=== PATIENT | male | born 1945 | race Caucasian/White ===

== ENCOUNTER 2017-01-18 22:14 | Emergency (ER) | payer MEDICARE, BC ==
[2017-01-18 22:20] VITALS: RESP 18
[2017-01-18 22:47] LABS: Basophils # (A) 0.1 k/uL (0-0.2); Basophils % (A) 1 %; CH 29.3; CHCM 33.9; Eosinophils # (A) 0.2 k/uL (0-0.7); Eosinophils % (A) 2 %; HCT 46.4 % (39.0-53.0); HDW 2.79; HGB 15.4 gm/dL (13.0-17.5); Luc # (Auto) 0.33; Luc % (Auto) 4; Lymphocytes # (A) 2.9 k/uL (1.0-4.8); Lymphocytes % (A) 33 %; MCH 28.8 pg (25.0-35.0); MCHC 33.2 g/dL (31.0-37.0); MCV 86.6 fL (80.0-100.0); Mean Platelet Volume 7.1; Monocytes # (A) 0.7 k/uL (0-1.0); Monocytes % (A) 7 %; Neutrophils # (A) 4.7 k/uL (1.3-7.7); Neutrophils % (A) 53 %; RBC 5.36 m/uL (4.30-5.90); RDW 15.3 % (11.5-15.5); WBC 8.9 k/uL (3.8-10.6); WBC (Perox) 9.35
--- NOTE | 2017-01-18 22:48 | ED ---
Chest Pain HPI - General Chief Complaint: Chest Pain Stated Complaint: Chest Pain Time Seen by Provider: 01/18/17 22:14 Source: patient, EMS, RN notes reviewed Mode of arrival: EMS Limitations: no limitations - History of Present Illness Initial Comments: This is a 71-year-old male was brought in by EMS with complaints of chest pain started 20 minutes ago he also was found have a blood pressure about 90/50. He was seen at [facility] recently diagnosed with pleurisy he does complain some 4/10 chest pain he complains of weakness chills and sweats. Slight cough. He is a prior history of heart disease with bypass surgery his other complaints at this time MD Complaint: chest pain, other - Related Data Home Medications Medication Instructions Recorded Confirmed Aspirin 81 mg PO DAILY 07/25/15 09/21/16 Cholecalciferol [Vitamin D3] 2,000 unit PO DAILY 09/24/15 09/21/16 Pravastatin Sodium [Pravachol] 40 mg PO HS 09/24/15 09/21/16 Albuterol Nebulized [Ventolin 2.5 mg INHALATION RT-TID PRN 02/26/16 09/21/16 Nebulized] HYDROcodone/APAP 10-325MG [[place] 1 tab PO TID PRN 08/06/16 09/21/16 10-325] Metoprolol Succinate (ER) [Toprol 25 mg PO DAILY 08/06/16 09/21/16 XL] Albuterol Inhaler [Ventolin Hfa 2 puff INHALATION RT-QID PRN 09/21/16 09/21/16 Inhaler] Losartan [Cozaar] 25 mg PO DAILY 09/21/16 09/21/16 Previous Rx's Medication Instructions Recorded ARIPiprazole [Abilify] 10 mg PO DAILY #30 tab 08/25/16 Donepezil [Aricept] 10 mg PO HS #30 tab 08/25/16 Isosorbide Mononitrate ER [Imdur] 30 mg PO DAILY tab.er.24h 08/25/16 Memantine [Namenda] 5 mg PO BID #60 tab 08/25/16 Sertraline [Zoloft] 100 mg PO DAILY #30 tab 08/25/16 traMADol HCl [Ultram] 50 mg PO Q6H PRN #20 tab 09/21/16 Allergies Allergy/AdvReac Type Severity Reaction Status Date / Time adhesive Allergy Rash/Hives Verified 09/21/16 16:57 Review of Systems ROS Statement: Those systems with pertinent positive or pertinent negative responses have been documented in the HPI. ROS Other: All systems not noted in ROS Statement are negative. EKG Findings - EKG Results: EKG: interpreted by RUPERT, sinus rhythm (Sinus rhythm rate of 53 appear of 01 66 QRS duration 92 QT/QTC of 446/418 nonspecific T-wave configuration) Past Medical History Past Medical History: Atrial Fibrillation, Coronary Artery Disease (CAD), Chest Pain / Angina, Heart Failure, CVA/TIA, Dementia, GERD/Reflux, GI Bleed, Hyperlipidemia, Hypertension, Memory Impairment, Myocardial Infarction (SD), Sleep Apnea/CPAP/BIPAP, Syncope Additional Past Medical History / Comment(s): coronary artery disease with multivessel involvement status post three-vessel bypass surgery, previous myocardial infarctions, previous paroxysmal atrial fibrillation, CVA in 2012 along with previous TIAs, nephrolithiasis, chronic back pain, hemorrhoids, 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 Chronic back pain, gastroparesis, degenerative arthritis , impaired hearing, chronic diastolic heart failure, vascular dementia, esophageal stricture with previous history of esophageal dilatation, history of C. diff colitis occurred postoperatively forced the patient was hospitalized in June 2015. Last Myocardial Infarction Date:: 2014 History of Any Multi-Drug Resistant Organisms: MRSA Date of last positivie culture/infection: 02-02-12 MDRO Source:: UNK SITE OR SOURCE Past Surgical History: Back Surgery, Coronary Bypass/CABG, Heart Catheterization , Heart Catheterization With Stent, Orthopedic Surgery Additional Past Surgical History / Comment(s): BILATERAL CAROTID ENDARTERECTOMIES, HX OF PREVIOUS HEART CATHS WITH STENTS AND LAST STENT 03/2015 , EGD X3, ESOPHAGEAL DILATION X5, PLASTIC CAP LEFT ELBOW, URETHRAL STRICTURE DILATION., CABG (3 V) Past Anesthesia/Blood Transfusion Reactions: No Reported Reaction Additional Past Anesthesia/Blood Transfusion Reaction / Comment(s): Pt states he has no problem with anesthesia, old medical records indicate post op muscle weakness and slow to wake up. Pt has never recieved blood to his knowledge. Date of Last Stent Placement:: 03/22/2015 Past Psychological History: Anxiety, Depression Additional Psychological History / Comment(s): Pt resides with his of 24 yrs. He ambulates with a cane. He has sleep apnea and does not tolerate CPAP so on occasion he uses his 's home O2. He is independent with his ADLs. He has a back brace he wears on occasion. HAS HEARING AIDS AND DENTURES BUT WON' T WEAR. Smoking Status: Never smoker Past Alcohol Use History: None Reported Additional Past Alcohol Use History / Comment(s): HX OF HEAVY ALCOHOL USE. Patient states he is a nonsmoker. He denies any street drug use. He no longer drinks any alcohol. He is retired from [employer] He lives at home with his . He denies any recent travel. No pets in the home. Past Drug Use History: None Reported - Past Family History Father Family Medical History: Deep Vein Thrombosis (DVT) Additional Family Medical History / Comment(s): Father of DVT Mother Family Medical History: Cancer Additional Family Medical History / Comment(s): Mother of jaw bone cancer. General Exam - General Exam Comments Initial Comments: This is a well-developed well-nourished awake alert oriented 3 male Limitations: no limitations General appearance: alert, in no apparent distress Head exam: Present: atraumatic, normocephalic, normal inspection Eye exam: Present: normal appearance, PERRL, EOMI. Absent: scleral icterus, conjunctival injection, periorbital swelling ENT exam: Present: normal exam, mucous membranes moist Neck exam: Present: normal inspection. Absent: tenderness, meningismus, lymphadenopathy Respiratory exam: Present: decreased breath sounds. Absent: respiratory distress, wheezes, rales, rhonchi, stridor Cardiovascular Exam: Present: normal rhythm, bradycardia, normal heart sounds. Absent: systolic murmur, diastolic murmur, rubs, gallop, clicks GI/Abdominal exam: Present: soft, normal bowel sounds. Absent: distended, tenderness, guarding, rebound, rigid Extremities exam: Present: normal inspection, full ROM, normal capillary refill. Absent: tenderness, pedal edema, joint swelling, calf tenderness Back exam: Present: normal inspection Neurological exam: Present: alert, oriented X3, CN II-XII intact Psychiatric exam: Present: normal affect, normal mood Skin exam: Present: warm, dry, intact, normal color. Absent: rash Course Vital Signs 01/18/17 01/18/17 01/18/17 22:16 22:35 23:19 Temperature 97.4 F L Pulse Rate 55 L 54 L Pulse Rate [ 58 L Right Radial] Respiratory 18 18 Rate Blood Pressure 103/59 108/68 O2 Sat by Pulse 95 95 Oximetry Chest Pain MDM - MDM Patient is feeling much improved I did discuss findings with him and his family he'll be discharged she was encouraged to increase oral fluids Disposition Clinical Impression: Atypical chest pain, Dehydration, Hypotensive episode Disposition: HOME SELF-CARE Condition: Good Instructions: Costochondritis (ED), Dehydration (ED)
[2017-01-18 22:58] LABS: ALT 40 U/L (21-72); AST 24 U/L (17-59); Alkaline Phosphatase 68 U/L (38-126); Anion Gap 9 mmol/L; Blood Urea Nitrogen 27 mg/dL (9-20); Calcium 9.1 mg/dL (8.4-10.2); Carbon Dioxide 22 mmol/L (22-30); Chloride 108 mmol/L (98-107); Glucose 81 mg/dL (74-99); Magnesium 1.9 mg/dL (1.6-2.3); Non-African American GFR(MDRD) >60 (>60 ml/min/1.73 sqM); Potassium 4.1 mmol/L (3.5-5.1); Sodium 139 mmol/L (137-145); Total Bilirubin 0.4 mg/dL (0.2-1.3); Total Protein 6.6 g/dL (6.3-8.2)
[2017-01-18 22:59] LABS: INR 2.3 (<1.1); Partial Thromboplastin Time 28.1 sec (22.0-30.0); Prothrombin Time 22.5 sec (9.0-12.0)
[2017-01-18 23:12] LABS: Creatine Kinase 63 U/L (55-170)
--- NOTE | 2017-01-18 23:12 | XR ---
EXAM: XR Chest, 2 Views. CLINICAL HISTORY: Reason: Chest Pain TECHNIQUE: Frontal and lateral views of the chest. COMPARISON: Chest x-ray dated 09/21/2016 FINDINGS: Lungs: Bibasilar atelectasis. No focal consolidation to suggest pneumonia. Prominent pulmonary vasculature. Pleural space: Probable trace bilateral pleural effusion. No pneumothorax. Heart: Unremarkable. No cardiomegaly. Mediastinum: Unremarkable. Bones/joints: Evidence of prior median sternotomy. Unchanged cardiomediastinal silhouette. IMPRESSION: Bibasilar atelectasis. No focal consolidation to suggest pneumonia.
[2017-01-18 23:25] VITALS: TEMP 97.4
[2017-01-18 23:25] LABS: Creatine Kinase MB 1.3 ng/mL (0.0-2.4); Troponin I <0.012 ng/mL (0.000-0.034)
[2017-01-18] MEDS ORDERED: SODIUM CHLORIDE 0.9% 1,000 ML IV STA (23:52)
[2017-01-19 01:03] VITALS: BP 127/72; PULSE 58
== END 2017-01-19 01:17 | disposition home or self-care (01) ==
LOC: EC 22:14
DX: R07.89 Other chest pain (principal); I95.9 Hypotension, unspecified; E86.0 Dehydration; I25.10 Atherosclerotic heart disease of native coronary artery without angina pectoris; E78.5 Hyperlipidemia, unspecified; I10 Essential (primary) hypertension; I25.2 Old myocardial infarction; I50.32 Chronic diastolic (congestive) heart failure; I48.0 Paroxysmal atrial fibrillation; F03.90 Unspecified dementia, unspecified severity, without behavioral disturbance, psychotic disturbance, mood disturbance, and anxiety; Z79.82 Long term (current) use of aspirin; Z79.899 Other long term (current) drug therapy; Z91.048 Other nonmedicinal substance allergy status; Z95.5 Presence of coronary angioplasty implant and graft
CPT/HCPCS: 36415; 71020; 80053; 82550; 82553; 83735; 83880; 84484; 85025; 85610; 85730; 87502; 93005; 96360; 99285

== ENCOUNTER 2017-01-20 15:25 | Inpatient (IN) | payer BC, MEDICARE ==
[2017-01-20 16:27] LABS: Appearance,Urine Clear (Clear); Bilirubin,Urine Negative (Negative); Glucose,Urine (UA) Negative (Negative); Ketones,Urine Negative (Negative); Leukocyte Esterase,Urine Negative (Negative); Nitrite,Urine Negative (Negative); PH, Urine 5.5 (5.0-8.0); Protein,Urine Negative (Negative); Specific Gravity,Urine 1.016 (1.001-1.035); UA Billing (MACRO vs. MICRO) CHEM; Urobilinogen,Urine <2.0 mg/dL (<2.0)
--- NOTE | 2017-01-20 16:42 | ED ---
Psych HPI - General Chief Complaint: Psychiatric Symptoms Stated Complaint: suicidal Time Seen by Provider: 01/20/17 15:59 Source: patient, EMS, RN notes reviewed Mode of arrival: EMS Limitations: no limitations - History of Present Illness Initial Comments: 71-year-old male presents emergency Department chief complaint of depression. Patient states that he is severely depressed in which it only started today. Patient states he has a plan to shoot himself with a gun though he does not own a gun. Patient states he does have a history of depression. Patient denies any anxiety. Patient denies any illicit drug use or any alcohol use. She has no physical complaints. - Related Data Home Medications Medication Instructions Recorded Confirmed Losartan [Cozaar] 25 mg PO DAILY 09/21/16 01/20/17 Aspirin EC [Ecotrin Low Dose] 81 mg PO DAILY 01/20/17 01/20/17 Metoprolol Tartrate [Lopressor] 25 mg PO BID 01/20/17 01/20/17 Polymyxin B-Trimethoprim Ophth 1 drop BOTH EYES TID 01/20/17 01/20/17 [Polytrim Opthalmic] Warfarin [Coumadin] 2.5 mg PO DAILY 01/20/17 01/20/17 Warfarin [Coumadin] 5 mg PO DAILY 01/20/17 01/20/17 Previous Rx's Medication Instructions Recorded Isosorbide Mononitrate ER [Imdur] 30 mg PO DAILY tab.er.24h 08/25/16 Memantine [Namenda] 5 mg PO BID #60 tab 08/25/16 Sertraline [Zoloft] 100 mg PO DAILY #30 tab 08/25/16 Allergies Allergy/AdvReac Type Severity Reaction Status Date / Time adhesive Allergy Rash/Hives Verified 01/20/17 16:36 Review of Systems ROS Statement: Those systems with pertinent positive or pertinent negative responses have been documented in the HPI. ROS Other: All systems not noted in ROS Statement are negative. Past Medical History Past Medical History: Atrial Fibrillation, Coronary Artery Disease (CAD), Chest Pain / Angina, Heart Failure, CVA/TIA, Dementia, GERD/Reflux, GI Bleed, Hyperlipidemia, Hypertension, Memory Impairment, Myocardial Infarction (OR), Sleep Apnea/CPAP/BIPAP, Syncope Additional Past Medical History / Comment(s): coronary artery disease with multivessel involvement status post three-vessel bypass surgery, previous myocardial infarctions, previous paroxysmal atrial fibrillation, CVA in 2012 along with previous TIAs, nephrolithiasis, chronic back pain, hemorrhoids, 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 Chronic back pain, gastroparesis, degenerative arthritis , impaired hearing, chronic diastolic heart failure, vascular dementia, esophageal stricture with previous history of esophageal dilatation, history of C. diff colitis occurred postoperatively forced the patient was hospitalized in June 2015. Last Myocardial Infarction Date:: 2014 History of Any Multi-Drug Resistant Organisms: MRSA Date of last positivie culture/infection: 02-02-12 MDRO Source:: UNK SITE OR SOURCE Past Surgical History: Back Surgery, Coronary Bypass/CABG, Heart Catheterization , Heart Catheterization With Stent, Orthopedic Surgery Additional Past Surgical History / Comment(s): BILATERAL CAROTID ENDARTERECTOMIES, HX OF PREVIOUS HEART CATHS WITH STENTS AND LAST STENT 03/2015 , EGD X3, ESOPHAGEAL DILATION X5, PLASTIC CAP LEFT ELBOW, URETHRAL STRICTURE DILATION., CABG (3 V) Past Anesthesia/Blood Transfusion Reactions: No Reported Reaction Additional Past Anesthesia/Blood Transfusion Reaction / Comment(s): Pt states he has no problem with anesthesia, old medical records indicate post op muscle weakness and slow to wake up. Pt has never recieved blood to his knowledge. Date of Last Stent Placement:: 03/22/2015 Past Psychological History: Anxiety, Depression Additional Psychological History / Comment(s): Pt resides with his of 24 yrs. He ambulates with a cane. He has sleep apnea and does not tolerate CPAP so on occasion he uses his 's home O2. He is independent with his ADLs. He has a back brace he wears on occasion. HAS HEARING AIDS AND DENTURES BUT WON' T WEAR. Smoking Status: Never smoker Past Alcohol Use History: None Reported Additional Past Alcohol Use History / Comment(s): HX OF HEAVY ALCOHOL USE. Patient states he is a nonsmoker. He denies any street drug use. He no longer drinks any alcohol. He is retired from [employer]. He lives at home with his . He denies any recent travel. No pets in the home. Past Drug Use History: None Reported - Past Family History Father Family Medical History: Deep Vein Thrombosis (DVT) Additional Family Medical History / Comment(s): Father of DVT Mother Family Medical History: Cancer Additional Family Medical History / Comment(s): Mother of jaw bone cancer. General Exam Limitations: no limitations General appearance: alert, in no apparent distress Head exam: Present: atraumatic, normocephalic, normal inspection Eye exam: Present: normal appearance, PERRL, EOMI. Absent: scleral icterus, conjunctival injection, periorbital swelling ENT exam: Present: normal oropharynx, mucous membranes moist Neck exam: Present: normal inspection, full ROM. Absent: tenderness, meningismus, lymphadenopathy Respiratory exam: Present: normal lung sounds bilaterally. Absent: respiratory distress, wheezes, rales, rhonchi, stridor Cardiovascular Exam: Present: regular rate, normal rhythm, normal heart sounds. Absent: systolic murmur, diastolic murmur, rubs, gallop, clicks Neurological exam: Present: alert, oriented X3, CN II-XII intact Psychiatric exam: Present: depressed Course Vital Signs 01/20/17 01/20/17 15:30 15:53 Temperature 98.4 F Pulse Rate 60 Respiratory 18 Rate Blood Pressure 112/66 O2 Sat by Pulse 98 Oximetry Medical Decision Making - Lab Data Result diagrams: 01/20/17 16:36 01/20/17 16:36 Lab Results 01/20/17 01/20/17 01/20/17 Range/Units 15:44 15:44 16:36 WBC 8.4 (3.8-10.6) k/uL RBC 5.55 (4.30-5.90) m/uL Hgb 16.0 (13.0-17.5) gm/dL Hct 46.2 (39.0-53.0) % MCV 83.1 (80.0-100.0) fL MCH 28.9 (25.0-35.0) pg MCHC 34.7 (31.0-37.0) g/dL RDW 15.3 (11.5-15.5) % Plt Count 251 (150-450) k/uL Neutrophils % 66 % Lymphocytes % 23 % Monocytes % 7 % Eosinophils % 2 % Basophils % 1 % Neutrophils # 5.5 (1.3-7.7) k/uL Lymphocytes # 1.9 (1.0-4.8) k/uL Monocytes # 0.6 (0-1.0) k/uL Eosinophils # 0.1 (0-0.7) k/uL Basophils # 0.1 (0-0.2) k/uL Sodium (137-145) mmol/L Potassium (3.5-5.1) mmol/L Chloride (98-107) mmol/L Carbon Dioxide (22-30) mmol/L Anion Gap mmol/L BUN (9-20) mg/dL Creatinine (0.66-1.25) mg/dL Est GFR (MDRD) Af Amer (>60 ml/min/1.73 sqM) Est GFR (MDRD) Non-Af (>60 ml/min/1.73 sqM) Glucose (74-99) mg/dL Calcium (8.4-10.2) mg/dL Total Bilirubin (0.2-1.3) mg/dL AST (17-59) U/L ALT (21-72) U/L Alkaline Phosphatase (38-126) U/L Total Protein (6.3-8.2) g/dL Albumin (3.5-5.0) g/dL Urine Color Yellow Urine Appearance Clear (Clear) Urine pH 5.5 (5.0-8.0) Ur Specific [place] 1.016 (1.001-1.035) Urine Protein Negative (Negative) Urine Glucose (UA) Negative (Negative) Urine Ketones Negative (Negative) Urine Blood Negative (Negative) Urine Nitrite Negative (Negative) Urine Bilirubin Negative (Negative) Urine Urobilinogen <2.0 (<2.0) mg/dL Ur Leukocyte Esterase Negative (Negative) Urine Opiates Screen Not Detected (NotDetected) Ur Oxycodone Screen Not Detected (NotDetected) Urine Methadone Screen Not Detected (NotDetected) Ur Propoxyphene Screen Not Detected (NotDetected) Ur Barbiturates Screen Not Detected (NotDetected) U Tricyclic Antidepress Not Detected (NotDetected) Ur Phencyclidine Scrn Not Detected (NotDetected) Ur Amphetamines Screen Not Detected (NotDetected) U Methamphetamines Scrn Not Detected (NotDetected) U Benzodiazepines Scrn Not Detected (NotDetected) Urine Cocaine Screen Not Detected (NotDetected) U Marijuana (THC) Screen Not Detected (NotDetected) 04/04/17 Range/Units 16:36 WBC (3.8-10.6) k/uL RBC (4.30-5.90) m/uL Hgb (13.0-17.5) gm/dL Hct (39.0-53.0) % MCV (80.0-100.0) fL MCH (25.0-35.0) pg MCHC (31.0-37.0) g/dL RDW (11.5-15.5) % Plt Count (150-450) k/uL Neutrophils % % Lymphocytes % % Monocytes % % Eosinophils % % Basophils % % Neutrophils # (1.3-7.7) k/uL Lymphocytes # (1.0-4.8) k/uL Monocytes # (0-1.0) k/uL Eosinophils # (0-0.7) k/uL Basophils # (0-0.2) k/uL Sodium 138 (137-145) mmol/L Potassium 4.6 (3.5-5.1) mmol/L Chloride 105 (98-107) mmol/L Carbon Dioxide 22 (22-30) mmol/L Anion Gap 11 mmol/L BUN 16 (9-20) mg/dL Creatinine 1.00 (0.66-1.25) mg/dL Est GFR (MDRD) Af Amer >60 (>60 ml/min/1.73 sqM) Est GFR (MDRD) Non-Af >60 (>60 ml/min/1.73 sqM) Glucose 87 (74-99) mg/dL Calcium 9.6 (8.4-10.2) mg/dL Total Bilirubin 0.6 (0.2-1.3) mg/dL AST 23 (17-59) U/L ALT 35 (21-72) U/L Alkaline Phosphatase 75 (38-126) U/L Total Protein 7.4 (6.3-8.2) g/dL Albumin 4.0 (3.5-5.0) g/dL Urine Color Urine Appearance (Clear) Urine pH (5.0-8.0) Ur Specific [place] (1.001-1.035) Urine Protein (Negative) Urine Glucose (UA) (Negative) Urine Ketones (Negative) Urine Blood (Negative) Urine Nitrite (Negative) Urine Bilirubin (Negative) Urine Urobilinogen (<2.0) mg/dL Ur Leukocyte Esterase (Negative) Urine Opiates Screen (NotDetected) Ur Oxycodone Screen (NotDetected) Urine Methadone Screen (NotDetected) Ur Propoxyphene Screen (NotDetected) Ur Barbiturates Screen (NotDetected) U Tricyclic Antidepress (NotDetected) Ur Phencyclidine Scrn (NotDetected) Ur Amphetamines Screen (NotDetected) U Methamphetamines Scrn (NotDetected) U Benzodiazepines Scrn (NotDetected) Urine Cocaine Screen (NotDetected) U Marijuana (THC) Screen (NotDetected) Disposition Clinical Impression: Depression, Suicidal ideation Disposition: ADMITTED IP TO THIS HOSP
[2017-01-20 16:44] LABS: Basophils # (A) 0.1 k/uL (0-0.2); Basophils % (A) 1 %; CH 29.3; CHCM 35.3; Eosinophils # (A) 0.1 k/uL (0-0.7); Eosinophils % (A) 2 %; HCT 46.2 % (39.0-53.0); HDW 2.85; Luc # (Auto) 0.21; Luc % (Auto) 3; Lymphocytes # (A) 1.9 k/uL (1.0-4.8); Lymphocytes % (A) 23 %; MCH 28.9 pg (25.0-35.0); MCHC 34.7 g/dL (31.0-37.0); MCV 83.1 fL (80.0-100.0); Mean Platelet Volume 6.7; Monocytes # (A) 0.6 k/uL (0-1.0); Monocytes % (A) 7 %; Neutrophils # (A) 5.5 k/uL (1.3-7.7); Neutrophils % (A) 66 %; RBC 5.55 m/uL (4.30-5.90); RDW 15.3 % (11.5-15.5); WBC 8.4 k/uL (3.8-10.6)
[2017-01-20 17:00] LABS: ALT 35 U/L (21-72); AST 23 U/L (17-59); Alkaline Phosphatase 75 U/L (38-126); Anion Gap 11 mmol/L; Blood Urea Nitrogen 16 mg/dL (9-20); Calcium 9.6 mg/dL (8.4-10.2); Carbon Dioxide 22 mmol/L (22-30); Chloride 105 mmol/L (98-107); Glucose 87 mg/dL (74-99); Non-African American GFR(MDRD) >60 (>60 ml/min/1.73 sqM); Potassium 4.6 mmol/L (3.5-5.1); Sodium 138 mmol/L (137-145); Total Bilirubin 0.6 mg/dL (0.2-1.3); Total Protein 7.4 g/dL (6.3-8.2)
[2017-01-20] MEDS ORDERED: MAG HYDROX/AL HYDROX/SIMETH 30 ML CUP PO PRN (20:22)
[2017-01-20] MEDS ORDERED: ACETAMINOPHEN TAB 325 MG TAB PO PRN (20:22)
[2017-01-20] MEDS ORDERED: MAGNESIUM HYDROXIDE 2,400 MG/10 ML CUP PO PRN (20:22)
[2017-01-20 20:48] LABS: INR 2.4 (<1.1); Prothrombin Time 22.9 sec (9.0-12.0)
[2017-01-20 21:00] VITALS: BMI 32.9
[2017-01-20] MEDS: METOPROLOL TARTRATE 25 MG TAB PO SCH (22:24)
[2017-01-20] MEDS: POLYMYXIN B-TRIMETHOPRIM (10,000-1) OPHTH DROPS 10 ML BTL BOTH EYES SCH (22:26)
[2017-01-21] MEDS ORDERED: WARFARIN 5 MG TAB PO SCH (09:00)
[2017-01-21] MEDS: METOPROLOL TARTRATE 25 MG TAB PO SCH ×3 (10:42→20:12)
[2017-01-21] MEDS: ISOSORBIDE MONONITRATE ER 30 MG TAB.ER.24H PO SCH (10:42)
[2017-01-21] MEDS: SERTRALINE 100 MG TAB PO SCH (10:42)
[2017-01-21] MEDS: LOSARTAN 25 MG TAB PO SCH (10:42)
[2017-01-21] MEDS: ASPIRIN 81 MG CHEW PO SCH (10:43)
[2017-01-21] MEDS: POLYMYXIN B-TRIMETHOPRIM (10,000-1) OPHTH DROPS 10 ML BTL BOTH EYES SCH ×3 (10:43→20:12)
--- NOTE | 2017-01-21 15:31 | P.HP ---
Psychiatric H&P - . H&P Date: 01/21/17 History & Physical: IDENTIFYING DATA: Mr. Ball is a 72-year-old male who has history of a major neurocognitive disorder HISTORY OF PRESENT ILLNESS: He presented to the ER voluntarily with the complaint of suicidal ideation. He told the EPS nurse "I started going haywire. " In response to questions about what he meant he replied "I just want to . " He told the triage nurse in the ER that he wants to shoot himself. He is living in a custodial home and does not have access to a gun. He was unable to explain the reason for his presentation or the hospitalization. In response to questions about the reason he came to the hospital he replied "they brought me here." When asked him who they were he replied "the people at the house." When asked about feelings of depression he replied "yes" and would or could not elaborate. When I asked about how long he had been feeling depressed, he replied "for a while." He responded "yes" to questions about thoughts of suicide and again, when I asked him about duration replied "for a while". Similarly, he replied yes to questions about auditory hallucinations, "voices". Again, when I asked about duration he replied "for a while". When I ask questions about the nature of the "voices" he replied "I don 't know" PAST PSYCHIATRIC HISTORY: This is his third admission to the psychiatric unit: The last was in August 2016. His discharge diagnoses included major depressive disorder recurrent, unspecified anxiety disorder and neurocognitive disorder. His discharge medications were: Abilify 10 mg daily, Aricept 10 mg at bedtime, Namenda 5 mg twice a day, Zoloft 100 mg per day, aspirin 1881 mg daily, vitamin D3 2000 units daily, Pravachol 40 mg at bedtime, albuterol nebulizer 2.5 inhalation 3 times a day, Cozaar 50 mg in the morning, [place] 10- 325 3 times a day as needed an Toprol-XL 25 mg daily. We referred him to professional counseling Center for continued mental health treatment. PAST MEDICAL HISTORY: He was unable to provide a medical history. According to the record, he has history of coronary artery disease with multivessel involvement, status post 3 vessel bypass surgery, history of myocardial infarctions. He has a history of paroxysmal atrial fibrillation, CVA in 2013, history of TIAs, nephrolithiasis, chronic back pain, psoriasis, esophageal stricture with dilation, shoulder pain secondary to motor cuff syndrome, obstructive sleep apnea, impaired hearing, chronic diastolic heart failure, dementia, and hypertension. ALLERGIES: NO KNOWN DRUG ALLERGIES. SUBSTANCE USE HISTORY: He denied recent alcohol or drug use. According to record he has a history of alcohol use problems. FAMILY PSYCHIATRIC/SUBSTANCE USE HISTORY: He is unaware of a family history of mental illness or substance use problems. LEGAL HISTORY: He was charged with kidnapping and secondary criminal sexual conduct on 08/06/2016. According to the [facility] court security officer, he had a C evaluation of the forensic center [facility] on 01/06/2017. Evaluation is not available for review. His 12/12/2016 jury trial was postponed to 2016. SOCIAL HISTORY: His born and raised in [place]. He believes he left school in the sixth or seventh grade. 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 He denied history of physical, sexual or emotional abuse. He is currently living in the [facility]; a custodial house for individuals with legal issues. He has been twice. He his current in 1985. He has a 15-year-old daughter who lives with his . He was unable to provide additional information about his past history. MENTAL STATUS EXAM: He presented as a disheveled and malodorous elderly male with unkept hair and romano. He made intermittent eye contact. He appeared to attend to interview. He wore a tether on his right ankle. He appeared unable to name the tether and could not explain the reason he had the tether. He had no prominent physical abnormalities. He had a distressed facial expression. He was alert and oriented to person and place. He showed slight psychomotor retardation. His gait was slow and unsteady. His speech was not spontaneous. He admitted to suicidal ideation or wishes. He denied homicidal ideation. He feels hopeless and helpless. He ruminated about feeling unwell. His thinking was concrete and associations were not fully coherent and logical. He alleged he was experiencing auditory hallucinations but did not appear to be responding to insert internal stimuli. Global impression of intellect is below average. He is not aware of his illness or has no understanding of need for mental health treatment. His total score on the Montral Cognitive Assessment was 8/27. We gave one point because he has less than a 12 year education and eliminated serial sevens because he could not perform mental arithmetic . He was unable to complete alternating [place] or copy the cube diagram. He accurately reproduce a clock but did not correctly place the hands to indicate 11:10. He had difficulty with naming, registration of the memory words, attention, language, abstraction , delayed recall and orientation. He could not remember the memory words. He was oriented only to place and city. He did not know the date, the month or year. STRENGTHS: Stable housing, supportive family WEAKNESSES: Legal problems, major neurocognitive disorder, multiple medical problems. IMPRESSION: Is a 72-year-old male who presented to unit with complaints of suicidal ideation. He is confused and disoriented. He is unable to provide a coherent history of present illness or past history. His Performance on the Montral Cognitive Assessment Is Consistent with Severe Cognitive Impairment. PRINCIPLE DIAGNOSIS: Unspecified major neurocognitive disorder, unspecified depressive disorder, legal problems, multiple medical problems RECOMMENDATION: Continue inpatient hospitalization due to level of confusion. Obtain collateral information about his level of functioning prior to admission , increase Namenda to 15 mg a day in divided doses. Obtain information from his outpatient provider as to why Aricept had been discontinued. Continue sertraline 100 mg daily; consider a trial of an alternate antidepressant and/or augmentation with a second generation antipsychotic. Continue aspirin 81 mg daily, Imdur 30 mg daily, Cozaar 25 mg daily, Lopressor 25 mg twice a day and warfarin 7.5 mg daily. pest control worker to coordinate discharge and aftercare. Encourage participation in therapeutic groups and activities as tolerated. Evaluate clinical status response to treatment on a daily basis. Allergies Allergy/AdvReac Type Severity Reaction Status Date / Time adhesive Allergy Rash/Hives Verified 01/20/17 21:02 Vital Signs Temp 98.1 F 01/21/17 06:41 Pulse 49 L 01/21/17 06:41 Resp 12 01/21/17 06:41 BP 116/56 01/21/17 06:41 Pulse Ox 95 01/20/17 20:25 Intake & Output 01/20/17 01/21/17 01/21/17 18:59 06:59 18:59 Weight 92.547 kg Laboratory Last Values WBC 8.4 k/uL (3.8-10.6) 01/20/17 16:36 RBC 5.55 m/uL (4.30-5.90) 01/20/17 16:36 Hgb 16.0 gm/dL (13.0-17.5) 01/20/17 16:36 Hct 46.2 % (39.0-53.0) 01/20/17 16:36 MCV 83.1 fL (80.0-100.0) 01/20/17 16:36 MCH 28.9 pg (25.0-35.0) 01/20/17 16:36 MCHC 34.7 g/dL (31.0-37.0) 01/20/17 16:36 RDW 15.3 % (11.5-15.5) 01/20/17 16:36 Plt Count 251 k/uL (150-450) 01/20/17 16:36 Neutrophils % 66 % 01/20/17 16:36 Lymphocytes % 23 % 01/20/17 16:36 Monocytes % 7 % 01/20/17 16:36 Eosinophils % 2 % 01/20/17 16:36 Basophils % 1 % 01/20/17 16:36 Neutrophils # 5.5 k/uL (1.3-7.7) 01/20/17 16:36 Lymphocytes # 1.9 k/uL (1.0-4.8) 01/20/17 16:36 Monocytes # 0.6 k/uL (0-1.0) 01/20/17 16:36 Eosinophils # 0.1 k/uL (0-0.7) 01/20/17 16:36 Basophils # 0.1 k/uL (0-0.2) 01/20/17 16:36 PT 22.9 sec (9.0-12.0) H 01/20/17 16:36 INR 2.4 (<1.1) 01/20/17 16:36 Sodium 138 mmol/L (137-145) 01/20/17 16:36 Potassium 4.6 mmol/L (3.5-5.1) 01/20/17 16:36 Chloride 105 mmol/L (98-107) 01/20/17 16:36 Carbon Dioxide 22 mmol/L (22-30) 01/20/17 16:36 Anion Gap 11 mmol/L 01/20/17 16:36 BUN 16 mg/dL (9-20) 01/20/17 16:36 Creatinine 1.00 mg/dL (0.66-1.25) 01/20/17 16:36 Est GFR (MDRD) Af Amer >60 (>60 ml/min/1.73 sqM) 01/20/17 16:36 Est GFR (MDRD) Non-Af >60 (>60 ml/min/1.73 sqM) 01/20/17 16:36 Glucose 87 mg/dL (74-99) 01/20/17 16:36 Calcium 9.6 mg/dL (8.4-10.2) 01/20/17 16:36 Total Bilirubin 0.6 mg/dL (0.2-1.3) 01/20/17 16:36 AST 23 U/L (17-59) 01/20/17 16:36 ALT 35 U/L (21-72) 01/20/17 16:36 Alkaline Phosphatase 75 U/L (38-126) 01/20/17 16:36 Total Protein 7.4 g/dL (6.3-8.2) 01/20/17 16:36 Albumin 4.0 g/dL (3.5-5.0) 01/20/17 16:36 TSH 0.625 mIU/L (0.465-4.680) 01/20/17 16:36 Urine Color Yellow 01/20/17 15:44 Urine Appearance Clear (Clear) 01/20/17 15:44 Urine pH 5.5 (5.0-8.0) 01/20/17 15:44 Ur Specific [place] 1.016 (1.001-1.035) 01/20/17 15:44 Urine Protein Negative (Negative) 01/20/17 15:44 Urine Glucose (UA) Negative (Negative) 01/20/17 15:44 Urine Ketones Negative (Negative) 01/20/17 15:44 Urine Blood Negative (Negative) 01/20/17 15:44 Urine Nitrite Negative (Negative) 01/20/17 15:44 Urine Bilirubin Negative (Negative) 01/20/17 15:44 Urine Urobilinogen <2.0 mg/dL (<2.0) 01/20/17 15:44 Ur Leukocyte Esterase Negative (Negative) 01/20/17 15:44 Urine Opiates Screen Not Detected (NotDetected) 01/20/17 15:44 Ur Oxycodone Screen Not Detected (NotDetected) 01/20/17 15:44 Urine Methadone Screen Not Detected (NotDetected) 01/20/17 15:44 Ur Propoxyphene Screen Not Detected (NotDetected) 01/20/17 15:44 Ur Barbiturates Screen Not Detected (NotDetected) 01/20/17 15:44 U Tricyclic Antidepress Not Detected (NotDetected) 01/20/17 15:44 Ur Phencyclidine Scrn Not Detected (NotDetected) 01/20/17 15:44 Ur Amphetamines Screen Not Detected (NotDetected) 01/20/17 15:44 U Methamphetamines Scrn Not Detected (NotDetected) 01/20/17 15:44 U Benzodiazepines Scrn Not Detected (NotDetected) 01/20/17 15:44 Urine Cocaine Screen Not Detected (NotDetected) 01/20/17 15:44 U Marijuana (THC) Screen Not Detected (NotDetected) 01/20/17 15:44 01/21/17 07:56 01/21/17 08:36 01/21/17 10:12 01/21/17 15:22
[2017-01-21] MEDS: WARFARIN 7.5 MG TAB PO SCH (17:25)
[2017-01-21] MEDS: MEMANTINE 10 MG TAB PO SCH (20:12)
--- NOTE | 2017-01-21 20:41 | CONS ---
DATE OF CONSULTATION: REASON FOR CONSULTATION: Evaluation medical evaluation in a patient admitted to the psych unit. HISTORY OF PRESENT ILLNESS: This is Mr. Ball who is actually well known to our service, was seen on multiple episodes one for chest pain; rule out acute coronary syndrome episode and the next one for exacerbation of reactive airway disease. Patient was admitted to the hospital due to suicidal ideation. The patient lives [facility] house. Apparently reported feelings of depression and thereafter trying to hurt himself. However, on admission to the hospital, patient currently denies it and states that he does not recall why he came into the hospital. Patient apparently also replied to having auditory and visual hallucinations during the evaluation by the psychiatric physician. Patient is not having any headaches, change in vision, nausea, vomiting, chest pain, difficulty in breathing. No abdominal pain or urinary urgency or frequency or diarrhea or constipation. Patient states that he has fallen; however, apparently the patient was choking, earlier in the day and just fell to the side of the chair. Past medical history includes: 1. History of hypertension. 2. Transient ischemic attack. 3. Coronary artery disease. 4. Esophageal stricture. 5. Nephrolithiasis. 6. Chronic low back pain. 7. Dementia. 8. Chronic diastolic heart failure. 9. History of depression. 10. Paroxysmal atrial fibrillation. PAST SURGICAL HISTORY: Includes coronary artery bypass graft. Esophageal stricture dilatation. ALLERGIES: No known drug allergies. SOCIAL HISTORY: Currently lives in a [facility] house. Denies any illicit drug use. Patient apparently was charged with kidnapping of a minor and has some sexual conduct and hence was incarcerated for a long period of time. FAMILY HISTORY: Not pertinent to the current admission. PHYSICAL EXAM: VITALS: Temperature 97.1, heart rate is 70, respiratory rate 20, blood pressure 125/66, saturating greater than 90% on room air. GENERALLY: Patient appears to be alert, oriented x3. HEENT: The pupils are equal and reactive to light and accommodation. HEART: S1, S2 present. No murmur appreciated. LUNGS: Good air entry. No wheezing or rhonchi noted. ABDOMINAL EXAM: Soft, nontender, no organomegaly appreciated. GENITOURINARY: No Rojas in place. EXTREMITIES: Pulses can be palpated distally. Denies any tenderness on gross palpation. SKIN: On a gross skin exam does not appear to have any purpura or any skin rashes that were noted. NEUROLOGICALLY: Grossly cranial nerves 2-12 intact. Extraocular movements intact. No focal motor or sensory deficit noted. He is able to recall 2 objects after 10 minutes. No ( ) appreciated. The patient was made to ambulate. Gait was appreciated and was within normal limits. LABORATORY DATA: Sodium 138, potassium 4.6, chloride 105, bicarb 22, BUN 16, creatinine of 1, TSH 0.625, hemoglobin is stable at 16. Patient's medications were reviewed and reconciliation was guided. ASSESSMENT: 1. Major depression with suicidal ideation. 2. History of coronary artery disease. 3. Major depression. 4. Paroxysmal atrial fibrillation. 5. Dementia. 6. Remote history of tobacco use. PLAN: Patient is medically stable. Does not require any further investigations. Treatment plan per you. Thank you for the consultation. Continue medications were reviewed. Continue all current medications. Please call with any questions or concerns.
[2017-01-22] MEDS: POLYMYXIN B-TRIMETHOPRIM (10,000-1) OPHTH DROPS 10 ML BTL BOTH EYES SCH ×3 (09:32→21:40)
[2017-01-22] MEDS: LOSARTAN 25 MG TAB PO SCH (09:33)
[2017-01-22] MEDS: ISOSORBIDE MONONITRATE ER 30 MG TAB.ER.24H PO SCH (09:33)
[2017-01-22] MEDS: MEMANTINE 5 MG TAB PO SCH (09:33)
[2017-01-22] MEDS: METOPROLOL TARTRATE 25 MG TAB PO SCH ×2 (09:33→21:40)
[2017-01-22] MEDS: ASPIRIN 81 MG CHEW PO SCH (09:33)
[2017-01-22] MEDS: SERTRALINE 100 MG TAB PO SCH (09:33)
--- NOTE | 2017-01-22 14:10 | P.PN ---
Progress Note - Text SUBJECTIVE: I reviewed the medical record, interviewed interviewed Mr. Ball and discuss his treatment and treatment plan during team meeting. He only comes out of his room for meals. He has not participated in therapeutic groups and activities. He continues allegethat he has no understanding of the reason for this hospitalization. He stated that "they brought me here." He refers to his residence ([facility]) as "the place on ." In response to questions about legal problems he replied "I don't know." He slept 5 hours last night. He has posed no management problem and displayed no episodes of behavioral dyscontrol. His been compliant with prescribed medications. OBJECTIVE: He presented as a disheveled appearing elderly male with a white hair and romano. He was laying in bed when I approached him. He voluntarily came to my office for his interview. He made limited eye contact. He appeared to have difficulty attending and concentrating on the interview. He had no prominent physical abnormalities. He had a flat facial expression. She showed psychomotor retardation. His gait was slow and unsteady. His speech was spontaneous. He had poverty of content of speech. His affect was flat. In response to questions about suicidality and homicidality he replied " I don't know." He did not appear suspicious or guarded. His thinking was concrete and associations appear to recognize. He did not appear to be responding to internal stimuli. We completed the Mini-Mental State Exam. His total score is 15 consistent with severe cognitive impairment. He was oriented to season, state, country, tone and the hospital. He thought the month was December and the year was "". He was able to register the memory words "apple, orange, umbrella". He could not perform serial sevens and could not spell the word "world" backwards. He did not remember the memory words after the distraction exercise. He was able to name a pen and a carson. He was able to repeat the phrase "no if's, ands, or but' s." He was able to follow a 3 stage command. He read the sentence "close your eyes" but could or would not obey the sentence. He was unable to write a sentence but copied the intersecting pentagrams. Medical consultation appreciated. ASSESSMENT: He is elderly man with dementia who is currently living in a house for offenders due to the nature of his felonies (kidnapping and second degree sexual misconduct). He alleges he has no understanding of his legal charges or of the reason for his presentation the hospital. He shows marked impairment in cognitive functioning PLAN: Continue inpatient hospitalization until we can clarify the reason for referral by the [facility]. Continue Namenda 5 mg a.m. and 10 mg at bedtime and sertraline 100 mg daily. Encourage participation in therapeutic groups and activities as tolerated. Evaluate clinical status and response to treatment on a daily basis.
[2017-01-22] MEDS: WARFARIN 7.5 MG TAB PO SCH (17:52)
[2017-01-22] MEDS: MEMANTINE 10 MG TAB PO SCH (21:40)
[2017-01-23 06:50] VITALS: RESP 16; TEMP 99.5
[2017-01-23] MEDS: MEMANTINE 5 MG TAB PO SCH (09:21)
[2017-01-23] MEDS: METOPROLOL TARTRATE 25 MG TAB PO SCH (09:21)
[2017-01-23] MEDS: ASPIRIN 81 MG CHEW PO SCH (09:21)
[2017-01-23] MEDS: ISOSORBIDE MONONITRATE ER 30 MG TAB.ER.24H PO SCH (09:21)
[2017-01-23] MEDS: LOSARTAN 25 MG TAB PO SCH (09:21)
[2017-01-23] MEDS: SERTRALINE 100 MG TAB PO SCH (09:21)
[2017-01-23] MEDS: POLYMYXIN B-TRIMETHOPRIM (10,000-1) OPHTH DROPS 10 ML BTL BOTH EYES SCH (09:22)
[2017-01-23 09:23] VITALS: BP 121/61; PULSE 68
--- NOTE | 2017-01-23 16:29 | P.DS ---
Providers Date of admission: 01/20/17 20:15 Attending physician: Black Encarnacion MD Consults: 01/20/17 20:22 Consult Physician Routine Consulting Provider: Bryant Elmore Consult Reason/Comments: h and p, eval and tx, pt is on coumadin. r/o metabolic disorder Do you want consulting provider notified?: Yes Primary care physician: Reed Bull - Discharge Diagnosis(es) (1) Major neurocognitive disorder Status: Chronic Priority: High (2) Suicidal ideation Status: Acute Priority: Low Hospital Course: Mr. Ball is a 72-year-old male who has history of a major neurocognitive disorder He presented to the ER voluntarily with the complaint of suicidal ideation. He told the EPS nurse "I started going haywire." In response to questions about what he meant he replied "I just want to ." He told the triage nurse in the ER that he wants to shoot himself. He is living in a shelter home and does not have access to a gun. He was unable to explain the reason for his presentation or the hospitalization. In response to questions about the reason he came to the hospital he replied "they brought me here." When asked him who they were he replied "the people at the house." When asked about feelings of depression he replied "yes" and would or could not elaborate. When I asked about how long he had been feeling depressed, he replied "for a while." He responded "yes" to questions about thoughts of suicide and again, when I asked him about duration replied "for a while". Similarly, he replied yes to questions about auditory hallucinations, "voices". Again, when I asked about duration he replied "for a while". When I ask questions about the nature of the "voices" he replied "I don 't know" This is his third admission to the psychiatric unit: The last was in August 2016. His discharge diagnoses included major depressive disorder recurrent, unspecified anxiety disorder and neurocognitive disorder. His discharge medications were: Abilify 10 mg daily, Aricept 10 mg at bedtime, Namenda 5 mg twice a day, Zoloft 100 mg per day, aspirin 1881 mg daily, vitamin D3 2000 units daily, Pravachol 40 mg at bedtime, albuterol nebulizer 2.5 inhalation 3 times a day, Cozaar 50 mg in the morning, [place] 10-325 3 times a day as needed an Toprol-XL 25 mg daily. We referred him to professional counseling Center for continued mental health treatment. He was unable to provide a medical history. According to the record, he has history of coronary artery disease with multivessel involvement, status post 3 vessel bypass surgery, history of myocardial infarctions. He has a history of paroxysmal atrial fibrillation, CVA in 2012, history of TIAs, nephrolithiasis, chronic back pain, psoriasis, esophageal stricture with dilation, shoulder pain secondary to motor cuff syndrome, obstructive sleep apnea, impaired hearing, chronic diastolic heart failure, dementia, and hypertension. He was charged with kidnapping and secondary criminal sexual conduct on 2015. According to the [facility] appellate court judge, he had a C evaluation of the [facility] on 01/06/2017. Evaluation is not available for review. His 12/12/2016 jury trial was postponed to 02/24/2017. We admitted him to the psychiatric unit under the care of this job specification writer. We provided a biopsychosocial assessment. The distributor sales consultant completed initial physical exam and medical history and diagnosed a history of coronary artery disease, paroxysmal atrial fibrillation, tobacco use disorder and dementia. We continued his outpatient medications including aspirin 80 mg daily, Imdur 30 mg daily, Cozaar 25 mg daily, Lopressor 25 mg twice a day, sertraline 100 mg daily and Coumadin 7.5 mg daily. We increased the Namenda from 5 mg twice a day to 5 mg daily and 10 mg at bedtime. He provided little information about his history. He acted as though he has no recollection as to the reason for this hospitalization, placement in a shelter house or his legal problems. He spent most of the hospitalization in his bed. He refused to participate in therapeutic groups and activities. On the day of discharge he admitted that he has legal problems but described it as "playing with a girl." In response to questions about suicidal thoughts or wishes he replied "yes" but was either unwilling or unable to described his thoughts or feelings. He demonstrated no periods of agitation, behavioral dyscontrol or self-harm during this hospitalization. We discharge him back to to the [facility]. Patient Condition at Discharge: Stable Plan - Discharge Summary New Discharge Prescriptions: Memantine [Namenda] 10 mg PO HS 30 Days Memantine [Namenda] 5 mg PO DAILY 30 Days Discharge Medication List Isosorbide Mononitrate ER [Imdur] 30 mg PO DAILY tab.er.24h 08/25/16 [Rx] Sertraline [Zoloft] 100 mg PO DAILY #30 tab 08/25/16 [Rx] Losartan [Cozaar] 25 mg PO DAILY 09/21/16 [History] Aspirin EC [Ecotrin Low Dose] 81 mg PO DAILY 01/20/17 [History] Metoprolol Tartrate [Lopressor] 25 mg PO BID 01/20/17 [History] Polymyxin B-Trimethoprim Ophth [Polytrim Opthalmic] 1 drop BOTH EYES TID [History] Warfarin [Coumadin] 2.5 mg PO DAILY 01/20/17 [History] Warfarin [Coumadin] 5 mg PO DAILY 01/20/17 [History] Memantine [Namenda] 5 mg PO DAILY 30 Days 01/23/17 [Rx] Memantine [Namenda] 10 mg PO HS 30 Days 01/23/17 [Rx] Follow up Appointment(s)/Referral(s): Intake, Intake [Other] - 01/27/17 1:30 pm Reed Bull MD [Primary Care Provider] - 1-2 days Patient Instructions/Handouts: Depression (DC), Suicide Prevention for Adults ( DC) Activity/Diet/Wound Care/Special Instructions: No alcohol or street drugs, activity as tolerated, diet as tolerated, remove firearms from home. Follow up with outpatient provider as set up at time of discharge, follow up with PCP in one to two days. Call 911 or crisis line if having thoughts of hurting himself or anyone else. Discharge Disposition: HOME SELF-CARE
== END 2017-01-23 13:50 | disposition home or self-care (01) | DRG 885 ==
LOC: EC 15:25 → 3MHU 20:15
PROVIDERS: ADMIT Psychiatry & Neurology Psychiatry; ATTEND Psychiatry & Neurology Psychiatry
DX: F33.9 Major depressive disorder, recurrent, unspecified (principal); F03.90 Unspecified dementia, unspecified severity, without behavioral disturbance, psychotic disturbance, mood disturbance, and anxiety; I50.32 Chronic diastolic (congestive) heart failure; I48.0 Paroxysmal atrial fibrillation; K31.84 Gastroparesis; I11.0 Hypertensive heart disease with heart failure; R45.851 Suicidal ideations; R44.0 Auditory hallucinations; G47.33 Obstructive sleep apnea (adult) (pediatric); I25.2 Old myocardial infarction; I25.10 Atherosclerotic heart disease of native coronary artery without angina pectoris; F41.9 Anxiety disorder, unspecified; K21.9 Gastro-esophageal reflux disease without esophagitis; E78.5 Hyperlipidemia, unspecified; H91.90 Unspecified hearing loss, unspecified ear; G89.29 Other chronic pain; M19.90 Unspecified osteoarthritis, unspecified site; L40.9 Psoriasis, unspecified; M75.100 Unspecified rotator cuff tear or rupture of unspecified shoulder, not specified as traumatic; R29.90 Unspecified symptoms and signs involving the nervous system; K64.9 Unspecified hemorrhoids; M54.5 Low back pain; Z79.82 Long term (current) use of aspirin; Z65.3 Problems related to other legal circumstances; Z79.899 Other long term (current) drug therapy; Z79.01 Long term (current) use of anticoagulants; Z80.8 Family history of malignant neoplasm of other organs or systems; Z95.1 Presence of aortocoronary bypass graft; Z86.73 Personal history of transient ischemic attack (TIA), and cerebral infarction without residual deficits; Z87.442 Personal history of urinary calculi; Z86.19 Personal history of other infectious and parasitic diseases; Z87.891 Personal history of nicotine dependence; Z86.79 Personal history of other diseases of the circulatory system; Z87.19 Personal history of other diseases of the digestive system; Z86.14 Personal history of Methicillin resistant Staphylococcus aureus infection; Z87.448 Personal history of other diseases of urinary system; Z91.81 History of falling; Z87.09 Personal history of other diseases of the respiratory system; Z95.5 Presence of coronary angioplasty implant and graft; Z97.4 Presence of external hearing-aid; Z82.49 Family history of ischemic heart disease and other diseases of the circulatory system
CPT/HCPCS: 36415; 80053; 80306; 81003; 82075; 84443; 85025; 85610; 99285

== ENCOUNTER 2017-02-03 14:01 | Inpatient (IN) | payer MEDICARE ==
--- NOTE | 2017-02-03 14:13 | ED ---
General Adult HPI - General Chief complaint: Dizziness Stated complaint: dizziness, chest pain Time Seen by Provider: 02/03/17 14:06 Source: patient, EMS, RN notes reviewed, old records reviewed Mode of arrival: EMS Limitations: no limitations - History of Present Illness Initial comments: This is a 9-year-old male here for evaluation. Patient's significant history of heart disease or CAD and stents, patient is on Coumadin. Patient coming in status post cardiac event, patient had chest pain with syncopal event. Shortness of breath and still complaining of chest pain at this time. Chest pain as heaviness and left side no radiation. No fevers cough or congestion. - Related Data Home Medications Medication Instructions Recorded Confirmed Losartan [Cozaar] 25 mg PO DAILY 09/21/16 02/03/17 Aspirin EC [Ecotrin Low Dose] 81 mg PO DAILY 01/20/17 02/03/17 Metoprolol Tartrate [Lopressor] 25 mg PO BID 01/20/17 02/03/17 Warfarin [Coumadin] 2.5 mg PO DAILY 01/20/17 02/03/17 Warfarin [Coumadin] 5 mg PO DAILY 01/20/17 02/03/17 Previous Rx's Medication Instructions Recorded Isosorbide Mononitrate ER [Imdur] 30 mg PO DAILY tab.er.24h 08/25/16 Sertraline [Zoloft] 100 mg PO DAILY #30 tab 08/25/16 Memantine [Namenda] 5 mg PO DAILY 30 Days 01/23/17 Memantine [Namenda] 10 mg PO HS 30 Days 01/23/17 Allergies Allergy/AdvReac Type Severity Reaction Status Date / Time adhesive Allergy Rash/Hives Verified 01/20/17 21:02 Review of Systems ROS Statement: Those systems with pertinent positive or pertinent negative responses have been documented in the HPI. ROS Other: All systems not noted in ROS Statement are negative. Past Medical History Past Medical History: Atrial Fibrillation, Coronary Artery Disease (CAD), Chest Pain / Angina, Heart Failure, CVA/TIA, Dementia, GERD/Reflux, GI Bleed, Hyperlipidemia, Hypertension, Memory Impairment, Myocardial Infarction ([place]), Sleep Apnea/CPAP/BIPAP, Syncope Additional Past Medical History / Comment(s): coronary artery disease with multivessel involvement status post three-vessel bypass surgery, previous myocardial infarctions, previous paroxysmal atrial fibrillation, CVA in 2012 along with previous TIAs, nephrolithiasis, chronic back pain, hemorrhoids, 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 Chronic back pain, gastroparesis, degenerative arthritis , impaired hearing, chronic diastolic heart failure, vascular dementia, esophageal stricture with previous history of esophageal dilatation, history of C. diff colitis occurred postoperatively forced the patient was hospitalized in June 2015. Last Myocardial Infarction Date:: 2014 History of Any Multi-Drug Resistant Organisms: MRSA Date of last positivie culture/infection: 02-02-12 MDRO Source:: UNK SITE OR SOURCE Past Surgical History: Back Surgery, Coronary Bypass/CABG, Heart Catheterization , Heart Catheterization With Stent, Orthopedic Surgery Additional Past Surgical History / Comment(s): BILATERAL CAROTID ENDARTERECTOMIES, HX OF PREVIOUS HEART CATHS WITH STENTS AND LAST STENT 03/2015 , EGD X3, ESOPHAGEAL DILATION X5, PLASTIC CAP LEFT ELBOW, URETHRAL STRICTURE DILATION., CABG (3 V) Past Anesthesia/Blood Transfusion Reactions: No Reported Reaction Additional Past Anesthesia/Blood Transfusion Reaction / Comment(s): Pt states he has no problem with anesthesia, old medical records indicate post op muscle weakness and slow to wake up. Pt has never recieved blood to his knowledge. Date of Last Stent Placement:: 03/22/2015 Past Psychological History: Anxiety, Depression Additional Psychological History / Comment(s): Pt resides with his of 24 yrs. He ambulates with a cane. He has sleep apnea and does not tolerate CPAP so on occasion he uses his 's home O2. He is independent with his ADLs. He has a back brace he wears on occasion. HAS HEARING AIDS AND DENTURES BUT WON' T WEAR. Smoking Status: Never smoker Past Alcohol Use History: None Reported Additional Past Alcohol Use History / Comment(s): HX OF HEAVY ALCOHOL USE. Patient states he is a nonsmoker. He denies any street drug use. He no longer drinks any alcohol. He is retired from [employer]. He lives at home with his . He denies any recent travel. No pets in the home. Past Drug Use History: None Reported - Past Family History Father Family Medical History: Deep Vein Thrombosis (DVT) Additional Family Medical History / Comment(s): Father of DVT Mother Family Medical History: Cancer Additional Family Medical History / Comment(s): Mother of jaw bone cancer. General Exam Limitations: no limitations General appearance: alert, in no apparent distress Head exam: Present: atraumatic, normocephalic, normal inspection Eye exam: Present: normal appearance, PERRL, EOMI. Absent: scleral icterus, conjunctival injection, periorbital swelling ENT exam: Present: normal exam, mucous membranes moist Neck exam: Present: normal inspection. Absent: tenderness, meningismus, lymphadenopathy Respiratory exam: Present: normal lung sounds bilaterally. Absent: respiratory distress, wheezes, rales, rhonchi, stridor Cardiovascular Exam: Present: regular rate, normal rhythm, normal heart sounds. Absent: systolic murmur, diastolic murmur, rubs, gallop, clicks GI/Abdominal exam: Present: soft, normal bowel sounds. Absent: distended, tenderness, guarding, rebound, rigid Extremities exam: Present: normal inspection, full ROM, normal capillary refill. Absent: tenderness, pedal edema, joint swelling, calf tenderness Back exam: Present: normal inspection Neurological exam: Present: alert, oriented X3, CN II-XII intact Psychiatric exam: Present: normal affect, normal mood Skin exam: Present: warm, dry, intact, normal color. 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 Chest pain there is also syncopal event. Patient continued with chest pain at this time. Patient is supratherapeutic INR, so risk factors of DVT or lobe PE are low. Patient will be admitted for cardiac observation, monitoring of syncopal. Cardiology evaluation, telemetry and serial troponins - Lab Data Result diagrams: 02/03/17 14:20 02/03/17 14:20 Lab Results 02/03/17 02/03/17 02/03/17 Range/Units 14:15 14:20 14:20 WBC 7.5 (3.8-10.6) k/uL RBC 5.73 (4.30-5.90) m/uL Hgb 16.6 (13.0-17.5) gm/dL Hct 49.3 (39.0-53.0) % MCV 86.1 (80.0-100.0) fL MCH 28.9 (25.0-35.0) pg MCHC 33.6 (31.0-37.0) g/dL RDW 15.5 (11.5-15.5) % Plt Count 260 (150-450) k/uL Neutrophils % 71 % Lymphocytes % 19 % Monocytes % 6 % Eosinophils % 2 % Basophils % 1 % Neutrophils # 5.4 (1.3-7.7) k/uL Lymphocytes # 1.4 (1.0-4.8) k/uL Monocytes # 0.4 (0-1.0) k/uL Eosinophils # 0.1 (0-0.7) k/uL Basophils # 0.1 (0-0.2) k/uL PT (9.0-12.0) sec INR (<1.1) APTT (22.0-30.0) sec Sodium (137-145) mmol/L Potassium (3.5-5.1) mmol/L Chloride (98-107) mmol/L Carbon Dioxide (22-30) mmol/L Anion Gap mmol/L BUN (9-20) mg/dL Creatinine (0.66-1.25) mg/dL Est GFR (MDRD) Af Amer (>60 ml/min/1.73 sqM) Est GFR (MDRD) Non-Af (>60 ml/min/1.73 sqM) Glucose (74-99) mg/dL POC Glucose (mg/dL) 107 H (75-99) mg/dL POC Glu Insulation Engineman ID Marcelle Avila Calcium (8.4-10.2) mg/dL Total Bilirubin (0.2-1.3) mg/dL AST (17-59) U/L ALT (21-72) U/L Alkaline Phosphatase (38-126) U/L Total Creatine Kinase 91 (55-170) U/L CK-MB (CK-2) 1.9 (0.0-2.4) ng/mL CK-MB (CK-2) Rel Index 2.1 Troponin I <0.012 (0.000-0.034) ng/mL Total Protein (6.3-8.2) g/dL Albumin (3.5-5.0) g/dL Urine Color Urine Appearance (Clear) Urine pH (5.0-8.0) Ur Specific Scheller (1.001-1.035) Urine Protein (Negative) Urine Glucose (UA) (Negative) Urine Ketones (Negative) Urine Blood (Negative) Urine Nitrite (Negative) Urine Bilirubin (Negative) Urine Urobilinogen (<2.0) mg/dL Ur Leukocyte Esterase (Negative) Urine RBC (0-5) /hpf Urine Bacteria (None) /hpf Hyaline Casts (0-2) /lpf Urine Mucus (None) /hpf 02/03/17 02/03/17 02/03/17 Range/Units 14:20 14:20 14:35 WBC (3.8-10.6) k/uL RBC (4.30-5.90) m/uL Hgb (13.0-17.5) gm/dL Hct (39.0-53.0) % MCV (80.0-100.0) fL MCH (25.0-35.0) pg MCHC (31.0-37.0) g/dL RDW (11.5-15.5) % Plt Count (150-450) k/uL Neutrophils % % Lymphocytes % % Monocytes % % Eosinophils % % Basophils % % Neutrophils # (1.3-7.7) k/uL Lymphocytes # (1.0-4.8) k/uL Monocytes # (0-1.0) k/uL Eosinophils # (0-0.7) k/uL Basophils # (0-0.2) k/uL PT 75.9 H (9.0-12.0) sec INR 7.4 H* (<1.1) APTT 46.3 H (22.0-30.0) sec Sodium 141 (137-145) mmol/L Potassium 4.7 (3.5-5.1) mmol/L Chloride 107 (98-107) mmol/L Carbon Dioxide 23 (22-30) mmol/L Anion Gap 11 mmol/L BUN 18 (9-20) mg/dL Creatinine 1.06 (0.66-1.25) mg/dL Est GFR (MDRD) Af Amer >60 (>60 ml/min/1.73 sqM) Est GFR (MDRD) Non-Af >60 (>60 ml/min/1.73 sqM) Glucose 95 (74-99) mg/dL POC Glucose (mg/dL) (75-99) mg/dL POC Glu Insulation Engineman ID Calcium 9.6 (8.4-10.2) mg/dL Total Bilirubin 0.6 (0.2-1.3) mg/dL AST 22 (17-59) U/L ALT 34 (21-72) U/L Alkaline Phosphatase 62 (38-126) U/L Total Creatine Kinase (55-170) U/L CK-MB (CK-2) (0.0-2.4) ng/mL CK-MB (CK-2) Rel Index Troponin I (0.000-0.034) ng/mL Total Protein 7.2 (6.3-8.2) g/dL Albumin 3.9 (3.5-5.0) g/dL Urine Color Yellow Urine Appearance Clear (Clear) Urine pH 5.5 (5.0-8.0) Ur Specific Scheller 1.021 (1.001-1.035) Urine Protein 1+ H (Negative) Urine Glucose (UA) Negative (Negative) Urine Ketones Negative (Negative) Urine Blood Negative (Negative) Urine Nitrite Negative (Negative) Urine Bilirubin Negative (Negative) Urine Urobilinogen 2.0 (<2.0) mg/dL Ur Leukocyte Esterase Negative (Negative) Urine RBC 1 (0-5) /hpf Urine Bacteria Rare H (None) /hpf Hyaline Casts 3 H (0-2) /lpf Urine Mucus Few H (None) /hpf - Radiology Data Radiology results: report reviewed (Chest x-ray is negative for acute disease), image reviewed Critical Care Time Critical Care Time: Yes Total Critical Care Time: 32 Disposition Clinical Impression: Chest pain Disposition: ADMITTED IP TO THIS [facility] Condition: Fair Referrals: Reed Bull MD [Primary Care Provider] - 1-2 days
[2017-02-03 14:17] LABS: Glucose,Whole Blood 107 mg/dL (75-99)
[2017-02-03 14:42] LABS: Basophils # (A) 0.1 k/uL (0-0.2); Basophils % (A) 1 %; CH 29.3; CHCM 34.1; Eosinophils # (A) 0.1 k/uL (0-0.7); Eosinophils % (A) 2 %; HCT 49.3 % (39.0-53.0); HDW 2.78; HGB 16.6 gm/dL (13.0-17.5); Luc # (Auto) 0.16; Luc % (Auto) 2; Lymphocytes # (A) 1.4 k/uL (1.0-4.8); Lymphocytes % (A) 19 %; MCH 28.9 pg (25.0-35.0); MCHC 33.6 g/dL (31.0-37.0); MCV 86.1 fL (80.0-100.0); Mean Platelet Volume 7.1; Monocytes # (A) 0.4 k/uL (0-1.0); Monocytes % (A) 6 %; Neutrophils # (A) 5.4 k/uL (1.3-7.7); Neutrophils % (A) 71 %; RBC 5.73 m/uL (4.30-5.90); RDW 15.5 % (11.5-15.5); WBC 7.5 k/uL (3.8-10.6); WBC (Perox) 7.48
[2017-02-03 14:46] LABS: Appearance,Urine Clear (Clear); Bacteria,Urine Rare /hpf; Bilirubin,Urine Negative (Negative); Glucose,Urine (UA) Negative (Negative); Ketones,Urine Negative (Negative); Leukocyte Esterase,Urine Negative (Negative); Mucus,Urine Few /hpf; Nitrite,Urine Negative (Negative); PH, Urine 5.5 (5.0-8.0); Particle Count 4830; Protein,Urine 1+ (Negative); RBC,Urine 1 /hpf (0-5); Specific Gravity,Urine 1.021 (1.001-1.035); UA Billing (MACRO vs. MICRO) MICRO
[2017-02-03 14:48] LABS: Partial Thromboplastin Time 46.3 sec (22.0-30.0); Prothrombin Time 75.9 sec (9.0-12.0)
[2017-02-03 14:53] LABS: ALT 34 U/L (21-72); AST 22 U/L (17-59); Alkaline Phosphatase 62 U/L (38-126); Anion Gap 11 mmol/L; Blood Urea Nitrogen 18 mg/dL (9-20); Calcium 9.6 mg/dL (8.4-10.2); Carbon Dioxide 23 mmol/L (22-30); Chloride 107 mmol/L (98-107); Glucose 95 mg/dL (74-99); INR 7.4 (<1.1); Non-African American GFR(MDRD) >60 (>60 ml/min/1.73 sqM); Potassium 4.7 mmol/L (3.5-5.1); Sodium 141 mmol/L (137-145); Total Bilirubin 0.6 mg/dL (0.2-1.3); Total Protein 7.2 g/dL (6.3-8.2)
[2017-02-03 15:00] LABS: Creatine Kinase 91 U/L (55-170)
[2017-02-03 15:13] LABS: Creatine Kinase MB 1.9 ng/mL (0.0-2.4); Troponin I <0.012 ng/mL (0.000-0.034)
[2017-02-03] MEDS ORDERED: MORPHINE SULFATE 2 MG/ML SYRINGE IVP STA (15:32)
[2017-02-03] MEDS ORDERED: MORPHINE SULFATE 4 MG/ML SYRINGE IV PRN (15:32)
[2017-02-03] MEDS ORDERED: ASPIRIN 81 MG CHEW PO STA (15:32)
[2017-02-03] MEDS ORDERED: NITROGLYCERIN SL TABS 0.4 MG TAB SUBLINGUAL PRN (15:32)
--- NOTE | 2017-02-03 15:55 | XR ---
EXAMINATION TYPE: XR chest 2V DATE OF EXAM: 02/03/2017 3:51 PM HISTORY: Shortness of breath. COMPARISON: January 18, 2017 TECHNIQUE: 2 view of the chest is submitted. FINDINGS: Demonstrated are scattered senescent parenchymal change. There is no evidence for focal infiltrate. The heart is stable. Hilar and mediastinal structures are within normal limits. Degenerative changes are seen of the dorsal spine. IMPRESSION: 1. Chronic changes without evidence for acute pulmonary disease.
[2017-02-03] MEDS ORDERED: IBUPROFEN 600 MG TAB PO STA (18:42)
[2017-02-03 20:00] VITALS: BMI 35.2
[2017-02-03 20:54] LABS: Creatine Kinase 80 U/L (55-170)
[2017-02-03 21:08] LABS: Creatine Kinase MB 1.3 ng/mL (0.0-2.4); Troponin I <0.012 ng/mL (0.000-0.034)
[2017-02-03] MEDS: MEMANTINE 10 MG TAB PO SCH (21:17)
[2017-02-03] MEDS: METOPROLOL TARTRATE 25 MG TAB PO SCH (21:17)
[2017-02-04 02:34] LABS: Creatine Kinase 59 U/L (55-170)
[2017-02-04 02:47] LABS: Creatine Kinase MB 1.1 ng/mL (0.0-2.4); Troponin I <0.012 ng/mL (0.000-0.034)
[2017-02-04 07:18] LABS: Cholesterol 263 mg/dL (<200); HDL Cholesterol 39 mg/dL (40-60); Triglycerides 309 mg/dL (<150)
[2017-02-04 07:23] LABS: INR 3.2 (<1.1); Prothrombin Time 31.3 sec (9.0-12.0)
[2017-02-04] MEDS: LOSARTAN 25 MG TAB PO SCH (08:17)
[2017-02-04] MEDS: SERTRALINE 100 MG TAB PO SCH (08:17)
[2017-02-04] MEDS: ASPIRIN 81 MG CHEW PO SCH (08:17)
[2017-02-04] MEDS: MEMANTINE 5 MG TAB PO SCH (08:17)
[2017-02-04] MEDS: METOPROLOL TARTRATE 25 MG TAB PO SCH ×2 (08:17→20:21)
[2017-02-04] MEDS: ISOSORBIDE MONONITRATE ER 30 MG TAB.ER.24H PO SCH (08:18)
[2017-02-04 08:50] LABS: ALT 37 U/L (21-72); AST 28 U/L (17-59); Alkaline Phosphatase 55 U/L (38-126); Anion Gap 12 mmol/L; Blood Urea Nitrogen 27 mg/dL (9-20); Calcium 9.6 mg/dL (8.4-10.2); Carbon Dioxide 19 mmol/L (22-30); Chloride 110 mmol/L (98-107); Glucose 84 mg/dL (74-99); Magnesium 1.8 mg/dL (1.6-2.3); Non-African American GFR(MDRD) >60 (>60 ml/min/1.73 sqM); Potassium 4.7 mmol/L (3.5-5.1); Sodium 141 mmol/L (137-145); Total Bilirubin 0.7 mg/dL (0.2-1.3)
[2017-02-04] MEDS ORDERED: ASPIRIN 325 MG TAB PO SCH (09:00)
--- NOTE | 2017-02-04 09:43 | P.CRDCN ---
History of Present Illness Consult date: 02/04/17 Requesting physician: Bryant Elmore Consult reason: sycope Chief complaint: Chest pain and syncope History of present illness: This is a 72-year-old gentleman with known history of coronary artery disease and prior bypass surgery as well as PCI's. He follows with Dr. Roth in the office. He has not seen him for quite some time according to the patient. Patient also has history of hypertension, hyperlipidemia, prior CVA, paroxysmal atrial fibrillation, sleep apnea, Alzheimer's disease. 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 EMS was called and the patient was brought to the emergency room for further evaluation. Blood pressure on arrival by EMS was 100/80 with a heart rate of 6098% on room air. According to the EMS note patient was complaining of vertigo no mention of syncope. EKG on arrival here showed a sinus bradycardia with lateral T-wave inversion. Chest x-ray reveals chronic changes without evidence for acute pulmonary disease. The pressure on arrival here 104/55, heart rate 54, 98% on 2 L of oxygen. CBC normal. INR on admission 7.4, 3.2 this morning. Potassium 4.7, BUN 27, creatinine 1.2. Troponins are negative 3. ABC level I.8, cholesterol 263, triglycerides 309, LDL 162 and HDL 39. According to the patient, he is currently chest pain-free, denies dizziness. Past Medical History Past Medical History: Atrial Fibrillation, Coronary Artery Disease (CAD), Chest Pain / Angina, Heart Failure, CVA/TIA, Dementia, GERD/Reflux, GI Bleed, Hyperlipidemia, Hypertension, Memory Impairment, Myocardial Infarction ([place]), Sleep Apnea/CPAP/BIPAP, Syncope Additional Past Medical History / Comment(s): coronary artery disease with multivessel involvement status post three-vessel bypass surgery, previous myocardial infarctions, previous paroxysmal atrial fibrillation, CVA in 2012 along with previous TIAs, nephrolithiasis, chronic back pain, hemorrhoids, 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 Chronic back pain, gastroparesis, degenerative arthritis , impaired hearing, chronic diastolic heart failure, vascular dementia, esophageal stricture with previous history of esophageal dilatation, history of C. diff colitis occurred postoperatively forced the patient was hospitalized in June 2015. Last Myocardial Infarction Date:: 2014 History of Any Multi-Drug Resistant Organisms: MRSA Date of last positivie culture/infection: 02-02-12 MDRO Source:: UNK SITE OR SOURCE Past Surgical History: Back Surgery, Coronary Bypass/CABG, Heart Catheterization , Heart Catheterization With Stent, Orthopedic Surgery Additional Past Surgical History / Comment(s): BILATERAL CAROTID ENDARTERECTOMIES, HX OF PREVIOUS HEART CATHS WITH STENTS AND LAST STENT 03/2015 , EGD X3, ESOPHAGEAL DILATION X5, PLASTIC CAP LEFT ELBOW, URETHRAL STRICTURE DILATION., CABG (3 V) Past Anesthesia/Blood Transfusion Reactions: No Reported Reaction Additional Past Anesthesia/Blood Transfusion Reaction / Comment(s): Pt states he has no problem with anesthesia, old medical records indicate post op muscle weakness and slow to wake up. Pt has never recieved blood to his knowledge. Date of Last Stent Placement:: 03/22/2015 Past Psychological History: Anxiety, Depression Additional Psychological History / Comment(s): Lives @ [facility] He ambulates with walker. He has sleep apnea and does not tolerate CPAP so on occasion he uses his 's home O2. He is independent with his ADLs. He has a back brace he wears on occasion. HAS HEARING AIDS AND DENTURES BUT WON'T WEAR. Smoking Status: Never smoker Past Alcohol Use History: None Reported Additional Past Alcohol Use History / Comment(s): HX OF HEAVY ALCOHOL USE. Patient states he is a nonsmoker. He denies any street drug use. He no longer drinks any alcohol. He is retired from [employer]. Lives at [facility] Past Drug Use History: None Reported - Past Family History Father Family Medical History: Deep Vein Thrombosis (DVT) Additional Family Medical History / Comment(s): Father of DVT Mother Family Medical History: Cancer Additional Family Medical History / Comment(s): Mother of jaw bone cancer. Medications and Allergies Home Medications Medication Instructions Recorded Confirmed Type Losartan [Cozaar] 25 mg PO DAILY 09/21/16 02/03/17 History Aspirin EC [Ecotrin Low Dose] 81 mg PO DAILY 01/20/17 02/03/17 History Metoprolol Tartrate [Lopressor] 25 mg PO BID 01/20/17 02/03/17 History Warfarin [Coumadin] 2.5 mg PO DAILY 01/20/17 02/03/17 History Warfarin [Coumadin] 5 mg PO DAILY 01/20/17 02/03/17 History Allergies Allergy/AdvReac Type Severity Reaction Status Date / Time adhesive Allergy Rash/Hives Verified 01/20/17 21:02 Physical Exam Vitals: Vital Signs Temp Pulse Pulse Resp BP BP Pulse Ox 02/04/17 08:00 97 F L 55 L 18 129/74 96 02/04/17 04:00 97.2 F L 61 18 134/72 96 02/04/17 00:00 74 18 115/59 96 02/03/17 20:00 97.0 F L 65 18 108/58 95 02/03/17 18:34 78 14 136/74 96 02/03/17 18:25 97.4 F L 55 L 14 123/73 96 02/03/17 15:46 97.4 F L 55 L 18 123/73 96 Intake and Output 02/03/17 02/04/17 02/04/17 22:59 06:59 14:59 Intake Total 237 Balance 237 Intake: Oral 237 Other: # Voids 1 1 Weight 105.233 kg 92.9 kg PHYSICAL EXAMINATION: HEENT: Head is atraumatic, normocephalic. Pupils equal, round. Neck is supple. There is no elevated jugular venous pressure. HEART EXAMINATION: Heart S1, S2 normal. No murmur or gallop heard. CHEST EXAMINATION: Lungs are clear to auscultation and precussion. No chest wall tenderness is noted on palpation or with deep breathing. ABDOMEN: Soft, nontender. Bowel sounds are heard. No organomegaly noted. EXTREMITIES: 2+ peripheral pulses with no evidence of peripheral edema and no calf tenderness noted. Tether in place to right lower leg NEUROLOGIC patient is awake, alert and oriented -3. . Results 02/03/17 14:20 02/04/17 06:14 Cardiac Enzymes 02/03/17 02/04/17 02/04/17 Range/Units 20:14 01:57 06:14 AST 28 (17-59) U/L CK-MB (CK-2) 1.3 1.1 (0.0-2.4) ng/mL Troponin I <0.012 <0.012 (0.000-0.034) ng/mL Coagulation 02/04/17 Range/Units 06:56 PT 31.3 H (9.0-12.0) sec Lipids 02/04/17 Range/Units 06:14 Triglycerides 309 H (<150) mg/dL Cholesterol 263 H (<200) mg/dL HDL Cholesterol 39 L (40-60) mg/dL Comprehensive Metabolic Panel 02/04/17 Range/Units 06:14 Sodium 141 (137-145) mmol/L Potassium 4.7 (3.5-5.1) mmol/L Chloride 110 H (98-107) mmol/L Carbon Dioxide 19 L (22-30) mmol/L BUN 27 H (9-20) mg/dL Creatinine 1.12 (0.66-1.25) mg/dL Glucose 84 (74-99) mg/dL Calcium 9.6 (8.4-10.2) mg/dL AST 28 (17-59) U/L ALT 37 (21-72) U/L Alkaline Phosphatase 55 (38-126) U/L Total Protein 7.0 (6.3-8.2) g/dL Albumin 3.7 (3.5-5.0) g/dL Current Medications Generic Name Dose Route Start Last Admin Trade Name Luann PRN Reason Stop Dose Admin Aspirin 81 mg 02/04/17 09:00 02/04/17 08:17 Aspirin PO 81 mg DAILY RAHEL Administration Isosorbide Mononitrate 30 mg 02/04/17 09:00 02/04/17 08:18 Imdur PO 30 mg DAILY RAHEL Administration Losartan Potassium 25 mg 02/04/17 09:00 02/04/17 08:17 Cozaar PO 25 mg DAILY RAHEL Administration Memantine 5 mg 02/04/17 09:00 02/04/17 08:17 Namenda PO 5 mg DAILY RAHEL Administration Memantine 10 mg 02/03/17 21:00 02/03/17 21:17 Namenda PO 10 mg HS RAHEL Administration Metoprolol Tartrate 25 mg 02/03/17 21:00 02/04/17 08:17 Lopressor PO 25 mg BID RAHEL Administration Morphine Sulfate 4 mg 02/03/17 15:32 Morphine Sulfate (Inj) IV Q4HR PRN Chest Pain Nitroglycerin 0.4 mg 02/03/17 15:32 Nitrostat SUBLINGUAL Q5M PRN Chest Pain Sertraline HCl 100 mg 02/04/17 09:00 02/04/17 08:17 Zoloft PO 100 mg DAILY RAHEL Administration Intake and Output 02/03/17 02/04/17 02/04/17 22:59 06:59 14:59 Intake Total 237 Balance 237 Intake: Oral 237 Other: # Voids 1 1 Weight 105.233 kg 92.9 kg 02/04/17 06:14 EKG Interpretations (text) EKG shows sinus bradycardia with lateral T-wave inversion Assessment and Plan Plan: Assessment and plan #1 chest pain, atypical for acute coronary syndrome. Troponins negative 3. EKG shows sinus bradycardia with lateral T-wave inversion. #2 dizziness with near syncopal spell. Blood pressure 100/60 on EMS arrival, heart rate in the 50s. #3 known history of coronary artery disease with prior bypass surgery in 2014 with a CASTRO to the LAD, saphenous vein graft to the obtuse marginal and saphenous vein graft to the RCA. Prior PCI. #4 hypertension #5 COPD #6 history of smoking #7 hyperlipidemia #8 dementia #9 paroxysmal atrial fibrillation on Coumadin #10 elevated INR, 7.4 on admission, 3.2 this morning. #11 history of CVA Plan We will obtain an echocardiogram with Doppler study. Check orthostatic heart rate and blood pressure every shift. Monitor for any tachycardia or bradycardia arrhythmias. We will also get Dr. Roth's last note from the office to see when the patient last had a stress test performed. Blood pressure and heart rate stable, heart rate in the 60s this morning blood pressure 128/70. Continue current medications. Further recommendations to follow. DNP note has been reviewed, I agree with a documented findings and plan of care. Patient was seen and examined.
[2017-02-04] MEDS ORDERED: DOBUTamine DRIP for NUC MED 500 MG in DEXTROSE/WATER 1 250ML.BAG IV ONE (10:53)
[2017-02-04] MEDS ORDERED: REGADENOSON 0.4 MG/5 ML SYRINGE IV ONE (11:52)
[2017-02-04] MEDS ORDERED: AMINOPHYLLINE 500 MG/20 ML VIAL IV PRN (11:52)
--- NOTE | 2017-02-04 11:56 | ECHOF ---
Referral Reason:chest pain MEASUREMENTS -------- HEIGHT: 172.7 cm WEIGHT: 92.5 kg BP: 129/74 RVIDd: 3.5 cm (< 3.3) IVSd: 1.4 cm (0.6 - 1.1) LVIDd: 4.7 cm (3.9 - 5.3) LVPWd: 1.4 cm (0.6 - 1.1) IVSs: 1.7 cm LVIDs: 3.5 cm LVPWs: 1.5 cm LA Diam: 3.9 cm (2.7 - 3.8) LAESV Index (A-L): 18.86 ml/m Ao Diam: 3.4 cm (2.0 - 3.7) AV Cusp: 2.1 cm (1.5 - 2.6) LA Diam: 3.5 cm (2.7 - 3.8) MV EXCURSION: 17.701 mm (> 18.000) MV EF SLOPE: 64 mm/s (70 - 150) EPSS: 0.9 cm MV E Desmond: 0.70 m/s MV DecT: 410 ms MV A Desmond: 0.41 m/s MV E/A Ratio: 1.71 RAP: 5.00 mmHg RVSP: 41.40 mmHg FINDINGS -------- Resting bradycardia (HR<60bpm). This was a technically good study. There is moderate concentric left ventricular hypertrophy. Overall left ventricular systolic function is low-normal with, an EF between 50 - 55 %. 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 Normal LA size by volume 22+/-6 ml/m2. The right atrium is normal in size. Aortic valve is trileaflet and is mildly thickened. Mild mitral annular calcification present. Mild mitral regurgitation is present. Mild tricuspid regurgitation present. There is mild pulmonary hypertension. The right ventricular systolic pressure, as measured by Doppler, is 41.40mmHg. Trace/mild (physiologic) pulmonic regurgitation. The aortic root size is normal. Normal inferior vena cava with normal inspiratory collapse consistent with estimated right atrial pressure of 5 mmHg. There is no pericardial effusion. CONCLUSIONS -------- 1. Resting bradycardia (HR<60bpm). 2. Mild mitral annular calcification present. 3. Mild mitral regurgitation is present. 4. Mild tricuspid regurgitation present. 5. There is mild pulmonary hypertension. 6. The right ventricular systolic pressure, as measured by Doppler, is 41.40mmHg. 7. Trace/mild (physiologic) pulmonic regurgitation. 8. The aortic root size is normal. 9. Normal inferior vena cava with normal inspiratory collapse consistent with estimated right atrial pressure of 5 mmHg. 10. There is no pericardial effusion. 11. This was a technically good study. 12. There is moderate concentric left ventricular hypertrophy. 13. Overall left ventricular systolic function is low-normal with, an EF between 50 - 55 %. 14. 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 The right ventricle is mildly enlarged. 16. Normal LA size by volume 22+/-6 ml/m2. 17. The right atrium is normal in size. 18. Aortic valve is trileaflet and is mildly thickened. SPREADER: Jayy Gabriel RDCS
[2017-02-04] MEDS ORDERED: PHYTONADIONE 5 MG in SODIUM CHLORIDE 0.9% 50 ML IVPB STA (13:42)
--- NOTE | 2017-02-04 13:59 | ECHOS ---
DATE OF SERVICE: 02/04/2017 AGE: 72Y SEX: M HT: 68" WT: 204 lbs. Protocol Felix: Others: Dobutamine Stress Echo Stage: 3 Dur. of Exercise: 11:00 *Heart Rate Blood Pressure *Rest: 54 Rest: 119/66 * *Max. Achieved: 81 Maximum BP: 119/66 85% PMHR: 128 100% PMHR: 150 *METS: - INDICATIONS: Chest pain. MEDICATIONS: - CLINICAL INFORMATION: Chest pain, shortness of breath, palpitations, previous bypass surgery, hypertension, CVA, CABG. Resting ECG shows sinus bradycardia, rate of 54 beats per minute, IN interval is 0.16, QRS is 0.08, normal ST-T waves. Utilizing a standard dobutamine protocol giving 24 mg without increasing the heart rate to no more than 81 beats per minute which is less than 62% predicted maximum heart rate. Because of his glaucoma we could not use atropine. At that point dobutamine stress echo was discontinued and even though pictures were taken before and after, because of that, this is an incomplete study. Convert him to Lexiscan. ASSESSMENT: Incomplete dobutamine stress echo because of inability for the heart rate to go up, not reaching more than 81 beats per minute which is less than 63% of predicted maximum heart rate, but no wall motion abnormalities are detected at this low heart rate incomplete study.
--- NOTE | 2017-02-04 14:30 | NM ---
EXAMINATION TYPE: NM stress lexiscan cardiolite DATE OF EXAM: 02/04/2017 2:08 PM COMPARISON: Prior nuclear medicine Lexiscan stress test November 18, 2011 and July 18, 2013 HISTORY: Syncope per order. History of hypertension, prior stroke, hypercholesteremia, and prior cath eterization with angioplasty presents with chest pain and shortness of breath per patient. TECHNIQUE: After the intravenous administration of 11.0 mCi Tc 99m Sestamibi - Cardiolite resting SP ECT images acquired 45 minutes post injection. The patient received 0.4mg Lexiscan, 25.0 mCi Tc 99m Sestamibi - Stress images obtained [address] injection FINDINGS: Review of stress and rest SPECT images demonstrates diminished uptake on stress and rest SPECT images involving the left lateral ventricular wall consistent with interval infarction. Seen best on polar maps involving the posterior portion of the left lateral ventricular wall there is some diminished up take at stress images versus rest images most prominent near the base and mid segment in which areas of acute ischemia cannot be excluded. Gated analysis shows hypokinesis to akinesis of this area with overall ejection fraction of 48%. IMPRESSION: Interval large infarct involving left lateral ventricular wall since 2012 with ned-infarct ischemia involving posterior portion of lateral ventricular wall extending to inferior portion not excluded. N eed to further investigate by direct catheter angiogram should be based on EKG and clinical correlati on
--- NOTE | 2017-02-04 15:23 | EST ---
DATE OF SERVICE: 02/04/2017 AGE: 72Y SEX: M HT: 68" WT: 204 lbs. Lexiscan Cardiolite Stress Test *Heart Rate Blood Pressure *Rest: 57 Rest: 80/54 * *Max. Achieved: 79 Maximum BP: 80/54 85% PMHR: 128 100% PMHR: 150 *METS: - INDICATIONS: Chest pain. MEDICATIONS: - Because of the incomplete dobutamine echo, Lexiscan was ordered to assess for any ischemia. CLINICAL INFORMATION: Chest pain, shortness of breath, previous bypass surgery, CVA, hypertension. Resting ECG shows sinus rhythm, rate of 57 beats per minute, FL interval of 0.16, QRS 0.08, normal ST--T waves with frequent PVCs. Utilizing a standard Felix protocol, Lexiscan was given IV push followed by serial EKGs without any chest pain or pressure or ST segment deviations indicative of ischemia. Patient tolerated the procedures very well. IMPRESSION: 1. Baseline rhythm is sinus with normal FL interval, normal QRS, frequent premature ventricular contractions. 2. Negative Lexiscan Cardiolite study. 3. Nuclear scintigrams to follow from Radiology Department.
--- NOTE | 2017-02-04 18:09 | HP ---
DATE OF ADMISSION: 02/03/2017 PRESENTING COMPLAINT: Chest pain. HISTORY OF PRESENTING COMPLAINT: This is a 72-year-old patient of Dr. Reed Bull with a rather extensive medical history. Patient's chronic stable medical conditions include congestive heart failure, GERD, hyperlipidemia, Alzheimer's dementia. Patient has known coronary artery disease. Patient presented with 10 minutes of left-sided chest pressure, some shortness of breath, some dizziness. Some perspiration. Patient not the most detailed historian and decided to come in for the same. REVIEW OF SYSTEMS: CONSTITUTIONAL: None. HEENT: Decreased hearing. RESPIRATORY: As above. CARDIOVASCULAR: As above. GASTROINTESTINAL: None. GENITOURINARY: None. MUSCULOSKELETAL: Pain in the joints. Dermatological: None. HEMATOLOGICAL: None. LYMPHATICS: None. PSYCHIATRY: Forgetful. NEUROLOGICAL: None. PAST MEDICAL HISTORY: CHF, stroke in the left frontal lobe, coronary artery disease, GERD, hard of hearing, hyperlipidemia, hypertension, DJD, Alzheimer's dementia, esophageal obstructions and dilatation, left rotator cuff injury, obstructive sleep apnea, does not use CPAP, kidney stones, hemorrhoids. PAST SURGICAL HISTORY: Coronary artery bypass, cardiac cath with stent, bilateral carotid endarterectomy, esophageal dilatation, ureteral stricture dilatation. SOCIAL HISTORY: Patient is . Does not use CPAP. Did drink heavy alcohol in the past. Currently in a supervised setting. Has a tether on. FAMILY HISTORY: DVT. ALLERGIES: Adhesive. HOME MEDICATIONS: 1. Coumadin alternating 5 and 2.5. 2. Zoloft 100 mg p.o. daily. 3. Lopressor 25 p.o. b.i.d. 4. Namenda 10 mg q.h.s. 5 mg in the morning. 5. Cozaar 25 mg p.o. daily. 6. Imdur ER 30 mg p.o. daily. 7. Aspirin 81 mg p.o. daily. ALLERGIES: ADHESIVES. On examination vital signs on the ER, temperature 97, pulse 84, respirate 18, blood pressure 104/55, pulse ox 98% on 2 liters. GENERAL APPEARANCE: Well built, somewhat disheveled, lying in bed, tired appearing. EYES: Pupils equal. Conjunctivae normal. HEENT: Oral cavity normal. NECK: JVD not raised. Mass not palpable. RESPIRATORY: Effort normal. LUNGS: Decreased breath sounds. CARDIOVASCULAR: First and second sounds normal. No edema. ABDOMEN: Soft, nontender. Liver and spleen not palpable. LYMPHATIC: No lymph nodes palpable in the neck and axilla. PSYCHIATRY: Patient able to carry out simple conversation, slow. MUSCULOSKELETAL: Evidence of osteoarthritis in multiple joints. Extremities: The patient has a tether on the left ankle. INVESTIGATIONS: White count 7.5, hemoglobin 16.6, INR 7.4. Potassium 4.7. BUN 18, creatinine 1.06. LDL 162, UA negative. EKG: Nonspecific changes. INR is 7.4. ASSESSMENT: 1. Coumadin toxicity, no evidence of bleeding. 2. Possible angina in a patient with known coronary artery disease. 3. Chronic obstructive pulmonary disease. 4. Alzheimer's dementia late onset, no behavioral disturbance. 5. Chronic congestive heart failure from diastolic dysfunction, ejection fraction 55% to 60%, underlying coronary artery disease. 6. Coronary artery disease with prior history of coronary artery bypass and stent. 7. Gastroesophageal reflux disease. 8. Hyperlipidemia. 9. Degenerative joint disease. 10. Sleep apnea. 11. Lumbar degenerative joint disease. 12. History of esophageal stricture with dilatation. 13. Also patient has a diagnosis of major neuro cognitive disorder. PLAN: Cardiology will be consulted, serial cardiac enzymes are in place. Home medications resumed. Patient's Coumadin will be held. We will give a very small dose of vitamin K as there is no evidence of bleeding. Care was discussed with the patient. Copy to Dr. Bull.
[2017-02-04] MEDS: MEMANTINE 10 MG TAB PO SCH (20:21)
[2017-02-05 06:24] LABS: INR 2.4 (<1.1); Prothrombin Time 22.8 sec (9.0-12.0)
[2017-02-05] MEDS: ISOSORBIDE MONONITRATE ER 30 MG TAB.ER.24H PO SCH (11:09)
[2017-02-05] MEDS: ASPIRIN 81 MG CHEW PO SCH (11:09)
[2017-02-05] MEDS: LOSARTAN 25 MG TAB PO SCH (11:09)
[2017-02-05] MEDS ORDERED: PHYTONADIONE ORAL 5 MG/5 ML ORAL.SYRG PO STA (11:09)
[2017-02-05] MEDS ORDERED: SODIUM CHLORIDE 0.9% 1,000 ML in EMPTY BAG 1 BAG IV ONE (11:10)
[2017-02-05] MEDS: MEMANTINE 5 MG TAB PO SCH (11:10)
[2017-02-05] MEDS ORDERED: ALPRAZolam 0.5 MG TAB PO PRN (11:10)
[2017-02-05] MEDS: METOPROLOL TARTRATE 25 MG TAB PO SCH ×2 (11:10→21:07)
[2017-02-05] MEDS ORDERED: NITROGLYCERIN SL TABS 0.4 MG TAB SUBLINGUAL PRN (11:10)
[2017-02-05] MEDS ORDERED: ASPIRIN 325 MG TAB PO STA (11:10)
[2017-02-05] MEDS: SERTRALINE 100 MG TAB PO SCH (11:10)
[2017-02-05] MEDS ORDERED: ALPRAZolam 0.25 MG TAB PO PRN (11:10)
[2017-02-05] MEDS ORDERED: ATORVASTATIN 80 MG TAB PO STA (11:10)
--- NOTE | 2017-02-05 16:17 | P.PN ---
Subjective Principal diagnosis: Chest pain This is a 72-year-old gentleman with known history of coronary artery disease and prior bypass surgery as well as PCI's. He follows with Dr. Roth in the office. He has not seen him for quite some time according to the patient. Patient also has history of hypertension, hyperlipidemia, prior CVA, paroxysmal atrial fibrillation, sleep apnea, Alzheimer's disease. 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 EMS was called and the patient was brought to the emergency room for further evaluation. Blood pressure on arrival by EMS was 100/80 with a heart rate of 6098% on room air. According to the EMS note patient was complaining of vertigo no mention of syncope. EKG on arrival here showed a sinus bradycardia with lateral T-wave inversion. underwent a Lexiscan stress test which suggested the possibility of reversible ischemia. For this reason he is scheduled tomorrow to undergo cardiac catheterization by Dr. Roth. The risks and benefits were explained to the patient in detail. Objective - Vital Signs Vital signs: Vital Signs Temp 97 F L 02/05/17 12:00 Pulse 70 02/05/17 12:00 Resp 16 02/05/17 12:00 BP 127/73 02/05/17 12:00 Pulse Ox 96 02/05/17 12:00 Intake & Output 02/04/17 02/05/17 02/05/17 18:59 06:59 18:59 Intake Total 1010 200 Balance 1010 200 Weight 91.6 kg Intake: Oral 1010 200 Other: Voiding Method Toilet # Voids 1 2 - Exam PHYSICAL EXAMINATION: HEENT: Head is atraumatic, normocephalic. Pupils equal, round. Neck is supple. There is no elevated jugular venous pressure. HEART EXAMINATION: Heart S1, S2 normal. No murmur or gallop heard. CHEST EXAMINATION: Lungs are clear to auscultation and precussion. No chest wall tenderness is noted on palpation or with deep breathing. ABDOMEN: Soft, nontender. Bowel sounds are heard. No organomegaly noted. EXTREMITIES: 2+ peripheral pulses with no evidence of peripheral edema and no calf tenderness noted. NEUROLOGIC patient is awake, alert and oriented -3. . - Labs CBC & Chem 7: 02/03/17 14:20 02/04/17 06:14 Labs: Abnormal Lab Results - Last 24 Hours (Table) 02/05/17 Range/Units 05:53 PT 22.8 H (9.0-12.0) sec Assessment and Plan Plan: Assessment and plan #1 chest pain, atypical for acute coronary syndrome. Troponins negative 3. EKG shows sinus bradycardia with lateral T-wave inversion. Adore scan shows evidence of ned Infarct ischemia. #2 dizziness with near syncopal spell. Blood pressure 100/60 on EMS arrival, heart rate in the 50s. #3 known history of coronary artery disease with prior bypass surgery in 2014 with a CASTRO to the LAD, saphenous vein graft to the obtuse marginal and saphenous vein graft to the RCA. Prior PCI. #4 hypertension #5 COPD #6 history of smoking #7 hyperlipidemia #8 dementia #9 paroxysmal atrial fibrillation on Coumadin #10 elevated INR, 7.4 on admission, 3.2 this morning. #11 history of CVA Plan From cardiology's perspective, patient will be scheduled to undergo cardiac catheterization tomorrow by Dr. Roth. The risks and the benefits were explained to the patient in detail. DNP note has been reviewed, I agree with a documented findings and plan of care. Patient was seen and examined.
[2017-02-05] MEDS: MEMANTINE 10 MG TAB PO SCH (21:07)
[2017-02-06 06:08] LABS: Glucose,Whole Blood 86 mg/dL (75-99)
[2017-02-06 06:32] LABS: INR 1.3 (<1.1); Prothrombin Time 13.1 sec (9.0-12.0)
[2017-02-06] MEDS: METOPROLOL TARTRATE 25 MG TAB PO SCH ×2 (06:42→21:44)
[2017-02-06] MEDS: SERTRALINE 100 MG TAB PO SCH (06:42)
[2017-02-06] MEDS: ISOSORBIDE MONONITRATE ER 30 MG TAB.ER.24H PO SCH (06:43)
[2017-02-06] MEDS: LOSARTAN 25 MG TAB PO SCH (06:43)
[2017-02-06] MEDS: ASPIRIN 81 MG CHEW PO SCH (06:43)
[2017-02-06] MEDS: ATORVASTATIN 40 MG TAB PO SCH (06:43)
[2017-02-06] MEDS: MEMANTINE 5 MG TAB PO SCH (06:43)
--- NOTE | 2017-02-06 08:38 | PN ---
DATE OF SERVICE: 02/05/2017 PRESENTING COMPLAINT: Chest history. INTERVAL HISTORY: This patient has rather extensive medical history with known coronary artery disease, presented with chest pain. Patient had a nuclear stress test that showed reversible ischemia. The patient is now being scheduled for cardiac catheterization tomorrow. Patient is currently chest pain free, lying in bed, has been up to the bathroom. Review of systems done for constitutional, cardiovascular, GI, pulmonary; relevant findings as above. Current medications are reviewed that include aspirin, Lopressor. On examination, temperature 96.9, pulse 84, respirations 16, blood pressure 104/57, pulse ox 95% on room air. GENERAL APPEARANCE: Lying in bed, comfortable. EYES: Pupils equal. Conjunctivae normal. NECK: JVD not raised. Mass not palpable. RESPIRATORY: Effort normal. LUNGS: Decreased breath sounds. CARDIOVASCULAR: First and second sounds normal. No edema. LOWER EXTREMITY: Tenderness present. PSYCHIATRY: Currently awake. Answering simple questions. INVESTIGATIONS: Nuclear stress test is positive. INR 2.4. LDL 162. ASSESSMENT: 1. Unstable angina with known coronary artery disease, now with positive stress test. Patient to undergo cardiac catheterization tomorrow. 2. Coumadin toxicity on presentation. INR is coming down. 3. Chronic obstructive pulmonary disease. 4. Alzheimer's dementia, late onset, no behavioral disturbance. 5. Chronic congestive heart failure from diastolic dysfunction. Ejection fraction 55 to 60%, with underlying coronary artery disease. 6. Coronary artery disease with prior history of coronary artery bypass and stent. 7. Gastroesophageal reflux disease. 8. Hyperlipidemia. 9. Degenerative joint disease. 10. Sleep apnea. 11. Lumbar degenerative joint disease. 12. History of esophageal stricture with dilatation. 13. Major neurocognitive disorder. PLAN: Continue current medication and treatment plan. Await cardiac catheterization tomorrow. Will add Lipitor.
[2017-02-06] MEDS ORDERED: IV FLUID CONTINUATION 1,000 ML IV ONE (12:12)
--- NOTE | 2017-02-06 16:08 | P.PN ---
Subjective Principal diagnosis: Chest pains and positive stress test This patient was admitted with some chest pain. He had a nuclear stress test that was positive for ischemia in the lateral wall. Patient was initially scheduled to have Cardec catheterization. Patient was evaluated by Dr. TIFFANIE Moreno who reviewed the nuclear stress test. He also discussed the findings with the patient. This ischemia in the lateral wall is felt to be secondary to total occluded OM branch. He didn't feel patient needed a cardiac catheterization. This was canceled and patient was sent upstairs. The plan is to send him sylvie if Patient remained stable within next 24 hours Objective - Vital Signs Vital signs: Vital Signs Temp 97.3 F L 02/06/17 14:51 Pulse 62 02/06/17 14:53 Resp 18 02/06/17 14:53 BP 119/62 02/06/17 14:51 Pulse Ox 95 02/06/17 14:51 Intake & Output 02/05/17 02/06/17 02/06/17 18:59 06:59 18:59 Intake Total 222 368 958 Output Total 200 Balance 222 368 758 Weight 92.4 kg Intake: Intake, IV Titration 368 736 Amount Sodium Chloride 0.9% 1, 368 736 000 ml In Empty Bag 1 bag @ 1 ML/KG/HR 91.6 mls/hr IV .[id number] ONE Rx#: [id number] Oral 222 222 Output: Urine 200 Other: Voiding Method Toilet # Voids 1 # Bowel Movements 1 - Labs CBC & Chem 7: 02/03/17 14:20 02/04/17 06:14 Labs: Abnormal Lab Results - Last 24 Hours (Table) 02/06/17 Range/Units 05:34 PT 13.1 H (9.0-12.0) sec Assessment and Plan (1) Chest pain Status: Acute (2) CAD (coronary artery disease) Status: Acute (3) CVA (cerebral infarction) Status: Acute (4) Hyperlipemia Status: Acute Plan: This patient is clinically stable. Cardiac cath was canceled by Dr. TIFFANIE Moreno. If stable will be discharged within next 24 hours. Follow with JUSTINA Moreno
[2017-02-06] MEDS ORDERED: WARFARIN 2.5 MG TAB PO SCH (18:00)
[2017-02-06] MEDS: MEMANTINE 10 MG TAB PO SCH (21:44)
--- NOTE | 2017-02-06 22:49 | PN ---
DATE OF SERVICE: 02/06/2017 PRESENTING COMPLAINT: Chest pain. INTERVAL HISTORY: This patient presented with chest pain and had a positive nuclear stress test. Cardiology at this point decided to postpone cardiac cath, the patient has no chest pain, up and about. Review of systems done for constitutional, cardiovascular, GI, pulmonary; for his above. Current medications reviewed. On examination, temperature 97.3, pulse 62, respirations 18, blood pressure 109/62, pulse ox 95% on room air. GENERAL APPEARANCE: Sitting up, comfortable. EYES: Pupils equal. Conjunctivae normal. NECK: JVD not raised. Mass not palpable. RESPIRATORY: Effort normal. LUNGS: Decreased breath sounds. CARDIOVASCULAR: First and second sounds normal. No edema. ABDOMEN: Soft, nontender. Liver and spleen not palpable. PSYCHIATRIC: Alert and oriented x3. Mood and affect, answering simple questions. INVESTIGATIONS: INR 1.3. ASSESSMENT: 1. Unstable angina with known coronary ( ) now with a positive stress test per cardiology. Cardiac catheterization done as an outpatient. 2. Coumadin toxicity hon presentation. INR is coming down. 3. Chronic obstructive pulmonary disease. 4. Alzheimer's dementia, late-onset no behavioral disturbance. 5. Chronic congestive heart failure from diastolic dysfunction; ejection fraction failure 55 to 60%, underlying coronary artery disease. 6. Coronary artery disease with prior history of coronary artery bypass and stent. 7. Gastroesophageal reflux disease. 8. Hyperlipidemia. 9. Degenerative joint disease . 10. Sleep apnea. 11. Lumbar degenerative joint disease. 12. History of esophageal stricture with dilatation. 13. Major neuro cognitive disorder. PLAN: Discussed with Dr. Mccord. Patient will have cardiac cath as an outpatient. Coumadin will be reinitiated at the lower dose of 2.5. The patient ambulated.
[2017-02-07] MEDS: MEMANTINE 5 MG TAB PO SCH (08:47)
[2017-02-07] MEDS: ASPIRIN 81 MG CHEW PO SCH (08:47)
[2017-02-07] MEDS: LOSARTAN 25 MG TAB PO SCH (08:47)
[2017-02-07] MEDS: METOPROLOL TARTRATE 25 MG TAB PO SCH (08:47)
[2017-02-07] MEDS: ISOSORBIDE MONONITRATE ER 30 MG TAB.ER.24H PO SCH (08:47)
[2017-02-07] MEDS: SERTRALINE 100 MG TAB PO SCH (08:47)
[2017-02-07] MEDS: ATORVASTATIN 40 MG TAB PO SCH (08:47)
[2017-02-07 11:35] VITALS: BP 133/75; PULSE 64; RESP 20; TEMP 97.8
--- NOTE | 2017-02-07 15:35 | P.PN ---
Subjective A 72-year-old gentleman who was admitted with chest pain. He underwent a nuclear stress test that was positive for ischemia in the lateral wall. Patient was initially scheduled to have a cardiac catheterization however this was canceled. The patient was evaluated by Dr. TIFFANIE Moreno prior to the procedure who reviewed the nuclear stress test. He also discussed the findings with the patient and his family. This ischemia in the lateral wall was felt to be secondary to total occluded OM branch. It was not felt that the patient needed a cardiac catheterization. Patient has been up ambulating and has had no complaints of chest discomfort. Anticipating going home today. Objective - Vital Signs Vital signs: Vital Signs Temp 97.8 F 02/07/17 11:34 Pulse 64 02/07/17 11:34 Resp 20 02/07/17 11:34 BP 133/75 02/07/17 11:34 Pulse Ox 99 02/07/17 11:34 Intake & Output 02/06/17 02/07/17 02/07/17 18:59 06:59 18:59 Intake Total 1300 300 680 Output Total 200 1200 Balance 1100 300 -520 Weight 91.7 kg 91.7 kg Intake: IV 120 IV Fluid Continuation 1, 120 000 ml As IV .STK-MED ONE Rx#:[id number] Intake, IV Titration 736 Amount Sodium Chloride 0.9% 1, 736 000 ml In Empty Bag 1 bag @ 1 ML/KG/HR 91.6 mls/hr IV .[id number] ONE Rx#: [id number] Oral 444 300 680 Output: Urine 200 1200 Other: Voiding Method Toilet Toilet Toilet # Voids 1 2 1 # Bowel Movements 1 1 - Exam PHYSICAL EXAMINATION: HEENT: Head is atraumatic, normocephalic. Pupils equal, round. Neck is supple. There is no elevated jugular venous pressure. HEART EXAMINATION: Heart sounds regular, S1 and S2 normal. No murmur or gallop heard. CHEST EXAMINATION: Lungs are clear to auscultation and precussion. No chest wall tenderness is noted on palpation or with deep breathing. ABDOMEN: Soft, nontender. Bowel sounds are heard. No organomegaly noted. EXTREMITIES: 2+ peripheral pulses with no evidence of peripheral edema and no calf tenderness noted. NEUROLOGIC patient is awake, alert and oriented x3. . - Labs CBC & Chem 7: 02/03/17 14:20 02/04/17 06:14 Assessment and Plan Plan: Assessment and plan #1 chest pain #2 CAD #3 CVA #4 hyperlipidemia From cardiology standpoint, patient is clinically stable for discharge. Patient will follow-up with Dr. Roth as an outpatient. VESSEL ENGINEER note has been reviewed, I agree with a documented findings and plan of care. Patient was seen and examined.
--- NOTE | 2017-02-08 13:54 | DS ---
DATE OF ADMISSION: 02/03/2017 DATE OF DISCHARGE: 02/07/2017 FINAL DIAGNOSES: 1. Unstable angina in a patient with known coronary artery disease and a positive stress test. 2. Coumadin toxicity on presentation. 3. Chronic obstructive pulmonary disease. 4. Alzheimer dementia, late onset type. 5. Chronic congestive heart failure from diastolic dysfunction, ejection fraction 55% to 60%. Underlying coronary artery disease. 6. Coronary artery disease with prior history of coronary artery bypass and stent. 7. Gastroesophageal reflux disease. 8. Hyperlipidemia. 9. Degenerative joint disease. 10. Sleep apnea. 11. Lumbar degenerative joint disease. 12. History of esophageal stricture with dilatation. 13. Major cognitive disorder. 14. Tether in the lower extremity. HOSPITAL COURSE: This patient presents with chest pain. Troponins were negative. The patient underwent nuclear stress that showed some reversibility. Cardiology at this point decided to manage patient medically and follow the patient as an outpatient. On the day of discharge, the patient is up and about in the hallway. No chest pain. Patient's INR was 7.4 on admission, did come down. Coumadin has been resumed. Patient's LDL is 162. On examination, LUNGS: Slightly decreased breath sounds. CARDIOVASCULAR: First and second sounds normal. A 2-D echo shows preserved LV function. MEDICATIONS: 1. Zoloft 100 mg p.o. daily. 2. Cozaar 25 mg p.o. daily. 3. Aspirin 81 mg p.o. daily. 4. Lopressor 25 mg p.o. b.i.d. 5. Coumadin 2.5 mg daily. 6. Namenda 5 mg p.o. daily, 10 mg q.h.s. 7. Lipitor 40 mg p.o. daily. 8. Imdur 60 mg daily, new dose. 9. Nitrostat 0.5 q.5 p.r.n. Follow up with Dr. Catarina Moreno in 1 week. Follow up with Dr. Reed Bull in 3 days. Discharge planning more than 35 minutes. ADDENDUM: I did discuss with Jocelyn from cardiology today. Patient okay to be discharged.
== END 2017-02-07 15:29 | disposition home or self-care (01) | DRG 303 ==
LOC: EC 14:01 → 3OBS 15:34 → OBSVTOIN 16:22 → 6SEL 16:28
PROVIDERS: ADMIT Hospitalist; ATTEND Hospitalist
DX: I25.110 Atherosclerotic heart disease of native coronary artery with unstable angina pectoris (principal); I11.0 Hypertensive heart disease with heart failure; G30.1 Alzheimer's disease with late onset; I50.32 Chronic diastolic (congestive) heart failure; F01.50 Vascular dementia, unspecified severity, without behavioral disturbance, psychotic disturbance, mood disturbance, and anxiety; E78.5 Hyperlipidemia, unspecified; F02.80 Dementia in other diseases classified elsewhere, unspecified severity, without behavioral disturbance, psychotic disturbance, mood disturbance, and anxiety; F09 Unspecified mental disorder due to known physiological condition; G47.33 Obstructive sleep apnea (adult) (pediatric); H91.90 Unspecified hearing loss, unspecified ear; I25.2 Old myocardial infarction; I48.0 Paroxysmal atrial fibrillation; J44.9 Chronic obstructive pulmonary disease, unspecified; K21.9 Gastro-esophageal reflux disease without esophagitis; K31.84 Gastroparesis; M19.90 Unspecified osteoarthritis, unspecified site; M47.816 Spondylosis without myelopathy or radiculopathy, lumbar region; R79.1 Abnormal coagulation profile; T45.511A Poisoning by anticoagulants, accidental (unintentional), initial encounter; Z79.01 Long term (current) use of anticoagulants; Z79.82 Long term (current) use of aspirin; Z79.899 Other long term (current) drug therapy; Z80.8 Family history of malignant neoplasm of other organs or systems; Z86.19 Personal history of other infectious and parasitic diseases; Z86.73 Personal history of transient ischemic attack (TIA), and cerebral infarction without residual deficits; Z87.442 Personal history of urinary calculi; Z87.891 Personal history of nicotine dependence; Z95.1 Presence of aortocoronary bypass graft; Z95.5 Presence of coronary angioplasty implant and graft
CPT/HCPCS: 36415; 71020; 78452; 80053; 80061; 81001; 82550; 82553; 83735; 84484; 85025; 85610; 85730; 93005; 93017; 93306; 93350; 96374; 99291

== ENCOUNTER 2017-03-12 08:35 | Observation (INO) | payer MEDICARE ==
[2017-03-12] MEDS ORDERED: ASPIRIN 81 MG CHEW PO STA (08:47)
[2017-03-12] MEDS ORDERED: NITROGLYCERIN SL TABS 0.4 MG TAB SUBLINGUAL STA (08:47)
--- NOTE | 2017-03-12 09:10 | ED ---
Chest Pain HPI - General Chief Complaint: Chest Pain Stated Complaint: chest pain Time Seen by Provider: 03/12/17 08:44 Source: patient, RN notes reviewed Mode of arrival: wheelchair Limitations: no limitations - History of Present Illness Initial Comments: This is a 72-year-old male with a history of heart disease and bypass surgery states he had the onset yesterday of intermittent episodes of retrosternal chest pain. He states it's moderate in severity when it does come on achy in nature no associated nausea vomiting he does have shortness of breath at times associated with it. He denies any other complaints at this time however. MD Complaint: chest pain - Related Data Home Medications Medication Instructions Recorded Confirmed Aspirin EC [Ecotrin Low Dose] 81 mg PO DAILY 01/20/17 03/12/17 Metoprolol Tartrate [Lopressor] 25 mg PO BID 01/20/17 03/12/17 Warfarin [Coumadin] 7.5 mg PO MOWEFR 01/20/17 03/12/17 Nepafenac [Ilevro] 1 drop LEFT EYE Q48H 03/12/17 03/12/17 Nepafenac [Ilevro] 1 drop RIGHT EYE Q48H 03/12/17 03/12/17 Ofloxacin 0.3% Ophth Soln [Ocuflox 1 drops BOTH EYES TID 03/12/17 03/12/17 Ophth Soln] Warfarin [Coumadin] 5 mg PO SUTUTHSA 03/12/17 03/12/17 Previous Rx's Medication Instructions Recorded Memantine [Namenda] 5 mg PO DAILY 30 Days 01/23/17 Allergies Allergy/AdvReac Type Severity Reaction Status Date / Time adhesive Allergy Rash/Hives Verified 03/12/17 09:17 Review of Systems ROS Statement: Those systems with pertinent positive or pertinent negative responses have been documented in the HPI. ROS Other: All systems not noted in ROS Statement are negative. EKG Findings - EKG Results: EKG: interpreted by RUPERT, sinus rhythm (Sinus rhythm with a rate of 68. Interval 160 QRS duration 90 QT/QTC of 400/425 nonspecific T-wave configuration occasional unifocal PVCs.) Past Medical History Past Medical History: Atrial Fibrillation, Coronary Artery Disease (CAD), Chest Pain / Angina, Heart Failure, CVA/TIA, Dementia, GERD/Reflux, GI Bleed, Hyperlipidemia, Hypertension, Memory Impairment, Myocardial Infarction (MO), Sleep Apnea/CPAP/BIPAP, Syncope Additional Past Medical History / Comment(s): coronary artery disease with multivessel involvement status post three-vessel bypass surgery, previous myocardial infarctions, previous paroxysmal atrial fibrillation, CVA in 2012 along with previous TIAs, nephrolithiasis, chronic back pain, hemorrhoids, 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 Chronic back pain, gastroparesis, degenerative arthritis , impaired hearing, chronic diastolic heart failure, vascular dementia, esophageal stricture with previous history of esophageal dilatation, history of C. diff colitis occurred postoperatively forced the patient was hospitalized in June 2015. Last Myocardial Infarction Date:: 2014 History of Any Multi-Drug Resistant Organisms: MRSA Date of last positivie culture/infection: 02-02-12 MDRO Source:: UNK SITE OR SOURCE Past Surgical History: Back Surgery, Coronary Bypass/CABG, Heart Catheterization , Heart Catheterization With Stent, Orthopedic Surgery Additional Past Surgical History / Comment(s): BILATERAL CAROTID ENDARTERECTOMIES, HX OF PREVIOUS HEART CATHS WITH STENTS AND LAST STENT 03/2015 , EGD X3, ESOPHAGEAL DILATION X5, PLASTIC CAP LEFT ELBOW, URETHRAL STRICTURE DILATION., CABG (3 V) Past Anesthesia/Blood Transfusion Reactions: No Reported Reaction Additional Past Anesthesia/Blood Transfusion Reaction / Comment(s): Pt states he has no problem with anesthesia, old medical records indicate post op muscle weakness and slow to wake up. Pt has never recieved blood to his knowledge. Date of Last Stent Placement:: 03/22/2015 Past Psychological History: Anxiety, Depression Additional Psychological History / Comment(s): Lives @ [facility] He ambulates with walker. He has sleep apnea and does not tolerate CPAP so on occasion he uses his 's home O2. He is independent with his ADLs. He has a back brace he wears on occasion. HAS HEARING AIDS AND DENTURES BUT WON'T WEAR. Smoking Status: Never smoker Past Alcohol Use History: None Reported Additional Past Alcohol Use History / Comment(s): HX OF HEAVY ALCOHOL USE. Patient states he is a nonsmoker. He denies any street drug use. He no longer drinks any alcohol. He is retired from [employer]. Lives at [facility] Past Drug Use History: None Reported - Past Family History Father Family Medical History: Deep Vein Thrombosis (DVT) Additional Family Medical History / Comment(s): Father of DVT Mother Family Medical History: Cancer Additional Family Medical History / Comment(s): Mother of jaw bone cancer. General Exam - General Exam Comments Initial Comments: This is a well-developed well-nourished awake alert oriented 3 male Limitations: no limitations General appearance: alert, anxious Head exam: Present: atraumatic, normocephalic, normal inspection Eye exam: Present: normal appearance, PERRL, EOMI. Absent: scleral icterus, conjunctival injection, periorbital swelling ENT exam: Present: normal exam, mucous membranes moist Neck exam: Present: normal inspection. Absent: tenderness, meningismus, lymphadenopathy Respiratory exam: Present: normal lung sounds bilaterally. Absent: respiratory distress, wheezes, rales, rhonchi, stridor Cardiovascular Exam: Present: regular rate, normal rhythm, normal heart sounds. Absent: systolic murmur, diastolic murmur, rubs, gallop, clicks GI/Abdominal exam: Present: soft, normal bowel sounds. Absent: distended, tenderness, guarding, rebound, rigid Extremities exam: Present: normal inspection, full ROM, normal capillary refill. Absent: tenderness, pedal edema, joint swelling, calf tenderness Back exam: Present: normal inspection Neurological exam: Present: alert, oriented X3, CN II-XII intact Psychiatric exam: Present: normal affect, normal mood Skin exam: Present: warm, dry, intact, normal color. Absent: rash Course Vital Signs 03/12/17 03/12/17 03/12/17 08:38 08:44 09:14 Temperature 98.1 F Pulse Rate 61 68 67 Respiratory 20 16 17 Rate Blood Pressure 184/79 157/74 123/60 O2 Sat by Pulse 98 100 98 Oximetry 03/12/17 03/12/17 03/12/17 09:23 10:08 11:01 Temperature Pulse Rate 71 70 61 Respiratory 16 15 17 Rate Blood Pressure 94/50 125/71 120/64 O2 Sat by Pulse 96 96 97 Oximetry 03/12/17 11:59 Temperature 97.0 F L Pulse Rate 60 Respiratory 18 Rate Blood Pressure 133/67 O2 Sat by Pulse 98 Oximetry Chest Pain MDM - MDM The patient is feeling improved this time the initial workup appears be negative though the symptoms are suspicious for angina patient be admitted for evaluation Critical Care Time Critical Care Time: Yes Critical Care Time: 31 minutes of critical care time which includes monitoring the EMS run and discussed with paramedics history physical lab and x-rays and the patient reevaluation patient response to therapy. Evaluation old charting discussion with the admitting physician and admission orders and documentation of the above Disposition Clinical Impression: Unstable angina, Chest pain Disposition: ADMITTED IP TO THIS HOSP Condition: Stable Referrals: Reed Bull MD [Primary Care Provider] - 1-2 days
[2017-03-12 09:26] LABS: Basophils % (A) 1 %; CH 29.5; CHCM 34.1; Eosinophils # (A) 0.2 k/uL (0-0.7); Eosinophils % (A) 2 %; HDW 2.89; HGB 16.5 gm/dL (13.0-17.5); Luc # (Auto) 0.13; Luc % (Auto) 2; Lymphocytes # (A) 1.7 k/uL (1.0-4.8); Lymphocytes % (A) 23 %; MCH 29.3 pg (25.0-35.0); MCHC 33.7 g/dL (31.0-37.0); MCV 86.9 fL (80.0-100.0); Mean Platelet Volume 7.3; Monocytes # (A) 0.4 k/uL (0-1.0); Monocytes % (A) 5 %; Neutrophils # (A) 5.1 k/uL (1.3-7.7); Neutrophils % (A) 68 %; RBC 5.64 m/uL (4.30-5.90); RDW 15.4 % (11.5-15.5); WBC 7.6 k/uL (3.8-10.6); WBC (Perox) 7.56
[2017-03-12 09:36] LABS: INR 1.6 (<1.1); Partial Thromboplastin Time 27.2 sec (22.0-30.0); Prothrombin Time 15.4 sec (9.0-12.0)
[2017-03-12 09:39] LABS: ALT 31 U/L (21-72); AST 23 U/L (17-59); Alkaline Phosphatase 70 U/L (38-126); Anion Gap 11 mmol/L; Blood Urea Nitrogen 24 mg/dL (9-20); Calcium 9.3 mg/dL (8.4-10.2); Carbon Dioxide 22 mmol/L (22-30); Chloride 109 mmol/L (98-107); Glucose 113 mg/dL (74-99); Magnesium 1.6 mg/dL (1.6-2.3); Non-African American GFR(MDRD) 57 (>60 ml/min/1.73 sqM); Potassium 4.2 mmol/L (3.5-5.1); Sodium 142 mmol/L (137-145); Total Bilirubin 0.7 mg/dL (0.2-1.3); Total Protein 7.6 g/dL (6.3-8.2)
--- NOTE | 2017-03-12 09:42 | XR ---
EXAMINATION TYPE: XR chest 2V DATE OF EXAM: 03/12/2017 9:34 AM COMPARISON: 02/03/2017 HISTORY: Shortness of breath TECHNIQUE: Frontal and lateral views of the chest are obtained. FINDINGS: Scattered senescent parenchymal changes noted. Hyperinflation compatible with COPD. No evidence for infiltrate. No evidence for atelectasis. Heart size is stable. Mediastinal structures are stable and grossly unremarkable. No evidence for hilar prominence. Degenerative changes dorsal spine. IMPRESSION: 1. No evidence for acute pulmonary disease.
[2017-03-12 09:53] LABS: Creatine Kinase 117 U/L (55-170)
[2017-03-12 10:06] LABS: Creatine Kinase MB 1.6 ng/mL (0.0-2.4); Troponin I <0.012 ng/mL (0.000-0.034)
[2017-03-12] MEDS ORDERED: HEPARIN SODIUM,PORCINE 5,000 UNIT/ML 1 ML VIAL IV ONE (12:32)
[2017-03-12] MEDS ORDERED: NITROGLYCERIN SL TABS 0.4 MG TAB SUBLINGUAL PRN (12:32)
[2017-03-12] MEDS ORDERED: NEPAFENAC RIGHT EYE SCH (12:45)
[2017-03-12] MEDS ORDERED: NEPAFENAC LEFT EYE SCH (12:45)
[2017-03-12] MEDS: HEPARIN SODIUM,PORCINE/D5W PMX 25,000 UNIT in DEXTROSE/WATER 1 500ML.BAG IV SCH (13:11)
[2017-03-12] MEDS: SODIUM CHLORIDE 0.9% 1,000 ML IV SCH (13:13)
[2017-03-12 14:34] VITALS: BMI 32.9
[2017-03-12 16:18] LABS: Creatine Kinase 94 U/L (55-170)
[2017-03-12 16:32] LABS: Creatine Kinase MB 1.5 ng/mL (0.0-2.4); Troponin I <0.012 ng/mL (0.000-0.034)
[2017-03-12] MEDS: NITROGLYCERIN OINT 1 INCH/GM PACKET TOPICAL SCH (17:37)
[2017-03-12] MEDS ORDERED: WARFARIN 5 MG TAB PO SCH (18:00)
[2017-03-12] MEDS: OFLOXACIN 0.3% OPHTH DROPS 5 ML BOTTLE BOTH EYES SCH ×2 (19:12→20:20)
[2017-03-12] MEDS: METOPROLOL TARTRATE 25 MG TAB PO SCH (20:19)
[2017-03-12 20:38] LABS: Creatine Kinase 100 U/L (55-170)
[2017-03-12 20:52] LABS: Creatine Kinase MB 1.5 ng/mL (0.0-2.4); Troponin I <0.012 ng/mL (0.000-0.034)
[2017-03-12] MEDS ORDERED: ACETAMINOPHEN TAB 325 MG TAB PO PRN (23:33)
[2017-03-13 03:25] LABS: Cholesterol 237 mg/dL (<200); HDL Cholesterol 43 mg/dL (40-60); Triglycerides 335 mg/dL (<150)
[2017-03-13] MEDS: NITROGLYCERIN OINT 1 INCH/GM PACKET TOPICAL SCH ×2 (03:48→05:23)
--- NOTE | 2017-03-13 08:15 | HP ---
DATE OF ADMISSION: 03/12/2017 PRESENTING COMPLAINT: Chest pain. HISTORY OF PRESENTING COMPLAINT: This is a 72-year-old patient of Dr. Reed Bull, well known to me from multiple admissions. Patient's chronic stable medical conditions include congestive heart failure, GERD, hyperlipidemia, Alzheimer's dementia, coronary artery disease. Patient lives in a supervised setting. Has got tethers on his lower extremity. The patient tells me he was just picking up something and then patient passed out for a short time. The ER notes say the patient had some chest pain. The patient does not remember that exactly, but the patient is not the best of historians. Currently denies any shortness of breath. No cough. Patient does get some dizziness he says. REVIEW OF SYSTEMS: CONSTITUTIONAL: Tired. HEENT: Decreased hearing. RESPIRATORY: None. CARDIOVASCULAR: As above. GASTROINTESTINAL: None. GENITOURINARY: None. MUSCULOSKELETAL: Some pain in the joints. DERMATOLOGICAL: None. HEMATOLOGIC: None. LYMPHATICS: None. PSYCHIATRY: Forgetful. NEUROLOGICAL: None. Past medical history of congestive heart failure, stroke in the frontal lobe, coronary artery disease, GERD, hard of hearing, hyperlipidemia, hypertension, DJD, Alzheimer's dementia, esophageal obstruction with dilatation, left rotator cuff injury, obstructive sleep apnea, does not use CPAP, kidney stones, hemorrhoids. PAST SURGICAL HISTORY: Coronary artery bypass, cardiac cath with stent, bilateral carotid endarterectomy, esophageal dilatation, ureteral stricture dilatation. SOCIAL HISTORY: , does not use CPAP. Did drink heavy alcohol in the past. Currently in a supervised setting. Has a tether on. FAMILY HISTORY: Deep venous thrombosis. ALLERGIES: ADHESIVE. HOME MEDICATIONS: 1. Coumadin 5 mg on Thursday, Thursday, , Thursday and 7.5 Thursday, Thursday and Thursday. 2. Ilevro one drop to right eye q.48 hours. 3. Ocuflox one drop to both eyes t.i.d. 4. Nepafenac one drop to left eye q.48 hours. 5. Lopressor 25 mg p.o. b.i.d. 6. Namenda 5 mg p.o. daily. 7. Aspirin 81 mg p.o. daily. On examination, temperature 97.9, pulse 72, respirations 18, blood pressure 139/83, pulse ox 96% on room air. GENERAL APPEARANCE: Tired appearing, lying in bed, awake. EYES: Pupils equal. Conjunctivae normal. HEENT: Oral cavity normal. NECK: JVD not raised. Mass not palpable. RESPIRATORY: Effort normal. Lungs are clear. CARDIOVASCULAR: First and second sounds normal. No edema. ABDOMEN: Soft, nontender. Liver and spleen not palpable. LYMPHATIC: No lymph node palpable in neck or axillae. PSYCHIATRY: Patient is able to answer simple questions. Mood and affect normal. NEUROLOGICAL: Pupils equal. Cranial nerves grossly intact. Power and sensation grossly intact. EXTREMITIES: The patient has a tether on the right ankle. INVESTIGATIONS: White count 7.6, hemoglobin 16.5, INR 1.6. BUN 24, creatinine 1.26. Troponin x3 negative. ASSESSMENT: 1. Possible angina in a patient with known coronary artery disease. Patient not a very reliable historian. 2. Chronic obstructive pulmonary disease. 3. Alzheimer's dementia, late onset type, no behavioral disturbance. 4. Chronic congestive heart failure from diastolic dysfunction; ejection fraction 55 to 60%, underlying coronary artery disease. 5. Coronary artery disease with prior history of coronary stent. 6. Gastroesophageal reflux disease. 7. Hyperlipidemia. 8. Degenerative joint disease. 9. Sleep apnea. 10. Lumbar degenerative joint disease. 11. History of esophageal stricture with dilatation. 12. Neurocognitive disorder. PLAN: Cardiology is consulted. Will check patient's orthostatics. Coumadin will be continued. Patient did have nuclear stress test last month. That was reviewed by Cardiology on the last admission and they decided to manage the patient medically.
[2017-03-13] MEDS: METOPROLOL TARTRATE 25 MG TAB PO SCH (08:21)
[2017-03-13] MEDS: SODIUM CHLORIDE 0.9% 1,000 ML IV SCH (08:59)
[2017-03-13] MEDS: OFLOXACIN 0.3% OPHTH DROPS 5 ML BOTTLE BOTH EYES SCH (08:59)
[2017-03-13] MEDS ORDERED: ASPIRIN 81 MG CHEW PO SCH (09:00)
[2017-03-13] MEDS ORDERED: ASPIRIN 325 MG TAB PO SCH (09:00)
[2017-03-13] MEDS ORDERED: MEMANTINE 5 MG TAB PO SCH (09:00)
[2017-03-13] MEDS: HEPARIN SODIUM,PORCINE/D5W PMX 25,000 UNIT in DEXTROSE/WATER 1 500ML.BAG IV SCH (09:43)
--- NOTE | 2017-03-13 11:13 | CONS ---
DATE OF CONSULTATION: Mr. Ball is a 72-year-old male patient who was recently discharged from the hospital. He was here in the month of January. He was seen by Dr. Mccord. At that time he was experiencing chest discomfort (February 04, 2017). He underwent a stress test, which revealed a large infarct involving the left ventricular lateral wall with ned-infarct ischemia on the posterior portion and possibly even the inferior wall. He was discharged home subsequently. He comes back again with the chest discomfort. He was standing when he started experiencing midsternal chest and left-sided chest discomfort that lasted for a few minutes. No other associated symptoms. REVIEW OF SYSTEMS: No fever, chills, rigors. No cough or expectoration. No nausea, vomiting or diarrhea. No hematuria or dysuria. No strokes or seizure. No skin lesions or musculoskeletal complaints. Past medical history of coronary artery disease, old HI, inferoposterolateral, congestive heart failure, history of CVA, GERD, hypertension, sleep apnea. PAST SURGICAL HISTORY: Coronary artery disease, coronary artery bypass grafting, carotid stenting, bilateral carotid endarterectomies, ureteral stricture. SOCIAL HISTORY: He used to drink heavily in the past and now does not, he lives in a supervised setting. He does not use his CPAP mask. Family history of DVT. Allergies to ADHESIVE. Medications include Coumadin for stroke prevention. For his atrial fibrillation, Lopressor 25 mg twice daily, Namenda and aspirin. On examination, his blood pressure 139/83 mmHg. He was afebrile, 97.8 degrees Fahrenheit, pulse rate in the 70s. HEAD AND NECK examination normal. Heart sounds are normal. Lungs are clear to auscultation. Extremities are warm. No edema. IMPRESSION: Elderly gentleman, who was just here in the hospital and seen by Dr. Mccord. A stress test was performed. This stress test showed an inferior wall scar with ned-infarct ischemia. He was sent home. He came back again with chest discomfort. Cardiac enzymes are normal and EKG does not show any ST segment abnormalities. SUGGEST: Follow up in the office again either with ( ) or Dr. Mccord. Today, I am adding Lipitor 20 mg p.o. daily and also add Imdur 30 mg p.o. daily to be taken at noontime. He is already on beta blockers 25 mg twice daily and this can be increased later as an outpatient. He has not had any evidence for acute myocardial infarction. I will send him home and hopefully and then get him an appointment next week in followup. He should be on statins lifelong.
[2017-03-13 11:33] VITALS: BP 119/68; PULSE 64; RESP 18; TEMP 98.7
[2017-03-13] MEDS ORDERED: ISOSORBIDE MONONITRATE ER 30 MG TAB.ER.24H PO SCH (12:00)
[2017-03-13] MEDS ORDERED: WARFARIN 7.5 MG TAB PO SCH (18:00)
[2017-03-13] MEDS ORDERED: ATORVASTATIN 20 MG TAB PO SCH (21:00)
--- NOTE | 2017-03-14 06:56 | DS ---
DATE OF ADMISSION: 03/12/2017 DATE OF DISCHARGE: 03/13/2017 FINAL DIAGNOSIS(ES): 1. Possible angina in a patient with known coronary artery disease with recent suggestive stress test. 2. Chronic obstructive pulmonary disease. 3. Alzheimer's dementia, late onset type, no behavioral disturbance. 4. Chronic congestive heart failure from diastolic dysfunction, ejection fraction 55-60%, underlying coronary artery disease. 5. Coronary artery disease with prior history of stent. 6. Gastroesophageal reflux disease. 7. Hyperlipidemia. 8. Degenerative joint disease. 9. Sleep apnea. 10. Lumbar degenerative joint disease. 11. Major neurocognitive disorder with some suicidal ideation, possible depression. 12. History of esophageal stricture with dilatation. CONSULTATION: Dr. Jeffrey Nino from cardiology. ( ) nurse from psychiatry from [facility]. HOSPITAL COURSE: This patient presented with some chest pain. Some medications adjusted by Dr. Nino. Patient also verbalized that he wanted to kill himself. Seen by the ( ) nurse and will be transferred to psychiatry Unit. On exam, lungs slight decreased breath sounds. CARDIOVASCULAR: First and second sounds normal. Patient verbalizes to the nursing staff. DISCHARGE MEDICATIONS: 1. Aspirin 81 mg a day. 2. Lopressor 25 mg b.i.d. 3. Coumadin 7.5 mg Thursday, Thursday and Thursday. 4. Namenda 5 mg a day. 5. Nepafenac one drop in left eye q.48 hours and one drop in the right q.48 hours. 6. Oral Floxin 0.3% one drop to both eyes t.i.d. 7. Coumadin 5 mg on Thursday, Thursday, , Thursday. 8. Lipitor 20 mg q.h.s. 9. Imdur ER 30 mg p.o. daily. The patient to follow up with Dr. Bull after discharge from here. Dr. Mccord on 03/19/2017. The patient transferred to the psych unit.
== END 2017-03-13 15:17 ==
LOC: EC 08:35 → 3OBS 12:35
PROVIDERS: ADMIT Hospitalist; ATTEND Hospitalist
DX: R07.2 Precordial pain (principal); R06.02 Shortness of breath; E78.5 Hyperlipidemia, unspecified; I25.2 Old myocardial infarction; I25.10 Atherosclerotic heart disease of native coronary artery without angina pectoris; K21.9 Gastro-esophageal reflux disease without esophagitis; G89.29 Other chronic pain; M54.9 Dorsalgia, unspecified; I11.0 Hypertensive heart disease with heart failure; I50.32 Chronic diastolic (congestive) heart failure; I48.0 Paroxysmal atrial fibrillation; L40.9 Psoriasis, unspecified; M19.90 Unspecified osteoarthritis, unspecified site; H91.90 Unspecified hearing loss, unspecified ear; Z86.14 Personal history of Methicillin resistant Staphylococcus aureus infection; G47.33 Obstructive sleep apnea (adult) (pediatric); F41.9 Anxiety disorder, unspecified; F32.9 Major depressive disorder, single episode, unspecified; F02.80 Dementia in other diseases classified elsewhere, unspecified severity, without behavioral disturbance, psychotic disturbance, mood disturbance, and anxiety; G30.9 Alzheimer's disease, unspecified; Z91.048 Other nonmedicinal substance allergy status; Z95.1 Presence of aortocoronary bypass graft; Z79.82 Long term (current) use of aspirin; Z79.899 Other long term (current) drug therapy; Z79.01 Long term (current) use of anticoagulants; Z86.73 Personal history of transient ischemic attack (TIA), and cerebral infarction without residual deficits; J44.9 Chronic obstructive pulmonary disease, unspecified; Z82.49 Family history of ischemic heart disease and other diseases of the circulatory system; M47.816 Spondylosis without myelopathy or radiculopathy, lumbar region; R45.851 Suicidal ideations; F01.50 Vascular dementia, unspecified severity, without behavioral disturbance, psychotic disturbance, mood disturbance, and anxiety
CPT/HCPCS: 96365; 96376; 99291; 36415; 93005; 80061; 80053; 82550; 82553; 83735; 84484; 85025; 85610; 85730 ×2; 71020; G0378 ×2; J1644 ×3

== ENCOUNTER 2017-03-13 13:02 | Inpatient (IN) | payer MEDICARE ==
[2017-03-13] MEDS ORDERED: MAGNESIUM HYDROXIDE 2,400 MG/10 ML CUP PO PRN (18:56)
[2017-03-13] MEDS ORDERED: MAG HYDROX/AL HYDROX/SIMETH 30 ML CUP PO PRN (18:56)
[2017-03-13] MEDS: WARFARIN 7.5 MG TAB PO SCH (19:18)
[2017-03-13] MEDS: METOPROLOL TARTRATE 25 MG TAB PO SCH (20:41)
[2017-03-13] MEDS: ATORVASTATIN 20 MG TAB PO SCH (20:41)
[2017-03-13] MEDS: OFLOXACIN 0.3% OPHTH DROPS 5 ML BOTTLE BOTH EYES SCH (21:44)
[2017-03-14] MEDS: ACETAMINOPHEN TAB 325 MG TAB PO PRN ×3 (01:42→23:14)
[2017-03-14] MEDS ORDERED: MEMANTINE 5 MG TAB PO SCH (09:00)
[2017-03-14 09:03] LABS: INR 2.2 (<1.1); Prothrombin Time 21.4 sec (9.0-12.0)
[2017-03-14] MEDS: ASPIRIN 81 MG CHEW PO SCH (09:25)
[2017-03-14] MEDS: METOPROLOL TARTRATE 25 MG TAB PO SCH ×2 (09:25→20:41)
[2017-03-14] MEDS: ILEVRO 0.3% LEFT EYE SCH (09:26)
[2017-03-14] MEDS: OFLOXACIN 0.3% OPHTH DROPS 5 ML BOTTLE BOTH EYES SCH ×3 (09:27→20:41)
[2017-03-14] MEDS: ISOSORBIDE MONONITRATE ER 30 MG TAB.ER.24H PO SCH (11:57)
[2017-03-14] MEDS: SERTRALINE 50 MG TAB PO SCH (15:53)
[2017-03-14] MEDS: WARFARIN 5 MG TAB PO SCH (17:57)
--- NOTE | 2017-03-14 18:28 | CONS ---
DATE OF CONSULTATION: REASON FOR CONSULTATION: Advice regarding CAD and other multiple medical issues requested by Psychiatry. HISTORY OF PRESENT ILLNESS: This 72-year-old gentleman with a past medical history of multiple medical problems including atrial fibrillation, CAD, CHF, CVA, TIA, dementia, GERD, GI bleed, hypertension, hyperlipidemia, history of myocardial infarction , sleep apnea, syncope, history of CABG, being followed by Dr. Bull in the outpatient setting was recently admitted to medical floor with possible angina. The patient was treated medically and improved significantly. The patient was transferred to inpatient psych at this time. There is no history of fevers, rigors. No history of headache, loss of consciousness or seizures at this time. PAST MEDICAL HISTORY: History of CAD, CABG, history of atrial fibrillation, history of chest pain, history of CVA, TIA, dementia, GERD, GI bleed, hypertension, hyperlipidemia, history of myocardial infarction . Medications prior to admission include home medications: 1. Coumadin 5 mg p.o. Thursday, Thursday, , Thursday and 7.5, Thursday, Thursday, Thursday. 2. Ocuflox 1 drop both eyes t.i.d. 3. Nepafenac 1 drop right eye and left eye. 4. Lopressor 25 mg p.o. b.i.d. 5. Namenda 5 mg p.o. daily. 6. Imdur 30 mg p.o. daily. 7. Lipitor 20 mg q.h.s. 8. Ecotrin 81 mg p.o. daily. ALLERGIES: ADHESIVES. FAMILY HISTORY: History of DVT in the family. SOCIAL HISTORY: History of EtOH abuse previously. No history of current smoking or alcohol intake. REVIEW OF SYSTEMS: ENT: Diminishing hearing and diminished vision. CARDIOVASCULAR: As mentioned earlier. RESPIRATORY: As mentioned earlier. GI: No nausea, vomiting, diarrhea. : No dysuria. NERVOUS SYSTEM: No numbness or weakness. ALLERGY/IMMUNOLOGY: No asthma or hayfever. MUSCULOSKELETAL: As mentioned earlier. HEMATOLOGY/ONCOLOGY: No history of anemia. ENDOCRINE: No history of diabetes mellitus or hypothyroidism. CONSTITUTIONAL: As mentioned earlier. DERMATOLOGY: Negative. RHEUMATOLOGY: Negative. PSYCHIATRY: As mentioned earlier. PHYSICAL EXAMINATION: The patient is alert and oriented x3. Pulse is 65, blood pressure 156/77, respirations 18, temperature 97.7, pulse ox 92% on room air. HEENT: Conjunctivae normal. Oral mucosa moist. NECK: No jugular venous distention. CARDIOVASCULAR: S1 and S2, muffled. No S3, no S4. RESPIRATORY: Breath sounds diminished at the bases. No rhonchi, no crackles. ABDOMEN: Soft, obese, nontender. No mass palpable. LEGS: No edema, no swelling. NERVOUS SYSTEM: Higher function as mentioned. Moves all 4 limbs. No focal deficits. LYMPHATICS: No lymphadenopathy of neck, axillae or groin. SKIN: No ulcers, rashes or bleeding. LABS: INR 2.2. TSH 1.22. ASSESSMENT: 1. Chest pain with possible angina. 2. History of coronary artery disease, coronary artery bypass grafting. 3. History of chronic obstructive pulmonary disease. 4. History of dementia, late-onset with no behavioral disturbances. 5. Congestive heart failure with chronic diastolic dysfunction, ejection fraction 55% to 60% secondary to underlying coronary artery disease. 6. History of coronary artery disease and stent. 7. History of gastroesophageal reflux disease. 8. Hyperlipidemia. 9. History of degenerative joint disease. 10. Sleep apnea. 11. History of lumbar degenerative joint disease. 12. Suicidal ideation and depression. 13. Esophageal stricture with dilatation. 14. Coumadin monitoring. RECOMMENDATIONS AND DISCUSSION: Recommend to continue current medications. Continue symptomatic treatment. Otherwise, at this time I recommend resuming the home medications, monitor PT, INR closely preferably on a daily basis. Resume the rest of the medications. Continue the current medications including, aspirin and beta blockers. Symptomatic treatment also may be provided for the pain and we will follow the patient closely with you. Further recommendations to follow. See orders for details.
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
[2017-03-14] MEDS: ATORVASTATIN 20 MG TAB PO SCH (20:40)
[2017-03-14] MEDS: MEMANTINE 5 MG TAB PO SCH (20:41)
[2017-03-15] MEDS: OFLOXACIN 0.3% OPHTH DROPS 5 ML BOTTLE BOTH EYES SCH ×3 (09:21→20:30)
[2017-03-15] MEDS: METOPROLOL TARTRATE 25 MG TAB PO SCH ×2 (09:21→20:30)
[2017-03-15] MEDS: MEMANTINE 5 MG TAB PO SCH ×2 (09:21→20:30)
[2017-03-15] MEDS: SERTRALINE 50 MG TAB PO SCH (09:21)
[2017-03-15] MEDS: ASPIRIN 81 MG CHEW PO SCH (09:21)
[2017-03-15] MEDS: ILEVRO 0.3% RIGHT EYE SCH (09:22)
[2017-03-15 09:29] LABS: INR 2.5 (<1.1); Prothrombin Time 24.2 sec (9.0-12.0)
[2017-03-15] MEDS: ISOSORBIDE MONONITRATE ER 30 MG TAB.ER.24H PO SCH (11:39)
--- NOTE | 2017-03-15 15:17 | P.PN ---
Progress Note - Text Date of service: 03/15/2017 Chief complaint: "I have headache today " Subjective: The patient has been seen today as follow-up, chart reviewed, case discussed with the treatment team. The patient presented today with the main complaint is throbbing headache at frontal area. He stated the pain just started today, and he stated he is it's about 5 out of 10 with 10 the worst. The patient reports his mood is better today and he minimized depression, and he denies severe anxiety, manic, or psychotic symptoms. Patient reported had fair sleep last night and he denies any appetite problems. Patient is alert but still not fully oriented. Vitals reviewed and blood pressure was in normal level Review of other systems: Patient denies any physical symptoms besides what has been mentioned above. No breathing problems, no chest pain reported today. Objective: Vitals has been reviewed. Mental status examination; appearance: The patient appears stated age, poorly groomed, disheveled Gait: Steady gait was no abnormal movement Attitude and behavior: Over engaged, intermittent eye contact Motor activity: Increased psychomotor activity Speech: Spontaneous, loud, disorganized mood:"headache" Affect: Constricted Thought form: Tangential, more organized today Social content: Denies suicidal or homicidal thoughts Perception denies auditory or visual hallucinations Orientation: Patient is not oriented to time person or time Alertness: Patient is alert but is not able to perform any serial 7 or 3 Judgment: Patient has poor judgment about his psychiatric treatment. The patient has no insight about his psychiatric condition Assessment: major neurocognitive disorder Unspecified depressive disorder Rule out major depressive disorder Plan: Continue inpatient level of care PSYCHIATRIC MEDICATIONS continue Zoloft at does 50 mg by mouth daily for depression symptoms, with the plan to increase the dose as related and as needed for depression symptoms Continue Namenda 5 mg by mouth twice daily for neurocognitive impairment Non-psychiatric medications: aspirin 81 mg by mouth daily Atorvastatin 20 mg by mouth at bedtime Isosorbide mononitrate 30 mg by mouth daily metoprolol 25 mg by mouth twice a day Ilevro opth solution Warfarin
[2017-03-15] MEDS: WARFARIN 5 MG TAB PO SCH (17:06)
[2017-03-15] MEDS: ATORVASTATIN 20 MG TAB PO SCH (20:30)
[2017-03-15] MEDS: ACETAMINOPHEN TAB 325 MG TAB PO PRN (22:31)
[2017-03-16 08:10] LABS: INR 2.4 (<1.1); Prothrombin Time 22.7 sec (9.0-12.0)
[2017-03-16] MEDS: ASPIRIN 81 MG CHEW PO SCH (10:40)
[2017-03-16] MEDS: MEMANTINE 5 MG TAB PO SCH (10:40)
[2017-03-16] MEDS: METOPROLOL TARTRATE 25 MG TAB PO SCH ×2 (10:40→22:07)
[2017-03-16] MEDS: SERTRALINE 50 MG TAB PO SCH (10:42)
[2017-03-16] MEDS: OFLOXACIN 0.3% OPHTH DROPS 5 ML BOTTLE BOTH EYES SCH ×3 (10:42→22:39)
[2017-03-16] MEDS: ILEVRO 0.3% LEFT EYE SCH (10:43)
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
[2017-03-16] MEDS: ISOSORBIDE MONONITRATE ER 30 MG TAB.ER.24H PO SCH (12:17)
[2017-03-16] MEDS: MEMANTINE 10 MG TAB PO SCH (17:52)
[2017-03-16] MEDS: WARFARIN 7.5 MG TAB PO SCH (17:52)
[2017-03-16] MEDS: ATORVASTATIN 20 MG TAB PO SCH (22:07)
[2017-03-17 09:27] LABS: INR 2.3 (<1.1); Prothrombin Time 22.2 sec (9.0-12.0)
[2017-03-17] MEDS: ASPIRIN 81 MG CHEW PO SCH (11:07)
[2017-03-17] MEDS: MEMANTINE 5 MG TAB PO SCH (11:07)
[2017-03-17] MEDS: ISOSORBIDE MONONITRATE ER 30 MG TAB.ER.24H PO SCH (11:07)
[2017-03-17] MEDS: METOPROLOL TARTRATE 25 MG TAB PO SCH ×2 (11:07→21:53)
[2017-03-17] MEDS: SERTRALINE 100 MG TAB PO SCH (11:07)
[2017-03-17] MEDS: OFLOXACIN 0.3% OPHTH DROPS 5 ML BOTTLE BOTH EYES SCH ×3 (11:08→22:21)
[2017-03-17] MEDS: ILEVRO 0.3% RIGHT EYE SCH (11:09)
--- NOTE | 2017-03-17 12:49 | P.PN ---
Progress Note - Text SUBJECTIVE: I reviewed the medical record, interviewed Mr. Ball and discuss his treatment and treatment plan during team meeting. He denied feeling depressed or having thoughts of or suicide. When I asked him about future plans he replied that will return to live with his . He appeared surprised when I reviewed reminded him that he has been court ordered to the [facility]. He admitted that he has legal problems but was unable to explain the nature of the problems. OBJECTIVE: He presented as a neatly groomed 72-year-old male who was pleasant on approach. He made eye contact and appeared to attend to the interview. He had a blunted facial expression. He is alert and oriented to person, month and year. He showed slight psychomotor retardation but no abnormal involuntary movements. Her speech was not spontaneous. He had no articulation difficulties. His affect was blunted but stable and appropriate. He denied suicidal ideation or wishes. He denied feeling hopeless, helpless or worthless. He did not express ideas of reference, paranoid ideation or delusional thinking. His thinking was concrete and associations did not appear fully logical. He denied hallucinations and did not appear to be responding to internal stimuli. He wsa admitted involuntarily and were awaiting his deferment hearing. He has not participated in therapeutic groups and activities. He posed no management problem and is planning to episodes of behavioral dyscontrol or self-harm. ASSESSMENT: He has a major neurocognitive disorder most likely of the Alzheimer 's type. He is currently denying suicidal ideation, intent or plan. PLAN: Continue inpatient psychiatric hospitalization. Plan for discharge after he defers the probate hearing. Continue Zoloft 100 mg daily and Namenda to 15 mg daily in divided dose and continue to titrate dose to 20 mg per day. Continue other outpatient medications including aspirin 81 mg daily, Lipitor 20 mg at bedtime, isosorbide mononitrate 30 mg daily, Lopressor 25 mg twice a day, ofloxacin 0.3% ophthalmic solution 1 drop both eyes 3 times a day, Ilevro 0.3% ophthalmic suspension in the left and right eye every 48 hours, warfarin 5 mg by mouth Thursday, Thursday, and Thursday and 7.5 mg on Thursday, Thursday and Thursday. Encourage participation in therapeutic groups and activities as tolerated. Evaluate clinical status response to treatment on a daily basis.
[2017-03-17] MEDS: MEMANTINE 10 MG TAB PO SCH (18:00)
[2017-03-17] MEDS: WARFARIN 5 MG TAB PO SCH (18:00)
[2017-03-17] MEDS: ATORVASTATIN 20 MG TAB PO SCH (21:53)
[2017-03-18 06:32] VITALS: RESP 16; TEMP 97.5
[2017-03-18] MEDS: ASPIRIN 81 MG CHEW PO SCH (09:54)
[2017-03-18] MEDS: MEMANTINE 5 MG TAB PO SCH (09:54)
[2017-03-18] MEDS: METOPROLOL TARTRATE 25 MG TAB PO SCH (09:54)
[2017-03-18] MEDS: SERTRALINE 100 MG TAB PO SCH (09:55)
[2017-03-18] MEDS: ILEVRO 0.3% LEFT EYE SCH (09:56)
[2017-03-18] MEDS: OFLOXACIN 0.3% OPHTH DROPS 5 ML BOTTLE BOTH EYES SCH ×2 (09:56→16:27)
[2017-03-18 10:11] LABS: INR 2.8 (<1.1); Prothrombin Time 27.1 sec (9.0-12.0)
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
[2017-03-18] MEDS: ISOSORBIDE MONONITRATE ER 30 MG TAB.ER.24H PO SCH (12:11)
[2017-03-18 12:12] VITALS: BP 119/73; PULSE 70
[2017-03-18] MEDS: WARFARIN 7.5 MG TAB PO SCH (17:52)
[2017-03-18] MEDS: MEMANTINE 10 MG TAB PO SCH (17:52)
== END 2017-03-18 18:17 | disposition home or self-care (01) | DRG 57 ==
LOC: 3MHU 15:20
PROVIDERS: ADMIT Psychiatry & Neurology Psychiatry; ATTEND Psychiatry & Neurology Psychiatry
DX: G30.9 Alzheimer's disease, unspecified (principal); R45.851 Suicidal ideations; I11.0 Hypertensive heart disease with heart failure; I50.32 Chronic diastolic (congestive) heart failure; I48.91 Unspecified atrial fibrillation; K22.2 Esophageal obstruction; F01.50 Vascular dementia, unspecified severity, without behavioral disturbance, psychotic disturbance, mood disturbance, and anxiety; J44.9 Chronic obstructive pulmonary disease, unspecified; E78.5 Hyperlipidemia, unspecified; F02.80 Dementia in other diseases classified elsewhere, unspecified severity, without behavioral disturbance, psychotic disturbance, mood disturbance, and anxiety; F32.9 Major depressive disorder, single episode, unspecified; G47.30 Sleep apnea, unspecified; H91.90 Unspecified hearing loss, unspecified ear; I25.10 Atherosclerotic heart disease of native coronary artery without angina pectoris; I25.2 Old myocardial infarction; K21.9 Gastro-esophageal reflux disease without esophagitis; Z65.3 Problems related to other legal circumstances; Z79.01 Long term (current) use of anticoagulants; Z79.82 Long term (current) use of aspirin; Z79.899 Other long term (current) drug therapy; Z86.73 Personal history of transient ischemic attack (TIA), and cerebral infarction without residual deficits; Z87.442 Personal history of urinary calculi; Z95.1 Presence of aortocoronary bypass graft; Z95.5 Presence of coronary angioplasty implant and graft
CPT/HCPCS: 84443; 85610

== ENCOUNTER 2017-04-05 13:32 | Observation (INO) | payer MEDICARE ==
[2017-04-05] MEDS ORDERED: NITROGLYCERIN SL TABS 0.4 MG TAB SUBLINGUAL STA ×3 (13:49)
[2017-04-05] MEDS ORDERED: ASPIRIN 81 MG CHEW PO STA (13:49)
--- NOTE | 2017-04-05 13:53 | ED ---
General Adult HPI - General Stated complaint: chest pain Time Seen by Provider: 04/05/17 13:45 Source: patient, RN notes reviewed Mode of arrival: EMS Limitations: no limitations - History of Present Illness Initial comments: Patient is a pleasant 72-year-old male presenting to the emergency department for chest discomfort. Onset was around 45 minutes ago. Patient was walking upstairs and became short of breath express chest discomfort. Discomfort remains however is improved. Discomfort is only moderate at this time. No leg pain or swelling. No cough or fever. No nausea. Patient does feel sweaty. - Related Data Home Medications Medication Instructions Recorded Confirmed Aspirin EC [Ecotrin Low Dose] 81 mg PO DAILY 01/20/17 03/13/17 Metoprolol Tartrate [Lopressor] 25 mg PO BID 01/20/17 03/13/17 Warfarin [Coumadin] 7.5 mg PO MOWEFR 01/20/17 03/13/17 Nepafenac [Ilevro] 1 drop LEFT EYE Q48H 03/12/17 03/13/17 Nepafenac [Ilevro] 1 drop RIGHT EYE Q48H 03/12/17 03/13/17 Ofloxacin 0.3% Ophth Soln [Ocuflox 1 drops BOTH EYES TID 03/12/17 03/13/17 Ophth Soln] Warfarin [Coumadin] 5 mg PO SUTUTHSA 03/12/17 03/13/17 Brimonidine Tartrate [Alphagan P 1 drops BOTH EYES BID 04/05/17 04/05/17 0.15% Ophth Soln] acetaZOLAMIDE [Diamox Sequels] 500 mg PO BID 04/05/17 04/05/17 Previous Rx's Medication Instructions Recorded Atorvastatin [Lipitor] 20 mg PO HS #30 tablet 03/13/17 Isosorbide Mononitrate ER [Imdur] 30 mg PO DAILY #30 tab 03/13/17 Memantine [Namenda] 10 mg PO PC-SUPPER #30 tab 03/18/17 Sertraline [Zoloft] 100 mg PO DAILY #30 tab 03/18/17 Allergies Allergy/AdvReac Type Severity Reaction Status Date / Time adhesive Allergy Rash/Hives Verified 04/05/17 13:56 Review of Systems ROS Statement: Those systems with pertinent positive or pertinent negative responses have been documented in the HPI. ROS Other: All systems not noted in ROS Statement are negative. Constitutional: Denies: fever Eyes: Denies: eye pain ENT: Denies: ear pain Respiratory: Reports: dyspnea. Denies: cough Cardiovascular: Reports: chest pain Endocrine: Denies: fatigue Gastrointestinal: Denies: abdominal pain, nausea Genitourinary: Denies: dysuria Musculoskeletal: Denies: back pain Skin: Denies: rash Neurological: Reports: headache (Feel similar to his regular headaches) Past Medical History Past Medical History: Atrial Fibrillation, Coronary Artery Disease (CAD), Chest Pain / Angina, Heart Failure, CVA/TIA, Dementia, GERD/Reflux, GI Bleed, Hyperlipidemia, Hypertension, Memory Impairment, Myocardial Infarction ([place]), Sleep Apnea/CPAP/BIPAP, Syncope Additional Past Medical History / Comment(s): coronary artery disease with multivessel involvement status post three-vessel bypass surgery, previous myocardial infarctions, previous paroxysmal atrial fibrillation, CVA in 2012 along with previous TIAs, nephrolithiasis, chronic back pain, hemorrhoids, 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 Chronic back pain, gastroparesis, degenerative arthritis , impaired hearing, chronic diastolic heart failure, vascular dementia, esophageal stricture with previous history of esophageal dilatation, history of C. diff colitis occurred postoperatively forced the patient was hospitalized in June 2015. Last Myocardial Infarction Date:: 2014 History of Any Multi-Drug Resistant Organisms: MRSA Date of last positivie culture/infection: 02-02-12 MDRO Source:: UNK SITE OR SOURCE Past Surgical History: Back Surgery, Coronary Bypass/CABG, Heart Catheterization , Heart Catheterization With Stent, Orthopedic Surgery Additional Past Surgical History / Comment(s): BILATERAL CAROTID ENDARTERECTOMIES, HX OF PREVIOUS HEART CATHS WITH STENTS AND LAST STENT 03/2015 , EGD X3, ESOPHAGEAL DILATION X5, PLASTIC CAP LEFT ELBOW, URETHRAL STRICTURE DILATION., CABG (3 V) Past Anesthesia/Blood Transfusion Reactions: No Reported Reaction Additional Past Anesthesia/Blood Transfusion Reaction / Comment(s): Pt states he has no problem with anesthesia, old medical records indicate post op muscle weakness and slow to wake up. Pt has never recieved blood to his knowledge. Date of Last Stent Placement:: 03/22/2015 Past Psychological History: Anxiety, Depression Additional Psychological History / Comment(s): Lives @ [facility] He ambulates with straight cane (ER has walker listed). He has sleep apnea and does not tolerate CPAP so on occasion he uses his 's home O2. He is independent with his ADLs. He has a back brace he wears on occasion. HAS HEARING AIDS AND DENTURES BUT WON'T WEAR. Smoking Status: Never smoker Past Alcohol Use History: None Reported Additional Past Alcohol Use History / Comment(s): HX OF HEAVY ALCOHOL USE. Patient states he is a nonsmoker. He denies any street drug use. He no longer drinks any alcohol. He is retired from [employer]. Lives at [facility] Past Drug Use History: None Reported - Past Family History Father Family Medical History: Deep Vein Thrombosis (DVT) Additional Family Medical History / Comment(s): Father of DVT Mother Family Medical History: Cancer Additional Family Medical History / Comment(s): Mother of jaw bone cancer. General Exam Limitations: no limitations General appearance: alert Head exam: Present: atraumatic Eye exam: Present: normal appearance, PERRL ENT exam: Present: normal oropharynx Neck exam: Present: normal inspection Respiratory exam: Present: normal lung sounds bilaterally. Absent: chest wall tenderness Cardiovascular Exam: Present: regular rate, normal rhythm Expanded Peripheral pulses: 2+: Radial (R), Radial (L), Dorsalis Pedis (R), Dorsalis Pedis (L) GI/Abdominal exam: Present: soft, hernia (Easily reducible umbilical hernia). Absent: tenderness Extremities exam: Present: normal inspection, other (Right leg with tether). Absent: pedal edema, calf tenderness Neurological exam: Present: alert Psychiatric exam: Present: normal affect, normal mood Skin exam: Present: normal color Course Vital Signs 04/05/17 04/05/17 04/05/17 13:56 14:00 14:04 Temperature 97.6 F Pulse Rate 92 88 Respiratory 28 H 28 H 26 H Rate Blood Pressure 140/77 126/77 O2 Sat by Pulse 96 Oximetry 04/05/17 04/05/17 04/05/17 14:08 14:10 14:21 Temperature Pulse Rate 97 105 H Respiratory 24 26 H Rate Blood Pressure 107/67 98/55 105/77 O2 Sat by Pulse 96 96 Oximetry 04/05/17 15:30 Temperature Pulse Rate 73 Respiratory 24 Rate Blood Pressure 156/68 O2 Sat by Pulse 96 Oximetry EKG Findings - EKG Comments: EKG Findings:: Sinus rhythm and 92. PVC is present. AR 140. QRS 92. QT 360. QTC 445. Normal axis. Normal QRS. No acute ST change. Medical Decision Making - Medical Decision Making Patient reevaluated and resting comfortably in bed. Patient chest pain-free following nitroglycerin. Headache is also improved. Patient updated on results and plan. Case discussed with Dr. ordonez, who will admit for observation. - Lab Data Result diagrams: 04/05/17 13:55 04/05/17 13:55 Lab Results 04/05/17 04/05/17 04/05/17 Range/Units 13:55 13:55 13:55 WBC 6.5 (3.8-10.6) k/uL RBC 5.43 (4.30-5.90) m/uL Hgb 16.7 (13.0-17.5) gm/dL Hct 47.5 (39.0-53.0) % MCV 87.4 (80.0-100.0) fL MCH 30.8 (25.0-35.0) pg MCHC 35.2 (31.0-37.0) g/dL RDW 15.3 (11.5-15.5) % Plt Count 226 (150-450) k/uL Neutrophils % 60 % Lymphocytes % 29 % Monocytes % 6 % Eosinophils % 1 % Basophils % 0 % Neutrophils # 3.9 (1.3-7.7) k/uL Lymphocytes # 1.9 (1.0-4.8) k/uL Monocytes # 0.4 (0-1.0) k/uL Eosinophils # 0.1 (0-0.7) k/uL Basophils # 0.0 (0-0.2) k/uL PT (9.0-12.0) sec INR (<1.1) APTT (22.0-30.0) sec D-Dimer (<0.60) mg/L FEU Sodium 140 (137-145) mmol/L Potassium 4.1 (3.5-5.1) mmol/L Chloride 109 H (98-107) mmol/L Carbon Dioxide 17 L (22-30) mmol/L Anion Gap 14 mmol/L BUN 19 (9-20) mg/dL Creatinine 1.11 (0.66-1.25) mg/dL Est GFR (MDRD) Af Amer >60 (>60 ml/min/1.73 sqM) Est GFR (MDRD) Non-Af >60 (>60 ml/min/1.73 sqM) Glucose 123 H (74-99) mg/dL Calcium 9.1 (8.4-10.2) mg/dL Magnesium 1.6 (1.6-2.3) mg/dL Total Bilirubin 0.7 (0.2-1.3) mg/dL AST 26 (17-59) U/L ALT 41 (21-72) U/L Alkaline Phosphatase 74 (38-126) U/L Total Creatine Kinase 116 (55-170) U/L CK-MB (CK-2) 2.3 (0.0-2.4) ng/mL CK-MB (CK-2) Rel Index 2.0 Troponin I <0.012 (0.000-0.034) ng/mL NT-Pro-B Natriuret Pep pg/mL Total Protein 7.0 (6.3-8.2) g/dL Albumin 3.8 (3.5-5.0) g/dL 04/05/17 04/05/17 Range/Units 13:55 13:55 WBC (3.8-10.6) k/uL RBC (4.30-5.90) m/uL Hgb (13.0-17.5) gm/dL Hct (39.0-53.0) % MCV (80.0-100.0) fL MCH (25.0-35.0) pg MCHC (31.0-37.0) g/dL RDW (11.5-15.5) % Plt Count (150-450) k/uL Neutrophils % % Lymphocytes % % Monocytes % % Eosinophils % % Basophils % % Neutrophils # (1.3-7.7) k/uL Lymphocytes # (1.0-4.8) k/uL Monocytes # (0-1.0) k/uL Eosinophils # (0-0.7) k/uL Basophils # (0-0.2) k/uL PT 30.4 H (9.0-12.0) sec INR 3.1 (<1.1) APTT 32.7 H (22.0-30.0) sec D-Dimer 0.46 (<0.60) mg/L FEU Sodium (137-145) mmol/L Potassium (3.5-5.1) mmol/L Chloride (98-107) mmol/L Carbon Dioxide (22-30) mmol/L Anion Gap mmol/L BUN (9-20) mg/dL Creatinine (0.66-1.25) mg/dL Est GFR (MDRD) Af Amer (>60 ml/min/1.73 sqM) Est GFR (MDRD) Non-Af (>60 ml/min/1.73 sqM) Glucose (74-99) mg/dL Calcium (8.4-10.2) mg/dL Magnesium (1.6-2.3) mg/dL Total Bilirubin (0.2-1.3) mg/dL AST (17-59) U/L ALT (21-72) U/L Alkaline Phosphatase (38-126) U/L Total Creatine Kinase (55-170) U/L CK-MB (CK-2) (0.0-2.4) ng/mL CK-MB (CK-2) Rel Index Troponin I (0.000-0.034) ng/mL NT-Pro-B Natriuret Pep 302 pg/mL Total Protein (6.3-8.2) g/dL Albumin (3.5-5.0) g/dL - Radiology Data Radiology results: report reviewed (Computed tomography scan of the brain shows old infarct. Chronic changes. No acute process.), image reviewed (Chest x-ray shows no acute process.) Disposition Clinical Impression: Chest pain Disposition: ADMITTED IP TO THIS [facility] Referrals: Reed Bull MD [Primary Care Provider] - 1-2 days Decision Time: 16:26
[2017-04-05] MEDS ORDERED: MORPHINE SULFATE 4 MG/ML SYRINGE IV STA (14:17)
[2017-04-05 14:31] LABS: INR 3.1 (<1.1); Partial Thromboplastin Time 32.7 sec (22.0-30.0); Prothrombin Time 30.4 sec (9.0-12.0)
[2017-04-05 14:33] LABS: ALT 41 U/L (21-72); AST 26 U/L (17-59); Alkaline Phosphatase 74 U/L (38-126); Anion Gap 14 mmol/L; Basophils % (A) 0 %; Blood Urea Nitrogen 19 mg/dL (9-20); CH 30.7; CHCM 35.3; Calcium 9.1 mg/dL (8.4-10.2); Carbon Dioxide 17 mmol/L (22-30); Chloride 109 mmol/L (98-107); Eosinophils # (A) 0.1 k/uL (0-0.7); Eosinophils % (A) 1 %; Glucose 123 mg/dL (74-99); HCT 47.5 % (39.0-53.0); HDW 2.86; HGB 16.7 gm/dL (13.0-17.5); Luc % (Auto) 3; Lymphocytes # (A) 1.9 k/uL (1.0-4.8); Lymphocytes % (A) 29 %; MCH 30.8 pg (25.0-35.0); MCHC 35.2 g/dL (31.0-37.0); MCV 87.4 fL (80.0-100.0); Magnesium 1.6 mg/dL (1.6-2.3); Mean Platelet Volume 7.3; Monocytes # (A) 0.4 k/uL (0-1.0); Monocytes % (A) 6 %; Neutrophils # (A) 3.9 k/uL (1.3-7.7); Neutrophils % (A) 60 %; Non-African American GFR(MDRD) >60 (>60 ml/min/1.73 sqM); Potassium 4.1 mmol/L (3.5-5.1); RBC 5.43 m/uL (4.30-5.90); RDW 15.3 % (11.5-15.5); Sodium 140 mmol/L (137-145); Total Bilirubin 0.7 mg/dL (0.2-1.3); WBC 6.5 k/uL (3.8-10.6); WBC (Perox) 6.13
[2017-04-05 14:38] LABS: Creatine Kinase 116 U/L (55-170)
--- NOTE | 2017-04-05 14:43 | CT ---
EXAMINATION TYPE: CT brain wo con DATE OF EXAM: 04/05/2017 COMPARISON: NONE INDICATION: Patient complains of headache and shortness of breath. DLP: 738.2 mGycm, Automated exposure control for dose reduction was used. CONTRAST: None CT of the brain is performed utilizing 3 mm thick sections through the posterior fossa and 3 mm thick sections through the remaining calvarium. Study is performed within 24 hours of arrival to the hosp ital. No abnormal hyperdensity is present to suggest an acute intracranial hemorrhage. No mass lesion is evident. No acute infarcts are evident. There is an old left frontal parietal infarct with ex vacuo effect and encephalomalacia. Periventricular white matter hypodensity is present, likely on the basis of chroni c white matter ischemic changes. These findings are stable from 2014. Ventricles and sulci are mildly prominent for the patient age. Paranasal sinuses and mastoid air cells within the [id number] are clear. IMPRESSIONS: 1. Old left frontal parietal infarct. 2. Chronic white matter ischemic changes with mild age-related atrophy. 3. No acute intracranial process.
--- NOTE | 2017-04-05 14:46 | XR ---
EXAMINATION TYPE: XR chest 2V DATE OF EXAM: 04/05/2017 COMPARISON: NONE INDICATION: Chest pain TECHNIQUE: Frontal and lateral views of the chest are obtained. FINDINGS: The heart size is normal. The pulmonary vasculature is normal. The lungs are clear. Sternotomy wires are present from previous CABG. IMPRESSION: 1. No acute pulmonary process.
[2017-04-05 14:51] LABS: Creatine Kinase MB 2.3 ng/mL (0.0-2.4); Troponin I <0.012 ng/mL (0.000-0.034)
[2017-04-05] MEDS ORDERED: NITROGLYCERIN SL TABS 0.4 MG TAB SUBLINGUAL PRN (16:26)
[2017-04-05 17:25] VITALS: BMI 33.4
[2017-04-05] MEDS: NITROGLYCERIN OINT 1 INCH/GM PACKET TOPICAL SCH (18:24)
[2017-04-05] MEDS ORDERED: NEPAFENAC RIGHT EYE SCH (20:30)
[2017-04-05 20:55] LABS: Creatine Kinase 97 U/L (55-170)
[2017-04-05] MEDS ORDERED: ATORVASTATIN 20 MG TAB PO SCH (21:00)
[2017-04-05 21:07] LABS: Troponin I <0.012 ng/mL (0.000-0.034)
[2017-04-05] MEDS: acetaZOLAMIDE 250 MG TAB PO SCH (21:52)
[2017-04-05] MEDS: METOPROLOL TARTRATE 25 MG TAB PO SCH (21:53)
[2017-04-05] MEDS: BRIMONIDINE TARTRATE 0.2% DROPS 5 ML BTL BOTH EYES SCH (21:53)
[2017-04-05] MEDS: OFLOXACIN 0.3% OPHTH DROPS 5 ML BOTTLE BOTH EYES SCH (22:07)
[2017-04-06] MEDS: NITROGLYCERIN OINT 1 INCH/GM PACKET TOPICAL SCH ×2 (00:41→06:18)
[2017-04-06 02:54] LABS: Creatine Kinase 88 U/L (55-170)
[2017-04-06 03:07] LABS: Creatine Kinase MB 1.8 ng/mL (0.0-2.4); Troponin I <0.012 ng/mL (0.000-0.034)
[2017-04-06 06:47] LABS: Basophils % (A) 1 %; CH 30.1; CHCM 34.8; Eosinophils # (A) 0.2 k/uL (0-0.7); Eosinophils % (A) 2 %; HCT 45.2 % (39.0-53.0); HDW 3.07; HGB 15.4 gm/dL (13.0-17.5); Luc # (Auto) 0.26; Luc % (Auto) 3; Lymphocytes # (A) 1.8 k/uL (1.0-4.8); Lymphocytes % (A) 23 %; MCH 29.7 pg (25.0-35.0); MCHC 34.1 g/dL (31.0-37.0); Mean Platelet Volume 6.9; Monocytes # (A) 0.5 k/uL (0-1.0); Monocytes % (A) 7 %; Neutrophils # (A) 4.9 k/uL (1.3-7.7); Neutrophils % (A) 64 %; RDW 15.2 % (11.5-15.5); WBC 7.7 k/uL (3.8-10.6); WBC (Perox) 7.75
[2017-04-06 06:55] LABS: INR 2.7 (<1.1); Prothrombin Time 25.6 sec (9.0-12.0)
[2017-04-06 06:58] LABS: Anion Gap 12 mmol/L; Blood Urea Nitrogen 19 mg/dL (9-20); Calcium 9.2 mg/dL (8.4-10.2); Carbon Dioxide 20 mmol/L (22-30); Chloride 109 mmol/L (98-107); Cholesterol 235 mg/dL (<200); Glucose 85 mg/dL (74-99); HDL Cholesterol 36 mg/dL (40-60); Non-African American GFR(MDRD) 51 (>60 ml/min/1.73 sqM); Sodium 141 mmol/L (137-145); Triglycerides 375 mg/dL (<150)
[2017-04-06] MEDS: BRIMONIDINE TARTRATE 0.2% DROPS 5 ML BTL BOTH EYES SCH (08:06)
[2017-04-06] MEDS: OFLOXACIN 0.3% OPHTH DROPS 5 ML BOTTLE BOTH EYES SCH (08:06)
[2017-04-06] MEDS ORDERED: ISOSORBIDE MONONITRATE ER 30 MG TAB.ER.24H PO SCH (09:00)
[2017-04-06] MEDS ORDERED: ASPIRIN 81 MG CHEW PO SCH (09:00)
[2017-04-06] MEDS ORDERED: MEMANTINE 5 MG TAB PO SCH (09:00)
[2017-04-06] MEDS ORDERED: ASPIRIN 325 MG TAB PO SCH (09:00)
--- NOTE | 2017-04-06 09:56 | P.CRDCN ---
History of Present Illness Consult date: 04/06/17 Requesting physician: Bryant Elmore Consult reason: chest pain Chief complaint: Chest pain History of present illness: This is a 72-year-old gentleman with known history of coronary artery disease and prior bypass surgery as well as PCI's, he follows with Dr. Roth in the office. Patient also has history of hypertension, hyperlipidemia, prior CVA, paroxysmal atrial fibrillation, sleep apnea, Alzheimer's disease. Patient is coming to the hospital with symptoms of left-sided chest discomfort with radiation into the left arm. Patient also states he had associated shortness of breath and diaphoresis. This lasted 10-15 minutes in duration. At the time of my examination this morning he is currently chest pain-free. Patient underwent a Lexiscan stress test in January of this year which revealed an interval large infarct involving the left lateral wall with. Infarct ischemia involving the posterior portion of the lateral wall extending to the inferior portion. He was initially recommended on that admission to undergo cardiac catheterization. Stress test films were then reviewed by Dr. Ariana Moreno who felt that the changes were secondary to a totally occluded vessel and the cath was canceled. He did have one subsequent admission to the hospital with chest pain after that. Blood pressure on arrival here 140/70 heart rate in the 90s respirations 28, 96% on 3 L. WBC 7.7, hemoglobin 15.4, platelet count 204. INR 2.7. D-dimer 0.46. Potassium 4.0, BUN 19, creatinine 1.3. Troponins negative 3. BNP level 302. Cholesterol 235, triglycerides 375, LDL 124, HDL 36. EKG on admission showed a normal sinus rhythm with nonspecific ST-T wave changes and occasional PVC. Chest x-ray did not reveal any acute pulmonary process. CAT scan of the brain was performed which revealed an old left frontoparietal infarct with chronic white matter ischemic change. No Acute change noted. At the time of my examination this morning, patient is currently chest pain-free. Past Medical History Past Medical History: Atrial Fibrillation, Coronary Artery Disease (CAD), Chest Pain / Angina, Heart Failure, CVA/TIA, Dementia, GERD/Reflux, GI Bleed, Hyperlipidemia, Hypertension, Memory Impairment, Myocardial Infarction ([place]), Sleep Apnea/CPAP/BIPAP, Syncope Additional Past Medical History / Comment(s): coronary artery disease with multivessel involvement status post three-vessel bypass surgery, previous myocardial infarctions, previous paroxysmal atrial fibrillation, CVA in 2012 along with previous TIAs, nephrolithiasis, chronic back pain, hemorrhoids, 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 Chronic back pain, gastroparesis, degenerative arthritis , impaired hearing, chronic diastolic heart failure, vascular dementia, esophageal stricture with previous history of esophageal dilatation, history of C. diff colitis occurred postoperatively forced the patient was hospitalized in June 2015. Last Myocardial Infarction Date:: 2014 History of Any Multi-Drug Resistant Organisms: MRSA Date of last positivie culture/infection: 02-02-12 MDRO Source:: UNK SITE OR SOURCE Past Surgical History: Back Surgery, Coronary Bypass/CABG, Heart Catheterization , Heart Catheterization With Stent, Orthopedic Surgery Additional Past Surgical History / Comment(s): BILATERAL CAROTID ENDARTERECTOMIES, HX OF PREVIOUS HEART CATHS WITH STENTS AND LAST STENT 03/2015 , EGD X3, ESOPHAGEAL DILATION X5, PLASTIC CAP LEFT ELBOW, URETHRAL STRICTURE DILATION., CABG (3 V) Past Anesthesia/Blood Transfusion Reactions: No Reported Reaction Additional Past Anesthesia/Blood Transfusion Reaction / Comment(s): Pt states he has no problem with anesthesia, old medical records indicate post op muscle weakness and slow to wake up. Pt has never recieved blood to his knowledge. Date of Last Stent Placement:: 03/22/2015 Past Psychological History: Anxiety, Depression Additional Psychological History / Comment(s): Lives @ [facility] He ambulates with straight cane. He has sleep apnea and does not tolerate CPAP so on occasion he uses his 's home O2. He is independent with his ADLs. He has a back brace he wears on occasion. HAS HEARING AIDS AND DENTURES BUT WON'T WEAR. Smoking Status: Never smoker - Past Family History Father Family Medical History: Deep Vein Thrombosis (DVT) Additional Family Medical History / Comment(s): Father of DVT Mother Family Medical History: Cancer Additional Family Medical History / Comment(s): Mother of jaw bone cancer. Medications and Allergies Home Medications Medication Instructions Recorded Confirmed Type Aspirin EC [Ecotrin Low Dose] 81 mg PO DAILY 01/20/17 04/05/17 History Metoprolol Tartrate [Lopressor] 25 mg PO BID 01/20/17 04/05/17 History Warfarin [Coumadin] 7.5 mg PO MOWEFR 01/20/17 04/05/17 History Nepafenac [Ilevro] 1 drop LEFT EYE Q48H 03/12/17 04/05/17 History Nepafenac [Ilevro] 1 drop RIGHT EYE Q48H 03/12/17 04/05/17 History Ofloxacin 0.3% Ophth Soln [Ocuflox 1 drops BOTH EYES TID 03/12/17 04/05/17 History Ophth Soln] Brimonidine Tartrate [Alphagan P 1 drops BOTH EYES BID 04/05/17 04/05/17 History 0.15% Ophth Soln] Memantine [Namenda] 5 mg PO DAILY 04/05/17 04/05/17 History Warfarin [Coumadin] 5 mg PO SUTUTHSA 04/05/17 04/05/17 History acetaZOLAMIDE [Diamox Sequels] 500 mg PO BID 04/05/17 04/05/17 History Allergies Allergy/AdvReac Type Severity Reaction Status Date / Time adhesive Allergy Rash/Hives Verified 04/05/17 13:56 Physical Exam Vitals: Vital Signs Temp Pulse Pulse Resp BP BP Pulse Ox 04/06/17 08:00 98.9 F 67 17 118/66 95 04/06/17 04:00 97.1 F L 68 18 110/65 94 L 04/06/17 00:00 99.0 F 81 18 104/76 95 04/05/17 19:48 96.5 F L 92 18 122/68 94 L 04/05/17 17:22 98.1 F 88 18 144/89 95 04/05/17 17:09 97.6 F 87 18 147/91 96 04/05/17 15:30 73 24 156/68 96 04/05/17 14:21 105/77 04/05/17 14:10 105 H 26 H 98/55 96 04/05/17 14:08 97 24 107/67 96 04/05/17 14:04 88 26 H 126/77 96 04/05/17 14:00 28 H 04/05/17 13:56 97.6 F 92 28 H 140/77 Intake and Output 04/05/17 04/06/17 04/06/17 22:59 06:59 14:59 Intake Total 298 0 Balance 298 0 Intake: Oral 298 0 Other: Voiding Method Toilet Toilet Toilet # Voids 1 Weight 99.79 kg 98.7 kg PHYSICAL EXAMINATION: HEENT: Head is atraumatic, normocephalic. Pupils equal, round. Neck is supple. There is no elevated jugular venous pressure. HEART EXAMINATION: Heart S1, S2 normal. No murmur or gallop heard. CHEST EXAMINATION: Lungs are clear to auscultation and precussion. No chest wall tenderness is noted on palpation or with deep breathing. ABDOMEN: Soft, nontender. Bowel sounds are heard. No organomegaly noted. EXTREMITIES: 2+ peripheral pulses with no evidence of peripheral edema and no calf tenderness noted. NEUROLOGIC patient is awake, alert and oriented -3. . Results 04/06/17 06:10 04/06/17 06:10 Cardiac Enzymes 04/05/17 04/05/17 04/05/17 Range/Units 13:55 13:55 20:08 AST 26 (17-59) U/L CK-MB (CK-2) 2.3 2.0 (0.0-2.4) ng/mL Troponin I <0.012 <0.012 (0.000-0.034) ng/mL 04/06/17 Range/Units 02:12 AST (17-59) U/L CK-MB (CK-2) 1.8 (0.0-2.4) ng/mL Troponin I <0.012 (0.000-0.034) ng/mL Coagulation 04/05/17 04/06/17 Range/Units 13:55 06:10 PT 30.4 H 25.6 H (9.0-12.0) sec APTT 32.7 H (22.0-30.0) sec Lipids 04/06/17 Range/Units 06:10 Triglycerides 375 H (<150) mg/dL Cholesterol 235 H (<200) mg/dL HDL Cholesterol 36 L (40-60) mg/dL CBC 04/05/17 04/06/17 Range/Units 13:55 06:10 WBC 6.5 7.7 (3.8-10.6) k/uL RBC 5.43 5.20 (4.30-5.90) m/uL Hgb 16.7 15.4 (13.0-17.5) gm/dL Hct 47.5 45.2 (39.0-53.0) % Plt Count 226 204 (150-450) k/uL Comprehensive Metabolic Panel 04/05/17 04/06/17 Range/Units 13:55 06:10 Sodium 140 141 (137-145) mmol/L Potassium 4.1 4.0 (3.5-5.1) mmol/L Chloride 109 H 109 H (98-107) mmol/L Carbon Dioxide 17 L 20 L (22-30) mmol/L BUN 19 19 (9-20) mg/dL Creatinine 1.11 1.37 H (0.66-1.25) mg/dL Glucose 123 H 85 (74-99) mg/dL Calcium 9.1 9.2 (8.4-10.2) mg/dL AST 26 (17-59) U/L ALT 41 (21-72) U/L Alkaline Phosphatase 74 (38-126) U/L Total Protein 7.0 (6.3-8.2) g/dL Albumin 3.8 (3.5-5.0) g/dL Current Medications Generic Name Dose Route Start Last Admin Trade Name Freq PRN Reason Stop Dose Admin Acetazolamide 500 mg 04/05/17 21:00 04/05/17 21:52 Diamox PO 500 mg BID [facility] Administration Aspirin 81 mg 04/06/17 09:00 Aspirin PO DAILY [facility] Atorvastatin Calcium 20 mg 04/05/17 21:00 04/05/17 21:53 Lipitor PO 20 mg HS [facility] Administration Brimonidine Tartrate 1 drops 04/05/17 21:00 04/06/17 08:06 Alphagan P 0.2% Ophth Soln BOTH EYES 1 drops BID [facility] Administration Isosorbide Mononitrate 30 mg 04/06/17 09:00 Imdur PO DAILY [facility] Memantine 5 mg 04/06/17 09:00 Namenda PO DAILY [facility] Metoprolol Tartrate 25 mg 04/05/17 21:00 04/05/17 21:53 Lopressor PO 25 mg BID [facility] Administration Nitroglycerin 1 inch 04/05/17 18:00 04/06/17 06:18 Nitro-Bid Oint TOPICAL Not Given Q6HR [facility] Nitroglycerin 0.4 mg 04/05/17 16:26 Nitrostat SUBLINGUAL Q5M PRN Chest Pain Non-Formulary Medication 1 drop 04/07/17 09:00 Nepafenac [Ilevro] BOTH EYES Q48H [facility] Ofloxacin 1 drops 04/05/17 22:00 04/06/17 08:06 Ocuflox Ophth BOTH EYES 1 drops TID [facility] Administration Warfarin Sodium 7.5 mg 04/06/17 18:00 Coumadin PO [email or web address] [email or web address] Warfarin Sodium 5 mg 04/07/17 18:00 Coumadin PO [email or web address] RAHEL Intake and Output 04/05/17 04/06/17 04/06/17 22:59 06:59 14:59 Intake Total 298 0 Balance 298 0 Intake: Oral 298 0 Other: Voiding Method Toilet Toilet Toilet # Voids 1 Weight 99.79 kg 98.7 kg 04/06/17 06:10 04/06/17 06:10 EKG Interpretations (text) EKG shows normal sinus rhythm with nonspecific ST-T wave changes and occasional PVC Assessment and Plan Plan: Assessment and plan #1 chest discomfort with associated shortness of breath and diaphoresis, radiation down the left arm. Troponins negative 3. EKG shows normal sinus rhythm with nonspecific ST-T wave changes and occasional PVC. Recent Adore scan performed in January of this year positive for reversible ischemia in the lateral wall region. #2 known history of coronary artery disease with prior coronary artery bypass grafting surgery and stent placements #3 hypertension #4 hyperlipidemia #5 COPD #6 prior history of smoking #7 prior CVA #8 paroxysmal atrial fibrillation, on Coumadin, INR 2.7 #9 Alzheimer's Plan Recent echocardiogram with Doppler study was performed in January of this year which revealed an ejection fraction of 50-55%. We will not repeat an echo on this admission. Continue aspirin 81 mg daily, Lipitor, Imdur, metoprolol tartrate, discontinue Nitropaste increase Imdur. Consider the addition of Ranexa. Further recommendations to follow. DNP note has been reviewed, I agree with a documented findings and plan of care. Patient was seen and examined.
[2017-04-06] MEDS ORDERED: ATORVASTATIN 40 MG TAB PO SCH (10:12)
[2017-04-06] MEDS ORDERED: RANOLAZINE 500 MG TAB.ER.12H PO SCH (10:15)
--- NOTE | 2017-04-06 10:48 | P.PN ---
Progress Note - Text This is an addendum to the dictated cardiology consultation. The patient has a known history of CAD, post CABG and PCI prior to that who presents with headache , chest discomfort and dyspnea. He has prior similar admissions. He had a stress test done in January of this year that showed predominantly fixed lateral wall defect with ned-infarct ischemia. According to him his active physically has no exertional chest discomfort but complains of mild dyspnea on exertion. He denies any PND, orthopnea or peripheral edema. Since admission his cardiac enzymes are unremarkable and he has no acute EKG changes. His symptoms of chest discomfort of unclear etiology but there is no evidence to suggest acute coronary syndrome. I would maximize his medical therapy and if he continues to be stable I would expect he should be able to be discharged home and followed as an outpatient. Thank you for this consult we will follow with you.
[2017-04-06] MEDS: METOPROLOL TARTRATE 25 MG TAB PO SCH (11:00)
[2017-04-06] MEDS: acetaZOLAMIDE 250 MG TAB PO SCH (11:01)
[2017-04-06 11:53] VITALS: BP 134/80; PULSE 71; RESP 16; TEMP 98.2
[2017-04-06] MEDS ORDERED: WARFARIN 7.5 MG TAB PO SCH (18:00)
--- NOTE | 2017-04-06 18:28 | HP ---
DATE OF ADMISSION: 04/05/2017 PRESENTING COMPLAINT: Chest pain. HISTORY OF PRESENTING COMPLAINT: This is a 72-year-old patient, well known to me from multiple prior admissions. He follows with Dr. Reed Bull. Patient's chronic stable medical conditions include congestive heart failure, GERD, hyperlipidemia, Alzheimer's dementia, coronary artery disease. Patient is in a supervised setting; has got tethers. Patient presented with some burning sensation in the left upper chest wall; felt he was shaking a bit; slightly sweating; no dizziness. This lasted for a short while, he states. Hence patient was admitted with unstable angina. Patient is not sure if he took any nitroglycerin. There is no cough present; no fever. REVIEW OF SYSTEMS: CONSTITUTIONAL: Tired. HEENT: Decreased hearing. RESPIRATORY: As above. CARDIOVASCULAR: As above. GASTROINTESTINAL: None. GENITOURINARY: None. MUSCULOSKELETAL: Pain in the joints. DERMATOLOGICAL: None. HEMATOLOGIC: None. LYMPHATICS: None. PSYCHIATRY: Forgetful. NEUROLOGICAL: None. PAST MEDICAL HISTORY: 1. Congestive heart failure. 2. 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 3. Coronary artery disease. 4. GERD. 5. ( ) 6. Hyperlipidemia. 7. Hypertension. 8. DJD. 9. Alzheimer's dementia. 10. Esophageal obstruction with dilatation. 11. Left rotator cuff injury. 12. Obstructive sleep apnea; does not use CPAP. 13. Kidney stones. 14. Hemorrhoids. PAST SURGICAL HISTORY: 1. Coronary artery bypass. 2. Cardiac cath with stent. 3. Bilateral carotid endarterectomies. 4. Esophageal dilatation. 5. Ureteral stricture dilatation. SOCIAL HISTORY: . Does not use CPAP. Did drink heavy alcohol in the past. Currently in a supervised setting. Has got ( ). FAMILY HISTORY: DVT. ALLERGIES: ADHESIVE. HOME MEDICATIONS: 1. Diamox 100 mg b.i.d. 2. Coumadin 5 mg Thursday, Thursday, , Thursday. 3. Coumadin 7.5 mg Thursday, Thursday, Thursday. 4. Ofloxacin 0.3% one drop to both eyes t.i.d. 5. Ilevro 1 drop to right eye q.48 hours; 1 drop to left eye q.48 hours. 6. Lopressor 25 p.o. b.i.d. 7. Namenda 5 mg p.o. daily. 8. Imdur ER 30 mg a day. 9. Alphagan 0.15% one drop to both eyes b.i.d. 10. Lipitor 20 mg at bedtime. 11. Aspirin 81 mg p.o. daily. On examination, temperature 97.6, pulse 92, respiration 28, blood pressure 140/77, pulse ox 96% on 3 L. GENERAL APPEARANCE: Lying in bed, comfortable. EYES: Pupils equal. Conjunctivae normal. HEENT: Oral cavity normal. NECK: JVD not raised. Mass not palpable. RESPIRATORY: Effort normal. LUNGS: Slightly decreased breath sounds. CARDIOVASCULAR: First and second sounds normal. No edema. ABDOMEN: Soft, nontender. Liver and spleen not palpable. LYMPHATIC: No lymph node palpable in neck or axillae. PSYCHIATRY: Awake. Answering simple questions. NEUROLOGICAL: Pupils equal. Cranial nerves grossly intact. Power and sensation grossly intact. EXTREMITIES: Patient has a tether on the ankle. INVESTIGATIONS: White count 6.5, hemoglobin 16.7. INR 3.1. Potassium 4.1. BUN and creatinine are normal. Troponin x3 negative. LDL is 124. EKG shows PVCs and nonspecific T-wave changes. ASSESSMENT: 1. Possible unstable angina in a patient with known coronary artery disease with a somewhat atypical presentation. 2. Chronic obstructive pulmonary disease. 3. Alzheimer's dementia, late-onset type. 4. Chronic congestive heart failure from diastolic dysfunction; ejection fraction 55% to 60%, with underlying coronary artery disease. 5. Coronary artery disease with prior history of stent. 6. Gastroesophageal reflux disease. 7. Hyperlipidemia. 8. Osteoarthritis in multiple joints, primary. 9. Sleep apnea. 10. Lumbar degenerative joint disease. 11. History of esophageal stricture with dilatation. 12. Neurocognitive disorder. PLAN: Home medications are resumed. Cardiology was consulted. Will await their input. Currently patient is free of chest pain. Will follow.
[2017-04-07] MEDS ORDERED: ISOSORBIDE MONONITRATE ER 60 MG TAB.ER.24H PO SCH (09:00)
[2017-04-07] MEDS ORDERED: NEPAFENAC BOTH EYES SCH (09:00)
[2017-04-07] MEDS ORDERED: WARFARIN 5 MG TAB PO SCH (18:00)
--- NOTE | 2017-04-10 13:29 | DS ---
DATE OF ADMISSION: 04/05/2017 DATE OF DISCHARGE: 04/06/2017 FINAL DIAGNOSES: 1. Possible unstable angina in a patient with known coronary artery disease with somewhat atypical presentation. 2. Chronic obstructive pulmonary disease. 3. Alzheimer dementia, late onset type. 4. Chronic congestive heart failure from diastolic dysfunction; ejection fraction 55% to 60% from underlying coronary artery disease. 5. Coronary artery disease with prior history of stent. 6. Gastroesophageal reflux disease. 7. Hyperlipidemia. 8. Osteoarthritis of multiple joints, primary. 9. Sleep apnea. 10. Lumbar degenerative joint disease. 11. History of esophageal stricture with dilatation. 12. Neurocognitive disorder. HOSPITAL COURSE: This patient presented with chest pain with some atypical features seen by Cardiology. No further symptoms by the time of discharge were noted. Troponins were negative. LDL was 24. Seen by Dr. Varela from cardiology, [facility] for discharge. On exam, LUNGS: Decreased breath sounds. CARDIOVASCULAR: First and second sounds normal. CONSULTATION: Dr. Varela from cardiology. DISCHARGE MEDICATIONS: 1. Aspirin 81 mg a day. 2. Lopressor 25 mg b.i.d. 3. Coumadin 7.5 mg p.o. Thursday, Thursday and Thursday. 4. Ilevro 1 drop to the left eye q.48 hours, Ilevro 1 drop to right eye q.48 hours. 5. Ocuflox 1 drop to both eyes t.i.d. 6. Alphagan-P 0.15% ophthalmic solution 1 drop to both eyes daily. 7. Namenda 5 mg p.o. daily. 8. Coumadin 5 mg p.o. on Thursday, Thursday, , Thursday. 9. Diamox 500 mg p.o. b.i.d. 10. Lipitor 40 mg q.h.s. 11. Imdur ER 60 mg p.o. daily. 12. Ranexa 500 mg p.o. q.12. Patient will follow up with his community health education coordinator in 1 week, Dr. Bull in 2 days.
== END 2017-04-06 17:36 | disposition other institution (70) ==
LOC: EC 13:32 → 6SEL 16:26 → 3OBS 04-06 11:13
PROVIDERS: ADMIT Hospitalist; ATTEND Hospitalist
DX: R07.89 Other chest pain (principal); R51 Headache; K21.9 Gastro-esophageal reflux disease without esophagitis; I25.2 Old myocardial infarction; I25.10 Atherosclerotic heart disease of native coronary artery without angina pectoris; G30.9 Alzheimer's disease, unspecified; F02.80 Dementia in other diseases classified elsewhere, unspecified severity, without behavioral disturbance, psychotic disturbance, mood disturbance, and anxiety; I11.0 Hypertensive heart disease with heart failure; E78.5 Hyperlipidemia, unspecified; I50.32 Chronic diastolic (congestive) heart failure; G47.33 Obstructive sleep apnea (adult) (pediatric); M54.9 Dorsalgia, unspecified; F41.9 Anxiety disorder, unspecified; G89.29 Other chronic pain; F32.9 Major depressive disorder, single episode, unspecified; I48.0 Paroxysmal atrial fibrillation; J44.9 Chronic obstructive pulmonary disease, unspecified; F01.50 Vascular dementia, unspecified severity, without behavioral disturbance, psychotic disturbance, mood disturbance, and anxiety; M19.90 Unspecified osteoarthritis, unspecified site; Z95.1 Presence of aortocoronary bypass graft; Z86.73 Personal history of transient ischemic attack (TIA), and cerebral infarction without residual deficits; Z91.048 Other nonmedicinal substance allergy status; Z79.82 Long term (current) use of aspirin; Z79.899 Other long term (current) drug therapy; Z79.01 Long term (current) use of anticoagulants; Z87.442 Personal history of urinary calculi; Z86.14 Personal history of Methicillin resistant Staphylococcus aureus infection; Z86.711 Personal history of pulmonary embolism; Z87.891 Personal history of nicotine dependence; M47.816 Spondylosis without myelopathy or radiculopathy, lumbar region
CPT/HCPCS: 99285; 36415; 93005; 85379; 83880; 80061; 80053; 80048; 82550 ×2; 82553 ×2; 83735; 84484 ×2; 85025 ×2; 85610 ×2; 85730; 71020; 70450; G0378 ×3; J2270

== ENCOUNTER 2017-04-12 12:59 | Emergency (ER) | payer MEDICARE ==
--- NOTE | 2017-04-12 13:25 | ED ---
General Adult HPI - General Chief complaint: Nausea/Vomiting/Diarrhea Stated complaint: NEAR SYNCOPAL EPISODE, VOMITING, CARDIAC Hx Time Seen by Provider: 04/12/17 13:04 Source: patient, EMS, RN notes reviewed, old records reviewed Mode of arrival: ambulatory Limitations: no limitations - History of Present Illness Initial comments: Chief complaint and history of present illness 72-year-old male who was brought emergency room by EMS from a nursing facility. He reports an EMS confirms that after having had some goulash felt nauseated and vomited. Patient reports he felt dizzy afterwards. Denies any chest pain. - Related Data Home Medications Medication Instructions Recorded Confirmed Aspirin EC [Ecotrin Low Dose] 81 mg PO DAILY 01/20/17 04/12/17 Metoprolol Tartrate [Lopressor] 25 mg PO BID 01/20/17 04/12/17 Warfarin [Coumadin] 7.5 mg PO MOWEFR 01/20/17 04/12/17 Nepafenac [Ilevro] 1 drop BOTH EYES Q48H 03/12/17 04/12/17 Ofloxacin 0.3% Ophth Soln [Ocuflox 1 drops BOTH EYES TID 03/12/17 04/12/17 Ophth Soln] Brimonidine Tartrate [Alphagan P 1 drops BOTH EYES BID 04/05/17 04/12/17 0.15% Ophth Soln] Memantine [Namenda] 5 mg PO DAILY 04/05/17 04/12/17 Warfarin [Coumadin] 5 mg PO SUTUTHSA 04/05/17 04/12/17 acetaZOLAMIDE [Diamox Sequels] 500 mg PO BID 04/05/17 04/12/17 Previous Rx's Medication Instructions Recorded Atorvastatin [Lipitor] 40 mg PO HS #30 tab 04/06/17 Isosorbide Mononitrate ER [Imdur] 60 mg PO DAILY #30 tab 04/06/17 Ranolazine [Ranexa] 500 mg PO Q12HR #60 tab 04/06/17 Allergies Allergy/AdvReac Type Severity Reaction Status Date / Time adhesive Allergy Rash/Hives Verified 04/12/17 13:13 Review of Systems ROS Statement: Those systems with pertinent positive or pertinent negative responses have been documented in the HPI. Review of systems mild headache but no visual acuity changes. Chronically short of breath because of COPD. Currently no nausea or upset stomach. No evidence of a neuro deficits. Patient does have Alzheimer's. Answering questions appropriately. All systems are reviewed. Past medical problems significant for COPD, A. fib on Coumadin, TIA, angina, Alzheimer's, CHF with ejection fraction of approximately 60%. GERD, hyperlipidemia, osteoarthritis, sleep apnea, DJD lumbar spine. Previous esophageal stricture with dilatation. And neurocognitive disorder. Patient was recently hospital evaluated by cardiology etc. include CABG, bilateral carotid no direct injuries, heart stents, left elbow surgery, urethral stricture dilatation. ALLERGIES adhesive tape. Past history of anxiety depression. Past history of heavy alcohol use. Currently nonsmoker family history mother of jaw bone cancer. Discharged from the hospital just 6 days ago. ROS Other: All systems not noted in ROS Statement are negative. 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 Chronic back pain, gastroparesis, degenerative arthritis , impaired hearing, chronic diastolic heart failure, vascular dementia, esophageal stricture with previous history of esophageal dilatation, history of C. diff colitis occurred postoperatively forced the patient was hospitalized in June 2015. Last Myocardial Infarction Date:: 2014 History of Any Multi-Drug Resistant Organisms: MRSA Date of last positivie culture/infection: 02-02-12 MDRO Source:: UNK SITE OR SOURCE Past Surgical History: Back Surgery, Coronary Bypass/CABG, Heart Catheterization , Heart Catheterization With Stent, Orthopedic Surgery Additional Past Surgical History / Comment(s): BILATERAL CAROTID ENDARTERECTOMIES, HX OF PREVIOUS HEART CATHS WITH STENTS AND LAST STENT 03/2015 , EGD X3, ESOPHAGEAL DILATION X5, PLASTIC CAP LEFT ELBOW, URETHRAL STRICTURE DILATION., CABG (3 V) Past Anesthesia/Blood Transfusion Reactions: No Reported Reaction Additional Past Anesthesia/Blood Transfusion Reaction / Comment(s): Pt states he has no problem with anesthesia, old medical records indicate post op muscle weakness and slow to wake up. Pt has never recieved blood to his knowledge. Date of Last Stent Placement:: 03/22/2015 Past Psychological History: Anxiety, Depression Smoking Status: Never smoker - Past Family History Father Family Medical History: Deep Vein Thrombosis (DVT) Additional Family Medical History / Comment(s): Father of DVT Mother Family Medical History: Cancer Additional Family Medical History / Comment(s): Mother of jaw bone cancer. General Exam - General Exam Comments Initial Comments: General: The patient is awake and alert, mildly short of breath, history of COPD. 2 L nasal O2 started. Eye: Pupils are equal, round and reactive to light, extra-ocular movements are intact ; there is normal conjunctiva bilaterally. No signs of icterus. Ears, nose, mouth and throat: There are moist mucous membranes and no oral lesions. Patient is edentulous Neck: The neck is supple, there is no tenderness, past surgeries include bilateral endarterectomies. Cardiovascular: A regular rate and rhythm. Respiratory: Lungs are clear to auscultation, respirations are non-labored, breath sounds are equal. No wheezes, stridor, rales, or rhonchi. Gastrointestinal: Soft, non-distended, non-tender abdomen without masses or organomegaly noted. There is no rebound or guarding present. No CVA tenderness. Bowel sounds are unremarkable. Vomited once but does not complaining being nauseated now no abdominal pain Back: There is no tenderness to palpation in the midline. There is no obvious deformity. No rashes noted. Musculoskeletal: Normal ROM, no tenderness, There is no pedal edema. There is no calf tenderness or swelling. Sensation intact. Pulses equal bilaterally 2+. Neurological: Gross examination in bed no focal or lateralizing findings. Skin: Skin is warm and dry and no rashes or lesions are noted. Psychiatric: Denies depression but does have a past history of anxiety and depression. Limitations: no limitations Course Vital Signs 04/12/17 04/12/17 04/12/17 13:07 13:40 14:08 Temperature 97.0 F L Pulse Rate 85 77 82 Pulse Rate [ Right Sitting] Pulse Rate [ Right Standing] Pulse Rate [ Right Supine] Respiratory 16 18 18 Rate Blood Pressure 186/90 158/100 173/97 Blood Pressure [Right Arm Sitting] Blood Pressure [Right Arm Standing] Blood Pressure [Right Arm Supine] O2 Sat by Pulse 96 95 98 Oximetry 04/12/17 04/12/17 04/12/17 14:58 15:00 15:46 Temperature Pulse Rate 92 82 Pulse Rate [ 80 Right Sitting] Pulse Rate [ 92 Right Standing] Pulse Rate [ 72 Right Supine] Respiratory 18 18 18 Rate Blood Pressure 186/84 176/97 Blood Pressure 176/82 [Right Arm Sitting] Blood Pressure 186/84 [Right Arm Standing] Blood Pressure 163/98 [Right Arm Supine] O2 Sat by Pulse 98 98 98 Oximetry EKG Findings - EKG Comments: EKG Findings:: EKG was done and reviewed at 1317 showing sinus rhythm with occasional PVCs. Age undetermined inferior infarct. Rate 85 NM was 144 QRS [address] QT [address] Fierro. This EKG was compared to one done just 6 days ago on there are very similar. Dr. Fierro Medical Decision Making - Medical Decision Making Medical decision making the patient's white count 6 hemoglobin 16.9 hematocrit of 48. INR 3.1. Potassium 4.1 BUN 12 creatinine 1.0 and GFR greater than 60. Glucose 93. Troponin less than 0.012. Chest x-ray is done AP and lateral view and reviewed by radiologist his impression is no acute cardiopulmonary process as read by Dr. Alejandro was rehydrated. Orthostatics were recorded and see nurse's notes. No syncope. Patient rested states he feels good now wants to go back to his facility. Vital signs remained stable. - Lab Data Result diagrams: 04/12/17 13:24 04/12/17 13:24 Lab Results 04/12/17 04/12/17 04/12/17 Range/Units 13:24 13:24 13:24 WBC 6.2 (3.8-10.6) k/uL RBC 5.54 (4.30-5.90) m/uL Hgb 16.9 (13.0-17.5) gm/dL Hct 48.5 (39.0-53.0) % MCV 87.7 (80.0-100.0) fL MCH 30.6 (25.0-35.0) pg MCHC 34.9 (31.0-37.0) g/dL RDW 15.4 (11.5-15.5) % Plt Count 223 (150-450) k/uL Neutrophils % 56 % Lymphocytes % 30 % Monocytes % 7 % Eosinophils % 2 % Basophils % 1 % Neutrophils # 3.5 (1.3-7.7) k/uL Lymphocytes # 1.9 (1.0-4.8) k/uL Monocytes # 0.4 (0-1.0) k/uL Eosinophils # 0.1 (0-0.7) k/uL Basophils # 0.1 (0-0.2) k/uL PT (9.0-12.0) sec INR (<1.1) D-Dimer (<0.60) mg/L FEU Sodium 144 (137-145) mmol/L Potassium 4.1 (3.5-5.1) mmol/L Chloride 116 H (98-107) mmol/L Carbon Dioxide 19 L (22-30) mmol/L Anion Gap 9 mmol/L BUN 12 (9-20) mg/dL Creatinine 1.00 (0.66-1.25) mg/dL Est GFR (MDRD) Af Amer >60 (>60 ml/min/1.73 sqM) Est GFR (MDRD) Non-Af >60 (>60 ml/min/1.73 sqM) Glucose 93 (74-99) mg/dL Calcium 8.9 (8.4-10.2) mg/dL Total Bilirubin 0.5 (0.2-1.3) mg/dL AST 21 (17-59) U/L ALT 38 (21-72) U/L Alkaline Phosphatase 75 (38-126) U/L Total Creatine Kinase 109 (55-170) U/L CK-MB (CK-2) 2.0 (0.0-2.4) ng/mL CK-MB (CK-2) Rel Index 1.8 Troponin I <0.012 (0.000-0.034) ng/mL Total Protein 6.7 (6.3-8.2) g/dL Albumin 3.8 (3.5-5.0) g/dL 04/12/17 Range/Units 13:24 WBC (3.8-10.6) k/uL RBC (4.30-5.90) m/uL Hgb (13.0-17.5) gm/dL Hct (39.0-53.0) % MCV (80.0-100.0) fL MCH (25.0-35.0) pg MCHC (31.0-37.0) g/dL RDW (11.5-15.5) % Plt Count (150-450) k/uL Neutrophils % % Lymphocytes % % Monocytes % % Eosinophils % % Basophils % % Neutrophils # (1.3-7.7) k/uL Lymphocytes # (1.0-4.8) k/uL Monocytes # (0-1.0) k/uL Eosinophils # (0-0.7) k/uL Basophils # (0-0.2) k/uL PT 29.9 H (9.0-12.0) sec INR 3.1 (<1.1) D-Dimer 0.35 (<0.60) mg/L FEU Sodium (137-145) mmol/L Potassium (3.5-5.1) mmol/L Chloride (98-107) mmol/L Carbon Dioxide (22-30) mmol/L Anion Gap mmol/L BUN (9-20) mg/dL Creatinine (0.66-1.25) mg/dL Est GFR (MDRD) Af Amer (>60 ml/min/1.73 sqM) Est GFR (MDRD) Non-Af (>60 ml/min/1.73 sqM) Glucose (74-99) mg/dL Calcium (8.4-10.2) mg/dL Total Bilirubin (0.2-1.3) mg/dL AST (17-59) U/L ALT (21-72) U/L Alkaline Phosphatase (38-126) U/L Total Creatine Kinase (55-170) U/L CK-MB (CK-2) (0.0-2.4) ng/mL CK-MB (CK-2) Rel Index Troponin I (0.000-0.034) ng/mL Total Protein (6.3-8.2) g/dL Albumin (3.5-5.0) g/dL Disposition Clinical Impression: Nausea & vomiting Disposition: HOME SELF-CARE Condition: Fair Instructions: Acute Nausea and Vomiting (ED) Additional Instructions: Advance diet, liquids. Frequent small meals. Follow-up family physician. Referrals: Reed Bull MD [Primary Care Provider] - 1-2 days Time of Disposition: 15:59
--- NOTE | 2017-04-12 13:39 | XR ---
EXAMINATION TYPE: XR chest 2V DATE OF EXAM: 04/12/2017 COMPARISON: Prior chest x-ray 04/05/2017 HISTORY: 62 TECHNIQUE: Frontal and lateral views of the chest are obtained. FINDINGS: There is no focal air space opacity, pleural effusion, or pneumothorax seen. The cardiac silhouette size is within normal limits. There are prominent lung volumes congestive of COPD. Patient is post median sternotomy. There are overlying cardiac leads. The osseous structures are intact. IMPRESSION: No acute cardiopulmonary process.
[2017-04-12 13:44] LABS: Basophils # (A) 0.1 k/uL (0-0.2); Basophils % (A) 1 %; CH 30.5; Eosinophils # (A) 0.1 k/uL (0-0.7); Eosinophils % (A) 2 %; HCT 48.5 % (39.0-53.0); HGB 16.9 gm/dL (13.0-17.5); Luc # (Auto) 0.28; Luc % (Auto) 5; Lymphocytes # (A) 1.9 k/uL (1.0-4.8); Lymphocytes % (A) 30 %; MCH 30.6 pg (25.0-35.0); MCHC 34.9 g/dL (31.0-37.0); MCV 87.7 fL (80.0-100.0); Monocytes # (A) 0.4 k/uL (0-1.0); Monocytes % (A) 7 %; Neutrophils # (A) 3.5 k/uL (1.3-7.7); Neutrophils % (A) 56 %; RBC 5.54 m/uL (4.30-5.90); RDW 15.4 % (11.5-15.5); WBC 6.2 k/uL (3.8-10.6); WBC (Perox) 6.01
[2017-04-12 13:47] VITALS: RESP 18
[2017-04-12 13:55] LABS: ALT 38 U/L (21-72); AST 21 U/L (17-59); Alkaline Phosphatase 75 U/L (38-126); Anion Gap 9 mmol/L; Blood Urea Nitrogen 12 mg/dL (9-20); Calcium 8.9 mg/dL (8.4-10.2); Carbon Dioxide 19 mmol/L (22-30); Chloride 116 mmol/L (98-107); Glucose 93 mg/dL (74-99); Non-African American GFR(MDRD) >60 (>60 ml/min/1.73 sqM); Potassium 4.1 mmol/L (3.5-5.1); Sodium 144 mmol/L (137-145); Total Bilirubin 0.5 mg/dL (0.2-1.3); Total Protein 6.7 g/dL (6.3-8.2)
[2017-04-12 14:08] LABS: INR 3.1 (<1.1); Prothrombin Time 29.9 sec (9.0-12.0)
[2017-04-12] MEDS ORDERED: METOCLOPRAMIDE 5 MG/ML 2 ML VIAL IVP STA (14:12)
[2017-04-12 14:14] LABS: Creatine Kinase 109 U/L (55-170)
[2017-04-12 14:27] LABS: Troponin I <0.012 ng/mL (0.000-0.034)
[2017-04-12 16:38] VITALS: BP 168/83; PULSE 68; TEMP 98.4
== END 2017-04-12 16:17 | disposition home or self-care (01) ==
LOC: EC 12:59
DX: R11.2 Nausea with vomiting, unspecified (principal); R19.7 Diarrhea, unspecified; R55 Syncope and collapse; F03.90 Unspecified dementia, unspecified severity, without behavioral disturbance, psychotic disturbance, mood disturbance, and anxiety; F32.9 Major depressive disorder, single episode, unspecified; I48.91 Unspecified atrial fibrillation; I10 Essential (primary) hypertension; Z79.82 Long term (current) use of aspirin; Z79.01 Long term (current) use of anticoagulants; Z91.048 Other nonmedicinal substance allergy status; Z79.899 Other long term (current) drug therapy
CPT/HCPCS: 99285 ×2; 96374 ×2; 36415; 93005; 85379; 80053; 82550; 82553; 84484; 85025; 85610; 71020; J2765

== ENCOUNTER 2017-04-18 17:51 | Observation (INO) | payer MEDICARE ==
[2017-04-18] MEDS ORDERED: ASPIRIN 81 MG CHEW PO STA (18:11)
[2017-04-18] MEDS ORDERED: NITROGLYCERIN OINT 1 INCH/GM PACKET TOPICAL STA (18:11)
--- NOTE | 2017-04-18 18:14 | ED ---
General Adult HPI - General Chief complaint: Chest Pain Stated complaint: Chest pain Time Seen by Provider: 04/18/17 17:59 Source: patient, RN notes reviewed Mode of arrival: wheelchair Limitations: no limitations - History of Present Illness Initial comments: Patient is a poor historian. Patient is a pleasant 72-year-old male presenting to the emergency department with chest discomfort. Onset was a few hours ago. Patient states discomfort is somewhat mild at this time. No radiation of pain. Patient states symptoms are somewhat similar to previous heart problems. Patient did have CABG done a couple of years ago. Patient does have worsening of symptoms with exertion. Patient also has dyspnea with associated symptoms. No nausea or diaphoresis. Patient does feel lightheaded. - Related Data Home Medications Medication Instructions Recorded Confirmed Aspirin EC [Ecotrin Low Dose] 81 mg PO DAILY 01/20/17 04/12/17 Metoprolol Tartrate [Lopressor] 25 mg PO BID 01/20/17 04/12/17 Warfarin [Coumadin] 7.5 mg PO MOWEFR 01/20/17 04/12/17 Nepafenac [Ilevro] 1 drop BOTH EYES Q48H 03/12/17 04/12/17 Ofloxacin 0.3% Ophth Soln [Ocuflox 1 drops BOTH EYES TID 03/12/17 04/12/17 Ophth Soln] Brimonidine Tartrate [Alphagan P 1 drops BOTH EYES BID 04/05/17 04/12/17 0.15% Ophth Soln] Memantine [Namenda] 5 mg PO DAILY 04/05/17 04/12/17 Warfarin [Coumadin] 5 mg PO SUTUTHSA 04/05/17 04/12/17 acetaZOLAMIDE [Diamox Sequels] 500 mg PO BID 04/05/17 04/12/17 Previous Rx's Medication Instructions Recorded Atorvastatin [Lipitor] 40 mg PO HS #30 tab 04/06/17 Isosorbide Mononitrate ER [Imdur] 60 mg PO DAILY #30 tab 04/06/17 Ranolazine [Ranexa] 500 mg PO Q12HR #60 tab 04/06/17 Allergies Allergy/AdvReac Type Severity Reaction Status Date / Time adhesive Allergy Rash/Hives Verified 04/12/17 13:13 Review of Systems ROS Statement: Those systems with pertinent positive or pertinent negative responses have been documented in the HPI. ROS Other: All systems not noted in ROS Statement are negative. Constitutional: Denies: fever Eyes: Denies: eye pain ENT: Denies: ear pain Respiratory: Reports: dyspnea. Denies: cough Cardiovascular: Reports: chest pain Endocrine: Denies: fatigue Gastrointestinal: Denies: abdominal pain Genitourinary: Denies: urgency Musculoskeletal: Denies: back pain Skin: Denies: rash Neurological: Denies: weakness Past Medical History Past Medical History: Atrial Fibrillation, Coronary Artery Disease (CAD), Chest Pain / Angina, Heart Failure, CVA/TIA, Dementia, GERD/Reflux, GI Bleed, Hyperlipidemia, Hypertension, Memory Impairment, Myocardial Infarction ([place]), Sleep Apnea/CPAP/BIPAP, Syncope Additional Past Medical History / Comment(s): coronary artery disease with multivessel involvement status post three-vessel bypass surgery, previous myocardial infarctions, previous paroxysmal atrial fibrillation, CVA in 2012 along with previous TIAs, nephrolithiasis, chronic back pain, hemorrhoids, 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 Chronic back pain, gastroparesis, degenerative arthritis , impaired hearing, chronic diastolic heart failure, vascular dementia, esophageal stricture with previous history of esophageal dilatation, history of C. diff colitis occurred postoperatively forced the patient was hospitalized in June 2015. Last Myocardial Infarction Date:: 2014 History of Any Multi-Drug Resistant Organisms: MRSA Date of last positivie culture/infection: 02-02-12 MDRO Source:: UNK SITE OR SOURCE Past Surgical History: Back Surgery, Coronary Bypass/CABG, Heart Catheterization , Heart Catheterization With Stent, Orthopedic Surgery Additional Past Surgical History / Comment(s): BILATERAL CAROTID ENDARTERECTOMIES, HX OF PREVIOUS HEART CATHS WITH STENTS AND LAST STENT 03/2015 , EGD X3, ESOPHAGEAL DILATION X5, PLASTIC CAP LEFT ELBOW, URETHRAL STRICTURE DILATION., CABG (3 V) Past Anesthesia/Blood Transfusion Reactions: No Reported Reaction Additional Past Anesthesia/Blood Transfusion Reaction / Comment(s): Pt states he has no problem with anesthesia, old medical records indicate post op muscle weakness and slow to wake up. Pt has never recieved blood to his knowledge. Date of Last Stent Placement:: 03/22/2015 Past Psychological History: Anxiety, Depression Smoking Status: Never smoker Past Alcohol Use History: None Reported Past Drug Use History: None Reported - Past Family History Father Family Medical History: Deep Vein Thrombosis (DVT) Additional Family Medical History / Comment(s): Father of DVT Mother Family Medical History: Cancer Additional Family Medical History / Comment(s): Mother of jaw bone cancer. General Exam Limitations: no limitations General appearance: alert, in no apparent distress Head exam: Present: atraumatic Eye exam: Present: normal appearance, PERRL ENT exam: Present: normal oropharynx Neck exam: Present: normal inspection Respiratory exam: Present: normal lung sounds bilaterally. Absent: chest wall tenderness Cardiovascular Exam: Present: regular rate, normal rhythm Expanded Peripheral pulses: 2+: Radial (R), Radial (L), Dorsalis Pedis (R), Dorsalis Pedis (L) GI/Abdominal exam: Present: soft, hernia (Easily reducible umbilical hernia). Absent: distended, tenderness, guarding, rebound, rigid Extremities exam: Present: normal inspection, full ROM. Absent: pedal edema, calf tenderness Neurological exam: Present: alert, CN II-XII intact. Absent: motor sensory deficit Expanded Motor strength exam: RUE: 5, LUE: 5, RLE: 5, LLE: 5 Psychiatric exam: Present: normal affect, normal mood Skin exam: Present: normal color Course Vital Signs 04/18/17 04/18/17 04/18/17 17:55 18:37 19:10 Temperature 98.3 F 99.3 F Pulse Rate 80 72 83 Respiratory 18 18 16 Rate Blood Pressure 143/92 164/78 150/85 O2 Sat by Pulse 98 95 97 Oximetry 04/18/17 19:56 Temperature Pulse Rate 92 Respiratory 16 Rate Blood Pressure 119/81 O2 Sat by Pulse 95 Oximetry EKG Findings - EKG Comments: EKG Findings:: Sinus rhythm at 89. PVC is present. MD 146. QRS 88. QT 360. QTC 438. Normal axis. Normal QRS. No acute ST change. Medical Decision Making - Medical Decision Making Patient reevaluated and resting comfortably in bed. Patient updated on results and plan. Case discussed in detail with Dr. Hodge, who will admit for Dr. ordonez, covering for Dr. Willis. - Lab Data Result diagrams: 04/18/17 18:17 04/18/17 18:17 Lab Results 04/18/17 04/18/17 04/18/17 Range/Units 18:17 18:17 18:17 WBC 5.4 (3.8-10.6) k/uL RBC 5.12 (4.30-5.90) m/uL Hgb 16.3 (13.0-17.5) gm/dL Hct 43.9 (39.0-53.0) % MCV 85.9 (80.0-100.0) fL MCH 31.8 (25.0-35.0) pg MCHC 37.0 (31.0-37.0) g/dL RDW 15.2 (11.5-15.5) % Plt Count 210 (150-450) k/uL Neutrophils % 60 % Lymphocytes % 26 % Monocytes % 7 % Eosinophils % 2 % Basophils % 1 % Neutrophils # 3.2 (1.3-7.7) k/uL Lymphocytes # 1.4 (1.0-4.8) k/uL Monocytes # 0.4 (0-1.0) k/uL Eosinophils # 0.1 (0-0.7) k/uL Basophils # 0.0 (0-0.2) k/uL PT (9.0-12.0) sec INR (<1.1) APTT (22.0-30.0) sec Sodium 142 (137-145) mmol/L Potassium 4.0 (3.5-5.1) mmol/L Chloride 109 H (98-107) mmol/L Carbon Dioxide 22 (22-30) mmol/L Anion Gap 11 mmol/L BUN 20 (9-20) mg/dL Creatinine 0.89 (0.66-1.25) mg/dL Est GFR (MDRD) Af Amer >60 (>60 ml/min/1.73 sqM) Est GFR (MDRD) Non-Af >60 (>60 ml/min/1.73 sqM) Glucose 135 H (74-99) mg/dL Calcium 9.2 (8.4-10.2) mg/dL Magnesium 1.7 (1.6-2.3) mg/dL Total Bilirubin 0.6 (0.2-1.3) mg/dL AST 35 (17-59) U/L ALT 54 (21-72) U/L Alkaline Phosphatase 67 (38-126) U/L Total Creatine Kinase 96 (55-170) U/L CK-MB (CK-2) 1.6 (0.0-2.4) ng/mL CK-MB (CK-2) Rel Index 1.7 Troponin I <0.012 (0.000-0.034) ng/mL Total Protein 7.0 (6.3-8.2) g/dL Albumin 3.8 (3.5-5.0) g/dL 04/18/17 Range/Units 18:17 WBC (3.8-10.6) k/uL RBC (4.30-5.90) m/uL Hgb (13.0-17.5) gm/dL Hct (39.0-53.0) % MCV (80.0-100.0) fL MCH (25.0-35.0) pg MCHC (31.0-37.0) g/dL RDW (11.5-15.5) % Plt Count (150-450) k/uL Neutrophils % % Lymphocytes % % Monocytes % % Eosinophils % % Basophils % % Neutrophils # (1.3-7.7) k/uL Lymphocytes # (1.0-4.8) k/uL Monocytes # (0-1.0) k/uL Eosinophils # (0-0.7) k/uL Basophils # (0-0.2) k/uL PT 27.3 H (9.0-12.0) sec INR 2.8 (<1.1) APTT 31.7 H (22.0-30.0) sec Sodium (137-145) mmol/L Potassium (3.5-5.1) mmol/L Chloride (98-107) mmol/L Carbon Dioxide (22-30) mmol/L Anion Gap mmol/L BUN (9-20) mg/dL Creatinine (0.66-1.25) mg/dL Est GFR (MDRD) Af Amer (>60 ml/min/1.73 sqM) Est GFR (MDRD) Non-Af (>60 ml/min/1.73 sqM) Glucose (74-99) mg/dL Calcium (8.4-10.2) mg/dL Magnesium (1.6-2.3) mg/dL Total Bilirubin (0.2-1.3) mg/dL AST (17-59) U/L ALT (21-72) U/L Alkaline Phosphatase (38-126) U/L Total Creatine Kinase (55-170) U/L CK-MB (CK-2) (0.0-2.4) ng/mL CK-MB (CK-2) Rel Index Troponin I (0.000-0.034) ng/mL Total Protein (6.3-8.2) g/dL Albumin (3.5-5.0) g/dL - Radiology Data Radiology results: image reviewed (Chest x-ray shows no acute process) Disposition Clinical Impression: Chest pain Disposition: ADMITTED IP TO THIS HOSP Referrals: Reed Bull MD [Primary Care Provider] - 1-2 days Decision Time: 20:05
[2017-04-18 18:40] LABS: ALT 54 U/L (21-72); AST 35 U/L (17-59); Alkaline Phosphatase 67 U/L (38-126); Anion Gap 11 mmol/L; Basophils % (A) 1 %; Blood Urea Nitrogen 20 mg/dL (9-20); CH 30.2; CHCM 35.4; Calcium 9.2 mg/dL (8.4-10.2); Carbon Dioxide 22 mmol/L (22-30); Chloride 109 mmol/L (98-107); Eosinophils # (A) 0.1 k/uL (0-0.7); Eosinophils % (A) 2 %; Glucose 135 mg/dL (74-99); HCT 43.9 % (39.0-53.0); HDW 2.98; HGB 16.3 gm/dL (13.0-17.5); Luc # (Auto) 0.23; Luc % (Auto) 4; Lymphocytes # (A) 1.4 k/uL (1.0-4.8); Lymphocytes % (A) 26 %; MCH 31.8 pg (25.0-35.0); MCV 85.9 fL (80.0-100.0); Magnesium 1.7 mg/dL (1.6-2.3); Mean Platelet Volume 7.1; Monocytes # (A) 0.4 k/uL (0-1.0); Monocytes % (A) 7 %; Neutrophils # (A) 3.2 k/uL (1.3-7.7); Neutrophils % (A) 60 %; Non-African American GFR(MDRD) >60 (>60 ml/min/1.73 sqM); RBC 5.12 m/uL (4.30-5.90); RDW 15.2 % (11.5-15.5); Sodium 142 mmol/L (137-145); Total Bilirubin 0.6 mg/dL (0.2-1.3); WBC 5.4 k/uL (3.8-10.6)
--- NOTE | 2017-04-18 18:42 | XR ---
EXAMINATION TYPE: XR chest 2V DATE OF EXAM: 04/18/2017 COMPARISON: 04/12/2017 INDICATION: Triple bypass CVA pain TECHNIQUE: Frontal and lateral views of the chest are obtained. FINDINGS: The heart size is normal. The pulmonary vasculature is normal. The lungs are clear. Sternotomy wires are present from the patient's prior CABG. IMPRESSION: 1. No acute pulmonary process.
[2017-04-18 18:46] LABS: INR 2.8 (<1.1); Partial Thromboplastin Time 31.7 sec (22.0-30.0); Prothrombin Time 27.3 sec (9.0-12.0)
[2017-04-18 18:50] LABS: Creatine Kinase 96 U/L (55-170)
[2017-04-18 19:03] LABS: Creatine Kinase MB 1.6 ng/mL (0.0-2.4); Troponin I <0.012 ng/mL (0.000-0.034)
[2017-04-18] MEDS ORDERED: NITROGLYCERIN SL TABS 0.4 MG TAB SUBLINGUAL PRN (20:06)
[2017-04-18 20:56] VITALS: BMI 33.9
[2017-04-18] MEDS ORDERED: WARFARIN 5 MG TAB PO SCH (21:00)
[2017-04-18] MEDS ORDERED: ATORVASTATIN 40 MG TAB PO SCH (21:00)
[2017-04-18] MEDS ORDERED: ACETAMINOPHEN TAB 325 MG TAB PO PRN (21:10)
[2017-04-18] MEDS: METOPROLOL TARTRATE 25 MG TAB PO SCH (21:10)
[2017-04-19] MEDS: NITROGLYCERIN OINT 1 INCH/GM PACKET TOPICAL SCH ×3 (00:28→13:04)
[2017-04-19 01:11] LABS: Creatine Kinase 81 U/L (55-170); Creatine Kinase MB 1.4 ng/mL (0.0-2.4); Troponin I <0.012 ng/mL (0.000-0.034)
[2017-04-19] MEDS ORDERED: HYDROcodone/APAP 5-325MG 1 EACH TAB PO PRN (06:31)
[2017-04-19 07:46] VITALS: TEMP 98.2
[2017-04-19 07:47] LABS: Cholesterol 230 mg/dL (<200); HDL Cholesterol 39 mg/dL (40-60); Triglycerides 307 mg/dL (<150)
[2017-04-19 08:19] LABS: Creatine Kinase MB 1.4 ng/mL (0.0-2.4); Troponin I 0.012 ng/mL (0.000-0.034)
[2017-04-19] MEDS ORDERED: ISOSORBIDE MONONITRATE ER 60 MG TAB.ER.24H PO SCH (09:00)
[2017-04-19] MEDS ORDERED: ASPIRIN 325 MG TAB PO SCH (09:00)
[2017-04-19] MEDS: METOPROLOL TARTRATE 25 MG TAB PO SCH (09:29)
--- NOTE | 2017-04-19 09:53 | P.CRDCN ---
History of Present Illness Consult date: 04/19/17 History of present illness: This is a 74-year-old gentleman with history of ischemic heart disease with previous bypass surgery and several PCI's and also with history of a previous CVA, paroxysmal atrial fibrillation and also mid disease who was admitted to the hospital with complaints of chest pain. The history from the emergency room claims that he was having chest pain. However, patient claims that he was in a restaurant and when he woke up he felt dizzy and passed out. He was also having some chest pain. Since he came here. His cardiac enzymes have been negative. Recent is feeling better. Patient had Nitropaste on developed some headache and nausea. Overall his clinical picture appears to be atypical. We' ll continue to monitor for any cardiac arrhythmias. He had a stress test in January showed predominantly fixed defects in the inferolateral segments. He patient remains stable, within next 24 hours patient could be discharged home to have follow-up with Dr. Roth/TIFFANIE Moreno. Review of Systems REVIEW OF SYSTEMS: CONSTITUTIONAL:. Patient is doing well. No complaints of fever or chills EYES: Denies diplopia, blurring of vision EARS, NOSE, MOUTH, THROAT: Denies headaches, denies sore throat. CARDIOVASCULAR: Per HPI RESPIRATORY: Denies shortness of breath, denies cough. GASTROINTESTINAL: Denies change in appetite, denies abdominal pain, denies diarrhea GENITOURINARY: Denies hematuria, denies infections. MUSKULOSKELETAL: Denies pain, denies swelling. Denies any cramps or claudication INTEGUMENTARY: Denies rash, denies eczema. NEUROLOGICAL: As per HPI PSYCHIATRIC: Denies anxiety, denies depression. HEMATOLOGIC/LYMPHATIC: Denies any bleeding, denies enlarged lymph nodes. 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 Chronic back pain, gastroparesis, degenerative arthritis , impaired hearing, chronic diastolic heart failure, vascular dementia, esophageal stricture with previous history of esophageal dilatation, history of C. diff colitis occurred postoperatively forced the patient was hospitalized in June 2015. Last Myocardial Infarction Date:: 2014 History of Any Multi-Drug Resistant Organisms: MRSA Date of last positivie culture/infection: 02-02-12 MDRO Source:: UNK SITE OR SOURCE Past Surgical History: Back Surgery, Coronary Bypass/CABG, Heart Catheterization , Heart Catheterization With Stent, Orthopedic Surgery Additional Past Surgical History / Comment(s): BILATERAL CAROTID ENDARTERECTOMIES, HX OF PREVIOUS HEART CATHS WITH STENTS AND LAST STENT 03/2015 , EGD X3, ESOPHAGEAL DILATION X5, PLASTIC CAP LEFT ELBOW, URETHRAL STRICTURE DILATION., CABG (3 V) Past Anesthesia/Blood Transfusion Reactions: No Reported Reaction Additional Past Anesthesia/Blood Transfusion Reaction / Comment(s): Pt states he has no problem with anesthesia, old medical records indicate post op muscle weakness and slow to wake up. Pt has never recieved blood to his knowledge. Date of Last Stent Placement:: 03/22/2015 Past Psychological History: Anxiety, Depression Additional Psychological History / Comment(s): Lives @ [facility] He ambulates with straight cane. He has sleep apnea and does not tolerate CPAP so on occasion he uses his 's home O2. He is independent with his ADLs. He has a back brace he wears on occasion. HAS HEARING AIDS AND DENTURES BUT WON'T WEAR. Smoking Status: Never smoker - Past Family History Father Family Medical History: Deep Vein Thrombosis (DVT) Additional Family Medical History / Comment(s): Father of DVT Mother Family Medical History: Cancer Additional Family Medical History / Comment(s): Mother of jaw bone cancer. Medications and Allergies Home Medications Medication Instructions Recorded Confirmed Type Aspirin EC [Ecotrin Low Dose] 81 mg PO DAILY 01/20/17 04/18/17 History Metoprolol Tartrate [Lopressor] 25 mg PO BID 01/20/17 04/18/17 History Warfarin [Coumadin] 7.5 mg PO MOWEFR 01/20/17 04/18/17 History Nepafenac [Ilevro] 1 drop BOTH EYES Q48H 03/12/17 04/18/17 History Ofloxacin 0.3% Ophth Soln [Ocuflox 1 drops BOTH EYES TID 03/12/17 04/18/17 History Ophth Soln] Brimonidine Tartrate [Alphagan P 1 drops BOTH EYES BID 04/05/17 04/18/17 History 0.15% Ophth Soln] Memantine [Namenda] 5 mg PO DAILY 04/05/17 04/18/17 History Warfarin [Coumadin] 5 mg PO SUTUTHSA 04/05/17 04/18/17 History acetaZOLAMIDE [Diamox Sequels] 500 mg PO BID 04/05/17 04/18/17 History Allergies Allergy/AdvReac Type Severity Reaction Status Date / Time adhesive Allergy Rash/Hives Verified 04/18/17 20:47 Physical Exam Vitals: Vital Signs Temp Pulse Pulse Resp BP BP Pulse Ox 04/19/17 08:00 16 04/19/17 07:44 98.2 F 71 16 135/80 97 04/19/17 04:00 18 04/19/17 03:56 98.4 F 82 18 115/74 97 04/19/17 00:00 18 04/18/17 23:07 97.8 F 59 L 18 108/79 95 04/18/17 21:15 18 04/18/17 20:48 97.9 F 69 18 143/77 96 04/18/17 19:56 92 16 119/81 95 04/18/17 19:10 99.3 F 83 16 150/85 97 04/18/17 18:37 72 18 164/78 95 04/18/17 17:55 98.3 F 80 18 143/92 98 Intake and Output 04/18/17 04/19/17 04/19/17 22:59 06:59 14:59 Other: # Voids 1 Weight 101.15 kg GENERAL EXAM: Patient is alert and oriented and doesn't appear to be in any acute distress HEENT: Normocephalic. Normal reaction of pupils, equal size, normal range of extraocular motion. No erythema or exudates in the throat. NECK: No masses, no nuchal rigidity. CHEST: No chest wall deformity. LUNGS: Equal air entry with no crackles or wheeze. HEART: S1 and S2 normal with no audible mumurs or gallops. Regular rhythm, femorals equal on both sides.. ABDOMEN: No hepatosplenomegaly, normal bowel sounds, no guarding or rigidity. SKIN: No rashes CENTRAL NERVOUS SYSTEM: No focal deficits. EXTREMITIES: No cyanosis, clubbing or edema. Results 04/18/17 18:17 04/18/17 18:17 Cardiac Enzymes 04/18/17 04/18/17 04/19/17 Range/Units 18:17 18: 00:05 AST 35 (17-59) U/L CK-MB (CK-2) 1.6 1.4 (0.0-2.4) ng/mL Troponin I <0.012 <0.012 (0.000-0.034) ng/mL 04/19/17 Range/Units 06:10 AST (17-59) U/L CK-MB (CK-2) 1.4 (0.0-2.4) ng/mL Troponin I 0.012 (0.000-0.034) ng/mL Coagulation 04/18/17 Range/Units 18:17 PT 27.3 H (9.0-12.0) sec APTT 31.7 H (22.0-30.0) sec Lipids 04/19/17 Range/Units 06:10 Triglycerides 307 H (<150) mg/dL Cholesterol 230 H (<200) mg/dL HDL Cholesterol 39 L (40-60) mg/dL CBC 04/18/17 Range/Units 18:17 WBC 5.4 (3.8-10.6) k/uL RBC 5.12 (4.30-5.90) m/uL Hgb 16.3 (13.0-17.5) gm/dL Hct 43.9 (39.0-53.0) % Plt Count 210 (150-450) k/uL Comprehensive Metabolic Panel 04/18/17 Range/Units 18:17 Sodium 142 (137-145) mmol/L Potassium 4.0 (3.5-5.1) mmol/L Chloride 109 H (98-107) mmol/L Carbon Dioxide 22 (22-30) mmol/L BUN 20 (9-20) mg/dL Creatinine 0.89 (0.66-1.25) mg/dL Glucose 135 H (74-99) mg/dL Calcium 9.2 (8.4-10.2) mg/dL AST 35 (17-59) U/L ALT 54 (21-72) U/L Alkaline Phosphatase 67 (38-126) U/L Total Protein 7.0 (6.3-8.2) g/dL Albumin 3.8 (3.5-5.0) g/dL Current Medications Generic Name Dose Route Start Last Admin Trade Name Freq PRN Reason Stop Dose Admin Acetaminophen 650 mg 04/18/17 21:10 Tylenol Tab PO Q4HR PRN Fever and/ or MILD Pain Hydrocodone Bitart/Acetaminophen 1 each 04/19/17 06:31 04/19/17 06:34 [place] 5-325 PO 1 each Q4HR PRN Administration Pain Aspirin 325 mg 04/19/17 09:00 04/19/17 09:29 Aspirin PO 325 mg DAILY RAHEL Administration Atorvastatin Calcium 40 mg 04/18/17 21:00 04/18/17 21:11 Lipitor PO 40 mg HS RAHEL Administration Isosorbide Mononitrate 60 mg 04/19/17 09:00 04/19/17 09:29 Imdur PO 60 mg DAILY RAHEL Administration Metoprolol Tartrate 25 mg 04/18/17 21:00 04/19/17 09:29 Lopressor PO 25 mg BID RAHEL Administration Nitroglycerin 1 inch 04/19/17 00:00 04/19/17 06:26 Nitro-Bid Oint TOPICAL 1 inch Q6HR RAHEL Administration Nitroglycerin 0.4 mg 04/18/17 20:06 Nitrostat SUBLINGUAL Q5M PRN Chest Pain Sodium Chloride 10 ml 04/18/17 21:00 04/19/17 09:29 Saline Flush IV 10 ml BID RAHEL Administration Warfarin Sodium 5 mg 04/18/17 21:00 04/18/17 21:10 Coumadin PO 5 mg [id number] RAHEL Administration Warfarin Sodium 7.5 mg 04/20/17 18:00 Coumadin PO [email or web address] RAHEL Intake and Output 04/18/17 04/19/17 04/19/17 22:59 06:59 14:59 Other: # Voids 1 Weight 101.15 kg 04/18/17 18:17 04/18/17 18:17 EKG Interpretations (text) Sinus rhythm, PVCs and nonspecific ST-T changes Assessment and Plan (1) Chest pain Status: Acute (2) CAD (coronary artery disease) Status: Acute (3) CVA (cerebral infarction) Status: Acute (4) HTN (hypertension) Status: Acute (5) Hyperlipemia Status: Acute Plan: His chest pains appear to be atypical. He claims that he has passed out which could be related to postural hypotension. We'll check his blood pressure for any postural changes. Continue monitoring for any cardiac arrhythmias. If he remains stable, within next 24 hours, patient could be discharged home to have follow-up with Dr. TIFFANIE Moreno.
[2017-04-19 10:29] VITALS: BP 124/76; PULSE 60; RESP 18
--- NOTE | 2017-04-19 15:11 | P.HPIM ---
History of Present Illness Patient is 74-year-old gentleman with history of previous bypass surgery and recent stress test in January which was negative came with symptoms of epigastric abdominal burning sensation along with nausea which started after eating. After eating lasted for few hours, nonradiating, no associated shortness of breath, chest pain, lightheadedness, diaphoresis. Patient evidently had a syncopal episode without any seizure-like activity. Patient has mild sinus bradycardia patient was ordered by cardiology name decreasing the dose of metoprolol and patient was discharged with Prilosec. Review of Systems REVIEW OF SYSTEMS: CONSTITUTIONAL: No fever, no malaise, no fatigue. HEENT: No recent visual problems or hearing problems. Denied any sore throat. CARDIOVASCULAR: No chest pain, orthopnea, PND, no palpitations, no syncope. PULMONARY: No shortness of breath, no cough, no hemoptysis. GASTROINTESTINAL: No diarrhea, no nausea, no vomiting, no abdominal pain. Normoactive bowel sounds. NEUROLOGICAL: No headaches, no weakness, no numbness. HEMATOLOGICAL: Denies any bleeding or petechiae. GENITOURINARY: Denies any burning micturition, frequency, or urgency. MUSCULOSKELETAL/RHEUMATOLOGICAL: Denies any joint pain, swelling, or any muscle pain. ENDOCRINE: Denies any polyuria or polydipsia. The rest of the 14-point review of systems is negative. . 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 Chronic back pain, gastroparesis, degenerative arthritis , impaired hearing, chronic diastolic heart failure, vascular dementia, esophageal stricture with previous history of esophageal dilatation, history of C. diff colitis occurred postoperatively forced the patient was hospitalized in June 2015. Last Myocardial Infarction Date:: 2014 History of Any Multi-Drug Resistant Organisms: MRSA Date of last positivie culture/infection: 02-02-12 MDRO Source:: UNK SITE OR SOURCE Past Surgical History: Back Surgery, Coronary Bypass/CABG, Heart Catheterization , Heart Catheterization With Stent, Orthopedic Surgery Additional Past Surgical History / Comment(s): BILATERAL CAROTID ENDARTERECTOMIES, HX OF PREVIOUS HEART CATHS WITH STENTS AND LAST STENT 03/2015 , EGD X3, ESOPHAGEAL DILATION X5, PLASTIC CAP LEFT ELBOW, URETHRAL STRICTURE DILATION., CABG (3 V) Past Anesthesia/Blood Transfusion Reactions: No Reported Reaction Additional Past Anesthesia/Blood Transfusion Reaction / Comment(s): Pt states he has no problem with anesthesia, old medical records indicate post op muscle weakness and slow to wake up. Pt has never recieved blood to his knowledge. Date of Last Stent Placement:: 03/22/2015 Past Psychological History: Anxiety, Depression Additional Psychological History / Comment(s): Lives @ [employer] [place] He ambulates with straight cane. He has sleep apnea and does not tolerate CPAP so on occasion he uses his 's home O2. He is independent with his ADLs. He has a back brace he wears on occasion. HAS HEARING AIDS AND DENTURES BUT WON'T WEAR. Smoking Status: Never smoker - Past Family History Father Family Medical History: Deep Vein Thrombosis (DVT) Additional Family Medical History / Comment(s): Father of DVT Mother Family Medical History: Cancer Additional Family Medical History / Comment(s): Mother of jaw bone cancer. Medications and Allergies Home Medications Medication Instructions Recorded Confirmed Type Aspirin EC [Ecotrin Low Dose] 81 mg PO DAILY 01/20/17 04/19/17 History Warfarin [Coumadin] 7.5 mg PO MOWEFR 01/20/17 04/19/17 History Ofloxacin 0.3% Ophth Soln [Ocuflox 1 drops BOTH EYES TID 03/12/17 04/19/17 History Ophth Soln] Brimonidine Tartrate [Alphagan P 1 drops BOTH EYES BID 04/05/17 04/19/17 History 0.15% Ophth Soln] Memantine [Namenda] 5 mg PO DAILY 04/05/17 04/19/17 History Warfarin [Coumadin] 5 mg PO SUTUTHSA 04/05/17 04/19/17 History acetaZOLAMIDE [Diamox Sequels] 500 mg PO BID 04/05/17 04/19/17 History Omeprazole [PriLOSEC] 40 mg PO DAILY 04/19/17 04/19/17 History Allergies Allergy/AdvReac Type Severity Reaction Status Date / Time adhesive Allergy Rash/Hives Verified 04/19/17 10:44 Physical Exam Vitals: Vital Signs Temp Pulse Pulse Pulse Pulse Pulse Resp 04/19/17 10:27 54 L 65 60 18 04/19/17 08:00 16 04/19/17 07:44 98.2 F 71 16 04/19/17 04:00 18 04/19/17 03:56 98.4 F 82 18 04/19/17 00:00 18 04/18/17 23:07 97.8 F 59 L 18 04/18/17 21:15 18 04/18/17 20:48 97.9 F 69 18 04/18/17 19:56 92 16 04/18/17 19:10 99.3 F 83 16 04/18/17 18:37 72 18 04/18/17 17:55 98.3 F 80 18 BP BP BP BP BP Pulse Ox 04/19/17 10:27 137/79 132/79 124/76 96 04/19/17 08:00 04/19/17 07:44 135/80 97 04/19/17 04:00 04/19/17 03:56 115/74 97 04/19/17 00:00 04/18/17 23:07 108/79 95 04/18/17 21:15 04/18/17 20:48 143/77 96 04/18/17 19:56 119/81 95 04/18/17 19:10 150/85 97 04/18/17 18:37 164/78 95 04/18/17 17:55 143/92 98 Intake and Output 04/19/17 04/19/17 04/19/17 06:59 14:59 22:59 Intake Total 236 Balance 236 Intake: Oral 236 Other: # Voids 1 PHYSICAL EXAMINATION: GENERAL: The patient is alert and oriented x3, not in any acute distress. Well developed, well nourished. HEENT: Pupils are round and equally reacting to light. EOMI. No scleral icterus. No conjunctival pallor. Normocephalic, atraumatic. No pharyngeal erythema. No thyromegaly. CARDIOVASCULAR: S1 and S2 present. No murmurs, rubs, or gallops. PULMONARY: Chest is clear to auscultation, no wheezing or crackles. ABDOMEN: Soft, nontender, nondistended, normoactive bowel sounds. No palpable organomegaly. MUSCULOSKELETAL: No joint swelling or deformity. EXTREMITIES: No cyanosis, clubbing, or pedal edema. NEUROLOGICAL: Gross neurological examination did not reveal any focal deficits. SKIN: No rashes. Results CBC & Chem 7: 04/18/17 18:04/18/17 18: Labs: Abnormal Lab Results - Last 24 Hours (Table) 04/18/17 04/18/17 04/19/17 Range/Units 18: 18: 06:10 PT 27.3 H (9.0-12.0) sec APTT 31.7 H (22.0-30.0) sec Chloride 109 H (98-107) mmol/L Glucose 135 H (74-99) mg/dL Triglycerides 307 H (<150) mg/dL Cholesterol 230 H (<200) mg/dL LDL Cholesterol, Calc 130 H (0-99) mg/dL HDL Cholesterol 39 L (40-60) mg/dL Thrombosis Risk Factor Assmnt - Choose All That Apply Each Risk Factor Represents 2 Points: Age 61-74 years Thrombosis Risk Factor Assessment Total Risk Factor Score: 2 Thrombosis Risk Factor Assessment Level: Low Risk Assessment and Plan Plan: #1 chest pain/epigastric pain: Secondary to gastroesophageal reflux disease patient was discharged on Prilosec #2 syncope: Either vasovagal or May be related to atrial fibrillation . Presently rate controlled in sinus rhythm #3 Coronary artery disease #4 atrial fibrillation, on Coumadin and therapeutic on Coumadin #5 cigarettes per accident in the past #6 hyperlipidemia #7 hypertension #8 sleep apnea
--- NOTE | 2017-04-19 15:12 | P.DS ---
Providers Date of admission: 04/18/17 20:06 Attending physician: Yaniv Hodge Consults: 04/18/17 20:06 Consult Physician Urgent Consulting Provider: Alcides Mccord Consult Reason/Comments: cp Do you want consulting provider notified?: Yes Primary care physician: [facility] Hospital Course: Please refer to HPI Plan - Discharge Summary New Discharge Prescriptions: Continue Aspirin EC [Ecotrin Low Dose] 81 mg PO DAILY Warfarin [Coumadin] 7.5 mg PO MOWEFR Ofloxacin 0.3% Ophth Soln [Ocuflox Ophth Soln] 1 drops BOTH EYES TID acetaZOLAMIDE [Diamox Sequels] 500 mg PO BID Brimonidine Tartrate [Alphagan P 0.15% Ophth Soln] 1 drops BOTH EYES BID Warfarin [Coumadin] 5 mg PO SUTUTHSA Memantine [Namenda] 5 mg PO DAILY Atorvastatin [Lipitor] 40 mg PO HS #30 tab Isosorbide Mononitrate ER [Imdur] 60 mg PO DAILY #30 tab Ranolazine [Ranexa] 500 mg PO Q12HR #60 tab Changed Metoprolol Tartrate [Lopressor] 12.5 mg PO BID #0 No Action Omeprazole [PriLOSEC] 40 mg PO DAILY Discharge Medication List Aspirin EC [Ecotrin Low Dose] 81 mg PO DAILY 01/20/17 [History] Warfarin [Coumadin] 7.5 mg PO MOWEFR 01/20/17 [History] Ofloxacin 0.3% Ophth Soln [Ocuflox Ophth Soln] 1 drops BOTH EYES TID 03/12/17 [ History] Brimonidine Tartrate [Alphagan P 0.15% Ophth Soln] 1 drops BOTH EYES BID [History] Memantine [Namenda] 5 mg PO DAILY 04/05/17 [History] Warfarin [Coumadin] 5 mg PO SUTUTHSA 04/05/17 [History] acetaZOLAMIDE [Diamox Sequels] 500 mg PO BID 04/05/17 [History] Atorvastatin [Lipitor] 40 mg PO HS #30 tab 04/06/17 [Rx] Isosorbide Mononitrate ER [Imdur] 60 mg PO DAILY #30 tab 04/06/17 [Rx] Ranolazine [Ranexa] 500 mg PO Q12HR #60 tab 04/06/17 [Rx] Metoprolol Tartrate [Lopressor] 12.5 mg PO BID #0 04/19/17 [Rx] Omeprazole [PriLOSEC] 40 mg PO DAILY 04/19/17 [History] Follow up Appointment(s)/Referral(s): Eric Moreno MD [STAFF PHYSICIAN] - 1 Week Reed Bull MD [Primary Care Provider] - 1-2 days Patient Instructions/Handouts: Chest Pain (DC) Discharge Disposition: HOME SELF-CARE
[2017-04-20] MEDS ORDERED: WARFARIN 2.5 MG TAB PO SCH (18:00)
== END 2017-04-19 13:00 | disposition home or self-care (01) ==
LOC: EC 17:51 → 3OBS 20:06
PROVIDERS: ADMIT Hospitalist; ATTEND Hospitalist
DX: I25.10 Atherosclerotic heart disease of native coronary artery without angina pectoris (principal); I48.0 Paroxysmal atrial fibrillation; K21.9 Gastro-esophageal reflux disease without esophagitis; E78.5 Hyperlipidemia, unspecified; I25.2 Old myocardial infarction; I11.0 Hypertensive heart disease with heart failure; I50.32 Chronic diastolic (congestive) heart failure; G47.33 Obstructive sleep apnea (adult) (pediatric); H91.90 Unspecified hearing loss, unspecified ear; F01.50 Vascular dementia, unspecified severity, without behavioral disturbance, psychotic disturbance, mood disturbance, and anxiety; M54.9 Dorsalgia, unspecified; G89.29 Other chronic pain; F32.9 Major depressive disorder, single episode, unspecified; F41.9 Anxiety disorder, unspecified; R42 Dizziness and giddiness; L40.9 Psoriasis, unspecified; R00.1 Bradycardia, unspecified; Z86.73 Personal history of transient ischemic attack (TIA), and cerebral infarction without residual deficits; Z86.14 Personal history of Methicillin resistant Staphylococcus aureus infection; Z87.442 Personal history of urinary calculi; Z95.1 Presence of aortocoronary bypass graft; Z79.899 Other long term (current) drug therapy; Z79.82 Long term (current) use of aspirin; Z91.048 Other nonmedicinal substance allergy status; Z79.01 Long term (current) use of anticoagulants
CPT/HCPCS: 99285 ×2; 93005 ×2; 36415; 80061; 80053; 82550 ×2; 82553 ×2; 83735; 84484 ×2; 85025; 85610; 85730; 71020; G0378 ×2

== ENCOUNTER 2017-04-28 20:35 | Observation (INO) | payer MEDICARE ==
[2017-04-28 20:48] VITALS: RESP 18
[2017-04-28 21:15] LABS: Basophils % (A) 1 %; CH 30.2; CHCM 35.9; Eosinophils # (A) 0.1 k/uL (0-0.7); Eosinophils % (A) 1 %; HCT 43.6 % (39.0-53.0); HDW 2.96; HGB 15.7 gm/dL (13.0-17.5); Luc # (Auto) 0.27; Luc % (Auto) 4; Lymphocytes # (A) 2.1 k/uL (1.0-4.8); Lymphocytes % (A) 34 %; MCH 30.4 pg (25.0-35.0); MCV 84.5 fL (80.0-100.0); Mean Platelet Volume 7.4; Monocytes # (A) 0.6 k/uL (0-1.0); Monocytes % (A) 9 %; Neutrophils # (A) 3.1 k/uL (1.3-7.7); Neutrophils % (A) 51 %; RBC 5.16 m/uL (4.30-5.90); RDW 15.2 % (11.5-15.5); WBC 6.2 k/uL (3.8-10.6); WBC (Perox) 5.75
--- NOTE | 2017-04-28 21:24 | XR ---
EXAMINATION TYPE: XR chest 2V DATE OF EXAM: 04/28/2017 COMPARISON: Prior chest x-ray 04/18/2017 HISTORY: Chest pain, nausea TECHNIQUE: Frontal and lateral views of the chest are obtained. FINDINGS: There is no focal air space opacity, pleural effusion, or pneumothorax seen. The cardiac silhouette size is stable. Patient is post median sternotomy. Prominent lung volumes suggest COPD. There are overlying cardiac leads. The osseous structures are intact. IMPRESSION: No acute cardiopulmonary process.
[2017-04-28 21:25] LABS: INR 1.7 (<1.1); Partial Thromboplastin Time 26.4 sec (22.0-30.0); Prothrombin Time 16.4 sec (9.0-12.0)
[2017-04-28 21:31] LABS: ALT 44 U/L (21-72); AST 32 U/L (17-59); Alkaline Phosphatase 56 U/L (38-126); Anion Gap 9 mmol/L; Blood Urea Nitrogen 15 mg/dL (9-20); Calcium 9.1 mg/dL (8.4-10.2); Carbon Dioxide 22 mmol/L (22-30); Chloride 109 mmol/L (98-107); Glucose 84 mg/dL (74-99); Magnesium 1.6 mg/dL (1.6-2.3); Non-African American GFR(MDRD) >60 (>60 ml/min/1.73 sqM); Potassium 4.1 mmol/L (3.5-5.1); Sodium 140 mmol/L (137-145); Total Protein 6.9 g/dL (6.3-8.2)
[2017-04-28 21:43] LABS: Creatine Kinase MB 1.8 ng/mL (0.0-2.4); Troponin I 0.015 ng/mL (0.000-0.034)
[2017-04-28] MEDS ORDERED: RANOLAZINE 500 MG TAB.ER.12H PO ONE (23:20)
[2017-04-28] MEDS ORDERED: METOPROLOL TARTRATE 12.5 MG TAB PO STA (23:27)
[2017-04-28] MEDS ORDERED: NALOXONE 0.4 MG/ML 1 ML VIAL IV PRN (23:37)
[2017-04-28] MEDS ORDERED: MORPHINE SULFATE 4 MG/ML SYRINGE IV PRN (23:37)
--- NOTE | 2017-04-28 23:56 | ED ---
General Adult HPI - General Chief complaint: Chest Pain Stated complaint: CHEST PAIN Time Seen by Provider: 04/28/17 21:04 Source: patient, RN notes reviewed, old records reviewed Mode of arrival: EMS Limitations: no limitations - History of Present Illness Initial comments: 72-year-old male with history of CAD status post CABG in April 2015 presenting with chest pain. Patient states the pain is sharp in nature began today. Was associated with some nausea and one episode of vomiting. Patient denies any radiating symptoms. Patient denies cough, denies fever or chills. Patient denies history of tobacco use. - Related Data Home Medications Medication Instructions Recorded Confirmed Aspirin EC [Ecotrin Low Dose] 81 mg PO DAILY 01/20/17 04/28/17 Warfarin [Coumadin] 7.5 mg PO MOWEFR 01/20/17 04/28/17 Ofloxacin 0.3% Ophth Soln [Ocuflox 1 drops BOTH EYES TID 03/12/17 04/28/17 Ophth Soln] Brimonidine Tartrate [Alphagan P 1 drops BOTH EYES BID 04/05/17 04/28/17 0.15% Ophth Soln] Memantine [Namenda] 5 mg PO DAILY 04/05/17 04/28/17 Warfarin [Coumadin] 5 mg PO SUTUTHSA 04/05/17 04/28/17 acetaZOLAMIDE [Diamox Sequels] 500 mg PO BID 04/05/17 04/28/17 Omeprazole [PriLOSEC] 40 mg PO DAILY 04/19/17 04/28/17 Previous Rx's Medication Instructions Recorded Atorvastatin [Lipitor] 40 mg PO HS #30 tab 04/06/17 Isosorbide Mononitrate ER [Imdur] 60 mg PO DAILY #30 tab 04/06/17 Ranolazine [Ranexa] 500 mg PO Q12HR #60 tab 04/06/17 Metoprolol Tartrate [Lopressor] 12.5 mg PO BID #0 04/19/17 Allergies Allergy/AdvReac Type Severity Reaction Status Date / Time adhesive Allergy Rash/Hives Verified 04/28/17 20:48 Review of Systems ROS Statement: Those systems with pertinent positive or pertinent negative responses have been documented in the HPI. ROS Other: All systems not noted in ROS Statement are negative. Respiratory: Denies: cough Cardiovascular: Reports: chest pain Gastrointestinal: Reports: nausea, vomiting Past Medical History Past Medical History: Atrial Fibrillation, Coronary Artery Disease (CAD), Chest Pain / Angina, Heart Failure, CVA/TIA, Dementia, GERD/Reflux, GI Bleed, Hyperlipidemia, Hypertension, Memory Impairment, Myocardial Infarction ([place]), Sleep Apnea/CPAP/BIPAP, Syncope Additional Past Medical History / Comment(s): coronary artery disease with multivessel involvement status post three-vessel bypass surgery, previous myocardial infarctions, previous paroxysmal atrial fibrillation, CVA in 2012 along with previous TIAs, nephrolithiasis, chronic back pain, hemorrhoids, 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 Chronic back pain, gastroparesis, degenerative arthritis , impaired hearing, chronic diastolic heart failure, vascular dementia, esophageal stricture with previous history of esophageal dilatation, history of C. diff colitis occurred postoperatively forced the patient was hospitalized in June 2015. Last Myocardial Infarction Date:: 2014 History of Any Multi-Drug Resistant Organisms: MRSA Date of last positivie culture/infection: 02-02-12 MDRO Source:: UNK SITE OR SOURCE Past Surgical History: Back Surgery, Coronary Bypass/CABG, Heart Catheterization , Heart Catheterization With Stent, Orthopedic Surgery Additional Past Surgical History / Comment(s): BILATERAL CAROTID ENDARTERECTOMIES, HX OF PREVIOUS HEART CATHS WITH STENTS AND LAST STENT 03/2015 , EGD X3, ESOPHAGEAL DILATION X5, PLASTIC CAP LEFT ELBOW, URETHRAL STRICTURE DILATION., CABG (3 V) Past Anesthesia/Blood Transfusion Reactions: No Reported Reaction Additional Past Anesthesia/Blood Transfusion Reaction / Comment(s): Pt states he has no problem with anesthesia, old medical records indicate post op muscle weakness and slow to wake up. Pt has never recieved blood to his knowledge. Date of Last Stent Placement:: 03/22/2015 Past Psychological History: Anxiety, Depression Smoking Status: Never smoker Past Alcohol Use History: None Reported Past Drug Use History: None Reported - Past Family History Father Family Medical History: Deep Vein Thrombosis (DVT) Additional Family Medical History / Comment(s): Father of DVT Mother Family Medical History: Cancer Additional Family Medical History / Comment(s): Mother of jaw bone cancer. General Exam Limitations: no limitations General appearance: alert, in no apparent distress Head exam: Present: atraumatic, normocephalic Eye exam: Present: EOMI, conjunctival injection. Absent: periorbital swelling ENT exam: Present: normal exam Neck exam: Present: full ROM. Absent: tenderness Respiratory exam: Present: normal lung sounds bilaterally. Absent: respiratory distress, wheezes Cardiovascular Exam: Present: regular rate, normal rhythm GI/Abdominal exam: Present: soft. Absent: distended, tenderness, guarding Extremities exam: Present: normal inspection. Absent: pedal edema Neurological exam: Present: alert. Absent: motor sensory deficit Psychiatric exam: Present: normal affect, depressed Skin exam: Present: warm, dry. Absent: diaphoretic Course Vital Signs 04/28/17 04/28/17 04/28/17 20:35 21:51 22:46 Temperature 97.7 F 98.0 F Pulse Rate 88 83 78 Respiratory 18 18 18 Rate Blood Pressure 158/99 161/87 160/84 O2 Sat by Pulse 96 97 97 Oximetry 04/28/17 04/28/17 23:16 23:44 Temperature Pulse Rate 82 84 Respiratory 18 18 Rate Blood Pressure 196/103 149/94 O2 Sat by Pulse 97 96 Oximetry EKG Findings - EKG Comments: EKG Findings:: EKG shows normal sinus rhythm with a ventricular rate 86, VT interval 150, QRS duration 90, QTC is 433. There is no ST segment elevation, no T-wave abnormality Medical Decision Making - Medical Decision Making 72-year-old male presenting with sharp anterior chest pain. Patient's pain was associated with nausea and vomiting. Patient denies missing any doses of his medication. He is on Coumadin for A. fib. Echo record was reviewed and patient did have a stress test in January of this year. He has been seen both in the emergency department and on an inpatient basis for chest pain several times. Patient is somewhat of a poor historian. Initial set of cardiac enzymes is unremarkable. Laboratory studies are reviewed and are unremarkable. Chest x-ray shows no acute process. Patient will be placed in observation for serial cardiac enzymes and cardiology evaluation. - Lab Data Result diagrams: 04/28/17 20:41 04/28/17 20:41 Lab Results 04/28/17 04/28/17 04/28/17 Range/Units 20:41 20:41 20:41 WBC 6.2 (3.8-10.6) k/uL RBC 5.16 (4.30-5.90) m/uL Hgb 15.7 (13.0-17.5) gm/dL Hct 43.6 (39.0-53.0) % MCV 84.5 (80.0-100.0) fL MCH 30.4 (25.0-35.0) pg MCHC 36.0 (31.0-37.0) g/dL RDW 15.2 (11.5-15.5) % Plt Count 252 (150-450) k/uL Neutrophils % 51 % Lymphocytes % 34 % Monocytes % 9 % Eosinophils % 1 % Basophils % 1 % Neutrophils # 3.1 (1.3-7.7) k/uL Lymphocytes # 2.1 (1.0-4.8) k/uL Monocytes # 0.6 (0-1.0) k/uL Eosinophils # 0.1 (0-0.7) k/uL Basophils # 0.0 (0-0.2) k/uL PT (9.0-12.0) sec INR (<1.1) APTT (22.0-30.0) sec Sodium 140 (137-145) mmol/L Potassium 4.1 (3.5-5.1) mmol/L Chloride 109 H (98-107) mmol/L Carbon Dioxide 22 (22-30) mmol/L Anion Gap 9 mmol/L BUN 15 (9-20) mg/dL Creatinine 0.98 (0.66-1.25) mg/dL Est GFR (MDRD) Af Amer >60 (>60 ml/min/1.73 sqM) Est GFR (MDRD) Non-Af >60 (>60 ml/min/1.73 sqM) Glucose 84 (74-99) mg/dL Calcium 9.1 (8.4-10.2) mg/dL Magnesium 1.6 (1.6-2.3) mg/dL Total Bilirubin 1.0 (0.2-1.3) mg/dL AST 32 (17-59) U/L ALT 44 (21-72) U/L Alkaline Phosphatase 56 (38-126) U/L Total Creatine Kinase 113 (55-170) U/L CK-MB (CK-2) 1.8 (0.0-2.4) ng/mL CK-MB (CK-2) Rel Index 1.6 Troponin I 0.015 (0.000-0.034) ng/mL NT-Pro-B Natriuret Pep pg/mL Total Protein 6.9 (6.3-8.2) g/dL Albumin 3.7 (3.5-5.0) g/dL 04/28/17 04/28/17 Range/Units 20:41 20:41 WBC (3.8-10.6) k/uL RBC (4.30-5.90) m/uL Hgb (13.0-17.5) gm/dL Hct (39.0-53.0) % MCV (80.0-100.0) fL MCH (25.0-35.0) pg MCHC (31.0-37.0) g/dL RDW (11.5-15.5) % Plt Count (150-450) k/uL Neutrophils % % Lymphocytes % % Monocytes % % Eosinophils % % Basophils % % Neutrophils # (1.3-7.7) k/uL Lymphocytes # (1.0-4.8) k/uL Monocytes # (0-1.0) k/uL Eosinophils # (0-0.7) k/uL Basophils # (0-0.2) k/uL PT 16.4 H (9.0-12.0) sec INR 1.7 (<1.1) APTT 26.4 (22.0-30.0) sec Sodium (137-145) mmol/L Potassium (3.5-5.1) mmol/L Chloride (98-107) mmol/L Carbon Dioxide (22-30) mmol/L Anion Gap mmol/L BUN (9-20) mg/dL Creatinine (0.66-1.25) mg/dL Est GFR (MDRD) Af Amer (>60 ml/min/1.73 sqM) Est GFR (MDRD) Non-Af (>60 ml/min/1.73 sqM) Glucose (74-99) mg/dL Calcium (8.4-10.2) mg/dL Magnesium (1.6-2.3) mg/dL Total Bilirubin (0.2-1.3) mg/dL AST (17-59) U/L ALT (21-72) U/L Alkaline Phosphatase (38-126) U/L Total Creatine Kinase (55-170) U/L CK-MB (CK-2) (0.0-2.4) ng/mL CK-MB (CK-2) Rel Index Troponin I (0.000-0.034) ng/mL NT-Pro-B Natriuret Pep 428 pg/mL Total Protein (6.3-8.2) g/dL Albumin (3.5-5.0) g/dL Disposition Clinical Impression: Chest pain Disposition: ADMITTED IP TO THIS HOSP Condition: Stable Referrals: Reed Bull MD [Primary Care Provider] - 1-2 days Decision to Admit Reason: Admit from EC Decision Date: 04/28/17 Decision Time: 23:00
[2017-04-29] MEDS: DEXTROSE 5%-0.45% NACL 1,000 ML IV SCH ×2 (00:11→17:55)
[2017-04-29 00:41] VITALS: BMI 36.0
[2017-04-29 02:52] LABS: Basophils # (A) 0.1 k/uL (0-0.2); Basophils % (A) 1 %; CHCM 35.5; Eosinophils # (A) 0.1 k/uL (0-0.7); Eosinophils % (A) 2 %; HCT 43.5 % (39.0-53.0); HDW 2.94; HGB 15.4 gm/dL (13.0-17.5); Luc % (Auto) 3; Lymphocytes % (A) 34 %; MCH 30.1 pg (25.0-35.0); MCHC 35.3 g/dL (31.0-37.0); MCV 85.1 fL (80.0-100.0); Mean Platelet Volume 6.7; Monocytes # (A) 0.4 k/uL (0-1.0); Monocytes % (A) 7 %; Neutrophils # (A) 3.1 k/uL (1.3-7.7); Neutrophils % (A) 53 %; RBC 5.11 m/uL (4.30-5.90); RDW 15.2 % (11.5-15.5); WBC 5.9 k/uL (3.8-10.6); WBC (Perox) 5.83
[2017-04-29 03:17] LABS: Anion Gap 11 mmol/L; Blood Urea Nitrogen 15 mg/dL (9-20); Calcium 9.2 mg/dL (8.4-10.2); Carbon Dioxide 21 mmol/L (22-30); Chloride 109 mmol/L (98-107); Glucose 100 mg/dL (74-99); Non-African American GFR(MDRD) 60 (>60 ml/min/1.73 sqM); Sodium 141 mmol/L (137-145)
[2017-04-29 03:28] LABS: Creatine Kinase MB 1.7 ng/mL (0.0-2.4); Troponin I 0.015 ng/mL (0.000-0.034)
[2017-04-29 07:43] VITALS: TEMP 98.1
[2017-04-29] MEDS ORDERED: METOPROLOL TARTRATE 12.5 MG TAB PO SCH ×2 (09:00→21:00)
[2017-04-29] MEDS ORDERED: ISOSORBIDE MONONITRATE ER 60 MG TAB.ER.24H PO SCH (09:00)
[2017-04-29] MEDS ORDERED: BRIMONIDINE TARTRATE 0.2% DROPS 5 ML BTL BOTH EYES SCH (09:00)
[2017-04-29] MEDS ORDERED: ASPIRIN 81 MG CHEW PO SCH (09:00)
[2017-04-29] MEDS ORDERED: acetaZOLAMIDE 250 MG TAB PO SCH (09:00)
[2017-04-29] MEDS ORDERED: RANOLAZINE 500 MG TAB.ER.12H PO SCH (09:00)
[2017-04-29] MEDS ORDERED: METOPROLOL TARTRATE 25 MG TAB PO SCH (09:00)
[2017-04-29] MEDS: OFLOXACIN 0.3% OPHTH DROPS 5 ML BOTTLE BOTH EYES SCH ×2 (09:23→17:55)
[2017-04-29 09:52] LABS: Creatine Kinase MB 1.7 ng/mL (0.0-2.4); Troponin I 0.015 ng/mL (0.000-0.034)
[2017-04-29 16:13] VITALS: BP 108/65; PULSE 59
--- NOTE | 2017-04-29 16:39 | P.HPIM ---
History of Present Illness H&P Date: 04/29/17 Chief Complaint: chest pain This is a 72-year-old patient of Dr. Willis. Patient chronic stable medical conditions include congestive heart failure, GERD, hyperlipidemia, Alzheimer's dementia, coronary artery disease. Patient wears tethers to be monitored. Patient is not the best of historians. Patient was sitting at the table and then patient passed out not sure he states what happened. Also had some nonspecific chest pain. Patient cannot of the duration. No radiation, not associated with sweating, no additional shortness of breath. Significant past medical history: congestive heart failure, stroke in the frontal lobe, coronary artery disease with history of bypass, GERD, hyperlipidemia, hypertension, DJD, Alzheimer's dementia, esophageal stricture with dilatation, left rotator cuff injury, Sleep apnea does not use CPAP, kidney stones, hemorrhoids. Review of Systems GEN.: [tired] EYES: [None] HEENT: [None] NECK: [None] RESPIRATORY: [Baseline some shortness of breath] CARDIOVASCULAR: [as above] GASTROINTESTINAL: [None] GENITOURINARY: [None] MUSCULOSKELETAL: [some pain in the joints] LYMPHATICS: [None] HEMATOLOGICAL: [None] PSYCHIATRY: [forgetful] NEUROLOGICAL: [None] Past Medical History Past Medical History: Atrial Fibrillation, Coronary Artery Disease (CAD), Chest Pain / Angina, Heart Failure, CVA/TIA, Dementia, GERD/Reflux, GI Bleed, Hyperlipidemia, Hypertension, Memory Impairment, Myocardial Infarction ([place]), Sleep Apnea/CPAP/BIPAP, Syncope Additional Past Medical History / Comment(s): coronary artery disease with multivessel involvement status post three-vessel bypass surgery, previous myocardial infarctions, previous paroxysmal atrial fibrillation, CVA in 2012 along with previous TIAs, nephrolithiasis, chronic back pain, hemorrhoids, 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 Chronic back pain, gastroparesis, degenerative arthritis , impaired hearing, chronic diastolic heart failure, vascular dementia, esophageal stricture with previous history of esophageal dilatation, history of C. diff colitis occurred postoperatively forced the patient was hospitalized in June 2015. Last Myocardial Infarction Date:: 2014 History of Any Multi-Drug Resistant Organisms: MRSA Date of last positivie culture/infection: 02-02-12 MDRO Source:: [facility] SITE OR SOURCE Past Surgical History: Back Surgery, Coronary Bypass/CABG, Heart Catheterization , Heart Catheterization With Stent, Orthopedic Surgery Additional Past Surgical History / Comment(s): BILATERAL CAROTID ENDARTERECTOMIES, HX OF PREVIOUS HEART CATHS WITH STENTS AND LAST STENT 03/2015 , EGD X3, ESOPHAGEAL DILATION X5, PLASTIC CAP LEFT ELBOW, URETHRAL STRICTURE DILATION., CABG (3 V) Past Anesthesia/Blood Transfusion Reactions: No Reported Reaction Additional Past Anesthesia/Blood Transfusion Reaction / Comment(s): Pt states he has no problem with anesthesia, old medical records indicate post op muscle weakness and slow to wake up. Pt has never recieved blood to his knowledge. Date of Last Stent Placement:: 03/22/2015 Smoking Status: Never smoker Additional History: matted, was doing heavy alcohol in the past, lives in a supervised setting, - Past Family History Father Family Medical History: Deep Vein Thrombosis (DVT) Additional Family Medical History / Comment(s): Father of DVT Mother Family Medical History: Cancer Additional Family Medical History / Comment(s): Mother of jaw bone cancer. Medications and Allergies Home Medications Medication Instructions Recorded Confirmed Type Aspirin EC [Ecotrin Low Dose] 81 mg PO DAILY 01/20/17 04/29/17 History Warfarin [Coumadin] 7.5 mg PO MOWEFR 01/20/17 04/29/17 History Ofloxacin 0.3% Ophth Soln [Ocuflox 1 drops BOTH EYES TID 03/12/17 04/29/17 History Ophth Soln] Brimonidine Tartrate [Alphagan P 1 drops BOTH EYES BID 04/05/17 04/29/17 History 0.15% Ophth Soln] Memantine [Namenda] 5 mg PO DAILY 04/05/17 04/29/17 History Warfarin [Coumadin] 5 mg PO SUTUTHSA 04/05/17 04/29/17 History acetaZOLAMIDE [Diamox Sequels] 500 mg PO BID 04/05/17 04/29/17 History Omeprazole [PriLOSEC] 40 mg PO DAILY 04/19/17 04/29/17 History Allergies Allergy/AdvReac Type Severity Reaction Status Date / Time adhesive Allergy Rash/Hives Verified 04/29/17 00:43 Physical Exam Vitals: Vital Signs VITAL SIGNS: [temperature 97.7, 88, 18, 150/mL), 96% room air] GENERAL: [Average built, laying in bed, somewhat dishelved]. EYES: [Pupils equal. Conjunctiva janelle]l. HEENT: [External appearance of nose and ears normal, oral cavity grossly normal] . NECK: [JVD not raised; masses not palpable]. HEART: [First and second heart sounds are normal; no edema]. LUNGS:[ Respiratory rate normal; decreased breath sounds]. ABDOMEN: [Soft, nontender, liver spleen not palpable, no masses palpable]. LYMPHATICS: [No lymph nodes palpable in the axilla and neck]. PSYCH: [Alert and oriented x3; mood and affect a bit low]l. NEUROLOGICAL: [Cranial nerves grossly intact; no facial asymmetry, power and sensation grossly intact]. MUSCULOSKELETAL: wearing tethers in the right leg Results CBC & Chem 7: 04/29/17 02:38 04/29/17 02:38 Assessment and Plan Plan: Assessment: -Episode of passing out possibly vasovagal short-lived. -Atypical chest pain, rule out cardiac cause Coronary artery disease with history of coronary bypass COPD Alzheimer's dementia late onset type Chronic congestive heart failure from dust or dysfunction EF at 4-60% from underlying coronary artery disease GERD Hyperlipidemia next primary osteoarthritis of multiple joints bilateral Obstructive sleep apnea does not use CPAP Lumbar DJD Chronic esophageal varices stricture with history of palpitation Neurocognitive disorder, chronic Plan: Home medications are resumed. Serial cardiac enzymes checked. Cardiology was consulted.
--- NOTE | 2017-04-29 16:49 | P.DS ---
Providers Date of admission: 04/28/17 23:48 Expected date of discharge: 04/29/17 Attending physician: Bryant Elmore Consults: 04/29/17 08:07 Consult Physician Routine Consulting Provider: Edda Moreno Consult Reason/Comments: CHEST PAIN Do you want consulting provider notified?: Already Contacted Primary care physician: [facility] Course: This is a 72-year-old patient of Dr. Willis. Patient chronic stable medical conditions include congestive heart failure, GERD, hyperlipidemia, Alzheimer's dementia, coronary artery disease. Patient wears tethers to be monitored. Patient is not the best of historians. Patient was sitting at the table and then patient passed out not sure he states what happened. Also had some nonspecific chest pain. Patient cannot of the duration. No radiation, not associated with sweating, no additional shortness of breath. Troponins 3 were negative. Seen by cardiology or could've her discharge. On examination: Lungs-decreased breath sounds, cardiovascular-first seconds are normal, psych - answering simple questions Final diagnosis: -Episode of passing out possibly vasovagal short-lived. -Atypical chest pain, rule out cardiac cause Coronary artery disease with history of coronary bypass COPD Alzheimer's dementia late onset type Chronic congestive heart failure from dust or dysfunction EF at 4-60% from underlying coronary artery disease GERD Hyperlipidemia next primary osteoarthritis of multiple joints bilateral Obstructive sleep apnea does not use CPAP Lumbar DJD Chronic esophageal varices stricture with history of palpitation Neurocognitive disorder, chronic Patient Condition at Discharge: Stable Plan - Discharge Summary New Discharge Prescriptions: Continue Aspirin EC [Ecotrin Low Dose] 81 mg PO DAILY Warfarin [Coumadin] 7.5 mg PO MOWEFR Ofloxacin 0.3% Ophth Soln [Ocuflox Ophth Soln] 1 drops BOTH EYES TID acetaZOLAMIDE [Diamox Sequels] 500 mg PO BID Brimonidine Tartrate [Alphagan P 0.15% Ophth Soln] 1 drops BOTH EYES BID Warfarin [Coumadin] 5 mg PO SUTUTHSA Memantine [Namenda] 5 mg PO DAILY Atorvastatin [Lipitor] 40 mg PO HS #30 tab Isosorbide Mononitrate ER [Imdur] 60 mg PO DAILY #30 tab Ranolazine [Ranexa] 500 mg PO Q12HR #60 tab Metoprolol Tartrate [Lopressor] 12.5 mg PO BID #0 Omeprazole [PriLOSEC] 40 mg PO DAILY Discharge Medication List Aspirin EC [Ecotrin Low Dose] 81 mg PO DAILY 01/20/17 [History] Warfarin [Coumadin] 7.5 mg PO MOWEFR 01/20/17 [History] Ofloxacin 0.3% Ophth Soln [Ocuflox Ophth Soln] 1 drops BOTH EYES TID 03/12/17 [ History] Brimonidine Tartrate [Alphagan P 0.15% Ophth Soln] 1 drops BOTH EYES BID [History] Memantine [Namenda] 5 mg PO DAILY 04/05/17 [History] Warfarin [Coumadin] 5 mg PO SUTUTHSA 04/05/17 [History] acetaZOLAMIDE [Diamox Sequels] 500 mg PO BID 04/05/17 [History] Atorvastatin [Lipitor] 40 mg PO HS #30 tab 04/06/17 [Rx] Isosorbide Mononitrate ER [Imdur] 60 mg PO DAILY #30 tab 04/06/17 [Rx] Ranolazine [Ranexa] 500 mg PO Q12HR #60 tab 04/06/17 [Rx] Metoprolol Tartrate [Lopressor] 12.5 mg PO BID #0 04/19/17 [Rx] Omeprazole [PriLOSEC] 40 mg PO DAILY 04/19/17 [History] Follow up Appointment(s)/Referral(s): Edda Moreno MD [STAFF PHYSICIAN] - 1 Week (OFFICE WILL CALL WITH APPOINTMENT) Reed Bull MD [Primary Care Provider] - 05/04/17 9:00 am Patient Instructions/Handouts: Chest Pain (DC)
[2017-04-29] MEDS ORDERED: WARFARIN 7.5 MG TAB PO SCH (18:00)
[2017-04-29] MEDS ORDERED: ATORVASTATIN 40 MG TAB PO SCH (21:00)
--- NOTE | 2017-04-29 23:35 | CONS ---
This is a gentleman with a known history of CAD with previous aortocoronary bypass surgery and PCI. He comes into the hospital with a very sharp chest pain. The quality of pain does not seem very anginal. He had a stress test a few months ago which revealed a partial reversible defect and on reviewing the nuclear scan and the angiograms, I felt no intervention was necessary at that time. In March of 2015 I performed a PTCA and stenting of this patient. He underwent circumflex stenting in 2010. He came in with an inferior ST elevation and I performed stenting of a proximal RCA with a good result. I actually performed an aspiration thrombectomy because of a heavy thrombus burden, and end result was excellent. A 3.0 caliber Resolute stent was deployed. Since then , he has had a stress test as recently as January of this year which revealed a fixed defect with some partial reversibility in the circumflex distribution, for which I recommended medical therapy. His background history suggests that he had an aortocoronary bypass surgery in the past, stopped all his medications , has not kept appointments. He has had a circumflex stent performed in 2010. Cardiac cath that was performed in March 2015 revealed a 95% proximal RCA with thrombus, the culprit lesion. Left main had a 60% to 65% stenosis. The proximal ostium of circumflex had 80% stenosis and LAD had a 55% to 60% stenosis. First obtuse marginal that was stented was patent. Second obtuse marginal was occluded. LAD and circumflex were both graftable vessels. He went on to have aortocoronary bypass surgery in April with a left internal mammary artery graft to the LAD and also a vein graft to the circumflex marginal. PAST MEDICAL HISTORY: 1. History of paroxysmal atrial fibrillation. 2. Hypertension. 3. Hypercholesterolemia. 4. Aortocoronary bypass surgery. Medications at home include: 1. Metoprolol tartrate 12.5 mg b.i.d. 2. Lipitor 40 mg daily. 3. Coumadin 5 and 7.5 alternating. 4. Ranexa 500 mg b.i.d. 5. Namenda. 6. Imdur 60 mg daily. ALLERGIES: NO KNOWN DRUG ALLERGIES. On examination, blood pressure is 120/70, pulse rate 70 per minute, regular. HEENT: Unremarkable. Fundus was not examined by me. Neck is supple. There is JVD of 1 cm. No carotid bruit. Heart exam reveals S1, S2 with a short systolic murmur. Lungs reveal decent air entry. Abdomen is soft, non-tender. Lower extremities reveal diminished pulses. Central nervous system is normal. EKG revealed sinus mechanism, evidence of non-specific ST-T changes. Lab data revealed unremarkable troponins. PT/INR is 1.7. IMPRESSION: 1. Atypical chest pain in a patient with a known previous myocardial infarction , bypass surgery and PCI. 2. Hypertension. 3. Hyperlipidemia. 4. Paroxysmal atrial fibrillation. 5. History of noncompliance with followups. RECOMMENDATION: I am recommending that we discontinue IV heparin, increase activity. He can be discharged on his current medical regimen but will switch his Lopressor to 25 mg in the morning, 12.5 mg in the evening, and he can be discharged. I will see him in the office in 3 weeks. Discussed my thoughts in detail with the patient. Thank you very much for the consult. PIPPA
[2017-04-30] MEDS ORDERED: WARFARIN 5 MG TAB PO SCH (18:00)
== END 2017-04-29 18:05 | disposition home or self-care (01) ==
LOC: EC 20:35 → 3OBS 23:48
PROVIDERS: ADMIT Hospitalist; ATTEND Hospitalist
DX: R07.89 Other chest pain (principal); I25.10 Atherosclerotic heart disease of native coronary artery without angina pectoris; J44.9 Chronic obstructive pulmonary disease, unspecified; Z95.1 Presence of aortocoronary bypass graft; Z79.82 Long term (current) use of aspirin; Z79.01 Long term (current) use of anticoagulants; Z79.899 Other long term (current) drug therapy; Z91.048 Other nonmedicinal substance allergy status; G30.1 Alzheimer's disease with late onset; F02.80 Dementia in other diseases classified elsewhere, unspecified severity, without behavioral disturbance, psychotic disturbance, mood disturbance, and anxiety; Z86.73 Personal history of transient ischemic attack (TIA), and cerebral infarction without residual deficits; K21.9 Gastro-esophageal reflux disease without esophagitis; E78.5 Hyperlipidemia, unspecified; I25.2 Old myocardial infarction; I48.0 Paroxysmal atrial fibrillation; M54.9 Dorsalgia, unspecified; G89.29 Other chronic pain; G47.33 Obstructive sleep apnea (adult) (pediatric); I50.32 Chronic diastolic (congestive) heart failure; F01.50 Vascular dementia, unspecified severity, without behavioral disturbance, psychotic disturbance, mood disturbance, and anxiety; Z86.14 Personal history of Methicillin resistant Staphylococcus aureus infection; I11.0 Hypertensive heart disease with heart failure; Z87.442 Personal history of urinary calculi; Z95.5 Presence of coronary angioplasty implant and graft; F41.9 Anxiety disorder, unspecified; F32.9 Major depressive disorder, single episode, unspecified; M19.91 Primary osteoarthritis, unspecified site; M47.816 Spondylosis without myelopathy or radiculopathy, lumbar region; I85.00 Esophageal varices without bleeding; G31.84 Mild cognitive impairment of uncertain or unknown etiology; E78.00 Pure hypercholesterolemia, unspecified; Z91.19 Patient's noncompliance with other medical treatment and regimen; H91.90 Unspecified hearing loss, unspecified ear
CPT/HCPCS: 96360; 96361; 99285; 36415; 93005; 83880; 80053; 80048; 82550 ×2; 82553 ×2; 83735; 84484 ×2; 85025 ×2; 85610; 85730; 71020; G0378 ×2

== ENCOUNTER 2017-05-15 09:53 | Emergency (ER) | payer MEDICARE ==
[2017-05-15] MEDS ORDERED: SODIUM CHLORIDE 0.9% 1,000 ML IV STA (09:58)
[2017-05-15 09:59] VITALS: RESP 18
[2017-05-15] MEDS ORDERED: MORPHINE SULFATE 4 MG/ML SYRINGE IVP STA (09:59)
[2017-05-15 10:21] LABS: Basophils % (A) 1 %; CH 30.9; CHCM 35.4; Eosinophils % (A) 1 %; HCT 47.4 % (39.0-53.0); HGB 16.2 gm/dL (13.0-17.5); Luc # (Auto) 0.23; Luc % (Auto) 3; Lymphocytes # (A) 1.4 k/uL (1.0-4.8); Lymphocytes % (A) 20 %; MCHC 34.2 g/dL (31.0-37.0); MCV 87.8 fL (80.0-100.0); Mean Platelet Volume 7.5; Monocytes # (A) 0.5 k/uL (0-1.0); Monocytes % (A) 8 %; Neutrophils # (A) 4.6 k/uL (1.3-7.7); Neutrophils % (A) 68 %; RDW 15.1 % (11.5-15.5); WBC 6.8 k/uL (3.8-10.6); WBC (Perox) 6.96
--- NOTE | 2017-05-15 10:24 | ED ---
General Adult HPI - General Chief complaint: Chest Pain Stated complaint: Chest Pain Time Seen by Provider: 05/15/17 09:56 Source: EMS, RN notes reviewed, old records reviewed Mode of arrival: EMS Limitations: no limitations - History of Present Illness Initial comments: Physical a 72-year-old male to the ER for evaluation. Patient is a reevaluation of chest pain history of heart disease history of chest pain. Multiple ER visits at different hospitals in the last month for chest pain and uncontrolled chest pain. No significant changes in symptoms. No fevers cough or congestion. No shortness of breath at this time - Related Data Home Medications Medication Instructions Recorded Confirmed Aspirin EC [Ecotrin Low Dose] 81 mg PO DAILY 01/20/17 05/15/17 Warfarin [Coumadin] 7.5 mg PO MOWEFR 01/20/17 05/15/17 Ofloxacin 0.3% Ophth Soln [Ocuflox 1 drops BOTH EYES TID 03/12/17 05/15/17 Ophth Soln] Brimonidine Tartrate [Alphagan P 1 drops BOTH EYES BID 04/05/17 05/15/17 0.15% Ophth Soln] Memantine [Namenda] 5 mg PO DAILY 04/05/17 05/15/17 Warfarin [Coumadin] 5 mg PO SUTUTHSA 04/05/17 05/15/17 acetaZOLAMIDE [Diamox Sequels] 500 mg PO BID 04/05/17 05/15/17 Omeprazole [PriLOSEC] 40 mg PO DAILY 04/19/17 05/15/17 Previous Rx's Medication Instructions Recorded Atorvastatin [Lipitor] 40 mg PO HS #30 tab 04/06/17 Isosorbide Mononitrate ER [Imdur] 60 mg PO DAILY #30 tab 04/06/17 Ranolazine [Ranexa] 500 mg PO Q12HR #60 tab 04/06/17 Metoprolol Tartrate [Lopressor] 12.5 mg PO BID #0 04/19/17 Allergies Allergy/AdvReac Type Severity Reaction Status Date / Time adhesive Allergy Rash/Hives Verified 05/15/17 10:53 Review of Systems ROS Statement: Those systems with pertinent positive or pertinent negative responses have been documented in the HPI. ROS Other: All systems not noted in ROS Statement are negative. 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 Chronic back pain, gastroparesis, degenerative arthritis , impaired hearing, chronic diastolic heart failure, vascular dementia, esophageal stricture with previous history of esophageal dilatation, history of C. diff colitis occurred postoperatively forced the patient was hospitalized in June 2015. Last Myocardial Infarction Date:: 2014 History of Any Multi-Drug Resistant Organisms: MRSA Date of last positivie culture/infection: 02-02-12 MDRO Source:: UN[facility] SITE OR SOURCE Past Surgical History: Back Surgery, Coronary Bypass/CABG, Heart Catheterization , Heart Catheterization With Stent, Orthopedic Surgery Additional Past Surgical History / Comment(s): BILATERAL CAROTID ENDARTERECTOMIES, HX OF PREVIOUS HEART CATHS WITH STENTS AND LAST STENT 03/2015 , EGD X3, ESOPHAGEAL DILATION X5, PLASTIC CAP LEFT ELBOW, URETHRAL STRICTURE DILATION., CABG (3 V) Past Anesthesia/Blood Transfusion Reactions: No Reported Reaction Additional Past Anesthesia/Blood Transfusion Reaction / Comment(s): Pt states he has no problem with anesthesia, old medical records indicate post op muscle weakness and slow to wake up. Pt has never recieved blood to his knowledge. Date of Last Stent Placement:: 03/22/2015 Past Psychological History: Anxiety, Depression Smoking Status: Never smoker Past Alcohol Use History: None Reported Past Drug Use History: None Reported - Past Family History Father Family Medical History: Deep Vein Thrombosis (DVT) Additional Family Medical History / Comment(s): Father of DVT Mother Family Medical History: Cancer Additional Family Medical History / Comment(s): Mother of jaw bone cancer. General Exam Limitations: no limitations General appearance: alert, in no apparent distress Head exam: Present: atraumatic, normocephalic, normal inspection Eye exam: Present: normal appearance, PERRL, EOMI. Absent: scleral icterus, conjunctival injection, periorbital swelling ENT exam: Present: normal exam, mucous membranes moist Neck exam: Present: normal inspection. Absent: tenderness, meningismus, lymphadenopathy Respiratory exam: Present: normal lung sounds bilaterally. Absent: respiratory distress, wheezes, rales, rhonchi, stridor Cardiovascular Exam: Present: regular rate, normal rhythm, normal heart sounds. Absent: systolic murmur, diastolic murmur, rubs, gallop, clicks GI/Abdominal exam: Present: soft, normal bowel sounds. Absent: distended, tenderness, guarding, rebound, rigid Extremities exam: Present: normal inspection, full ROM, normal capillary refill. Absent: tenderness, pedal edema, joint swelling, calf tenderness Back exam: Present: normal inspection Neurological exam: Present: alert, oriented X3, CN II-XII intact Psychiatric exam: Present: normal affect, normal mood Skin exam: Present: warm, dry, intact, normal color. Absent: rash Course Vital Signs 05/15/17 05/15/17 09:54 11:32 Temperature 99.4 F Pulse Rate 107 H 89 Respiratory 18 18 Rate Blood Pressure 128/76 128/92 O2 Sat by Pulse 92 L 98 Oximetry - Reevaluation(s) Reevaluation #1: 05/15/17 11:57 Patient's pain is resolved, controlled EKG Findings - EKG Comments: EKG Findings:: EKG shows sinus tachycardia rate 107, MS 120, QRS 80, QTC 451 Medical Decision Making - Medical Decision Making 72 male to the ER for evaluation of pain. Patient is presenting today with chest pain, chronic chest pain. Multiple ER visits evaluations and hospitalizations for pain. Patient states his pain is resolved and he would like to be discharged home at this time - Lab Data Result diagrams: 05/15/17 10:03 05/15/17 10:03 Lab Results 05/15/17 05/15/17 05/15/17 Range/Units 10:03 10:03 10:03 WBC 6.8 (3.8-10.6) k/uL RBC 5.40 (4.30-5.90) m/uL Hgb 16.2 (13.0-17.5) gm/dL Hct 47.4 (39.0-53.0) % MCV 87.8 (80.0-100.0) fL MCH 30.0 (25.0-35.0) pg MCHC 34.2 (31.0-37.0) g/dL RDW 15.1 (11.5-15.5) % Plt Count 239 (150-450) k/uL Neutrophils % 68 % Lymphocytes % 20 % Monocytes % 8 % Eosinophils % 1 % Basophils % 1 % Neutrophils # 4.6 (1.3-7.7) k/uL Lymphocytes # 1.4 (1.0-4.8) k/uL Monocytes # 0.5 (0-1.0) k/uL Eosinophils # 0.0 (0-0.7) k/uL Basophils # 0.0 (0-0.2) k/uL PT (9.0-12.0) sec INR (<1.2) APTT (22.0-30.0) sec Sodium 140 (137-145) mmol/L Potassium 4.1 (3.5-5.1) mmol/L Chloride 104 (98-107) mmol/L Carbon Dioxide 23 (22-30) mmol/L Anion Gap 13 mmol/L BUN 15 (9-20) mg/dL Creatinine 1.23 (0.66-1.25) mg/dL Est GFR (MDRD) Af Amer >60 (>60 ml/min/1.73 sqM) Est GFR (MDRD) Non-Af 58 (>60 ml/min/1.73 sqM) Glucose 83 (74-99) mg/dL Calcium 9.2 (8.4-10.2) mg/dL Magnesium 1.9 (1.6-2.3) mg/dL Total Bilirubin 1.0 (0.2-1.3) mg/dL AST 33 (17-59) U/L ALT 52 (21-72) U/L Alkaline Phosphatase 102 (38-126) U/L Total Creatine Kinase 85 (55-170) U/L CK-MB (CK-2) 0.9 (0.0-2.4) ng/mL CK-MB (CK-2) Rel Index 1.1 Troponin I 0.020 (0.000-0.034) ng/mL Total Protein 7.2 (6.3-8.2) g/dL Albumin 4.0 (3.5-5.0) g/dL Lipase 118 (23-300) U/L 05/15/17 Range/Units 10:03 WBC (3.8-10.6) k/uL RBC (4.30-5.90) m/uL Hgb (13.0-17.5) gm/dL Hct (39.0-53.0) % MCV (80.0-100.0) fL MCH (25.0-35.0) pg MCHC (31.0-37.0) g/dL RDW (11.5-15.5) % Plt Count (150-450) k/uL Neutrophils % % Lymphocytes % % Monocytes % % Eosinophils % % Basophils % % Neutrophils # (1.3-7.7) k/uL Lymphocytes # (1.0-4.8) k/uL Monocytes # (0-1.0) k/uL Eosinophils # (0-0.7) k/uL Basophils # (0-0.2) k/uL PT 11.0 (9.0-12.0) sec INR 1.1 (<1.2) APTT 25.1 (22.0-30.0) sec Sodium (137-145) mmol/L Potassium (3.5-5.1) mmol/L Chloride (98-107) mmol/L Carbon Dioxide (22-30) mmol/L Anion Gap mmol/L BUN (9-20) mg/dL Creatinine (0.66-1.25) mg/dL Est GFR (MDRD) Af Amer (>60 ml/min/1.73 sqM) Est GFR (MDRD) Non-Af (>60 ml/min/1.73 sqM) Glucose (74-99) mg/dL Calcium (8.4-10.2) mg/dL Magnesium (1.6-2.3) mg/dL Total Bilirubin (0.2-1.3) mg/dL AST (17-59) U/L ALT (21-72) U/L Alkaline Phosphatase (38-126) U/L Total Creatine Kinase (55-170) U/L CK-MB (CK-2) (0.0-2.4) ng/mL CK-MB (CK-2) Rel Index Troponin I (0.000-0.034) ng/mL Total Protein (6.3-8.2) g/dL Albumin (3.5-5.0) g/dL Lipase (23-300) U/L - Radiology Data Radiology results: report reviewed (Chest x-ray is negative for acute disease), image reviewed Disposition Clinical Impression: Atypical chest pain Disposition: HOME SELF-CARE Condition: Good Instructions: Chest Pain (ED) Referrals: Reed Bull MD [Primary Care Provider] - 1-2 days
--- NOTE | 2017-05-15 10:26 | XR ---
EXAMINATION TYPE: XR chest 2V DATE OF EXAM: 05/15/2017 COMPARISON: 04/28/2017 an 09/21/2016 HISTORY: 72-year-old male with chest pain TECHNIQUE: AP and lateral views FINDINGS: Median sternotomy wires are present. The heart is normal size. Pulmonary vasculature within normal li mits. Suspect expiratory phase of imaging though there is increased retrosternal clear space. Strandy atelectasis in the lower lungs. Granular density along the peripheral right lung is redemonstrated b ut more pronounced as compared to 09/21/2016. No consolidation or pleural effusion. IMPRESSION: 1. COPD. Expiratory phase of imaging. No acute process seen. 2. Some chronic triangular density along the peripheral right lung though more pronounced from 016. Underlying pleural-parenchymal scarring is suspected. CT can be performed to exclude an underlyi ng pulmonary nodule.
[2017-05-15 10:37] LABS: ALT 52 U/L (21-72); AST 33 U/L (17-59); Alkaline Phosphatase 102 U/L (38-126); Anion Gap 13 mmol/L; Blood Urea Nitrogen 15 mg/dL (9-20); Calcium 9.2 mg/dL (8.4-10.2); Carbon Dioxide 23 mmol/L (22-30); Chloride 104 mmol/L (98-107); Glucose 83 mg/dL (74-99); INR 1.1 (<1.2); Magnesium 1.9 mg/dL (1.6-2.3); Non-African American GFR(MDRD) 58 (>60 ml/min/1.73 sqM); Partial Thromboplastin Time 25.1 sec (22.0-30.0); Potassium 4.1 mmol/L (3.5-5.1); Sodium 140 mmol/L (137-145); Total Protein 7.2 g/dL (6.3-8.2)
[2017-05-15 10:55] LABS: Creatine Kinase MB 0.9 ng/mL (0.0-2.4); Troponin I 0.02 ng/mL (0.000-0.034)
[2017-05-15 11:33] VITALS: BP 128/92; PULSE 89
[2017-05-15 12:13] VITALS: TEMP 98.7
== END 2017-05-15 12:13 | disposition home or self-care (01) ==
LOC: EC 09:53
DX: R07.89 Other chest pain (principal); I48.0 Paroxysmal atrial fibrillation; K21.9 Gastro-esophageal reflux disease without esophagitis; F01.50 Vascular dementia, unspecified severity, without behavioral disturbance, psychotic disturbance, mood disturbance, and anxiety; Z53.20 Procedure and treatment not carried out because of patient's decision for unspecified reasons; Z86.73 Personal history of transient ischemic attack (TIA), and cerebral infarction without residual deficits; Z95.1 Presence of aortocoronary bypass graft; Z95.5 Presence of coronary angioplasty implant and graft; Z91.048 Other nonmedicinal substance allergy status; Z79.82 Long term (current) use of aspirin; Z79.01 Long term (current) use of anticoagulants; Z79.899 Other long term (current) drug therapy
CPT/HCPCS: 36415; 71020; 80053; 82550; 82553; 83690; 83735; 84484; 85025; 85610; 85730; 93005; 96360; 96361; 99285

== ENCOUNTER 2017-05-25 19:01 | Emergency (ER) | payer MEDICARE ==
--- NOTE | 2017-05-25 19:30 | XR ---
EXAMINATION TYPE: XR pelvis AP view DATE OF EXAM: 05/25/2017 CLINICAL HISTORY: Fall and pain TECHNIQUE: A single AP view of the pelvis is obtained. COMPARISON: None. FINDINGS: There is no acute fracture/dislocation evident in the pelvis. Surgical fusion is seen of L 4-S1. The hip and sacroiliac joints appear symmetric and unremarkable. The overlying soft tissue virginie ears unremarkable. IMPRESSION: There is no acute fracture or dislocation in the pelvis.
--- NOTE | 2017-05-25 19:32 | XR ---
EXAMINATION TYPE: XR chest 1V DATE OF EXAM: 05/25/2017 COMPARISON: 05/15/2017 HISTORY: Fall and chest pain TECHNIQUE: Single frontal view of the chest is obtained. FINDINGS: There is no focal air space opacity, pleural effusion, or pneumothorax seen. Median bravo otomy wires and mediastinal clips are noted. The cardiac silhouette size is within normal limits. T he osseous structures are intact. IMPRESSION: No acute cardiopulmonary process.
[2017-05-25 19:35] LABS: Basophils # (A) 0.1 k/uL (0-0.2); Basophils % (A) 1 %; CH 30.7; CHCM 35.4; Eosinophils # (A) 0.1 k/uL (0-0.7); Eosinophils % (A) 2 %; HDW 3.04; HGB 15.7 gm/dL (13.0-17.5); Luc # (Auto) 0.14; Luc % (Auto) 2; Lymphocytes # (A) 1.8 k/uL (1.0-4.8); Lymphocytes % (A) 25 %; MCH 29.6 pg (25.0-35.0); MCHC 34.1 g/dL (31.0-37.0); MCV 86.8 fL (80.0-100.0); Mean Platelet Volume 7.1; Monocytes # (A) 0.5 k/uL (0-1.0); Monocytes % (A) 7 %; Neutrophils # (A) 4.6 k/uL (1.3-7.7); Neutrophils % (A) 64 %; RDW 14.6 % (11.5-15.5); WBC 7.2 k/uL (3.8-10.6); WBC (Perox) 7.45
--- NOTE | 2017-05-25 19:41 | ED ---
Fall HPI - General Chief Complaint: Fall Stated Complaint: Fall/Chest Pain Time Seen by Provider: 05/25/17 19:03 Source: EMS Mode of arrival: EMS - History of Present Illness Initial Comments: This is a 72-year-old male with a history of CAD who presents emergency Department after a fall. The patient states that he was walking out of his house through the door when all of a sudden he got a poking sensation in his chest. He was shortly after this that he tripped and fell forward landing onto his left knee. The patient denies any head trauma. He complains mostly of left knee pain. An ambulance was called and he was brought to the emergency Department. With regards to the chest pain he states it was a poking-like sensation that lasts only a few seconds and then spontaneously resolved. He does not currently have the chest discomfort. He denies any shortness of breath. No nausea, vomiting, diarrhea. He denies loss of consciousness or syncope. No other complaints. - Related Data Home Medications Medication Instructions Recorded Confirmed Aspirin EC [Ecotrin Low Dose] 81 mg PO DAILY 01/20/17 05/25/17 Warfarin [Coumadin] 2.5 mg PO HS 01/20/17 05/25/17 Isosorbide Mononitrate ER [Imdur] 30 mg PO DAILY 05/25/17 05/25/17 Metoprolol Tartrate [Lopressor] 25 mg PO BID 05/25/17 05/25/17 Allergies Allergy/AdvReac Type Severity Reaction Status Date / Time adhesive Allergy Rash/Hives Verified 05/25/17 19:08 Review of Systems ROS Statement: Those systems with pertinent positive or pertinent negative responses have been documented in the HPI. ROS Other: All systems not noted in ROS Statement are negative. 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 Chronic back pain, gastroparesis, degenerative arthritis , impaired hearing, chronic diastolic heart failure, vascular dementia, esophageal stricture with previous history of esophageal dilatation, history of C. diff colitis occurred postoperatively forced the patient was hospitalized in June 2015. Last Myocardial Infarction Date:: 2014 History of Any Multi-Drug Resistant Organisms: MRSA Date of last positivie culture/infection: 02-02-12 MDRO Source:: UNK SITE OR SOURCE Past Surgical History: Back Surgery, Coronary Bypass/CABG, Heart Catheterization , Heart Catheterization With Stent, Orthopedic Surgery Additional Past Surgical History / Comment(s): BILATERAL CAROTID ENDARTERECTOMIES, HX OF PREVIOUS HEART CATHS WITH STENTS AND LAST STENT 03/2015 , EGD X3, ESOPHAGEAL DILATION X5, PLASTIC CAP LEFT ELBOW, URETHRAL STRICTURE DILATION., CABG (3 V) Past Anesthesia/Blood Transfusion Reactions: No Reported Reaction Additional Past Anesthesia/Blood Transfusion Reaction / Comment(s): Pt states he has no problem with anesthesia, old medical records indicate post op muscle weakness and slow to wake up. Pt has never recieved blood to his knowledge. Date of Last Stent Placement:: 03/22/2015 Past Psychological History: Anxiety, Depression Smoking Status: Never smoker Past Alcohol Use History: None Reported Past Drug Use History: None Reported - Past Family History Father Family Medical History: Deep Vein Thrombosis (DVT) Additional Family Medical History / Comment(s): Father of DVT Mother Family Medical History: Cancer Additional Family Medical History / Comment(s): Mother of jaw bone cancer. General Exam - General Exam Comments Initial Comments: Constitutional: Awake alert Appears comfortable Head: Cephalic, there is a small half centimeter abrasion to the right forehead Eyes: no conjunctival injection No scleral icterus EOMI, pupils are 4 mm reactive bilaterally Neck: No JVD Supple, the patient does have midline spinous process tenderness of the upper cervical spine Heart: Regular rate rhythm normal S1-S2 no murmurs Lungs: Clear to auscultation bilaterally No wheezing No rales Abdomen: Soft nondistended nontender Extremities: Non edematous DP pulses intact Radial pulses intact, the patient has full range of motion in bilateral knees and hips, no tenderness to palpation of bilateral knees, no swelling Neuro: A&Ox3 No focal neurologic deficits Psych: Appropriate mood and affect Limitations: physical limitation Course Vital Signs 05/25/17 05/25/17 05/25/17 19:04 20:14 20:48 Temperature 98.4 F 99.3 F Pulse Rate 73 73 72 Respiratory 20 16 18 Rate Blood Pressure 159/93 154/76 149/89 O2 Sat by Pulse 96 96 96 Oximetry 05/25/17 21:39 Temperature 98.2 F Pulse Rate 72 Respiratory 16 Rate Blood Pressure 141/87 O2 Sat by Pulse 99 Oximetry - Reevaluation(s) Reevaluation #1: 05/25/17 19:47 EKG showing normal sinus rhythm with a rate of 73. No abnormal ST segment changes or T-wave inversions. QTC is 423. Other intervals are normal. No ectopy. Medical Decision Making - Medical Decision Making This is a 72-year-old male who presents emergency from for a fall chest pain. Patient did not have any identifiable injuries on imaging. Labwork was reviewed and unremarkable. The patient has had multiple ER and hospital admissions for chest pain. Most recent being in the last 3 weeks. All these of been unremarkable and he is been told to follow-up as an outpatient. This time I feel the patient's chest pain is very atypical and does not require further workup as an inpatient. At this time I told to follow-up with his home health manager and primary doctor. He can return if he has worsening or changing symptoms. All questions were answered. - Lab Data Result diagrams: 05/25/17 19:23 05/25/17 19:23 Lab Results 05/25/17 05/25/17 05/25/17 Range/Units 19:23 19:23 19:23 WBC 7.2 (3.8-10.6) k/uL RBC 5.30 (4.30-5.90) m/uL Hgb 15.7 (13.0-17.5) gm/dL Hct 46.0 (39.0-53.0) % MCV 86.8 (80.0-100.0) fL MCH 29.6 (25.0-35.0) pg MCHC 34.1 (31.0-37.0) g/dL RDW 14.6 (11.5-15.5) % Plt Count 426 (150-450) k/uL Neutrophils % 64 % Lymphocytes % 25 % Monocytes % 7 % Eosinophils % 2 % Basophils % 1 % Neutrophils # 4.6 (1.3-7.7) k/uL Lymphocytes # 1.8 (1.0-4.8) k/uL Monocytes # 0.5 (0-1.0) k/uL Eosinophils # 0.1 (0-0.7) k/uL Basophils # 0.1 (0-0.2) k/uL PT 10.7 (9.0-12.0) sec INR 1.1 (<1.2) APTT 24.6 (22.0-30.0) sec Sodium (137-145) mmol/L Potassium (3.5-5.1) mmol/L Chloride (98-107) mmol/L Carbon Dioxide (22-30) mmol/L Anion Gap mmol/L BUN (9-20) mg/dL Creatinine (0.66-1.25) mg/dL Est GFR (MDRD) Af Amer (>60 ml/min/1.73 sqM) Est GFR (MDRD) Non-Af (>60 ml/min/1.73 sqM) Glucose (74-99) mg/dL Calcium (8.4-10.2) mg/dL Magnesium (1.6-2.3) mg/dL Total Bilirubin (0.2-1.3) mg/dL AST (17-59) U/L ALT (21-72) U/L Alkaline Phosphatase (38-126) U/L CK-MB (CK-2) 1.5 (0.0-2.4) ng/mL Troponin I (0.000-0.034) ng/mL Total Protein (6.3-8.2) g/dL Albumin (3.5-5.0) g/dL 05/25/17 05/25/17 Range/Units 19:23 19:23 WBC (3.8-10.6) k/uL RBC (4.30-5.90) m/uL Hgb (13.0-17.5) gm/dL Hct (39.0-53.0) % MCV (80.0-100.0) fL MCH (25.0-35.0) pg MCHC (31.0-37.0) g/dL RDW (11.5-15.5) % Plt Count (150-450) k/uL Neutrophils % % Lymphocytes % % Monocytes % % Eosinophils % % Basophils % % Neutrophils # (1.3-7.7) k/uL Lymphocytes # (1.0-4.8) k/uL Monocytes # (0-1.0) k/uL Eosinophils # (0-0.7) k/uL Basophils # (0-0.2) k/uL PT (9.0-12.0) sec INR (<1.2) APTT (22.0-30.0) sec Sodium 140 (137-145) mmol/L Potassium 4.1 (3.5-5.1) mmol/L Chloride 109 H (98-107) mmol/L Carbon Dioxide 22 (22-30) mmol/L Anion Gap 9 mmol/L BUN 14 (9-20) mg/dL Creatinine 1.06 (0.66-1.25) mg/dL Est GFR (MDRD) Af Amer >60 (>60 ml/min/1.73 sqM) Est GFR (MDRD) Non-Af >60 (>60 ml/min/1.73 sqM) Glucose 92 (74-99) mg/dL Calcium 9.5 (8.4-10.2) mg/dL Magnesium 1.9 (1.6-2.3) mg/dL Total Bilirubin 0.5 (0.2-1.3) mg/dL AST 23 (17-59) U/L ALT 42 (21-72) U/L Alkaline Phosphatase 80 (38-126) U/L CK-MB (CK-2) (0.0-2.4) ng/mL Troponin I <0.012 (0.000-0.034) ng/mL Total Protein 7.0 (6.3-8.2) g/dL Albumin 3.8 (3.5-5.0) g/dL Disposition Clinical Impression: Knee strain, Fall, Chest pain Disposition: HOME SELF-CARE Condition: Stable Instructions: Fall Prevention for Older Adults (ED), Knee Pain (ED) Referrals: Reed Bull MD [Primary Care Provider] - 1-2 days
[2017-05-25 19:45] LABS: ALT 42 U/L (21-72); AST 23 U/L (17-59); Alkaline Phosphatase 80 U/L (38-126); Anion Gap 9 mmol/L; Blood Urea Nitrogen 14 mg/dL (9-20); Calcium 9.5 mg/dL (8.4-10.2); Carbon Dioxide 22 mmol/L (22-30); Chloride 109 mmol/L (98-107); Glucose 92 mg/dL (74-99); INR 1.1 (<1.2); Magnesium 1.9 mg/dL (1.6-2.3); Non-African American GFR(MDRD) >60 (>60 ml/min/1.73 sqM); Partial Thromboplastin Time 24.6 sec (22.0-30.0); Potassium 4.1 mmol/L (3.5-5.1); Prothrombin Time 10.7 sec (9.0-12.0); Sodium 140 mmol/L (137-145); Total Bilirubin 0.5 mg/dL (0.2-1.3)
--- NOTE | 2017-05-25 20:10 | CT ---
EXAMINATION TYPE: CT brain leticia jaam con DATE OF EXAM: 05/25/2017 COMPARISON: 04/05/2017 HISTORY: Fall today. head and neck pain CT DLP: 1617.1 mGycm. Automated Exposure Control for Dose Reduction was Utilized. TECHNIQUE: CT scan of the head and cervical spine are performed without contrast. FINDINGS: There is no acute intracranial hemorrhage, mass effect, or midline shift identified. Enc ephalomalacia is again noted in the distribution of the left middle cerebral artery from prior ischem ic injury. Minimal ex vacuo dilatation of the anterior horn of the left lateral ventricle is again ap preciated. Few scattered areas of hypoattenuation are seen within the periventricular white matter, a gain likely on the basis of chronic microangiopathy. The ventricles and sulci are symmetrically promi nent compatible with age-related atrophy. The globes are intact and the visualized sinuses are clear . Atherosclerosis is seen of the intracranial vasculature. Cervical spine is visualized in its entirety from C1 through upper thoracic levels and demonstrates s atisfactory alignment without evidence of acute fracture or dislocation. Prevertebral soft tissue ap pears within normal limits. Degenerative disc disease is most pronounced at C4-C5 and C5-C6. The C1-C 2 articulation is unremarkable. IMPRESSION: 1. There is no acute fracture or dislocation evident in the cervical spine. Degenerative disc disease most pronounced at C4-C6. 2. No acute intracranial hemorrhage, mass effect, or midline shift is seen. Encephalomalacia in the d istribution of the left MCA, stable from the prior exam.
[2017-05-25] MEDS ORDERED: ACETAMINOPHEN TAB 500 MG TAB PO STA (20:44)
[2017-05-25 20:51] VITALS: PULSE 72
[2017-05-25 21:41] VITALS: BP 141/87; RESP 16; TEMP 98.2
--- NOTE | 2017-05-25 21:43 | XR ---
EXAMINATION TYPE: XR knee 4V LT DATE OF EXAM: 05/25/2017 CLINICAL HISTORY: Fall and left knee pain TECHNIQUE: Three views of the left knee are obtained. COMPARISON: None. FINDINGS: There is no acute fracture/dislocation evident in left knee. The medial joint space demon strates mild joint space narrowing and tibial sclerosis. The overlying soft tissue appears unremarkab le. Surgical clips are seen adjacent to the proximal fibula posteriorly. Few atheromatous changes are noted of the distal femoral and its branches. IMPRESSION: There is no acute fracture or dislocation in the left knee.
== END 2017-05-25 22:03 | disposition home or self-care (01) ==
LOC: EC 19:01
DX: S86.912A Strain of unspecified muscle(s) and tendon(s) at lower leg level, left leg, initial encounter (principal); R07.9 Chest pain, unspecified; S00.81XA Abrasion of other part of head, initial encounter; I25.10 Atherosclerotic heart disease of native coronary artery without angina pectoris; I25.2 Old myocardial infarction; I48.91 Unspecified atrial fibrillation; M19.90 Unspecified osteoarthritis, unspecified site; Z86.73 Personal history of transient ischemic attack (TIA), and cerebral infarction without residual deficits; Z86.14 Personal history of Methicillin resistant Staphylococcus aureus infection; Z79.01 Long term (current) use of anticoagulants; Z79.82 Long term (current) use of aspirin; Z79.899 Other long term (current) drug therapy; Z91.048 Other nonmedicinal substance allergy status; W01.0XXA Fall on same level from slipping, tripping and stumbling without subsequent striking against object, initial encounter; Y93.01 Activity, walking, marching and hiking
CPT/HCPCS: 36415; 70450; 71010; 72125; 72170; 80053; 82553; 83735; 84484; 85025; 85610; 85730; 93005; 99285

== ENCOUNTER 2017-05-31 18:30 | Emergency (ER) | payer MEDICARE ==
[2017-05-31] MEDS ORDERED: MORPHINE SULFATE 4 MG/ML SYRINGE IV STA (18:32)
[2017-05-31 18:52] LABS: Basophils % (A) 1 %; CH 29.8; CHCM 34.8; Eosinophils # (A) 0.1 k/uL (0-0.7); Eosinophils % (A) 2 %; HCT 43.7 % (39.0-53.0); HDW 3.07; HGB 15.4 gm/dL (13.0-17.5); Luc # (Auto) 0.28; Luc % (Auto) 4; Lymphocytes # (A) 1.7 k/uL (1.0-4.8); Lymphocytes % (A) 27 %; MCH 30.4 pg (25.0-35.0); MCHC 35.4 g/dL (31.0-37.0); MCV 85.9 fL (80.0-100.0); Mean Platelet Volume 7.1; Monocytes # (A) 0.5 k/uL (0-1.0); Monocytes % (A) 8 %; Neutrophils # (A) 3.9 k/uL (1.3-7.7); Neutrophils % (A) 59 %; RBC 5.08 m/uL (4.30-5.90); RDW 13.9 % (11.5-15.5); WBC 6.5 k/uL (3.8-10.6)
--- NOTE | 2017-05-31 19:01 | XR ---
EXAMINATION TYPE: XR chest 2V DATE OF EXAM: 05/31/2017 COMPARISON: NONE HISTORY: chest pain TECHNIQUE: Frontal and lateral views of the chest are obtained. FINDINGS: There is no focal air space opacity, pleural effusion, or pneumothorax seen. The cardiac silhouette size is within normal limits. The osseous structures are intact. IMPRESSION: No acute cardiopulmonary process.
[2017-05-31 19:02] LABS: INR 1.1 (<1.2); Partial Thromboplastin Time 24.9 sec (22.0-30.0)
[2017-05-31 19:05] VITALS: PULSE 76; RESP 16
--- NOTE | 2017-05-31 19:06 | ED ---
General Adult HPI - General Chief complaint: Chest Pain Stated complaint: Chest Pain Time Seen by Provider: 05/31/17 18:31 Source: patient, EMS, RN notes reviewed, old records reviewed Mode of arrival: EMS Limitations: no limitations - History of Present Illness Initial comments: This is a 72-year-old [place] chest pain. Patient will known this ER for evaluation of chest pain. Patient has no other complaints aside from chest pain chest discomfort. No fevers or cough or congestion or shortness of breath no abdominal pain. No recent travel history or sick contacts. No modifying factors for pain at home - Related Data Home Medications Medication Instructions Recorded Confirmed Aspirin EC [Ecotrin Low Dose] 81 mg PO DAILY 01/20/17 05/31/17 Warfarin [Coumadin] 2.5 mg PO HS 01/20/17 05/31/17 Isosorbide Mononitrate ER [Imdur] 30 mg PO DAILY 05/25/17 05/31/17 Metoprolol Tartrate [Lopressor] 25 mg PO BID 05/25/17 05/31/17 Allergies Allergy/AdvReac Type Severity Reaction Status Date / Time adhesive Allergy Rash/Hives Verified 05/31/17 18:46 Review of Systems ROS Statement: Those systems with pertinent positive or pertinent negative responses have been documented in the HPI. ROS Other: All systems not noted in ROS Statement are negative. 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 Chronic back pain, gastroparesis, degenerative arthritis , impaired hearing, chronic diastolic heart failure, vascular dementia, esophageal stricture with previous history of esophageal dilatation, history of C. diff colitis occurred postoperatively forced the patient was hospitalized in June 2015. Last Myocardial Infarction Date:: 2014 History of Any Multi-Drug Resistant Organisms: MRSA Date of last positivie culture/infection: 02-02-12 MDRO Source:: UNK SITE OR SOURCE Past Surgical History: Back Surgery, Coronary Bypass/CABG, Heart Catheterization , Heart Catheterization With Stent, Orthopedic Surgery Additional Past Surgical History / Comment(s): BILATERAL CAROTID ENDARTERECTOMIES, HX OF PREVIOUS HEART CATHS WITH STENTS AND LAST STENT 03/2015 , EGD X3, ESOPHAGEAL DILATION X5, PLASTIC CAP LEFT ELBOW, URETHRAL STRICTURE DILATION., CABG (3 V) Past Anesthesia/Blood Transfusion Reactions: No Reported Reaction Additional Past Anesthesia/Blood Transfusion Reaction / Comment(s): Pt states he has no problem with anesthesia, old medical records indicate post op muscle weakness and slow to wake up. Pt has never recieved blood to his knowledge. Date of Last Stent Placement:: 03/22/2015 Past Psychological History: Anxiety, Depression Smoking Status: Never smoker Past Alcohol Use History: None Reported Past Drug Use History: None Reported - Past Family History Father Family Medical History: Deep Vein Thrombosis (DVT) Additional Family Medical History / Comment(s): Father of DVT Mother Family Medical History: Cancer Additional Family Medical History / Comment(s): Mother of jaw bone cancer. General Exam Limitations: no limitations General appearance: alert, in no apparent distress Head exam: Present: atraumatic, normocephalic, normal inspection Eye exam: Present: normal appearance, PERRL, EOMI. Absent: scleral icterus, conjunctival injection, periorbital swelling ENT exam: Present: normal exam, mucous membranes moist Neck exam: Present: normal inspection. Absent: tenderness, meningismus, lymphadenopathy Respiratory exam: Present: normal lung sounds bilaterally. Absent: respiratory distress, wheezes, rales, rhonchi, stridor Cardiovascular Exam: Present: regular rate, normal rhythm, normal heart sounds. Absent: systolic murmur, diastolic murmur, rubs, gallop, clicks GI/Abdominal exam: Present: soft, normal bowel sounds. Absent: distended, tenderness, guarding, rebound, rigid Extremities exam: Present: normal inspection, full ROM, normal capillary refill. Absent: tenderness, pedal edema, joint swelling, calf tenderness Back exam: Present: normal inspection Neurological exam: Present: alert, oriented X3, CN II-XII intact Psychiatric exam: Present: normal affect, normal mood Skin exam: Present: warm, dry, intact, normal color. Absent: rash Course Vital Signs 05/31/17 05/31/17 18:30 19:05 Temperature 98.4 F Pulse Rate 83 76 Respiratory 22 16 Rate Blood Pressure 126/80 120/78 O2 Sat by Pulse 97 97 Oximetry - Reevaluation(s) Reevaluation #1: 05/31/17 19:14 Patient's pain is improved EKG Findings - EKG Comments: EKG Findings:: EKG shows sinus rhythm rate of 81, [place] 1:30, QRS 90, QTC 422 Medical Decision Making - Medical Decision Making 72 [address] for evaluation of chest pain. Chest pain improved, patient will be discharged home - Lab Data Result diagrams: 05/31/17 18:30 05/31/17 18:30 Lab Results 05/31/17 05/31/17 05/31/17 Range/Units 18:30 18:30 18:30 WBC 6.5 (3.8-10.6) k/uL RBC 5.08 (4.30-5.90) m/uL Hgb 15.4 (13.0-17.5) gm/dL Hct 43.7 (39.0-53.0) % MCV 85.9 (80.0-100.0) fL MCH 30.4 (25.0-35.0) pg MCHC 35.4 (31.0-37.0) g/dL RDW 13.9 (11.5-15.5) % Plt Count 300 (150-450) k/uL Neutrophils % 59 % Lymphocytes % 27 % Monocytes % 8 % Eosinophils % 2 % Basophils % 1 % Neutrophils # 3.9 (1.3-7.7) k/uL Lymphocytes # 1.7 (1.0-4.8) k/uL Monocytes # 0.5 (0-1.0) k/uL Eosinophils # 0.1 (0-0.7) k/uL Basophils # 0.0 (0-0.2) k/uL PT 11.0 (9.0-12.0) sec INR 1.1 (<1.2) APTT 24.9 (22.0-30.0) sec Sodium 140 (137-145) mmol/L Potassium 4.2 (3.5-5.1) mmol/L Chloride 108 H (98-107) mmol/L Carbon Dioxide 21 L (22-30) mmol/L Anion Gap 11 mmol/L BUN 18 (9-20) mg/dL Creatinine 0.98 (0.66-1.25) mg/dL Est GFR (MDRD) Af Amer >60 (>60 ml/min/1.73 sqM) Est GFR (MDRD) Non-Af >60 (>60 ml/min/1.73 sqM) Glucose 116 H (74-99) mg/dL Calcium 9.3 (8.4-10.2) mg/dL Magnesium 1.7 (1.6-2.3) mg/dL Total Bilirubin 0.4 (0.2-1.3) mg/dL AST 21 (17-59) U/L ALT 37 (21-72) U/L Alkaline Phosphatase 83 (38-126) U/L Total Protein 6.9 (6.3-8.2) g/dL Albumin 3.6 (3.5-5.0) g/dL Lipase 147 (23-300) U/L - Radiology Data Radiology results: report reviewed (Chest x-ray is negative for acute disease), image reviewed Disposition Clinical Impression: Atypical chest pain Disposition: HOME SELF-CARE Condition: Good Instructions: Chest Pain (ED) Referrals: Reed Bull MD [Primary Care Provider] - 1-2 days
[2017-05-31 19:07] LABS: ALT 37 U/L (21-72); AST 21 U/L (17-59); Alkaline Phosphatase 83 U/L (38-126); Anion Gap 11 mmol/L; Blood Urea Nitrogen 18 mg/dL (9-20); Calcium 9.3 mg/dL (8.4-10.2); Carbon Dioxide 21 mmol/L (22-30); Chloride 108 mmol/L (98-107); Glucose 116 mg/dL (74-99); Magnesium 1.7 mg/dL (1.6-2.3); Non-African American GFR(MDRD) >60 (>60 ml/min/1.73 sqM); Potassium 4.2 mmol/L (3.5-5.1); Sodium 140 mmol/L (137-145); Total Bilirubin 0.4 mg/dL (0.2-1.3); Total Protein 6.9 g/dL (6.3-8.2)
[2017-05-31 19:21] LABS: Creatine Kinase 64 U/L (55-170)
[2017-05-31 19:35] LABS: Creatine Kinase MB 1.1 ng/mL (0.0-2.4); Troponin I <0.012 ng/mL (0.000-0.034)
[2017-05-31 20:15] VITALS: BP 130/68; TEMP 98.2
== END 2017-05-31 20:13 | disposition home or self-care (01) ==
LOC: EC 18:30
DX: R07.89 Other chest pain (principal); I11.0 Hypertensive heart disease with heart failure; I50.32 Chronic diastolic (congestive) heart failure; I48.0 Paroxysmal atrial fibrillation; I25.10 Atherosclerotic heart disease of native coronary artery without angina pectoris; M19.90 Unspecified osteoarthritis, unspecified site; H91.90 Unspecified hearing loss, unspecified ear; I25.2 Old myocardial infarction; Z79.01 Long term (current) use of anticoagulants; Z79.82 Long term (current) use of aspirin; Z79.899 Other long term (current) drug therapy; Z91.09 Other allergy status, other than to drugs and biological substances; Z95.1 Presence of aortocoronary bypass graft; Z86.73 Personal history of transient ischemic attack (TIA), and cerebral infarction without residual deficits; Z86.79 Personal history of other diseases of the circulatory system
CPT/HCPCS: 36415; 93005; 80053; 82550; 82553; 83690; 83735; 84484; 85025; 85610; 85730; 71020; 99285; 96374; J2270

== ENCOUNTER 2017-06-01 22:39 | Inpatient (IN) | payer BC, MEDICARE ==
[2017-06-01] MEDS ORDERED: SODIUM CHLORIDE 0.9% 1,000 ML IV STA (23:48)
[2017-06-01] MEDS ORDERED: ONDANSETRON 4 MG/2 ML VIAL IVP STA (23:48)
[2017-06-01] MEDS ORDERED: HYDROmorphone 1 MG/ML 1 ML SYRINGE IVP STA (23:48)
[2017-06-01] MEDS ORDERED: RX INFO: IV CONTRAST WAS GIVEN 1 EACH MISC MISCELLANE PRN (23:48)
[2017-06-02 01:17] LABS: Basophils % (A) 0 %; CH 30.7; CHCM 34.7; Eosinophils % (A) 1 %; HCT 46.3 % (39.0-53.0); HDW 2.97; HGB 15.1 gm/dL (13.0-17.5); Luc # (Auto) 0.17; Luc % (Auto) 2; Lymphocytes # (A) 1.4 k/uL (1.0-4.8); Lymphocytes % (A) 15 %; MCHC 32.6 g/dL (31.0-37.0); MCV 88.9 fL (80.0-100.0); Mean Platelet Volume 7.4; Monocytes # (A) 0.5 k/uL (0-1.0); Monocytes % (A) 5 %; Neutrophils # (A) 7.5 k/uL (1.3-7.7); Neutrophils % (A) 78 %; RBC 5.21 m/uL (4.30-5.90); WBC 9.6 k/uL (3.8-10.6); WBC (Perox) 9.54
[2017-06-02 01:28] LABS: Calcium 9.1 mg/dL (8.4-10.2); Potassium 4.6 mmol/L (3.5-5.1); Total Bilirubin 0.8 mg/dL (0.2-1.3); Total Protein 6.9 g/dL (6.3-8.2)
[2017-06-02] MEDS ORDERED: SODIUM CHLORIDE 0.9% 1,000 ML IV ONE (01:46)
--- NOTE | 2017-06-02 01:57 | CT ---
EXAM: CT Abdomen and Pelvis With Intravenous Contrast CLINICAL HISTORY: Reason: abdominal pain TECHNIQUE: Axial computed tomography images of the abdomen and pelvis with intravenous contrast. DLP is 1644.9 mGy-cm. This CT exam was performed using one or more of the following dose reduction techniques: automated exposure control, adjustment of the mA and/or kV according to patient size, and/or use of iterative reconstruction technique. COMPARISON: 03/26/15 FINDINGS: Lung nodules at lung bases measuring 4-5 mm in size. More of the lung bases imaged on the current study. Some of these nodules were present on the prior, example in the lower lobes and appears stable in size. Other nodules not definitely seen, example right middle lobe measuring up to about 4 mm in size, though may not have been imaged on prior. Consider dedicated chest CT to further evaluate for additional nodules. Sternotomy/postoperative cardiac changes. Atelectasis and/or scar. Small hiatal hernia. Questionable mild wall thickening gallbladder. If there are right upper quadrant symptoms, consider correlation with ultrasound. Contrast limits evaluation for renal calculi. There does appear to be some punctate right renal calcifications though uncertain if these are cortically based. No ureteral stone or hydronephrosis is identified. Renal cysts. No evidence for acute pancreatitis. Diverticulosis. Portions of the colon underdistended limiting evaluation for wall thickening. No diverticulitis or pericolonic inflammatory change. No bowel obstruction. Fat-containing umbilical hernia. Postsurgical changes spine and degenerative changes osseous structures. IMPRESSION: Equivocal mild mural thickening of gallbladder. If there are right upper quadrant symptoms, consider ultrasound, as indicated. No evidence for appendicitis or other acute process. Lung nodules. See above discussion and recommendations. Incidental findings, as above.
[2017-06-02 02:23] LABS: Appearance,Urine Cloudy (Clear); Bacteria,Urine Occasional /hpf; Bilirubin,Urine Negative (Negative); Glucose,Urine (UA) 1+ (Negative); Ketones,Urine Negative (Negative); Leukocyte Esterase,Urine Negative (Negative); Mucus,Urine Rare /hpf; Nitrite,Urine Negative (Negative); Particle Count 22592; Protein,Urine 2+ (Negative); RBC,Urine 6 /hpf (0-5); Specific Gravity,Urine 1.038 (1.001-1.035); Squamous Epithelial Cell,Urine 1 /hpf (0-4); UA Billing (MACRO vs. MICRO) MICRO; Urobilinogen,Urine <2.0 mg/dL (<2.0); WBC,Urine 3 /hpf (0-5)
[2017-06-02] MEDS ORDERED: ACETAMINOPHEN TAB 500 MG TAB PO STA (02:47)
--- NOTE | 2017-06-02 03:36 | XR ---
EXAM: XR Chest, 2 Views CLINICAL HISTORY: Reason: Pain TECHNIQUE: Frontal and lateral views of the chest. COMPARISON: 05/31/2017 FINDINGS: Lungs: Bibasilar atelectasis and/or infiltrates, more conspicuous on this study than the prior. No change in the chronic interstitial lung changes. Pleural space: Trace bilateral pleural effusions are suspected. No pneumothorax. Heart: Unremarkable. No cardiomegaly. Mediastinum: Unchanged. Bones/joints: Sternotomy wires are again seen. Mild degenerative changes seen in the osseous structures.. IMPRESSION: Bibasilar atelectasis and/or infiltrates, more conspicuous on this study than the prior. Trace bilateral pleural effusions are also likely present.
--- NOTE | 2017-06-02 04:14 | ED ---
Abdominal Pain HPI <Fredy Ventura - Last Filed: 06/02/17 04:51> - General Source: patient, RN notes reviewed, old records reviewed Mode of arrival: wheelchair Limitations: no limitations <Shanda Durbin - Last Filed: 06/02/17 07:25> - General Chief Complaint: Abdominal Pain Stated Complaint: right lower abdominal pain Time Seen by Provider: 06/01/17 23:42 - History of Present Illness Initial Comments: 72-year-old male presents emergency Department chief complaint right upper quadrant pain for the past few days. Patient reports this became progressively worsening. Patient reports he also is noted to use had a slight fever. Patient states that the pain radiates from the right upper quadrant his right back. He is worse with movement. Patient states that he's had no nausea or vomiting, change normal no changes in bowel movements or urination. Patient was seen in the emergency department yesterday and evaluated for chest pain and was discharge. (Shanda Durbin) - Related Data Home Medications Medication Instructions Recorded Confirmed Aspirin EC [Ecotrin Low Dose] 81 mg PO DAILY 01/20/17 06/01/17 Warfarin [Coumadin] 2.5 mg PO HS 01/20/17 06/01/17 Isosorbide Mononitrate ER [Imdur] 30 mg PO DAILY 05/25/17 06/01/17 Metoprolol Tartrate [Lopressor] 25 mg PO BID 05/25/17 06/01/17 Allergies Allergy/AdvReac Type Severity Reaction Status Date / Time adhesive Allergy Rash/Hives Verified 06/01/17 23:13 Review of Systems ROS Other: All systems not noted in ROS Statement are negative. <Fredy Ventura - Last Filed: 06/02/17 04:51> ROS Other: All systems not noted in ROS Statement are negative. <Shanda Durbin - Last Filed: 06/02/17 07:25> ROS Statement: Those systems with pertinent positive or pertinent negative responses have been documented in the HPI. 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 Chronic back pain, gastroparesis, degenerative arthritis , impaired hearing, chronic diastolic heart failure, vascular dementia, esophageal stricture with previous history of esophageal dilatation, history of C. diff colitis occurred postoperatively forced the patient was hospitalized in June 2015. Last Myocardial Infarction Date:: 2014 History of Any Multi-Drug Resistant Organisms: MRSA Date of last positivie culture/infection: 02-02-12 MDRO Source:: UNK SITE OR SOURCE Past Surgical History: Back Surgery, Coronary Bypass/CABG, Heart Catheterization , Heart Catheterization With Stent, Orthopedic Surgery Additional Past Surgical History / Comment(s): BILATERAL CAROTID ENDARTERECTOMIES, HX OF PREVIOUS HEART CATHS WITH STENTS AND LAST STENT 03/2015 , EGD X3, ESOPHAGEAL DILATION X5, PLASTIC CAP LEFT ELBOW, URETHRAL STRICTURE DILATION., CABG (3 V) Past Anesthesia/Blood Transfusion Reactions: No Reported Reaction Additional Past Anesthesia/Blood Transfusion Reaction / Comment(s): Pt states he has no problem with anesthesia, old medical records indicate post op muscle weakness and slow to wake up. Pt has never recieved blood to his knowledge. Date of Last Stent Placement:: 03/22/2015 Past Psychological History: Anxiety, Depression Smoking Status: Never smoker Past Alcohol Use History: None Reported Past Drug Use History: None Reported - Past Family History Father Family Medical History: Deep Vein Thrombosis (DVT) Additional Family Medical History / Comment(s): Father of DVT Mother Family Medical History: Cancer Additional Family Medical History / Comment(s): Mother of jaw bone cancer. <Shanda Durbin - Last Filed: 06/02/17 07:25> General Exam <Fredy Ventura - Last Filed: 06/02/17 04:51> Limitations: no limitations General appearance: alert, in no apparent distress Head exam: Present: atraumatic, normocephalic, normal inspection Eye exam: Present: normal appearance, PERRL, EOMI. Absent: scleral icterus, conjunctival injection, periorbital swelling ENT exam: Present: normal exam, mucous membranes moist Neck exam: Present: normal inspection. Absent: tenderness, meningismus, lymphadenopathy Respiratory exam: Present: normal lung sounds bilaterally. Absent: respiratory distress, wheezes, rales, rhonchi, stridor Cardiovascular Exam: Present: regular rate, normal rhythm, normal heart sounds. Absent: systolic murmur, diastolic murmur, rubs, gallop, clicks GI/Abdominal exam: Present: soft, tenderness (Right upper quadrant tenderness.) , normal bowel sounds, other (Patient is tender to slight touch over back, abodmen, and entire body. ). Absent: distended, guarding, rebound, rigid Extremities exam: Present: normal inspection, full ROM, normal capillary refill. Absent: tenderness, pedal edema, joint swelling, calf tenderness Back exam: Present: normal inspection Neurological exam: Present: alert, oriented X3, CN II-XII intact Psychiatric exam: Present: normal affect, normal mood Skin exam: Present: warm, dry, intact, normal color. Absent: rash <Shanda Durbin - Last Filed: 06/02/17 07:25> - General Exam Comments Initial Comments: 72-year-old male. Patient appears to be in some discomfort. (Shanda Durbin) Course <Fredy Ventura - Last Filed: 06/02/17 04:51> <Shanda Durbin - Last Filed: 06/02/17 07:25> Vital Signs 06/01/17 06/02/17 06/02/17 22:53 03:23 04:01 Temperature 99.7 F H 99.8 F H 100.3 F H Pulse Rate 81 74 Respiratory 24 18 Rate Blood Pressure 125/76 117/57 O2 Sat by Pulse 95 94 L Oximetry 06/02/17 06/02/17 06/02/17 04:22 04:32 05:23 Temperature 99.1 F Pulse Rate 62 64 62 Respiratory 18 18 18 Rate Blood Pressure 92/55 95/56 126/66 O2 Sat by Pulse 92 L 96 97 Oximetry - Reevaluation(s) Reevaluation #1: 06/02/17 04:51 Reports reviewed. Chest x-ray concerning for infiltrate. Patient does have fever. Computed tomography scan unremarkable. Case discussed with Dr. Sanchez, who will admit for Dr. ordonez, covering for Dr. Willis. IV antibiotics have been started. Patient does not meet sepsis criteria. (Fredy Ventura) Medical Decision Making - Lab Data Result diagrams: 06/02/17 00:50 06/02/17 00:50 <Fredy Ventura - Last Filed: 06/02/17 04:51> - Lab Data Result diagrams: 06/02/17 00:50 06/02/17 00:50 - Radiology Data Radiology results: report reviewed <Shanda Durbin - Last Filed: 06/02/17 07:25> - Medical Decision Making 72-year-old male presents emergency Department chief complaint right upper quadrant pain for the past few days. Patient reports this became progressively worsening. Patient reports he also is noted to use had a slight fever. Pt temp is low grade 100.3. Paitent lab work was benign, besides increased creatinene in 24 hour hour period between yesterday and today. . Patient recieved Ct abodmen and pelbis due to severe abdominal tenderness. Patient CT abdomen shows mildy thicken gallbladder wall, patient informed of this. Diis ussed, we neede d an RUQ US. Negative for acute cholecystitis. Patient CXR hows inceased infiltrate, compared to last examin . ekg within normal limits. Patient was reevlautated, due to comorbidity, and recomming to ED, Patient would benefit from admission. Patient given levaquin. Patient started on breathing treatment. (Shanda Durbin) - Lab Data Lab Results 06/02/17 06/02/17 06/02/17 Range/Units 00:50 00:50 02:10 WBC 9.6 (3.8-10.6) k/uL RBC 5.21 (4.30-5.90) m/uL Hgb 15.1 (13.0-17.5) gm/dL Hct 46.3 (39.0-53.0) % MCV 88.9 (80.0-100.0) fL MCH 29.0 (25.0-35.0) pg MCHC 32.6 (31.0-37.0) g/dL RDW 15.0 (11.5-15.5) % Plt Count 297 (150-450) k/uL Neutrophils % 78 % Lymphocytes % 15 % Monocytes % 5 % Eosinophils % 1 % Basophils % 0 % Neutrophils # 7.5 (1.3-7.7) k/uL Lymphocytes # 1.4 (1.0-4.8) k/uL Monocytes # 0.5 (0-1.0) k/uL Eosinophils # 0.0 (0-0.7) k/uL Basophils # 0.0 (0-0.2) k/uL Sodium 139 (137-145) mmol/L Potassium 4.6 (3.5-5.1) mmol/L Chloride 107 (98-107) mmol/L Carbon Dioxide 20 L (22-30) mmol/L Anion Gap 12 mmol/L BUN 18 (9-20) mg/dL Creatinine 1.50 H (0.66-1.25) mg/dL Est GFR (MDRD) Af Amer 56 (>60 ml/min/1.73 sqM) Est GFR (MDRD) Non-Af 46 (>60 ml/min/1.73 sqM) Glucose 120 H (74-99) mg/dL Calcium 9.1 (8.4-10.2) mg/dL Total Bilirubin 0.8 (0.2-1.3) mg/dL AST 27 (17-59) U/L ALT 45 (21-72) U/L Alkaline Phosphatase 92 (38-126) U/L Total Protein 6.9 (6.3-8.2) g/dL Albumin 3.6 (3.5-5.0) g/dL Amylase 69 (30-110) U/L Lipase 143 (23-300) U/L Urine Color Yellow Urine Appearance Cloudy (Clear) Urine pH 8.0 (5.0-8.0) Ur Specific [place] 1.038 H (1.001-1.035) Urine Protein 2+ H (Negative) Urine Glucose (UA) 1+ H (Negative) Urine Ketones Negative (Negative) Urine Blood Trace H (Negative) Urine Nitrite Negative (Negative) Urine Bilirubin Negative (Negative) Urine Urobilinogen <2.0 (<2.0) mg/dL Ur Leukocyte Esterase Negative (Negative) Urine RBC 6 H (0-5) /hpf Urine WBC 3 (0-5) /hpf Ur Squamous Epith Cells 1 (0-4) /hpf Urine Bacteria Occasional H (None) /hpf Urine Mucus Rare H (None) /hpf 06/02/17 04:42 EKG shows normal sinus rhythm. Nonspecific T-wave abnormality. Ventricular rate 63 bpm. TX interval 176 ms. QRS duration 90 ms. QT QTc is 420/431 ms. ( Shanda Durbin) - Radiology Data CT abdomen and pelvis show thickend gallbladder wall. Patient also had gallbladder US however it is negative for biliary disease. Patient CXR shows mild patchy infiltrate . (Shanda Durbin) Disposition <Fredy Ventura - Last Filed: 06/02/17 04:51> Time of Disposition: 04:42 <Shanda Durbin - Last Filed: 06/02/17 07:25> Clinical Impression: Pneumonia, Abdominal pain, Acute renal insufficiency Disposition: ADMITTED IP TO THIS HOSP Condition: Stable
--- NOTE | 2017-06-02 04:19 | US ---
EXAM: US Abdomen Limited, Right Upper Quadrant CLINICAL HISTORY: Reason: Pain TECHNIQUE: Real-time ultrasound of the right upper quadrant with image documentation. COMPARISON: Comparison is made with prior study CT of the abdomen/pelvis 06/02/2017 FINDINGS: Liver: Hepatic steatosis is noted. No mass. No intrahepatic bile duct dilation. Gallbladder: Unremarkable. No gallstones. Common bile duct: Unremarkable as visualized. No stones. No dilation. Pancreas: Obscured by gas. Right kidney: Measures up to 11.1 cm in length. There is a 2.7 cm cyst arising from the interpolar/lower pole of the right kidney. No stones. No solid mass. No hydronephrosis. IMPRESSION: 1. Hepatic steatosis. 2. A 2.7 cm right renal cyst.
[2017-06-02] MEDS ORDERED: LEVOFLOXACIN 750MG-D5W PMX 750 MG in DEXTROSE/WATER 1 150ML.BAG IVPB STA (04:42)
[2017-06-02] MEDS ORDERED: IBUPROFEN 400 MG TAB PO PRN (04:43)
[2017-06-02] MEDS ORDERED: LORazepam 2 MG/ML SYRINGE IV PRN (04:43)
[2017-06-02] MEDS ORDERED: ONDANSETRON 4 MG/2 ML VIAL IVP PRN (04:43)
[2017-06-02] MEDS ORDERED: NALOXONE 0.4 MG/ML 1 ML VIAL IV PRN (04:43)
[2017-06-02] MEDS ORDERED: ACETAMINOPHEN TAB 325 MG TAB PO PRN (04:43)
[2017-06-02] MEDS: SODIUM CHLORIDE 0.9% 1,000 ML IV SCH ×2 (04:57→13:48)
[2017-06-02] MEDS ORDERED: PNEUMONIA PROTOCOL UTILIZED 1 EACH MISC PO PRN (05:23)
[2017-06-02] MEDS ORDERED: IPRATROPIUM-ALBUTEROL 3 ML NEB INHALATION PRN (05:23)
[2017-06-02 07:39] LABS: Glucose,Whole Blood 92 mg/dL (75-99)
[2017-06-02 08:25] LABS: INR 1.2 (<1.2); Prothrombin Time 11.7 sec (9.0-12.0)
[2017-06-02] MEDS: HYDROmorphone 1 MG/ML 1 ML SYRINGE IV PRN ×2 (08:52→13:51)
[2017-06-02] MEDS: ISOSORBIDE MONONITRATE ER 30 MG TAB.ER.24H PO SCH (08:54)
[2017-06-02] MEDS: ASPIRIN 81 MG PO SCH (08:54)
[2017-06-02] MEDS: METOPROLOL TARTRATE 25 MG TAB PO SCH ×2 (08:54→22:20)
[2017-06-02] MEDS: KETOROLAC 30 MG/ML 1 ML VIAL IVP PRN ×2 (10:20→20:24)
[2017-06-02 11:20] VITALS: BMI 35.2
--- NOTE | 2017-06-02 15:16 | P.CNPUL ---
History of Present Illness Consult date: 06/02/17 Requesting physician: Yaniv Hodge Reason for consult: other (Abnormal chest x-ray/atelectasis) Chief complaint: Right lower quadrant abdominal pain History of present illness: This is a 72-year-old white male with history of previous bypass surgery, history of recurrent episodes of abdominal pains, patient was last admitted on with epigastric abdominal pain along with nausea after eating. Patient also had history of syncopal episodes without any seizure-like activity, treated with mostly Prilosec and discharged home. Patient is also known to have history of chronic atrial fibrillation, history of underlying coronary artery disease, previous CVA, history of congestive heart failure, hypertension , history of obstructive sleep apnea syndrome maintained on CPAP at home. Patient was admitted this time with similar presentation, has been experiencing intermittent episodes of abdominal pain mostly in the right lower quadrant and in the right upper quadrant however when I evaluated the patient is pain was mostly in the right lower quadrant. Workup in the ER included ultrasound of the gallbladder, CT of the abdomen and pelvis, and these were nondiagnostic. Patient had no pulmonary symptoms whatsoever, however chest x-ray showed possible atelectasis in the right lower lobe and left base, somehow the patient was admitted with the impression of pneumonia although his clinical symptoms and his chest x-ray findings do not point to pneumonia whatsoever. Hence this consult was initiated. The only complaint that the patient has is mostly abdominal pain and on physical examination does have some tenderness but no rebound no guarding in the right lower quadrant area. A few months ago, patient was admitted with atypical chest pain, and he was eventually seen by cardiology, discharged on multiple cardiac meds and on indoor, Ranexa, and Coumadin as well as beta blockers. Labs on this admission were basically unremarkable except for creatinine only 2 days ago was 0.98 and on this admission it's up to 1.50. CBC was relatively unremarkable. His basic metabolic profile is also unremarkable. Review of Systems 14 point review of systems were obtained, please refer to pertinent positives and negatives in HPI, the patient's only complaint was mostly right sided abdominal pain mostly in the right lower quadrant and at times in the right upper quadrant. No nausea no vomiting no melena no hematemesis is no dysuria and no frequency no urgency no hematuria. Past Medical History Past Medical History: Atrial Fibrillation, Coronary Artery Disease (CAD), Chest Pain / Angina, Heart Failure, COPD, CVA/TIA, Dementia, GERD/Reflux, GI Bleed, Hyperlipidemia, Hypertension, Liver Disease, Memory Impairment, Myocardial Infarction ([place]), Renal Disease, Skin Disorder, Sleep Apnea/CPAP/BIPAP, Syncope Additional Past Medical History / Comment(s): coronary artery disease with multivessel involvement status post three-vessel bypass surgery, PCI/stents, previous myocardial infarctions, previous paroxysmal atrial fibrillation, CVA in 2012 (L sided weakness), along with previous TIAs, nephrolithiasis, degenerative arthritis, chronic back pain, hemorrhoids, 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 diff colitis occurred postoperatively forced the patient was hospitalized in June 2015. Last Myocardial Infarction Date:: 2014 History of Any Multi-Drug Resistant Organisms: MRSA Date of last positivie culture/infection: 02-02-12 MDRO Source:: Unknown Past Surgical History: Back Surgery, Coronary Bypass/CABG, Heart Catheterization , Heart Catheterization With Stent, Orthopedic Surgery Additional Past Surgical History / Comment(s): BILATERAL CAROTID ENDARTERECTOMIES, HX OF PREVIOUS HEART CATHS WITH STENTS AND LAST STENT 03/2015 , EGD X3, ESOPHAGEAL DILATION X5, PLASTIC CAP LEFT ELBOW, URETHRAL STRICTURE DILATION., CABG (3 V), colonoscopy Past Anesthesia/Blood Transfusion Reactions: No Reported Reaction Additional Past Anesthesia/Blood Transfusion Reaction / Comment(s): Pt states he has no problem with anesthesia, old medical records indicate post op muscle weakness and slow to wake up. Pt has never recieved blood to his knowledge. Date of Last Stent Placement:: 03/22/2015 Smoking Status: Never smoker - Past Family History Father Family Medical History: Deep Vein Thrombosis (DVT), Myocardial Infarction ([place]) Additional Family Medical History / Comment(s): Father of DVT Mother Family Medical History: Cancer Additional Family Medical History / Comment(s): Mother of jaw bone cancer. Medications and Allergies Home Medications Medication Instructions Recorded Confirmed Type Aspirin EC [Ecotrin Low Dose] 81 mg PO DAILY 01/20/17 06/01/17 History Warfarin [Coumadin] 2.5 mg PO HS 01/20/17 06/01/17 History Isosorbide Mononitrate ER [Imdur] 30 mg PO DAILY 05/25/17 06/01/17 History Metoprolol Tartrate [Lopressor] 25 mg PO BID 05/25/17 06/01/17 History Allergies Allergy/AdvReac Type Severity Reaction Status Date / Time adhesive Allergy Rash/Hives Verified 06/01/17 23:13 Physical Exam Vitals: Vital Signs Temp Pulse Pulse Resp BP BP Pulse Ox 06/02/17 08:00 61 22 06/02/17 07:00 96.7 F L 61 22 116/63 97 06/02/17 05:54 96.4 F L 61 16 133/68 96 06/02/17 05:23 62 18 126/66 97 06/02/17 04:32 64 18 95/56 96 06/02/17 04:22 99.1 F 62 18 92/55 92 L 06/02/17 04:01 100.3 F H 06/02/17 03:23 99.8 F H 74 18 117/57 94 L 06/01/17 22:53 99.7 F H 81 24 125/76 95 Intake and Output 06/02/17 06/02/17 06/02/17 06:59 14:59 22:59 Other: Voiding Method Toilet Urinal Weight 105.233 kg Patient Weight 06/03/17 06:59 Weight 105.233 kg Physical Exam: Revealed a 72-year-old white male in no distress HEENT:[Neck is supple.] [No neck masses.] [No thyromegaly.] [No JVD.] Chest: [Clear throughout, no crackles, no rhonchi, no wheezes.] Cardiac Exam: [Normal S1 and S2, no S3 gallop, no murmur.] Abdomen: [Soft, slightly tender right lower quadrant, no megaly, no rebound, no guarding, normal bowel sounds.] Extremities: [No clubbing, no edema, no cyanosis.] Neurological Exam: [No focal neurologic deficit.] Results - Laboratory Findings CBC and BMP: 06/02/17 00:50 06/02/17 00:50 PT/INR, D-dimer PT 11.7 sec (9.0-12.0) 06/02/17 07:45 INR 1.2 (<1.2) H 06/02/17 07:45 Abnormal lab findings: Abnormal Labs 06/02/17 06/02/17 06/02/17 00:50 02:10 07:45 INR 1.2 H Carbon Dioxide 20 L Creatinine 1.50 H Glucose 120 H Ur Specific [place] 1.038 H Urine Protein 2+ H Urine Glucose (UA) 1+ H Urine Blood Trace H Urine RBC 6 H Urine Bacteria Occasional H Urine Mucus Rare H - Diagnostic Findings Chest x-ray: image reviewed (Chest x-ray is mostly consistent with atelectasis at the bases and otherwise unremarkable.) Assessment and Plan Plan: Impression: Acute abdominal pain, exact etiology is not clear, patient will likely need to be seen by gastroenterology and order general surgery on consultation, at this point I do not see any evidence clinically or radiographically of pneumonia. Hence continue present treatment plan as per the admitting physician, and will follow on when necessary basis. 2 acute kidney injury, suggest evaluation by nephrology. Multiple comorbidities including history of coronary artery disease and previous CABG, history of Alzheimer's dementia, COPD, chronic congestive heart failure, diastolic dysfunction, history of obstructive sleep apnea syndrome, history of hyperlipidemia and history of osteoarthritis. History of atypical chest pain. History of GERD. Time with Patient: Greater than 30
[2017-06-02] MEDS ORDERED: WARFARIN 2.5 MG TAB PO SCH (21:00)
[2017-06-03] MEDS: KETOROLAC 30 MG/ML 1 ML VIAL IVP PRN ×2 (02:45→09:46)
[2017-06-03] MEDS: SODIUM CHLORIDE 0.9% 1,000 ML IV SCH ×2 (02:47→09:47)
[2017-06-03 07:39] LABS: Glucose,Whole Blood 102 mg/dL (75-99)
--- NOTE | 2017-06-03 08:19 | XR ---
EXAMINATION TYPE: XR chest 2V DATE OF EXAM: 06/03/2017 COMPARISON: June 02, 2017 HISTORY: Shortness of breath TECHNIQUE: Frontal and lateral views of the chest are obtained. FINDINGS: Scattered senescent parenchymal changes noted. Hyperinflation compatible with COPD. Patchy perihilar and basilar infiltrates seen which may reflect pneumonia. Heart size is stable. Mediastinal structures are stable and grossly unremarkable. No evidence for hilar prominence. Degenerative changes dorsal spine. IMPRESSION: 1. Patchy perihilar and basilar infiltrates seen which may reflect pneumonia.
[2017-06-03 08:54] LABS: Glucose,Whole Blood 117 mg/dL (75-99)
[2017-06-03 09:19] LABS: INR 1.2 (<1.2)
[2017-06-03 09:20] LABS: Basophils % (A) 0 %; CH 29.4; CHCM 34.1; Eosinophils # (A) 0.1 k/uL (0-0.7); Eosinophils % (A) 1 %; HCT 38.9 % (39.0-53.0); HDW 3.02; HGB 13.3 gm/dL (13.0-17.5); Luc # (Auto) 0.13; Luc % (Auto) 1; Lymphocytes # (A) 0.9 k/uL (1.0-4.8); Lymphocytes % (A) 9 %; MCH 29.6 pg (25.0-35.0); MCHC 34.2 g/dL (31.0-37.0); MCV 86.5 fL (80.0-100.0); Mean Platelet Volume 6.8; Monocytes # (A) 0.5 k/uL (0-1.0); Monocytes % (A) 5 %; Neutrophils # (A) 8.5 k/uL (1.3-7.7); Neutrophils % (A) 85 %; RBC 4.49 m/uL (4.30-5.90); RDW 13.7 % (11.5-15.5); WBC 10.1 k/uL (3.8-10.6); WBC (Perox) 10.35
[2017-06-03] MEDS: ASPIRIN 81 MG PO SCH (09:45)
[2017-06-03] MEDS: ISOSORBIDE MONONITRATE ER 30 MG TAB.ER.24H PO SCH (09:46)
[2017-06-03] MEDS: METOPROLOL TARTRATE 25 MG TAB PO SCH (09:46)
[2017-06-03 09:50] LABS: Anion Gap 9 mmol/L; Blood Urea Nitrogen 18 mg/dL (9-20); Calcium 8.2 mg/dL (8.4-10.2); Carbon Dioxide 20 mmol/L (22-30); Chloride 110 mmol/L (98-107); Glucose 117 mg/dL (74-99); Non-African American GFR(MDRD) >60 (>60 ml/min/1.73 sqM); Potassium 4.1 mmol/L (3.5-5.1); Sodium 139 mmol/L (137-145)
--- NOTE | 2017-06-03 11:14 | P.PN ---
Subjective This is a 72-year-old white male with history of previous bypass surgery, history of recurrent episodes of abdominal pains, patient was last admitted on with epigastric abdominal pain along with nausea after eating. Patient also had history of syncopal episodes without any seizure-like activity, treated with mostly Prilosec and discharged home. Patient is also known to have history of chronic atrial fibrillation, history of underlying coronary artery disease, previous CVA, history of congestive heart failure, hypertension , history of obstructive sleep apnea syndrome maintained on CPAP at home. Patient was admitted this time with similar presentation, has been experiencing intermittent episodes of abdominal pain mostly in the right lower quadrant and in the right upper quadrant however when I evaluated the patient is pain was mostly in the right lower quadrant. Workup in the ER included ultrasound of the gallbladder, CT of the abdomen and pelvis, and these were nondiagnostic. Patient had no pulmonary symptoms whatsoever, however chest x-ray showed possible atelectasis in the right lower lobe and left base, somehow the patient was admitted with the impression of pneumonia although his clinical symptoms and his chest x-ray findings do not point to pneumonia whatsoever. Hence this consult was initiated. The only complaint that the patient has is mostly abdominal pain and on physical examination does have some tenderness but no rebound no guarding in the right lower quadrant area. A few months ago, patient was admitted with atypical chest pain, and he was eventually seen by cardiology, discharged on multiple cardiac meds and on indoor, Ranexa, and Coumadin as well as beta blockers. Labs on this admission were basically unremarkable except for creatinine only 2 days ago was 0.98 and on this admission it's up to 1.50. CBC was relatively unremarkable. His basic metabolic profile is also unremarkable. The patient was seen again today 06/03/2017 in follow-up on the regular medical floor. He is awake and alert in no acute distress. He continues to deny any pulmonary symptoms. No shortness of breath, cough or congestion. No chills or night sweats. He also states the right lower quadrant pain has subsided. His abdomen is soft nontender. No guarding. He's been afebrile. Maintaining good O2 saturations in the 90s on room air. His been hemodynamically stable. Blood culture reveals no growth to date. White count 10.1. Hemoglobin 13.3. Objective - Vital Signs Vital signs: Vital Signs Temp 97.0 F L 06/03/17 07:45 Pulse 71 06/03/17 07:45 Resp 22 06/03/17 07:45 BP 155/83 06/03/17 07:45 Pulse Ox 93 L 06/03/17 07:45 Intake & Output 06/02/17 06/03/17 06/03/17 18:59 06:59 18:59 Intake Total 590 Output Total 200 Balance 590 -200 Weight 105.233 kg 99.5 kg Intake: Oral 590 Output: Urine 200 Other: Voiding Method Urinal Urinal # Voids 1 3 # Bowel Movements 0 - Exam GENERAL EXAM: Alert, active, comfortable in no apparent distress. HEAD: Normocephalic. EYES: Normal reaction of pupils, equal size. NOSE: Clear with pink turbinates. THROAT: No erythema or exudates. NECK: No masses, no JVD. CHEST: No chest wall deformity. LUNGS: Equal air entry with no crackles, wheeze, rhonchi or dullness. Diminished. CVS: S1 and S2 normal with no audible murmurs, regular rhythm. ABDOMEN: No hepatosplenomegaly, normal bowel sounds, no guarding or rigidity. SPINE: No scoliosis or deformity SKIN: No rashes CENTRAL NERVOUS SYSTEM: No focal deficits, tone is normal in all 4 extremities. - Labs CBC & Chem 7: 06/03/17 08:51 06/03/17 08:51 Labs: Abnormal Lab Results - Last 24 Hours (Table) 06/03/17 06/03/17 06/03/17 Range/Units 07:34 08:51 08:51 Hct 38.9 L (39.0-53.0) % Neutrophils # 8.5 H (1.3-7.7) k/uL Lymphocytes # 0.9 L (1.0-4.8) k/uL INR 1.2 H (<1.2) Chloride (98-107) mmol/L Carbon Dioxide (22-30) mmol/L Glucose (74-99) mg/dL POC Glucose (mg/dL) 102 H (75-99) mg/dL Calcium (8.4-10.2) mg/dL 06/03/17 06/03/17 Range/Units 08:51 08:52 Hct (39.0-53.0) % Neutrophils # (1.3-7.7) k/uL Lymphocytes # (1.0-4.8) k/uL INR (<1.2) Chloride 110 H (98-107) mmol/L Carbon Dioxide 20 L (22-30) mmol/L Glucose 117 H (74-99) mg/dL POC Glucose (mg/dL) 117 H (75-99) mg/dL Calcium 8.2 L (8.4-10.2) mg/dL Microbiology - Last 24 Hours (Table) 06/02/17 04:52 Blood Culture - Preliminary Blood No Growth after 24 hours Assessment and Plan Plan: Impression: #1 Acute abdominal pain of unclear etiology. #2 Acute kidney injury, recovered current creatinine 1.07. #3 Alzheimer's dementia. #4 Coronary artery disease with previous coronary artery bypass grafting. #5 History of congestive heart failure, most recent echo reveals preserved left ventricular systolic function with ejection fraction 50-55%. #6 History of obstructive sleep apnea. #7 Hyperlipidemia. #8 Osteoarthritis. #9 Gastroesophageal reflux disease. Plan: The patient was seen and evaluated by Dr. De Leon. His chest x-ray and labs were reviewed. No clear evidence of pneumonia or other acute pulmonary process at this time. He can follow-up in our office in the outpatient setting and we could repeat a computed tomography scan of the chest regarding the small pulmonary nodules. We will follow the patient on as-needed basis.
[2017-06-03 12:30] LABS: Glucose,Whole Blood 98 mg/dL (75-99)
--- NOTE | 2017-06-03 13:05 | HP ---
DATE OF ADMISSION: 06/02/17 CHIEF COMPLAINT: Right lower abdominal pain and fever. HISTORY OF PRESENT ILLNESS: This 72-year-old gentleman with past medical history of atrial fibrillation, COPD, CVA/TIA, dementia and other multiple medical issues being followed by Dr. Reed Bull in the outpatient setting was admitted with right lower quadrant abdominal pain. The patient was admitted with suspicion of pneumonia as well. The abdominal pelvis CT scan showed some thickening of the gallbladder. Dr. De Leon has seen the patient and thought that pneumonia is unlikely at this time. Past medical history of CAD, atrial fibrillation, COPD, CVA/TIA, GERD. Medications prior to admission include: 1. Coumadin 2.5 mg. 2. Lopressor 25 mg b.i.d. 3. Imdur 30 mg daily. 4. Ecotrin 81 mg daily. ALLERGIES: ADHESIVES. FAMILY HISTORY: History of DVT and OH. SOCIAL HISTORY: No history of alcohol intake. No history of smoking. REVIEW OF SYSTEMS: HEENT: No diminished vision. No diminished hearing. Cardiovascular system: As mentioned earlier. Respiratory: As mentioned earlier. GI: As mentioned earlier. : No dysuria. Nervous system: No numbness, weakness. Allergy/Immunology: No asthma or hayfever. Musculoskeletal : As mentioned earlier. Hematology/oncology: No history of anemia. Endocrine: No history of diabetes. Constitutional: As mentioned earlier. Dermatology : Negative. Rheumatology: Negative. Psychiatry: As mentioned earlier. PHYSICAL EXAMINATION: The patient is alert, oriented times three. Pulse 55. Blood pressure 116/57. Respiratory rate 20, temperature 97.6. Pulse ox 94% on 2 L. HEENT: Conjunctivae normal. NECK: No JVD. Cardiovascular: S1, S2 muffled. Respiratory: Breath sounds diminished at the bases. A few scattered rhonchi and crackles. Abdomen is soft, minimal diffuse discomfort present. No guarding or rigidity. Legs: No edema. No swelling. Nervous system: Higher functions as mentioned earlier. Moves all four limbs. No focal deficits. Lymphatics: No lymph nodes palpable in the neck, axilla or groin. Skin: No ulcer, rash or bleeding. LABS: WBC within normal limits. Creatinine 1.50. ASSESSMENT: 1. Right lower quadrant abdominal pain for evaluation. 2. Pneumonia unlikely. 3. History of atrial fibrillation. 4. History of chronic obstructive pulmonary disease. 5. History of cerebrovascular accident. 6. Dementia. 7. History of hypertension. 8. Hyperlipidemia. 9. History of sleep apnea. RECOMMENDATIONS AND DISCUSSION: Continue the current medications, continue symptomatic treatment. The patient has multiple complex medical issues. At this time recommend to repeat labs and surgical evaluation. Otherwise, continue current medications and symptomatic treatment. Home medications will be continued. Prognosis guarded because of multiple complex medical issues. Further recommendations to follow. Discussed with the patient. Understands and agrees. A copy of dictation will be forwarded to Dr. Bull who is the primary care physician. PIPPA
--- NOTE | 2017-06-03 14:59 | P.GSCN ---
<Mile Mi Horacio - Last Filed: 06/03/17 14:34> History of Present Illness Consult date: 06/03/17 Reason for Consult: Abdominal pain History of present illness: This is a 72-year-old gentleman who presented on the day of admission to the emergency room to be evaluated for a chief complaint of developing right upper quadrant pain the onset several days. Patient is a poor historian. Has difficulty verbalizing discomfort. Given the above clinical presentation the attending has requested a surgical evaluation for the right upper quadrant pain. Patients being seen this morning did note the patient was able to ambulate from the bed to the bathroom states not having any abdominal pain with activity. Patient currently is denying any nausea vomiting denies a change in bowel habits. Denies any incontinence of urine or difficulty in urinating. In the emergency room the patient did undergo CAT scan of the abdomen pelvis with IV contrast. No evidence of appendicitis or acute process. Mild thickening of the gallbladder noted. A shunt additionally had an ultrasound of the right upper quadrant in summary it showed 2.7 cm right renal cyst. Hepatic steatosis. The kidneys showed no hydronephrosis no solid mass no stone common bile duct unremarkable no stone noted in the common bile duct. Liver enzymes were not elevated AST 27, ALT 45, amylase 69 lipase 143. Currently patient is indicating that he is not experiencing any abdominal pain when questioning is currently tolerating a diet there is been no reports of nausea vomiting Review of Systems Difficult to adequately obtain patient has poor past medical history is a poor historian Past Medical History Past Medical History: Atrial Fibrillation, Coronary Artery Disease (CAD), Chest Pain / Angina, Heart Failure, COPD, CVA/TIA, Dementia, GERD/Reflux, GI Bleed, Hyperlipidemia, Hypertension, Liver Disease, Memory Impairment, Myocardial Infarction (GA), Renal Disease, Skin Disorder, Sleep Apnea/CPAP/BIPAP, Syncope Additional Past Medical History / Comment(s): coronary artery disease with multivessel involvement status post three-vessel bypass surgery, PCI/stents, previous myocardial infarctions, previous paroxysmal atrial fibrillation, CVA in 2012 (L sided weakness), along with previous TIAs, nephrolithiasis, degenerative arthritis, chronic back pain, hemorrhoids, 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 diff colitis occurred postoperatively forced the patient was hospitalized in June 2015. Last Myocardial Infarction Date:: 2014 History of Any Multi-Drug Resistant Organisms: MRSA Year Discovered:: 02-02-12 MDRO Source:: Unknown Past Surgical History: Back Surgery, Coronary Bypass/CABG, Heart Catheterization , Heart Catheterization With Stent, Orthopedic Surgery Additional Past Surgical History / Comment(s): BILATERAL CAROTID ENDARTERECTOMIES, HX OF PREVIOUS HEART CATHS WITH STENTS AND LAST STENT 03/2015 , EGD X3, ESOPHAGEAL DILATION X5, PLASTIC CAP LEFT ELBOW, URETHRAL STRICTURE DILATION., CABG (3 V), colonoscopy Past Anesthesia/Blood Transfusion Reactions: No Reported Reaction Additional Past Anesthesia/Blood Transfusion Reaction / Comm: Pt states he has no problem with anesthesia, old medical records indicate post op muscle weakness and slow to wake up. Pt has never recieved blood to his knowledge. Date of Last Stent Placement:: 03/22/2015 Smoking Status: Never smoker - Past Family History Father Family Medical History: Deep Vein Thrombosis (DVT), Myocardial Infarction (GA) Additional Family Medical History / Comment(s): Father of DVT Mother Family Medical History: Cancer Additional Family Medical History / Comment(s): Mother of jaw bone cancer. Medications and Allergies Home Medications Medication Instructions Recorded Confirmed Type Aspirin EC [Ecotrin Low Dose] 81 mg PO DAILY 01/20/17 06/01/17 History Warfarin [Coumadin] 2.5 mg PO HS 01/20/17 06/01/17 History Isosorbide Mononitrate ER [Imdur] 30 mg PO DAILY 05/25/17 06/01/17 History Metoprolol Tartrate [Lopressor] 25 mg PO BID 05/25/17 06/01/17 History Allergies Allergy/AdvReac Type Severity Reaction Status Date / Time adhesive Allergy Rash/Hives Verified 06/01/17 23:13 Surgical - Exam Vital Signs Temp Pulse Resp BP Pulse Ox 99.7 F H 81 24 125/76 95 06/01/17 22:53 06/01/17 22:53 06/01/17 22:53 06/01/17 22:53 06/01/17 22:53 GENERAL APPEARANCE: 72-year-old patient is alert, oriented, in no acute distress. VITAL SIGNS: Reviewed HEENT: Head is normocephalic and atraumatic. Pupils are equal and reactive. The nares are patent. Oropharynx is clear without lesions. NECK: Supple without lymphadenopathy. Traches midline. HEART: S1, S2. Regular rate and rhythm. Not able to appreciate a murmur denying chest pain when questioning LUNGS: No crackles or wheezes are heard. Currently on room air no shortness of breath noted ABDOMEN: Soft, no facial grimacing with palpitation to the abdominal wall nontender, nondistended with good bowel sounds. No peritoneal signs. No palpable organomegaly or masses. EXTREMITIES: Normal skin color and turgor. No cyanosis, rash, ulceration, clubbing or edema. Radial pedal pulses are 2/4 bilaterally. NEUROLOGICAL: No focal deficits. Strength and sensation are grossly intact. Results - Labs 06/03/17 08:51 06/03/17 08:51 Abnormal Lab Results - Last 24 Hours (Table) 06/03/17 06/03/17 06/03/17 Range/Units 07:34 08:51 08:51 Hct 38.9 L (39.0-53.0) % Neutrophils # 8.5 H (1.3-7.7) k/uL Lymphocytes # 0.9 L (1.0-4.8) k/uL INR 1.2 H (<1.2) Chloride (98-107) mmol/L Carbon Dioxide (22-30) mmol/L Glucose (74-99) mg/dL POC Glucose (mg/dL) 102 H (75-99) mg/dL Calcium (8.4-10.2) mg/dL 06/03/17 06/03/17 Range/Units 08:51 08:52 Hct (39.0-53.0) % Neutrophils # (1.3-7.7) k/uL Lymphocytes # (1.0-4.8) k/uL INR (<1.2) Chloride 110 H (98-107) mmol/L Carbon Dioxide 20 L (22-30) mmol/L Glucose 117 H (74-99) mg/dL POC Glucose (mg/dL) 117 H (75-99) mg/dL Calcium 8.2 L (8.4-10.2) mg/dL Microbiology - Last 24 Hours (Table) 06/02/17 04:52 Blood Culture - Preliminary Blood No Growth after 24 hours Diabetes panel 06/03/17 Range/Units 08:51 Sodium 139 (137-145) mmol/L Potassium 4.1 (3.5-5.1) mmol/L Chloride 110 H (98-107) mmol/L Carbon Dioxide 20 L (22-30) mmol/L BUN 18 (9-20) mg/dL Creatinine 1.07 (0.66-1.25) mg/dL Glucose 117 H (74-99) mg/dL Calcium 8.2 L (8.4-10.2) mg/dL Calcium panel 06/03/17 Range/Units 08:51 Calcium 8.2 L (8.4-10.2) mg/dL Pituitary panel 06/03/17 Range/Units 08:51 Sodium 139 (137-145) mmol/L Potassium 4.1 (3.5-5.1) mmol/L Chloride 110 H (98-107) mmol/L Carbon Dioxide 20 L (22-30) mmol/L BUN 18 (9-20) mg/dL Creatinine 1.07 (0.66-1.25) mg/dL Glucose 117 H (74-99) mg/dL Calcium 8.2 L (8.4-10.2) mg/dL Adrenal panel 06/03/17 Range/Units 08:51 Sodium 139 (137-145) mmol/L Potassium 4.1 (3.5-5.1) mmol/L Chloride 110 H (98-107) mmol/L Carbon Dioxide 20 L (22-30) mmol/L BUN 18 (9-20) mg/dL Creatinine 1.07 (0.66-1.25) mg/dL Glucose 117 H (74-99) mg/dL Calcium 8.2 L (8.4-10.2) mg/dL Assessment and Plan Plan: Impression Present on admission right upper quadrant pain unclear etiology Present on admission febrile with mild leukocytosis with no evidence of sepsis does not meet sepsis criteria unclear etiology History of paroxysmal atrial fibrillation on anticoagulation Coumadin Known coronary artery disease with prior coronary stenting History of esophageal dilatation Anxiety depressive disorder nonspecified Chronic diastolic heart failure no evidence of an exacerbation History of esophageal stricture with previous history of esophageal dilatation History of liver cirrhosis suspect due to alcoholism Dementia with no behavior disturbance Hyperlipidemia Memory impairment suspect due to a prior CVA CAT scan abdomen and pelvis with contrast done on the show mild thickening of the gallbladder no evidence of appendicitis or acute process Ultrasound of the right upper quadrant showed the common bile duct unremarkable no dilatation no stone it shows hepatic steatosis Plan Resume home meds as appropriate DVT and GI prophylaxis Repeat labs in the morning Further surgical recommendations pending No evidence of an acute surgical abdomen Thank you for allowing us to participate in the surgical management of your patient further surgical recommendations pending clinical course The above impression and plan of care have been discussed and directed by signing physician. Mile Mi nurse practitioner acting as scribe for signing physician. <Alexa Lozano - Last Filed: 06/03/17 16:45> Surgical - Exam Vital Signs Temp Pulse Resp BP Pulse Ox 99.7 F H 81 24 125/76 95 06/01/17 22:53 06/01/17 22:53 06/01/17 22:53 06/01/17 22:53 06/01/17 22:53 Results - Labs 06/03/17 08:51 06/03/17 08:51 Abnormal Lab Results - Last 24 Hours (Table) 06/03/17 06/03/17 06/03/17 Range/Units 07:34 08:51 08:51 Hct 38.9 L (39.0-53.0) % Neutrophils # 8.5 H (1.3-7.7) k/uL Lymphocytes # 0.9 L (1.0-4.8) k/uL INR 1.2 H (<1.2) Chloride (98-107) mmol/L Carbon Dioxide (22-30) mmol/L Glucose (74-99) mg/dL POC Glucose (mg/dL) 102 H (75-99) mg/dL Calcium (8.4-10.2) mg/dL 06/03/17 06/03/17 Range/Units 08:51 08:52 Hct (39.0-53.0) % Neutrophils # (1.3-7.7) k/uL Lymphocytes # (1.0-4.8) k/uL INR (<1.2) Chloride 110 H (98-107) mmol/L Carbon Dioxide 20 L (22-30) mmol/L Glucose 117 H (74-99) mg/dL POC Glucose (mg/dL) 117 H (75-99) mg/dL Calcium 8.2 L (8.4-10.2) mg/dL Microbiology - Last 24 Hours (Table) 06/02/17 04:52 Blood Culture - Preliminary Blood No Growth after 24 hours Diabetes panel 06/03/17 Range/Units 08:51 Sodium 139 (137-145) mmol/L Potassium 4.1 (3.5-5.1) mmol/L Chloride 110 H (98-107) mmol/L Carbon Dioxide 20 L (22-30) mmol/L BUN 18 (9-20) mg/dL Creatinine 1.07 (0.66-1.25) mg/dL Glucose 117 H (74-99) mg/dL Calcium 8.2 L (8.4-10.2) mg/dL Calcium panel 06/03/17 Range/Units 08:51 Calcium 8.2 L (8.4-10.2) mg/dL Pituitary panel 06/03/17 Range/Units 08:51 Sodium 139 (137-145) mmol/L Potassium 4.1 (3.5-5.1) mmol/L Chloride 110 H (98-107) mmol/L Carbon Dioxide 20 L (22-30) mmol/L BUN 18 (9-20) mg/dL Creatinine 1.07 (0.66-1.25) mg/dL Glucose 117 H (74-99) mg/dL Calcium 8.2 L (8.4-10.2) mg/dL Adrenal panel 06/03/17 Range/Units 08:51 Sodium 139 (137-145) mmol/L Potassium 4.1 (3.5-5.1) mmol/L Chloride 110 H (98-107) mmol/L Carbon Dioxide 20 L (22-30) mmol/L BUN 18 (9-20) mg/dL Creatinine 1.07 (0.66-1.25) mg/dL Glucose 117 H (74-99) mg/dL Calcium 8.2 L (8.4-10.2) mg/dL Assessment and Plan Plan: Patient examined. History reviewed. Ct and Us images reviewed. Non specific abdominal pain. No surgical intervention .
[2017-06-03 15:24] VITALS: BP 150/88; PULSE 73; RESP 20; TEMP 98.1
--- NOTE | 2017-06-03 15:45 | P.DS ---
Providers Date of admission: 06/02/17 04:42 Attending physician: Yaniv Hodge Consults: 06/02/17 10:41 Consult Physician Routine Consulting Provider: Danica De Leon Consult Reason/Comments: pneumonia Do you want consulting provider notified?: Yes 06/02/17 22:43 Consult Physician Routine Consulting Provider: Lucille Salmon Consult Reason/Comments: abd pain Do you want consulting provider notified?: Yes Primary care physician: [facility] Course: This 72-year-old gentleman was admitted with the features abdominal pain. The patient was suspected to have pneumonia initially. Dr. De Leon saw the patient thought to pneumonia unlikely. Surgery also saw the patient for abdominal pain. No acute surgical problem identified. On exam vitals stable. Respirator system breath sounds equal. Few rhonchi. Abdomen soft no guarding no rigidity. Patient will be discharged in a stable condition with guarded prognosis with further plans to follow up with the primary care physician and as well as some multiple consultants. Final diagnosis 1. Right lower quadrant abdominal pain of undetermined etiology possibly enteritis. 2. Pneumonia unlikely 3. History of atrial fibrillation 4. COPD history and no exacerbation 5. History of CVI Patient Condition at Discharge: Stable Plan - Discharge Summary New Discharge Prescriptions: Continue Aspirin EC [Ecotrin Low Dose] 81 mg PO DAILY Warfarin [Coumadin] 2.5 mg PO HS Isosorbide Mononitrate ER [Imdur] 30 mg PO DAILY Metoprolol Tartrate [Lopressor] 25 mg PO BID Discharge Medication List Aspirin EC [Ecotrin Low Dose] 81 mg PO DAILY 01/20/17 [History] Warfarin [Coumadin] 2.5 mg PO HS 01/20/17 [History] Isosorbide Mononitrate ER [Imdur] 30 mg PO DAILY 05/25/17 [History] Metoprolol Tartrate [Lopressor] 25 mg PO BID 05/25/17 [History] Follow up Appointment(s)/Referral(s): Danica De Leon MD [STAFF PHYSICIAN] - 2 Weeks (Repeat Chest CT regarding pulmonary nodules) Lucille Salmon MD [STAFF PHYSICIAN] - 1 Week Reed Bull MD [Primary Care Provider] - 3 Days Activity/Diet/Wound Care/Special Instructions: Pending surgery clearance
== END 2017-06-03 16:34 | disposition home or self-care (01) | DRG 392 ==
LOC: EC 22:39 → 4MS4W 06-02 04:42
PROVIDERS: ADMIT Hospitalist; ATTEND Hospitalist
DX: R10.31 Right lower quadrant pain (principal); N17.9 Acute kidney failure, unspecified; I50.32 Chronic diastolic (congestive) heart failure; I11.0 Hypertensive heart disease with heart failure; I48.0 Paroxysmal atrial fibrillation; J44.9 Chronic obstructive pulmonary disease, unspecified; K31.84 Gastroparesis; N28.1 Cyst of kidney, acquired; K76.0 Fatty (change of) liver, not elsewhere classified; G30.9 Alzheimer's disease, unspecified; F01.50 Vascular dementia, unspecified severity, without behavioral disturbance, psychotic disturbance, mood disturbance, and anxiety; F02.80 Dementia in other diseases classified elsewhere, unspecified severity, without behavioral disturbance, psychotic disturbance, mood disturbance, and anxiety; I25.10 Atherosclerotic heart disease of native coronary artery without angina pectoris; K21.9 Gastro-esophageal reflux disease without esophagitis; E78.5 Hyperlipidemia, unspecified; G47.33 Obstructive sleep apnea (adult) (pediatric); I25.2 Old myocardial infarction; L40.9 Psoriasis, unspecified; H91.90 Unspecified hearing loss, unspecified ear; F41.9 Anxiety disorder, unspecified; F32.9 Major depressive disorder, single episode, unspecified; M19.91 Primary osteoarthritis, unspecified site; M54.9 Dorsalgia, unspecified; G89.29 Other chronic pain; Z79.01 Long term (current) use of anticoagulants; Z79.82 Long term (current) use of aspirin; Z79.899 Other long term (current) drug therapy; Z95.5 Presence of coronary angioplasty implant and graft; Z95.1 Presence of aortocoronary bypass graft; Z87.442 Personal history of urinary calculi; Z86.73 Personal history of transient ischemic attack (TIA), and cerebral infarction without residual deficits; Z86.19 Personal history of other infectious and parasitic diseases; Z86.14 Personal history of Methicillin resistant Staphylococcus aureus infection; Z91.048 Other nonmedicinal substance allergy status
CPT/HCPCS: 36415; 71020; 74177; 76705; 80048; 80053; 81001; 82150; 82550; 82553; 83690; 83735; 84484; 85025; 85610; 85730; 87040; 93005; 94640; 94760; 96361; 96365; 96374; 96375; 99285

== ENCOUNTER 2017-06-06 12:53 | Inpatient (IN) | payer MEDICARE ==
--- NOTE | 2017-06-06 13:21 | ED ---
Syncope HPI - General Chief Complaint: Syncope Stated Complaint: syncope Time Seen by Provider: 06/06/17 12:56 Source: patient, EMS, RN notes reviewed Mode of arrival: EMS Limitations: no limitations - History of Present Illness Initial Comments: This is a 72-year-old male with a history of multiple medical problems who states he was getting up and walking to get lunch when he felt lightheaded and passed out for a few seconds. He denies any injury he has some chronic right lower quadrant abdominal pain that he's had for a while. He has any fevers chills nausea vomiting sweats he has no head or neck or back pain. No loss of function to his upper or lower extremities is complaining is sometimes of left calf pain it is recent. MD Complaint: loss of consciousness - Related Data Home Medications Medication Instructions Recorded Confirmed Warfarin [Coumadin] 2.5 mg PO HS 01/20/17 06/06/17 Isosorbide Mononitrate ER [Imdur] 30 mg PO DAILY@1200 05/25/17 06/06/17 Metoprolol Tartrate [Lopressor] 25 mg PO BID 05/25/17 06/06/17 Allergies Allergy/AdvReac Type Severity Reaction Status Date / Time adhesive Allergy Rash/Hives Verified 06/01/17 23:13 Review of Systems ROS Statement: Those systems with pertinent positive or pertinent negative responses have been documented in the HPI. ROS Other: All systems not noted in ROS Statement are negative. Past Medical History Past Medical History: Atrial Fibrillation, Coronary Artery Disease (CAD), Chest Pain / Angina, Heart Failure, COPD, CVA/TIA, Dementia, GERD/Reflux, GI Bleed, Hyperlipidemia, Hypertension, Liver Disease, Memory Impairment, Myocardial Infarction (SD), Renal Disease, Skin Disorder, Sleep Apnea/CPAP/BIPAP, Syncope Additional Past Medical History / Comment(s): coronary artery disease with multivessel involvement status post three-vessel bypass surgery, PCI/stents, previous myocardial infarctions, previous paroxysmal atrial fibrillation, CVA in 2013 (L sided weakness), along with previous TIAs, nephrolithiasis, degenerative arthritis, chronic back pain, hemorrhoids, 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 diff colitis occurred postoperatively forced the patient was hospitalized in June 2015. Last Myocardial Infarction Date:: 2014 History of Any Multi-Drug Resistant Organisms: MRSA Date of last positivie culture/infection: 02-02-12 MDRO Source:: Unknown Past Surgical History: Back Surgery, Coronary Bypass/CABG, Heart Catheterization , Heart Catheterization With Stent, Orthopedic Surgery Additional Past Surgical History / Comment(s): BILATERAL CAROTID ENDARTERECTOMIES, HX OF PREVIOUS HEART CATHS WITH STENTS AND LAST STENT 03/2015 , EGD X3, ESOPHAGEAL DILATION X5, PLASTIC CAP LEFT ELBOW, URETHRAL STRICTURE DILATION., CABG (3 V), colonoscopy Past Anesthesia/Blood Transfusion Reactions: No Reported Reaction Additional Past Anesthesia/Blood Transfusion Reaction / Comment(s): Pt states he has no problem with anesthesia, old medical records indicate post op muscle weakness and slow to wake up. Pt has never recieved blood to his knowledge. Date of Last Stent Placement:: 03/22/2015 Past Psychological History: Anxiety, Depression Smoking Status: Never smoker - Past Family History Father Family Medical History: Deep Vein Thrombosis (DVT), Myocardial Infarction (SD) Additional Family Medical History / Comment(s): Father of DVT Mother Family Medical History: Cancer Additional Family Medical History / Comment(s): Mother of jaw bone cancer. General Exam - General Exam Comments Initial Comments: This is a well-developed well-nourished awake alert oriented 3 male Limitations: no limitations General appearance: alert, in no apparent distress Head exam: Present: atraumatic, normocephalic, normal inspection Eye exam: Present: normal appearance, PERRL, EOMI. Absent: scleral icterus, conjunctival injection, periorbital swelling ENT exam: Present: mucous membranes dry Neck exam: Present: normal inspection. Absent: tenderness, meningismus, lymphadenopathy Respiratory exam: Present: normal lung sounds bilaterally. Absent: respiratory distress, wheezes, rales, rhonchi, stridor Cardiovascular Exam: Present: regular rate, normal rhythm, normal heart sounds. Absent: systolic murmur, diastolic murmur, rubs, gallop, clicks GI/Abdominal exam: Present: soft, normal bowel sounds. Absent: distended, tenderness, guarding, rebound, rigid Extremities exam: Present: normal inspection, full ROM, tenderness (Left calf tenderness to palpation no definite palpable cords), normal capillary refill. Absent: pedal edema, joint swelling, calf tenderness Back exam: Present: normal inspection Neurological exam: Present: alert, oriented X3, CN II-XII intact Psychiatric exam: Present: normal affect, normal mood Skin exam: Present: warm, dry, intact, normal color. Absent: rash Course Vital Signs 06/06/17 06/06/17 13:02 13:42 Temperature 97 F L Pulse Rate 70 70 Respiratory 20 17 Rate Blood Pressure 124/80 140/82 O2 Sat by Pulse 95 96 Oximetry - Reevaluation(s) Reevaluation #1: 06/06/17 15:28 Patient was found have elevated d-dimer has no prior history of DVT or blood clots. The CAT scan of the chest was ordered as well as ultrasound left lower extremity. Reevaluation #2: 06/06/17 15:28 Upon return from CAT scan ultrasound patient is asymptomatic no further dizziness lightheadedness EKG Findings - EKG Results: EKG: interpreted by ERMD, sinus rhythm, normal axis, normal QRS, normal ST/T, no acute changes (Sinus rhythm a rate 71. We'll 138 QRS duration 90 QT since QTC of 390/[address]-T wave changes no change when compared to an EKG dated 06/01/17) Medical Decision Making - Medical Decision Making I did discuss findings with the patient due to the presentation patient will be admitted for IV anticoagulation. The case was discussed with Dr. Salamanca. - Lab Data Result diagrams: 06/06/17 13:10 06/06/17 13:10 Lab Results 06/06/17 06/06/17 06/06/17 Range/Units 13:10 13:10 13:10 WBC 6.8 (3.8-10.6) k/uL RBC 5.10 (4.30-5.90) m/uL Hgb 14.8 (13.0-17.5) gm/dL Hct 44.0 (39.0-53.0) % MCV 86.3 (80.0-100.0) fL MCH 29.1 (25.0-35.0) pg MCHC 33.7 (31.0-37.0) g/dL RDW 14.6 (11.5-15.5) % Plt Count 255 (150-450) k/uL Neutrophils % 64 % Lymphocytes % 23 % Monocytes % 8 % Eosinophils % 2 % Basophils % 0 % Neutrophils # 4.3 (1.3-7.7) k/uL Lymphocytes # 1.6 (1.0-4.8) k/uL Monocytes # 0.5 (0-1.0) k/uL Eosinophils # 0.1 (0-0.7) k/uL Basophils # 0.0 (0-0.2) k/uL PT (9.0-12.0) sec INR (<1.2) APTT (22.0-30.0) sec D-Dimer (<0.60) mg/L FEU Sodium 139 (137-145) mmol/L Potassium 4.0 (3.5-5.1) mmol/L Chloride 108 H (98-107) mmol/L Carbon Dioxide 20 L (22-30) mmol/L Anion Gap 11 mmol/L BUN 18 (9-20) mg/dL Creatinine 1.02 (0.66-1.25) mg/dL Est GFR (MDRD) Af Amer >60 (>60 ml/min/1.73 sqM) Est GFR (MDRD) Non-Af >60 (>60 ml/min/1.73 sqM) Glucose 98 (74-99) mg/dL Calcium 9.0 (8.4-10.2) mg/dL Magnesium 1.6 (1.6-2.3) mg/dL Total Bilirubin 0.5 (0.2-1.3) mg/dL AST 30 (17-59) U/L ALT 61 (21-72) U/L Alkaline Phosphatase 114 (38-126) U/L Total Creatine Kinase 72 (55-170) U/L CK-MB (CK-2) 1.0 (0.0-2.4) ng/mL CK-MB (CK-2) Rel Index 1.4 Troponin I <0.012 (0.000-0.034) ng/mL Total Protein 6.6 (6.3-8.2) g/dL Albumin 3.4 L (3.5-5.0) g/dL Urine Color Urine Appearance (Clear) Urine pH (5.0-8.0) Ur Specific [place] (1.001-1.035) Urine Protein (Negative) Urine Glucose (UA) (Negative) Urine Ketones (Negative) Urine Blood (Negative) Urine Nitrite (Negative) Urine Bilirubin (Negative) Urine Urobilinogen (<2.0) mg/dL Ur Leukocyte Esterase (Negative) 06/06/17 06/06/17 Range/Units 13:10 13:30 WBC (3.8-10.6) k/uL RBC (4.30-5.90) m/uL Hgb (13.0-17.5) gm/dL Hct (39.0-53.0) % MCV (80.0-100.0) fL MCH (25.0-35.0) pg MCHC (31.0-37.0) g/dL RDW (11.5-15.5) % Plt Count (150-450) k/uL Neutrophils % % Lymphocytes % % Monocytes % % Eosinophils % % Basophils % % Neutrophils # (1.3-7.7) k/uL Lymphocytes # (1.0-4.8) k/uL Monocytes # (0-1.0) k/uL Eosinophils # (0-0.7) k/uL Basophils # (0-0.2) k/uL PT 11.0 (9.0-12.0) sec INR 1.1 (<1.2) APTT 25.1 (22.0-30.0) sec D-Dimer 4.63 H (<0.60) mg/L FEU Sodium (137-145) mmol/L Potassium (3.5-5.1) mmol/L Chloride (98-107) mmol/L Carbon Dioxide (22-30) mmol/L Anion Gap mmol/L BUN (9-20) mg/dL Creatinine (0.66-1.25) mg/dL Est GFR (MDRD) Af Amer (>60 ml/min/1.73 sqM) Est GFR (MDRD) Non-Af (>60 ml/min/1.73 sqM) Glucose (74-99) mg/dL Calcium (8.4-10.2) mg/dL Magnesium (1.6-2.3) mg/dL Total Bilirubin (0.2-1.3) mg/dL AST (17-59) U/L ALT (21-72) U/L Alkaline Phosphatase (38-126) U/L Total Creatine Kinase (55-170) U/L CK-MB (CK-2) (0.0-2.4) ng/mL CK-MB (CK-2) Rel Index Troponin I (0.000-0.034) ng/mL Total Protein (6.3-8.2) g/dL Albumin (3.5-5.0) g/dL Urine Color Yellow Urine Appearance Clear (Clear) Urine pH 5.5 (5.0-8.0) Ur Specific [place] 1.020 (1.001-1.035) Urine Protein Trace H (Negative) Urine Glucose (UA) Negative (Negative) Urine Ketones Negative (Negative) Urine Blood Negative (Negative) Urine Nitrite Negative (Negative) Urine Bilirubin Negative (Negative) Urine Urobilinogen <2.0 (<2.0) mg/dL Ur Leukocyte Esterase Negative (Negative) - Radiology Data Radiology results: report reviewed (I did review the imaging and report I also discussed the CAT scan results with Dr. Ayers the patient does have bilateral multiple PEs to the lower lobes of the lungs. Additionally ultrasound did show DVT in the left lower extremity.), image reviewed Critical Care Time Critical Care Time: Yes Critical Care Time: 33 minutes of critical care time which includes initial monitoring the EMS and review of EMS treatment. History physical labs x-rays reevaluation patient response to therapy and reevaluation. Discussion with the radiologist. Review of the labs and x-rays. Discussed with Dr. Salamanca admission orders and documentation of the above. Disposition Clinical Impression: Syncope and collapse, Pulmonary embolism on left, Pulmonary embolism on right, Deep vein thrombosis, lower left extremity Disposition: ADMITTED IP TO THIS HOSP Condition: Stable Referrals: Reed Bull MD [Primary Care Provider] - 1-2 days Decision Time: 15:20
[2017-06-06] MEDS ORDERED: SODIUM CHLORIDE 0.9% 1,000 ML IV STA (13:22)
[2017-06-06 13:38] LABS: Basophils % (A) 0 %; CH 30.5; CHCM 35.4; Eosinophils # (A) 0.1 k/uL (0-0.7); Eosinophils % (A) 2 %; HDW 3.14; HGB 14.8 gm/dL (13.0-17.5); Luc # (Auto) 0.24; Luc % (Auto) 4; Lymphocytes # (A) 1.6 k/uL (1.0-4.8); Lymphocytes % (A) 23 %; MCH 29.1 pg (25.0-35.0); MCHC 33.7 g/dL (31.0-37.0); MCV 86.3 fL (80.0-100.0); Mean Platelet Volume 7.5; Monocytes # (A) 0.5 k/uL (0-1.0); Monocytes % (A) 8 %; Neutrophils # (A) 4.3 k/uL (1.3-7.7); Neutrophils % (A) 64 %; RDW 14.6 % (11.5-15.5); WBC 6.8 k/uL (3.8-10.6)
[2017-06-06 13:40] LABS: Appearance,Urine Clear (Clear); Bilirubin,Urine Negative (Negative); Glucose,Urine (UA) Negative (Negative); Ketones,Urine Negative (Negative); Leukocyte Esterase,Urine Negative (Negative); Nitrite,Urine Negative (Negative); PH, Urine 5.5 (5.0-8.0); Protein,Urine Trace (Negative); UA Billing (MACRO vs. MICRO) CHEM; Urobilinogen,Urine <2.0 mg/dL (<2.0)
[2017-06-06 13:43] LABS: ALT 61 U/L (21-72); AST 30 U/L (17-59); Alkaline Phosphatase 114 U/L (38-126); Anion Gap 11 mmol/L; Blood Urea Nitrogen 18 mg/dL (9-20); Carbon Dioxide 20 mmol/L (22-30); Chloride 108 mmol/L (98-107); Glucose 98 mg/dL (74-99); Magnesium 1.6 mg/dL (1.6-2.3); Non-African American GFR(MDRD) >60 (>60 ml/min/1.73 sqM); Sodium 139 mmol/L (137-145); Total Bilirubin 0.5 mg/dL (0.2-1.3); Total Protein 6.6 g/dL (6.3-8.2)
[2017-06-06 13:52] LABS: INR 1.1 (<1.2); Partial Thromboplastin Time 25.1 sec (22.0-30.0)
[2017-06-06 13:53] LABS: Creatine Kinase 72 U/L (55-170)
[2017-06-06 14:07] LABS: Troponin I <0.012 ng/mL (0.000-0.034)
[2017-06-06] MEDS ORDERED: RX INFO: IV CONTRAST WAS GIVEN 1 EACH MISC MISCELLANE PRN (14:40)
--- NOTE | 2017-06-06 14:42 | XR ---
EXAMINATION TYPE: XR chest 2V DATE OF EXAM: 06/06/2017 COMPARISON: 06/03/2017 HISTORY: Pneumonia TECHNIQUE: Frontal and lateral views of the chest are obtained. FINDINGS: Heart and mediastinum are normal. Lungs are clear. Diaphragm is normal. There are chest le ads. There are sternal wires. There are small linear density in the right middle lobe. IMPRESSION: Mild subsegmental atelectasis or scarring in the right middle lobe is improved compared to last exam. There is improved aeration of the lungs overall compared to last exam and improved insp iration. No heart failure.
--- NOTE | 2017-06-06 15:26 | CT ---
EXAMINATION TYPE: CT angio chest DATE OF EXAM: 06/06/2017 3:06 PM COMPARISON: 09/29/2013 HISTORY: Patient poor historian. Patient has increased d-dimer. CT DLP: 461.4 mGycm Automated exposure control for dose reduction was used. CONTRAST: CTA scan of the thorax is performed with IV Contrast, patient injected with 100 mL of Omnipaque 350, pulmonary embolism protocol. There are 3-D post processed images.. FINDINGS: There is mild pleural thickening on the right lateral chest wall. There is small right pleural effusi on with infiltrate and atelectasis at the right lung base. There is some interstitial density in the left lower lobe. There is no pericardial effusion. There are multiple filling defects in left and right lower lobe pulmonary arteries. There is no mediastinal adenopathy. There is a 1 cm right bronchial lymph node. Thoracic aorta shows mild atheromatous change. There is no evidence of aneurysm. IMPRESSION: BILATERAL LOWER LOBE PULMONARY INFILTRATES AND WORSE ON THE RIGHT SIDE. SMALL RIGHT PLEURAL EFFUSION. MULTIPLE BILATERAL LOWER LOBE PULMONARY EMBOLI. THESE APPEAR NEW COMPARED TO OLD EXAM. PULMONARY BUSTAMANTE GES AT THE LUNG BASES ARE WORSE THAN OLD CT SCAN. THIS EXAM WAS DISCUSSED WITH THE EMERGENCY PHYSICIAN AT 3:20 PM.
[2017-06-06] MEDS ORDERED: HEPARIN SODIUM,PORCINE 5,000 UNIT/ML 1 ML VIAL IV STA (15:27)
[2017-06-06] MEDS ORDERED: NALOXONE 0.4 MG/ML 1 ML VIAL IV PRN (15:31)
--- NOTE | 2017-06-06 15:40 | US ---
EXAMINATION TYPE: US venous doppler duplex LE LT DATE OF EXAM: 06/06/2017 3:29 PM COMPARISON: NONE CLINICAL HISTORY: Pain. Left leg pain SIDE PERFORMED: Left TECHNIQUE: The lower extremity deep venous system is examined utilizing real time linear array sonog heriberto with graded compression, doppler sonography and color-flow sonography. VESSELS IMAGED: External Iliac Vein (EIV) Common Femoral Vein Deep Femoral Vein Greater Saphenous Vein * Femoral Vein Popliteal Vein Small Saphenous Vein * Proximal Calf Veins (* superficial vessels) Left Leg: Positive for DVT Positive for DVT Left CFV, FV and POP V. IMPRESSION: Exam shows evidence of acute deep venous thrombosis in a long segment of the femoral vein and also the popliteal vein.
[2017-06-06] MEDS: HEPARIN SODIUM,PORCINE/D5W PMX 25,000 UNIT in DEXTROSE/WATER 1 500ML.BAG IV SCH (15:43)
[2017-06-06] MEDS: MAGNESIUM SULFATE-D5W PMX 1 GM in DEXTROSE/WATER 1 100ML.BAG IVPB SCH ×2 (17:56→19:10)
[2017-06-06] MEDS ORDERED: WARFARIN 10 MG TAB PO ONE (18:00)
[2017-06-06] MEDS: SODIUM CHLORIDE 0.9% 1,000 ML IV SCH (20:01)
[2017-06-06] MEDS: METOPROLOL TARTRATE 25 MG TAB PO SCH (20:20)
[2017-06-07] MEDS: HEPARIN SODIUM,PORCINE/D5W PMX 25,000 UNIT in DEXTROSE/WATER 1 500ML.BAG IV SCH ×3 (03:08→20:25)
[2017-06-07 06:35] LABS: INR 1.1 (<1.2); Partial Thromboplastin Time 34.1 sec (22.0-30.0); Prothrombin Time 11.2 sec (9.0-12.0)
[2017-06-07 08:40] LABS: INR 1.1 (<1.2); Prothrombin Time 11.3 sec (9.0-12.0)
[2017-06-07] MEDS ORDERED: HEPARIN SODIUM,PORCINE 10,000 UNIT/ML 1 ML VIAL IV PRN (08:58)
[2017-06-07] MEDS: METOPROLOL TARTRATE 25 MG TAB PO SCH ×2 (09:35→20:07)
[2017-06-07] MEDS: ISOSORBIDE MONONITRATE ER 30 MG TAB.ER.24H PO SCH (11:32)
[2017-06-07] MEDS: ACETAMINOPHEN TAB 325 MG TAB PO PRN (11:32)
--- NOTE | 2017-06-07 16:05 | P.HPIM ---
History of Present Illness H&P Date: 06/07/17 Chief Complaint: Syncope This is 9-year-old gentleman with history of atrial fibrillation COPD, CVA, dementia comes in to the hospital after sustaining a syncopal episode. Patient currently lives in a [facility] house after his recent incarceration Patient comes in the hospital a d-dimer was elevated. A Doppler study did note extensive DVT of the left common femoral and popliteal artery. Patient was also noted to have bilateral pulmonary embolism Patient was on Coumadin for any correlation for atrial fibrillation to prevent strokes however patient's INR was subtherapeutic on admission Patient states that he has been compliant with his medication Patient was started on heparin thereafter I did recommend to give a 10 mg dose of Coumadin the emergency room Today patient denies having any additional complaints in regards to difficulty breathing chest pain nausea vomiting diarrhea. Patient does state to have a headache that is bitemporal no change in vision Review of Systems All systems: negative (Noted in HPI) Past Medical History Past Medical History: Atrial Fibrillation, Coronary Artery Disease (CAD), Chest Pain / Angina, Heart Failure, COPD, CVA/TIA, Dementia, GERD/Reflux, GI Bleed, Hyperlipidemia, Hypertension, Liver Disease, Memory Impairment, Myocardial Infarction (HI), Renal Disease, Skin Disorder, Sleep Apnea/CPAP/BIPAP, Syncope Additional Past Medical History / Comment(s): coronary artery disease with multivessel involvement status post three-vessel bypass surgery, PCI/stents, previous myocardial infarctions, previous paroxysmal atrial fibrillation, CVA in 2012 (L sided weakness), along with previous TIAs, nephrolithiasis, degenerative arthritis, chronic back pain, hemorrhoids, 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 diff colitis occurred postoperatively forced the patient was hospitalized in June 2015. Last Myocardial Infarction Date:: 2014 History of Any Multi-Drug Resistant Organisms: MRSA Date of last positivie culture/infection: 02-02-12 MDRO Source:: Unknown Past Surgical History: Back Surgery, Coronary Bypass/CABG, Heart Catheterization , Heart Catheterization With Stent, Orthopedic Surgery Additional Past Surgical History / Comment(s): BILATERAL CAROTID ENDARTERECTOMIES, HX OF PREVIOUS HEART CATHS WITH STENTS AND LAST STENT 03/2015 , EGD X3, ESOPHAGEAL DILATION X5, PLASTIC CAP LEFT ELBOW, URETHRAL STRICTURE DILATION., CABG (3 V), colonoscopy Past Anesthesia/Blood Transfusion Reactions: No Reported Reaction Additional Past Anesthesia/Blood Transfusion Reaction / Comment(s): Pt states he has no problem with anesthesia, old medical records indicate post op muscle weakness and slow to wake up. Pt has never recieved blood to his knowledge. Date of Last Stent Placement:: 03/22/2015 Past Psychological History: Anxiety, Depression Additional Psychological History / Comment(s): Lives @ [facility] He ambulates with straight cane. He has sleep apnea and does not tolerate CPAP so on occasion he uses his 's home O2. He is independent with his ADLs. He has a back brace he wears on occasion. HAS HEARING AIDS AND DENTURES BUT WON'T WEAR. Smoking Status: Never smoker Past Alcohol Use History: None Reported Additional Past Alcohol Use History / Comment(s): HX OF HEAVY ALCOHOL USE. Patient states he is a nonsmoker. He denies any street drug use. He no longer drinks any alcohol. He is retired from [employer]. Lives at [facility] Past Drug Use History: None Reported - Past Family History Father Family Medical History: Deep Vein Thrombosis (DVT), Myocardial Infarction (HI) Additional Family Medical History / Comment(s): Father of DVT Mother Family Medical History: Cancer Additional Family Medical History / Comment(s): Mother of jaw bone cancer. Medications and Allergies Home Medications Medication Instructions Recorded Confirmed Type Warfarin [Coumadin] 2.5 mg PO HS 01/20/17 06/06/17 History Isosorbide Mononitrate ER [Imdur] 30 mg PO DAILY@1200 05/25/17 06/06/17 History Metoprolol Tartrate [Lopressor] 25 mg PO BID 05/25/17 06/06/17 History Allergies Allergy/AdvReac Type Severity Reaction Status Date / Time adhesive Allergy Rash/Hives Verified 06/01/17 23:13 Physical Exam Vitals: Vital Signs Temp Pulse Pulse Pulse Pulse Pulse Resp 06/07/17 15:30 98.4 F 64 16 06/07/17 11:26 16 06/07/17 11:15 63 16 06/07/17 09:40 16 06/07/17 08:51 06/07/17 08:48 99 F 66 77 70 16 06/07/17 04:00 77 16 06/07/17 00:00 98.8 F 73 18 06/06/17 20:00 97.6 F 80 16 06/06/17 17:08 97.8 F 83 16 06/06/17 16:08 67 17 BP BP BP BP BP Pulse Ox 06/07/17 15:30 120/78 94 L 06/07/17 11:26 06/07/17 11:15 142/82 96 06/07/17 09:40 06/07/17 08:51 94 L 06/07/17 08:48 134/72 158/76 133/74 94 L 06/07/17 04:00 158/82 98 06/07/17 00:00 147/75 95 06/06/17 20:00 145/85 94 L 06/06/17 17:08 149/72 95 06/06/17 16:08 182/90 94 L Intake and Output 06/07/17 06/07/17 06/07/17 06:59 14:59 22:59 Intake Total 300.24 436.619 274.635 Balance 300.24 436.619 274.635 Intake: IV 120 160 Sodium Chloride 0.9% 1, 120 160 000 ml @ 20 mls/hr IV . Q24H RAHEL Rx#:[id number] Intake, IV Titration 180.24 276.619 274.635 Amount Heparin Sodium,Porcine/ 180.24 276.619 274.635 D5w Pmx 25,000 unit In Dextrose/Water 1 500ml. bag @ 18 UNITS/KG/HR 37. 55 mls/hr IV .[id number] RAHEL Rx#:[id number] Other: Voiding Method Bedside Commode Bedside Commode Urinal Urinal # Voids 2 Weight 98.2 kg Physical exam Gen. appearance oriented 3 in no distress Neck is supple no JVD Lungs diminished breath sounds no wheezing or crackles. Heart S1-S2 heard regular rate and rhythm no murmurs appreciated Abdomen is soft nontender no organomegaly bowel sounds are intact Neurologically cranial nerves II-12 grossly intact no focal motor or sensory deficits noted Skin no abnormalities appreciated Results CBC & Chem 7: 06/06/17 13:10 06/06/17 13:10 Labs: Abnormal Lab Results - Last 24 Hours (Table) 06/06/17 06/07/17 06/07/17 Range/Units 21:49 05:45 14:41 APTT 56.8 H 34.1 H 151.2 H* (22.0-30.0) sec Thrombosis Risk Factor Assmnt - Choose All That Apply Any of the Below Risk Factors Present?: No Other Risk Factors: Yes Each Risk Factor Represents 2 Points: Age 61-74 years Each Risk Factor Represents 3 Points: History of DVT/PE Other congenital or acquired thrombophilia - If yes, enter type in comment: No Thrombosis Risk Factor Assessment Total Risk Factor Score: 5 Thrombosis Risk Factor Assessment Level: High Risk Assessment and Plan Plan: #1 acute pulmonary embolism #2 acute left lower extremity DVT. #3 history of atrial fibrillation #4 COPD #5 CVA #6 GERD #7 dementia #8 acute headache Plan Continue with heparin drip another dose of Coumadin 10 mg will be given today. Continue monitoring. Patient will be given Tylenol for his headache Patient is not significantly symptomatically due to the pulmonary embolism once patient is more therapeutic we'll likely be discharged home in the next 24-48 hours. Repeat PT/INR in a.m.
[2017-06-07] MEDS: SODIUM CHLORIDE 0.9% 1,000 ML IV SCH (16:48)
[2017-06-07] MEDS ORDERED: WARFARIN 10 MG TAB PO ONE (18:00)
--- NOTE | 2017-06-08 05:44 | CONS ---
DATE OF SERVICE: 06/07/2017 IDENTIFYING DATA: This is a 72-year-old male patient. HISTORY OF PRESENT ILLNESS: Mr. Ball is admitted to the medical floor, [facility], with a syncopal episode. Per chart history was found to have DVT and also pulmonary emboli. Per chest history, he does have a history of multiple medical problems. Patient states that he had a dizzy spell and passed out. He does feel better now. He says once in a while he gets a dizzy spell, but he has not passed out. Here in the hospital he says his mood has been okay lately. He is not sure why I was asked to come and see him. He currently lives in a place he says for criminals where there are several people living there and then they also had staff there. He is not sure what he was in senior care for. PSYCHIATRIC HISTORY: He denies any psychiatric history. Denies any inpatient psychiatric treatment history. He never tried to hurt himself in the past. PSYCHIATRIC FAMILY HISTORY: Denies. MEDICAL HISTORY: A. fib, COPD, CVA, dementia, angina, heart failure, gastroesophageal reflux disease, GI bleeding, hyperlipidemia, hypertension, liver disease, MD, renal disease, skin disorders, sleep apnea, syncope. CURRENT MEDICATIONS: Tylenol p.r.n., heparin, Imdur, Lopressor, Narcan p.r.n. SOCIAL HISTORY: Per chart history living in a halfway house after recent incarceration. DRUG AND ALCOHOL HISTORY: Some alcohol in the past, but never was a heavy drinker. Denies any history of drug use. MENTAL STATUS EXAM: He is alert, cooperative overall. His affect shows range. He describes his mood as "okay". He denies any thoughts of harm to self or others recently or currently. Denies any hallucinations. He is oriented to place being [place], but does not say what type of building this is. He does not know the month. He is oriented to person. IMPRESSION: Major neurocognitive disorder. PLAN/RECOMMENDATIONS: I do not recommend any new psychotropic medications for the patient at this point in time. No significant evidence of a depression or evidence of any significant psychosis at this time. Monitor for any agitation or depression or psychosis symptoms accompanying major neurocognitive disorder. Provide patient with outpatient mental health referral sheet for outpatient followup as needed. I do not see any criteria for inpatient psychiatric hospitalization. PIPPA
[2017-06-08 06:20] LABS: Basophils # (A) 0.1 k/uL (0-0.2); Basophils % (A) 1 %; CH 29.6; Eosinophils # (A) 0.2 k/uL (0-0.7); Eosinophils % (A) 3 %; HCT 40.5 % (39.0-53.0); HDW 3.14; HGB 13.8 gm/dL (13.0-17.5); Luc # (Auto) 0.26; Luc % (Auto) 4; Lymphocytes # (A) 2.1 k/uL (1.0-4.8); Lymphocytes % (A) 32 %; MCH 29.7 pg (25.0-35.0); MCV 87.5 fL (80.0-100.0); Mean Platelet Volume 7.2; Monocytes # (A) 0.5 k/uL (0-1.0); Monocytes % (A) 7 %; Neutrophils # (A) 3.5 k/uL (1.3-7.7); Neutrophils % (A) 53 %; RBC 4.63 m/uL (4.30-5.90); WBC 6.7 k/uL (3.8-10.6); WBC (Perox) 6.22
[2017-06-08 06:21] LABS: INR 1.6 (<1.2); Partial Thromboplastin Time 89.2 sec (22.0-30.0); Prothrombin Time 15.4 sec (9.0-12.0)
[2017-06-08 06:53] LABS: ALT 60 U/L (21-72); AST 34 U/L (17-59); Alkaline Phosphatase 100 U/L (38-126); Anion Gap 10 mmol/L; Blood Urea Nitrogen 14 mg/dL (9-20); Calcium 8.6 mg/dL (8.4-10.2); Carbon Dioxide 20 mmol/L (22-30); Chloride 110 mmol/L (98-107); Glucose 89 mg/dL (74-99); Non-African American GFR(MDRD) >60 (>60 ml/min/1.73 sqM); Sodium 140 mmol/L (137-145); Total Bilirubin 0.2 mg/dL (0.2-1.3); Total Protein 6.1 g/dL (6.3-8.2)
[2017-06-08] MEDS: ACETAMINOPHEN TAB 325 MG TAB PO PRN ×2 (07:06→20:03)
[2017-06-08] MEDS: MAGNESIUM SULFATE-D5W PMX 1 GM in DEXTROSE/WATER 1 100ML.BAG IVPB SCH ×2 (08:36→16:06)
[2017-06-08] MEDS: METOPROLOL TARTRATE 25 MG TAB PO SCH (08:40)
--- NOTE | 2017-06-08 11:19 | P.CRDCN ---
History of Present Illness Consult date: 06/08/17 Requesting physician: Phuc Salamanca Consult reason: sycope Chief complaint: syncope History of present illness: This is a 72-year-old gentleman with known history of coronary artery disease,prior bypass surgery and several PCI's, history of CVA, paroxysmal atrial fibrillation, hypertension, hyperlipidemia, sleep apnea, mild Alzheimer's , history of compliance, recently incarcerated, currently [facility] with other current and also according to him. He presented to the hospital following a syncopal episode. Patient states he became quite dizzy and passed out. He denies any chest discomfort, breathing overall has been stable. Blood pressure on arrival 124/80, heart rate in the 70s, 95% on 2 L of oxygen.CBC normal. d-dimer 4.6, INR 1.6, potassium 4.0, BUN 14, creatinine 1.0. Troponin 0.012. Chest x-ray shows mild atelectasis in the right middle lobe improved with prior exam. venous duplex study shows evidence of acute DVT in the left for moral and left popliteal vein, CAT scan of the chest reveals multiple bilateral lower lobe pulmonary embolism new as compared with prior CT.Patient was noted on the monitor have a run of nonsustained ventricular tachycardia.Mag level I.7. Past Medical History Past Medical History: Atrial Fibrillation, Coronary Artery Disease (CAD), Chest Pain / Angina, Heart Failure, COPD, CVA/TIA, Dementia, GERD/Reflux, GI Bleed, Hyperlipidemia, Hypertension, Liver Disease, Memory Impairment, Myocardial Infarction ([place]), Renal Disease, Skin Disorder, Sleep Apnea/CPAP/BIPAP, Syncope Additional Past Medical History / Comment(s): coronary artery disease with multivessel involvement status post three-vessel bypass surgery, PCI/stents, previous myocardial infarctions, previous paroxysmal atrial fibrillation, CVA in 2012 (L sided weakness), along with previous TIAs, nephrolithiasis, degenerative arthritis, chronic back pain, hemorrhoids, 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 diff colitis occurred postoperatively forced the patient was hospitalized in June 2015. Last Myocardial Infarction Date:: 2014 History of Any Multi-Drug Resistant Organisms: MRSA Date of last positivie culture/infection: 02-02-12 MDRO Source:: Unknown Past Surgical History: Back Surgery, Coronary Bypass/CABG, Heart Catheterization , Heart Catheterization With Stent, Orthopedic Surgery Additional Past Surgical History / Comment(s): BILATERAL CAROTID ENDARTERECTOMIES, HX OF PREVIOUS HEART CATHS WITH STENTS AND LAST STENT 03/2015 , EGD X3, ESOPHAGEAL DILATION X5, PLASTIC CAP LEFT ELBOW, URETHRAL STRICTURE DILATION., CABG (3 V), colonoscopy Past Anesthesia/Blood Transfusion Reactions: No Reported Reaction Additional Past Anesthesia/Blood Transfusion Reaction / Comment(s): Pt states he has no problem with anesthesia, old medical records indicate post op muscle weakness and slow to wake up. Pt has never recieved blood to his knowledge. Date of Last Stent Placement:: 03/22/2015 Past Psychological History: Anxiety, Depression Additional Psychological History / Comment(s): Lives @ [facility] He ambulates with straight cane. He has sleep apnea and does not tolerate CPAP so on occasion he uses his 's home O2. He is independent with his ADLs. He has a back brace he wears on occasion. HAS HEARING AIDS AND DENTURES BUT WON'T WEAR. Smoking Status: Never smoker Past Alcohol Use History: None Reported Additional Past Alcohol Use History / Comment(s): HX OF HEAVY ALCOHOL USE. Patient states he is a nonsmoker. He denies any street drug use. He no longer drinks any alcohol. He is retired from [employer]. Lives at [facility] Past Drug Use History: None Reported - Past Family History Father Family Medical History: Deep Vein Thrombosis (DVT), Myocardial Infarction ([place]) Additional Family Medical History / Comment(s): Father of DVT Mother Family Medical History: Cancer Additional Family Medical History / Comment(s): Mother of jaw bone cancer. Medications and Allergies Home Medications Medication Instructions Recorded Confirmed Type Warfarin [Coumadin] 2.5 mg PO HS 01/20/17 06/06/17 History Isosorbide Mononitrate ER [Imdur] 30 mg PO DAILY@1200 05/25/17 06/06/17 History Metoprolol Tartrate [Lopressor] 25 mg PO BID 05/25/17 06/06/17 History Allergies Allergy/AdvReac Type Severity Reaction Status Date / Time adhesive Allergy Rash/Hives Verified 06/01/17 23:13 Physical Exam Vitals: Vital Signs Temp Pulse Pulse Resp BP BP Pulse Ox 06/08/17 04:00 68 16 177/96 94 L 06/08/17 00:00 97.1 F L 63 16 135/73 99 06/07/17 20:00 97.0 F L 70 16 140/80 94 L 06/07/17 17:34 96 06/07/17 15:30 98.4 F 64 16 120/78 94 L 06/07/17 15:20 16 06/07/17 11:26 16 06/07/17 11:15 63 16 142/82 96 Intake and Output 06/07/17 06/08/17 06/08/17 22:59 06:59 14:59 Intake Total 479.982 602.346 180 Output Total 800 300 Balance 479.982 -197.654 -120 Intake: IV 60 200 Sodium Chloride 0.9% 1, 60 200 000 ml @ 20 mls/hr IV . Q24H [facility] Rx#:[id number] Intake, IV Titration 419.982 402.346 Amount Heparin Sodium,Porcine/ 419.982 402.346 D5w Pmx 25,000 unit In Dextrose/Water 1 500ml. bag @ 18 UNITS/KG/HR 37. 55 mls/hr IV .[id number] [facility] Rx#:[id number] Oral 180 Output: Urine 800 300 Other: Voiding Method Bedside Commode Bedside Commode Urinal Urinal Weight 98.2 kg Patient Weight 06/09/17 06:59 Weight 98.2 kg PHYSICAL EXAMINATION: HEENT: [Head is atraumatic, normocephalic. Pupils equal, round. Neck is supple. There is no elevated jugular venous pressure.] HEART EXAMINATION: [Heart S1, S2 normal. No murmur or gallop heard.] CHEST EXAMINATION:lungs reveal diminished air entry bilaterally. ABDOMEN: [ Soft, nontender. Bowel sounds are heard. No organomegaly noted]. EXTREMITIES:[ 1+ peripheral pulses with no evidence of peripheral edema and no calf tenderness noted]. NEUROLOGIC [patient is awake, alert and oriented -3.] . Results 06/08/17 05:21 06/08/17 05:21 Cardiac Enzymes 06/08/17 Range/Units 05:21 AST 34 (17-59) U/L Coagulation 06/07/17 06/07/17 06/08/17 Range/Units 14:41 22:24 05:21 PT 15.4 H (9.0-12.0) sec APTT 151.2 H* 57.3 H 89.2 H (22.0-30.0) sec CBC 06/08/17 Range/Units 05:21 WBC 6.7 (3.8-10.6) k/uL RBC 4.63 (4.30-5.90) m/uL Hgb 13.8 (13.0-17.5) gm/dL Hct 40.5 (39.0-53.0) % Plt Count 250 (150-450) k/uL Comprehensive Metabolic Panel 06/08/17 Range/Units 05:21 Sodium 140 (137-145) mmol/L Potassium 4.0 (3.5-5.1) mmol/L Chloride 110 H (98-107) mmol/L Carbon Dioxide 20 L (22-30) mmol/L BUN 14 (9-20) mg/dL Creatinine 1.02 (0.66-1.25) mg/dL Glucose 89 (74-99) mg/dL Calcium 8.6 (8.4-10.2) mg/dL AST 34 (17-59) U/L ALT 60 (21-72) U/L Alkaline Phosphatase 100 (38-126) U/L Total Protein 6.1 L (6.3-8.2) g/dL Albumin 3.1 L (3.5-5.0) g/dL Current Medications Generic Name Dose Route Start Last Admin Trade Name Luann PRN Reason Stop Dose Admin Acetaminophen 650 mg 06/06/17 15:31 06/08/17 07:06 Tylenol Tab PO 650 mg Q6HR PRN Administration Mild Pain or Fever > 100.5 Heparin Sodium (Porcine) 0 unit 06/07/17 08:58 06/07/17 09:34 Heparin IV 7,040 unit PER PROTOCOL PRN Administration Low PTT Protocol Heparin Sodium/Dextrose 25,000 500 mls @ 37.55 mls/hr 06/06/17 15:27 06:34 unit/ IV Solution IV 17 units/kg/hr .[id number] [facility] 35.47 mls/hr Protocol Titration 18 UNITS/KG/HR Sodium Chloride 1,000 mls @ 20 mls/hr 06/06/17 15:45 06/07/17 16:48 Saline 0.9% IV 20 mls/hr .Q24H [facility] Administration Isosorbide Mononitrate 30 mg 06/07/17 12:00 06/07/17 11:32 Imdur PO 30 mg DAILY@1200 [facility] Administration Metoprolol Tartrate 25 mg 06/06/17 21:00 06/08/17 08:40 Lopressor PO 25 mg BID [facility] Administration Miscellaneous Information 1 each 06/06/17 14:40 Rx Info: Iv Contrast Was Given MISCELLANE 06/08/17 14:40 DAILY PRN Per Protocol Naloxone HCl 0.2 mg 06/06/17 15:31 Narcan IV Q2M PRN Opioid Reversal Intake and Output 06/07/17 06/08/17 06/08/17 22:59 06:59 14:59 Intake Total 479.982 602.346 180 Output Total 800 300 Balance 479.982 -197.654 -120 Intake: IV 60 200 Sodium Chloride 0.9% 1, 60 200 000 ml @ 20 mls/hr IV . Q24H [facility] Rx#:[id number] Intake, IV Titration 419.982 402.346 Amount Heparin Sodium,Porcine/ 419.982 402.346 D5w Pmx 25,000 unit In Dextrose/Water 1 500ml. bag @ 18 UNITS/KG/HR 37. 55 mls/hr IV .[id number] [facility] Rx#:[id number] Oral 180 Output: Urine 800 300 Other: Voiding Method Bedside Commode Bedside Commode Urinal Urinal Weight 98.2 kg Patient Weight 06/09/17 06:59 Weight 98.2 kg 06/08/17 05:21 06/08/17 05:21 EKG Interpretations (text) EKG shows a normal sinus rhythm with no acute changes. Assessment and Plan Plan: Assessment and plan #1 syncope, evidence of bilateral pulmonary embolism on CAT scan. Positive for DVT in the left leg. #2 nonsustained ventricular tachycardia, magnesium level I.7. #3 known history of coronary artery disease with prior bypass surgery and stent placements.most recent echo was in January of this year which revealed an ejection fraction of 50-55%. #4 hypertension #5 hyperlipidemia #6 COPD #7 prior CVA #8 paroxysmal atrial fibrillation #9 nonsustained ventricular tachycardia Plan We will repeat an echocardiogram with Doppler study. Replace patient's magnesium. Increase dose of beta kush. PE management as per pulmonary.Further recommendations to follow. DNP note has been reviewed, I agree with a documented findings and plan of care. Patient was seen and examined.
--- NOTE | 2017-06-08 11:23 | P.CRDCN ---
History of Present Illness History of present illness: Patient interviewed and examined Admitted with a syncopal spell Noted to have bilateral lower lobe pulmonary emboli by CT DVT, fresh INR subtherapeutic He takes Coumadin because of atrial fibrillation Last LV function was normal in January Currently consulted on account of nonsustained ventricular tachycardia, slow VT 122 beats a minute appears to be a right bundle branch block morphology with a superior axis Known coronary artery disease Plan Pulmonary exam was a management per primary care team and pulmonology Increase beta blockers Magnesium IV Past Medical History Past Medical History: Atrial Fibrillation, Coronary Artery Disease (CAD), Chest Pain / Angina, Heart Failure, COPD, CVA/TIA, Dementia, GERD/Reflux, GI Bleed, Hyperlipidemia, Hypertension, Liver Disease, Memory Impairment, Myocardial Infarction ([place]), Renal Disease, Skin Disorder, Sleep Apnea/CPAP/BIPAP, Syncope Additional Past Medical History / Comment(s): coronary artery disease with multivessel involvement status post three-vessel bypass surgery, PCI/stents, previous myocardial infarctions, previous paroxysmal atrial fibrillation, CVA in 2012 (L sided weakness), along with previous TIAs, nephrolithiasis, degenerative arthritis, chronic back pain, hemorrhoids, 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 diff colitis occurred postoperatively forced the patient was hospitalized in June 2015. Last Myocardial Infarction Date:: 2014 History of Any Multi-Drug Resistant Organisms: MRSA Date of last positivie culture/infection: 02-02-12 MDRO Source:: Unknown Past Surgical History: Back Surgery, Coronary Bypass/CABG, Heart Catheterization , Heart Catheterization With Stent, Orthopedic Surgery Additional Past Surgical History / Comment(s): BILATERAL CAROTID ENDARTERECTOMIES, HX OF PREVIOUS HEART CATHS WITH STENTS AND LAST STENT 03/2015 , EGD X3, ESOPHAGEAL DILATION X5, PLASTIC CAP LEFT ELBOW, URETHRAL STRICTURE DILATION., CABG (3 V), colonoscopy Past Anesthesia/Blood Transfusion Reactions: No Reported Reaction Additional Past Anesthesia/Blood Transfusion Reaction / Comment(s): Pt states he has no problem with anesthesia, old medical records indicate post op muscle weakness and slow to wake up. Pt has never recieved blood to his knowledge. Date of Last Stent Placement:: 03/22/2015 Past Psychological History: Anxiety, Depression Additional Psychological History / Comment(s): Lives @ [facility] He ambulates with straight cane. He has sleep apnea and does not tolerate CPAP so on occasion he uses his 's home O2. He is independent with his ADLs. He has a back brace he wears on occasion. HAS HEARING AIDS AND DENTURES BUT WON'T WEAR. Smoking Status: Never smoker Past Alcohol Use History: None Reported Additional Past Alcohol Use History / Comment(s): HX OF HEAVY ALCOHOL USE. Patient states he is a nonsmoker. He denies any street drug use. He no longer drinks any alcohol. He is retired from [employer]. Lives at [facility] Past Drug Use History: None Reported - Past Family History Father Family Medical History: Deep Vein Thrombosis (DVT), Myocardial Infarction ([place]) Additional Family Medical History / Comment(s): Father of DVT Mother Family Medical History: Cancer Additional Family Medical History / Comment(s): Mother of jaw bone cancer. Medications and Allergies Home Medications Medication Instructions Recorded Confirmed Type Warfarin [Coumadin] 2.5 mg PO HS 01/20/17 06/06/17 History Isosorbide Mononitrate ER [Imdur] 30 mg PO DAILY@1200 05/25/17 06/06/17 History Metoprolol Tartrate [Lopressor] 25 mg PO BID 05/25/17 06/06/17 History Allergies Allergy/AdvReac Type Severity Reaction Status Date / Time adhesive Allergy Rash/Hives Verified 06/01/17 23:13 Physical Exam Vitals: Vital Signs Temp Pulse Pulse Resp BP BP Pulse Ox 06/08/17 04:00 68 16 177/96 94 L 06/08/17 00:00 97.1 F L 63 16 135/73 99 06/07/17 20:00 97.0 F L 70 16 140/80 94 L 06/07/17 17:34 96 06/07/17 15:30 98.4 F 64 16 120/78 94 L 06/07/17 15:20 16 06/07/17 11:26 16 Intake and Output 06/07/17 06/08/17 06/08/17 22:59 06:59 14:59 Intake Total 479.982 602.346 180 Output Total 800 300 Balance 479.982 -197.654 -120 Intake: IV 60 200 Sodium Chloride 0.9% 1, 60 200 000 ml @ 20 mls/hr IV . Q24H [facility] Rx#:[id number] Intake, IV Titration 419.982 402.346 Amount Heparin Sodium,Porcine/ 419.982 402.346 D5w Pmx 25,000 unit In Dextrose/Water 1 500ml. bag @ 18 UNITS/KG/HR 37. 55 mls/hr IV .[id number] [facility] Rx#:[id number] Oral 180 Output: Urine 800 300 Other: Voiding Method Bedside Commode Bedside Commode Urinal Urinal Weight 98.2 kg Patient Weight 06/09/17 06:59 Weight 98.2 kg Results 06/08/17 05:21 06/08/17 05:21 Cardiac Enzymes 06/08/17 Range/Units 05:21 AST 34 (17-59) U/L Coagulation 06/07/17 06/07/17 06/08/17 Range/Units 14:41 22:24 05:21 PT 15.4 H (9.0-12.0) sec APTT 151.2 H* 57.3 H 89.2 H (22.0-30.0) sec CBC 06/08/17 Range/Units 05:21 WBC 6.7 (3.8-10.6) k/uL RBC 4.63 (4.30-5.90) m/uL Hgb 13.8 (13.0-17.5) gm/dL Hct 40.5 (39.0-53.0) % Plt Count 250 (150-450) k/uL Comprehensive Metabolic Panel 06/08/17 Range/Units 05:21 Sodium 140 (137-145) mmol/L Potassium 4.0 (3.5-5.1) mmol/L Chloride 110 H (98-107) mmol/L Carbon Dioxide 20 L (22-30) mmol/L BUN 14 (9-20) mg/dL Creatinine 1.02 (0.66-1.25) mg/dL Glucose 89 (74-99) mg/dL Calcium 8.6 (8.4-10.2) mg/dL AST 34 (17-59) U/L ALT 60 (21-72) U/L Alkaline Phosphatase 100 (38-126) U/L Total Protein 6.1 L (6.3-8.2) g/dL Albumin 3.1 L (3.5-5.0) g/dL Current Medications Generic Name Dose Route Start Last Admin Trade Name Luann PRN Reason Stop Dose Admin Acetaminophen 650 mg 06/06/17 15:31 06/08/17 07:06 Tylenol Tab PO 650 mg Q6HR PRN Administration Mild Pain or Fever > 100.5 Heparin Sodium (Porcine) 0 unit 06/07/17 08:58 06/07/17 09:34 Heparin IV 7,040 unit PER PROTOCOL PRN Administration Low PTT Protocol Heparin Sodium/Dextrose 25,000 500 mls @ 37.55 mls/hr 06/06/17 15:27 06:34 unit/ IV Solution IV 17 units/kg/hr .[id number] [facility] 35.47 mls/hr Protocol Titration 18 UNITS/KG/HR Sodium Chloride 1,000 mls @ 20 mls/hr 06/06/17 15:45 06/07/17 16:48 Saline 0.9% IV 20 mls/hr .Q24H [facility] Administration Isosorbide Mononitrate 30 mg 06/07/17 12:00 06/07/17 11:32 Imdur PO 30 mg DAILY@1200 [facility] Administration Metoprolol Tartrate 50 mg 06/08/17 11:30 Lopressor PO BID [facility] Miscellaneous Information 1 each 06/06/17 14:40 Rx Info: Iv Contrast Was Given MISCELLANE 06/08/17 14:40 DAILY PRN Per Protocol Naloxone HCl 0.2 mg 06/06/17 15:31 Narcan IV Q2M PRN Opioid Reversal Intake and Output 06/07/17 06/08/17 06/08/17 22:59 06:59 14:59 Intake Total 479.982 602.346 180 Output Total 800 300 Balance 479.982 -197.654 -120 Intake: IV 60 200 Sodium Chloride 0.9% 1, 60 200 000 ml @ 20 mls/hr IV . Q24H [facility] Rx#:[id number] Intake, IV Titration 419.982 402.346 Amount Heparin Sodium,Porcine/ 419.982 402.346 D5w Pmx 25,000 unit In Dextrose/Water 1 500ml. bag @ 18 UNITS/KG/HR 37. 55 mls/hr IV .[id number] [facility] Rx#:[id number] Oral 180 Output: Urine 800 300 Other: Voiding Method Bedside Commode Bedside Commode Urinal Urinal Weight 98.2 kg Patient Weight 06/09/17 06:59 Weight 98.2 kg 06/08/17 05:21 06/08/17 05:21
[2017-06-08] MEDS: HEPARIN SODIUM,PORCINE/D5W PMX 25,000 UNIT in DEXTROSE/WATER 1 500ML.BAG IV SCH ×2 (16:05→20:03)
[2017-06-08] MEDS: METOPROLOL TARTRATE 50 MG TAB PO SCH ×2 (16:07→20:03)
[2017-06-08] MEDS: ISOSORBIDE MONONITRATE ER 30 MG TAB.ER.24H PO SCH (16:07)
[2017-06-08] MEDS: SODIUM CHLORIDE 0.9% 1,000 ML IV SCH (16:07)
[2017-06-08] MEDS: WARFARIN 5 MG TAB PO SCH (23:11)
[2017-06-09 06:27] LABS: INR 1.6 (<1.2); Partial Thromboplastin Time 58.5 sec (22.0-30.0); Prothrombin Time 15.6 sec (9.0-12.0)
--- NOTE | 2017-06-09 10:21 | CONS ---
DATE OF SERVICE: 06/08/2017 PURPOSE OF CONSULTATION: Evaluate for mood related issues. INTERVAL HISTORY: The patient was seen by Dr. Lee on Thursday. He noted that the patient was not showing any evidence of depression, psychosis or other significant psychiatric issues. He indicated there was no reason to start the patient on any psychiatric medication though suggested he be monitored for agitation, mood difficulties or thought disorder. When I saw the patient today he was doing well. He denied any problems with mood. He felt comfortable in his treatment and surroundings. He has been appropriate in his behavior. Nursing staff reported no difficulties in mood, thoughts or behaviors. He sleeps well at night. He generally has a positive mood. He has not shown signs of distress. When I saw the patient he was in bed. He gave good eye contact. He was a little slow in psychomotor activity. He answered questions appropriately. His thoughts were clear. He smiled. He was friendly. He did not appear to be anxious , depressed or distressed. ASSESSMENT: I will continue with recommendations as suggested by Dr. Lee. At this point it does not appear that there is a reason for continued psychiatric follow up. Should issues arise please reconsult for Psychiatry. PIPPA
[2017-06-09] MEDS: METOPROLOL TARTRATE 50 MG TAB PO SCH ×2 (10:57→19:58)
[2017-06-09] MEDS: HEPARIN SODIUM,PORCINE/D5W PMX 25,000 UNIT in DEXTROSE/WATER 1 500ML.BAG IV SCH (10:57)
--- NOTE | 2017-06-09 13:01 | P.PN ---
<Henrietta Amaro - Last Filed: 06/09/17 13:01> Progress Note - Text DATE OF SERVICE: 06/08/2017 PRESENTING COMPLAINT: Syncope INTERVAL HISTORY: 72-year-old gentleman who currently [facility], presented after a syncopal episode. As part of his workup patient was found to have an elevated d-dimer with no history of DVT however was found to have left lower extremity DVT, . This extends from the left common femoral vein, femoral vein, popliteal vein. Additionally patient was found to have multiple bilateral lower lobe pulmonary embolism on chest CT when compared with prior CT. psychiatry consulted with concerns for depression, suicidal ideation. 06/08/2017: Patient appears comfortable, tolerating his diet, last BM today. Patient ambulatory within the room. toy stuffer revealed a run of nonsustained ventricular tachycardia overnight. Cardiology consulted Echo with Doppler pending. REVIEW OF SYSTEMS: Done for constitutional ,cardiovascular, GI, pulmonary with relevant findings as above. CURRENT MEDICATIONS IV heparin, Imdur, Lopressor. PHYSICAL EXAM VITAL SIGNS: Temperature 97.6 pulse 67, respiratory rate 18, blood pressure 127/80, oxygen saturation 94% on room air. GENERAL APPEARANCE: Lying in bed, not in distress. EYES: Pupils equal. Conjunctiva normal. NECK: JVD not raised. Mass not palpable. RESPIRATORY: Respiratory effort normal. Lungs diminished with occasional coarse rhonchi to auscultation. CARDIOVASCULAR: First and second sounds normal. Trace edema. ABDOMEN: Soft. Liver and spleen not palpable. No tenderness. No mass palpable. PSYCHIATRY: Alert and oriented x2. Mood and affect calm and cooperative. INVESTIGATIONS: CBC unremarkable, chloride 110, carbon dioxide 20. ASSESSMENT: -Syncopal episode, possibly vasovagal -Acute pulmonary emboli, in a patient with no prior history. -Acute left common femoral vein, femoral vein, popliteal vein DVT in a patient with no prior history. -Coronary artery disease with history of coronary artery bypass. -COPD. -Alzheimer's dementia late onset type.- -Chronic just heart failure with EF between 40-60% secondary to underlying coronary artery disease. -GERD. -Hyperlipidemia -Primary osteoarthritis of multiple joints bilateral -Obstructive sleep apnea does not use a CPAP machine. -Lumbar degenerative joint disease. -Chronic esophageal varices stricture with history of -Neurocognitive disorder, chronic -Depression not otherwise specified PLAN: Continue current anticoagulation plan with heparin pulmonology consulted. Psychiatry A no new recommendations for medication, does not find any evidence of depression, significant psychosis or criteria for inpatient psychiatric hospitalization. ENVIRONMENTAL SCIENCE TECHNICIAN statement: Patient was seen and examined by nurse practitioner Henrietta Amaro and all elements of the case discussed with attending Dr. Elmore <Brynat Elmoer - Last Filed: 06/09/17 21:21> Progress Note - Text Date of service 06/08/2017 Attending note: This patient was seen and examined by me. I discussed the case with my nurse practitioner Miss Amaro. Interval history: Patient admitted with acute DVT and PE. Previous better. Tolerating his diet. On examination: Lungs decreased breath sounds, cardiovascular first seconds are normal, psych- answering simple questions Investigations: Labs noted Assessment and plan: Acute DVT with pulmonary embolism. Continue IV heparin. Start Coumadin 5 mg daily. Follow INR closely. care discussed with the patient
--- NOTE | 2017-06-09 13:02 | P.CNPUL ---
History of Present Illness Consult date: 06/09/17 Requesting physician: Bryant Elmore Chief complaint: Dizziness, lightheadedness History of present illness: This is a pleasant 72-year-old gentleman who follows with Dr. Bull as his primary care physician. He has a history of chronic atrial fibrillation, coronary artery disease with previous 3 vessel bypass surgery and previous stent placements, previous CVA with left-sided weakness, congestive heart failure, hypertension, obstructive sleep apnea not maintained on CPAP in the outpatient setting. He presented here on 06/06/2017 with complaints of dizziness, lightheadedness and possible near syncopal episode. He has had nonsustained ventricular tachycardia. He was found to have bilateral lower lobe pulmonary emboli in the left lower extremity DVT. We're consulted for the same. He was initiated on IV heparin and subsequently started on warfarin. Current INR is 1.6. Presently, he is seen in consultation on the selective care unit. He is awake and alert in no acute distress. He denies any worsening shortness of breath, cough or congestion. No hemoptysis. He is maintaining good O2 saturations in the mid 90s on room air. He's been hemodynamically stable. Review of Systems 14 point review of system was conducted. All negative other than as mentioned in the HPI. Past Medical History Past Medical History: Atrial Fibrillation, Coronary Artery Disease (CAD), Chest Pain / Angina, Heart Failure, COPD, CVA/TIA, Dementia, GERD/Reflux, GI Bleed, Hyperlipidemia, Hypertension, Liver Disease, Memory Impairment, Myocardial Infarction ([place]), Renal Disease, Skin Disorder, Sleep Apnea/CPAP/BIPAP, Syncope Additional Past Medical History / Comment(s): coronary artery disease with multivessel involvement status post three-vessel bypass surgery, PCI/stents, previous myocardial infarctions, previous paroxysmal atrial fibrillation, CVA in 2012 (L sided weakness), along with previous TIAs, nephrolithiasis, degenerative arthritis, chronic back pain, hemorrhoids, 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 diff colitis occurred postoperatively forced the patient was hospitalized in June 2015. Last Myocardial Infarction Date:: 2014 History of Any Multi-Drug Resistant Organisms: MRSA Date of last positivie culture/infection: 02-02-12 MDRO Source:: Unknown Past Surgical History: Back Surgery, Coronary Bypass/CABG, Heart Catheterization , Heart Catheterization With Stent, Orthopedic Surgery Additional Past Surgical History / Comment(s): BILATERAL CAROTID ENDARTERECTOMIES, HX OF PREVIOUS HEART CATHS WITH STENTS AND LAST STENT 03/2015 , EGD X3, ESOPHAGEAL DILATION X5, PLASTIC CAP LEFT ELBOW, URETHRAL STRICTURE DILATION., CABG (3 V), colonoscopy Past Anesthesia/Blood Transfusion Reactions: No Reported Reaction Additional Past Anesthesia/Blood Transfusion Reaction / Comment(s): Pt states he has no problem with anesthesia, old medical records indicate post op muscle weakness and slow to wake up. Pt has never recieved blood to his knowledge. Date of Last Stent Placement:: 03/22/2015 Past Psychological History: Anxiety, Depression Additional Psychological History / Comment(s): Lives @ [facility] He ambulates with straight cane. He has sleep apnea and does not tolerate CPAP so on occasion he uses his 's home O2. He is independent with his ADLs. He has a back brace he wears on occasion. HAS HEARING AIDS AND DENTURES BUT WON'T WEAR. Smoking Status: Never smoker Past Alcohol Use History: None Reported Additional Past Alcohol Use History / Comment(s): HX OF HEAVY ALCOHOL USE. Patient states he is a nonsmoker. He denies any street drug use. He no longer drinks any alcohol. He is retired from [employer] Lives at [facility] Past Drug Use History: None Reported - Past Family History Father Family Medical History: Deep Vein Thrombosis (DVT), Myocardial Infarction ([place]) Additional Family Medical History / Comment(s): Father of DVT Mother Family Medical History: Cancer Additional Family Medical History / Comment(s): Mother of jaw bone cancer. Medications and Allergies Home Medications Medication Instructions Recorded Confirmed Type Warfarin [Coumadin] 2.5 mg PO HS 01/20/17 06/06/17 History Isosorbide Mononitrate ER [Imdur] 30 mg PO DAILY@1200 05/25/17 06/06/17 History Metoprolol Tartrate [Lopressor] 25 mg PO BID 05/25/17 06/06/17 History Allergies Allergy/AdvReac Type Severity Reaction Status Date / Time adhesive Allergy Rash/Hives Verified 06/01/17 23:13 Physical Exam Vitals: Vital Signs Temp Pulse Pulse Resp BP BP Pulse Ox 06/09/17 08:00 66 18 154/57 94 L 06/09/17 04:00 55 L 16 137/78 95 06/09/17 00:00 67 16 110/58 92 L 06/08/17 20:00 99.1 F 67 18 134/77 93 L 06/08/17 16:41 95 06/08/17 16:20 97.8 F 62 16 156/88 95 Intake and Output 06/08/17 06/09/17 06/09/17 22:59 06:59 14:59 Intake Total 240 506.032 593.968 Output Total 450 Balance -210 506.032 593.968 Intake: IV 120 120 Sodium Chloride 0.9% 1, 120 120 000 ml @ 20 mls/hr IV . Q24H RAHEL Rx#:[id number] Intake, IV Titration 386.032 113.968 Amount Heparin Sodium,Porcine/ 386.032 113.968 D5w Pmx 25,000 unit In Dextrose/Water 1 500ml. bag @ 18 UNITS/KG/HR 37. 55 mls/hr IV .[id number] RAHEL Rx#:[id number] Oral 240 360 Output: Urine 450 Other: Voiding Method Bedside Commode Bedside Commode Urinal Urinal Weight 99.1 kg GENERAL EXAM: Alert, active, comfortable in no apparent distress. HEAD: Normocephalic. EYES: Normal reaction of pupils, equal size. NOSE: Clear with pink turbinates. THROAT: No erythema or exudates. NECK: No masses, no JVD. CHEST: No chest wall deformity. LUNGS: Equal air entry with crackles in the posterior base. Diminished. CVS: S1 and S2 normal with no audible mumurs, irregular rhythm. ABDOMEN: No hepatosplenomegaly, normal bowel sounds, no guarding or rigidity. SPINE: No scoliosis or deformity SKIN: No rashes CENTRAL NERVOUS SYSTEM: No focal deficits, tone is normal in all 4 extremities. Extremities: There is no significant peripheral edema. No clubbing, no cyanosis. Peripheral pulses are intact. Results - Laboratory Findings CBC and BMP: 06/08/17 05:21 06/08/17 05:21 PT/INR, D-dimer PT 15.6 sec (9.0-12.0) H 06/09/17 05:59 INR 1.6 (<1.2) H 06/09/17 05:59 D-Dimer 4.63 mg/L FEU (<0.60) H 06/06/17 13:10 Abnormal lab findings: Abnormal Labs 06/06/17 06/06/17 06/06/17 13:10 13:10 13:30 PT INR APTT D-Dimer 4.63 H Chloride 108 H Carbon Dioxide 20 L Total Protein Albumin 3.4 L Urine Protein Trace H 06/06/17 06/07/17 06/07/17 21:49 05:45 14:41 PT INR APTT 56.8 H 34.1 H 151.2 H* D-Dimer Chloride Carbon Dioxide Total Protein Albumin Urine Protein 06/07/17 06/08/17 06/08/17 22:24 05:21 05:21 PT 15.4 H INR 1.6 H APTT 57.3 H 89.2 H D-Dimer Chloride 110 H Carbon Dioxide 20 L Total Protein 6.1 L Albumin 3.1 L Urine Protein 06/08/17 06/09/17 13:16 05:59 PT 15.6 H INR 1.6 H APTT 65.9 H 58.5 H D-Dimer Chloride Carbon Dioxide Total Protein Albumin Urine Protein - Diagnostic Findings Chest x-ray: image reviewed CT scan - chest: image reviewed Assessment and Plan Plan: Impression: #1 Syncope suspect secondary to pulmonary emboli, atrial fibrillation with rapid ventricular response, nonsustained ventricular tachycardia. #2 Bilateral pulmonary emboli/left lower extremity DVT, initiated on warfarin area #3 Atrial fibrillation with varying ventricular response. #4 Nonsustained ventricular tachycardia. #5 Coronary artery disease with previous coronary artery bypass grafting and stent placements. #6 Congestive heart failure. #7 History of CVA. #8 Obstructive sleep apnea not utilizing CPAP in the outpatient setting. #9 History of carotid stenosis with previous bilateral carotid endarterectomies. #10 History of anxiety/depression. Plan: The patient was seen and evaluated by Dr. Cobb. His chest x-ray, CT angiogram and labs were all reviewed. We'll continue with anticoagulation the form of warfarin. Current INR 1.6. He'll remain on heparin until therapeutic. Cardiology is on the case regarding the syncope, atrial fibrillation and nonsustained ventricular tachycardia. We will increase his activity as tolerated. We will continue to follow. Time with Patient: Greater than 30
--- NOTE | 2017-06-09 13:14 | P.PN ---
<Henrietta Amaro - Last Filed: 06/09/17 13:02> Progress Note - Text DATE OF SERVICE: 06/09/2017 PRESENTING COMPLAINT: Syncope INTERVAL HISTORY: 72-year-old gentleman who currently resides in a intermediate house, presented after a syncopal episode. As part of his workup patient was found to have an elevated d-dimer with no history of DVT however was found to have left lower extremity DVT, . This extends from the left common femoral vein, femoral vein, popliteal vein. Additionally patient was found to have multiple bilateral lower lobe pulmonary embolism on chest CT when compared with prior CT. psychiatry consulted with concerns for depression, suicidal ideation. 06/09/2017: No acute overnight events. Appears comfortable, tolerating his diet eating 75- 100%, last BM today. Ambulatory in the room. Heparin continues to infuse, along with daily warfarin dosing current INR 1.6. 06/08/2017: Patient appears comfortable, tolerating his diet, last BM today. Patient ambulatory within the room. environmental education specialist revealed a run of nonsustained ventricular tachycardia overnight. Cardiology consulted Echo with Doppler pending. REVIEW OF SYSTEMS: Done for constitutional ,cardiovascular, GI, pulmonary with relevant findings as above. CURRENT MEDICATIONS IV heparin, Imdur, Lopressor. Warfarin PHYSICAL EXAM VITAL SIGNS: Temperature 99.1, pulse 55, respiratory rate 16, blood pressure 137/78, oxygen saturation 95% on room air. GENERAL APPEARANCE: Lying in bed, not in distress. EYES: Pupils equal. Conjunctiva normal. NECK: JVD not raised. Mass not palpable. RESPIRATORY: Respiratory effort normal. Lungs diminished with occasional coarse rhonchi to auscultation. CARDIOVASCULAR: First and second sounds normal. Trace edema. ABDOMEN: Soft. Liver and spleen not palpable. No tenderness. No mass palpable. PSYCHIATRY: Alert and oriented x2. Mood and affect calm and cooperative. INVESTIGATIONS: INR 1.6 ASSESSMENT: -Syncopal episode, possibly vasovagal, no further episodes -Acute pulmonary emboli, in a patient with no prior history. -Acute left common femoral vein, femoral vein, popliteal vein DVT in a patient with no prior history. -Coronary artery disease with history of coronary artery bypass and stent placement -COPD. -Alzheimer's dementia late onset type.- -Congestive heart failure with EF between 40-60% secondary to underlying coronary artery disease. -GERD. -Hyperlipidemia -Primary osteoarthritis of multiple joints bilateral -Obstructive sleep apnea does not use a CPAP machine. -Lumbar degenerative joint disease. -Chronic esophageal varices stricture with history -Neurocognitive disorder, chronic -Depression not otherwise specified PLAN: Continue current anticoagulation plan with heparin bridged to Coumadin. Pulmonology consulted. Psychiatry no new recommendations for medication, does not find any evidence of depression, significant psychosis or criteria for inpatient psychiatric hospitalization. DEMAND PLANNING ANALYST statement: Patient was seen and examined by nurse practitioner Henrietta Amaro and all elements of the case discussed with attending Dr. Elmore <Bryant Elmore - Last Filed: 06/09/17 21:25> Progress Note - Text Date of service 06/09/2017 Attending note: Interval history: Patient admitted with acute DVT and PE. Breathing is stable. Has been out of bed. Didn't tolerate. On examination: Lungs-decreased breath sounds, cardiovascular first seconds are normal, psych- answering questions Assessment and plan: Acute DVT and PE. Continue with IV heparin and Coumadin. INR 1.6. Care discussed with the patient
[2017-06-09] MEDS: ISOSORBIDE MONONITRATE ER 30 MG TAB.ER.24H PO SCH (13:22)
[2017-06-09 14:57] VITALS: BMI 33.2
[2017-06-09] MEDS: WARFARIN 5 MG TAB PO SCH (17:52)
[2017-06-09] MEDS: SODIUM CHLORIDE 0.9% 1,000 ML IV SCH (17:53)
--- NOTE | 2017-06-09 18:59 | ECHOF ---
Referral Reason:formerly [facility], later [facility] MEASUREMENTS -------- HEIGHT: 172.7 cm WEIGHT: 98.0 kg BP: 177/96 RVIDd: 3.2 cm (< 3.3) IVSd: 1.5 cm (0.6 - 1.1) LVIDd: 4.5 cm (3.9 - 5.3) LVPWd: 1.3 cm (0.6 - 1.1) IVSs: 1.7 cm LVIDs: 2.9 cm LVPWs: 1.5 cm LA Diam: 5.3 cm (2.7 - 3.8) Ao Diam: 3.6 cm (2.0 - 3.7) AV Cusp: 2.1 cm (1.5 - 2.6) LA Diam: 5.4 cm (2.7 - 3.8) MV EXCURSION: 23.427 mm (> 18.000) MV EF SLOPE: 117 mm/s (70 - 150) EPSS: 0.7 cm MV E Desmond: 0.55 m/s MV DecT: 297 ms MV A Desmond: 0.71 m/s MV E/A Ratio: 0.78 RAP: 5.00 mmHg RVSP: 26.25 mmHg FINDINGS -------- Undetermined rhythm. This was a techncally difficult study with suboptimal views, , Definity utilized for enhancement of images. There is moderate concentric left ventricular hypertrophy. Overall left ventricular systolic function is mild-moderately impaired with, an EF between 40 - 45 %. Lateral hypokinesis Posterior hypokinesis The right ventricle is normal in size. The right atrial size is normal. 1.5MG OF DEFINITY UTLIZED: 2 OR MORE WALL SEGMENTS NOT VISUALIZED. There is mild aortic valve sclerosis. There is no evidence of aortic regurgitation. Mild mitral annular calcification present. Mild mitral regurgitation is present. Mild tricuspid regurgitation present. There is no evidence of pulmonary hypertension. The right ventricular systolic pressure, as measured by Doppler, is 26.25mmHg. There is no pulmonic regurgitation present. The aortic root size is normal. There is no pericardial effusion. CONCLUSIONS -------- 1. This was a techncally difficult study with suboptimal views, , Definity utilized for enhancement of images. 2. Mild tricuspid regurgitation present. 3. There is no evidence of pulmonary hypertension. 4. The right ventricular systolic pressure, as measured by Doppler, is 26.25mmHg. 5. There is moderate concentric left ventricular hypertrophy. 6. Overall left ventricular systolic function is mild-moderately impaired with, an EF between 40 - 45 %. 7. Lateral hypokinesis 8. Posterior hypokinesis 9. 1.5MG OF DEFINITY UTLIZED: 2 OR MORE WALL SEGMENTS NOT VISUALIZED. 10. There is mild aortic valve sclerosis. 11. Mild mitral annular calcification present. 12. Mild mitral regurgitation is present. SAP ADMINISTRATOR: Kanwal Santiago RDCS
[2017-06-09] MEDS: ACETAMINOPHEN TAB 325 MG TAB PO PRN (19:58)
[2017-06-10] MEDS: HEPARIN SODIUM,PORCINE/D5W PMX 25,000 UNIT in DEXTROSE/WATER 1 500ML.BAG IV SCH (01:11)
[2017-06-10 06:35] LABS: Basophils # (A) 0.1 k/uL (0-0.2); Basophils % (A) 1 %; CHCM 33.3; Eosinophils # (A) 0.3 k/uL (0-0.7); Eosinophils % (A) 4 %; HCT 42.7 % (39.0-53.0); HDW 3.19; HGB 14.4 gm/dL (13.0-17.5); Luc # (Auto) 0.37; Luc % (Auto) 4; Lymphocytes # (A) 2.9 k/uL (1.0-4.8); Lymphocytes % (A) 31 %; MCH 29.5 pg (25.0-35.0); MCHC 33.8 g/dL (31.0-37.0); MCV 87.3 fL (80.0-100.0); Mean Platelet Volume 6.9; Monocytes # (A) 0.5 k/uL (0-1.0); Monocytes % (A) 6 %; Neutrophils # (A) 5.1 k/uL (1.3-7.7); Neutrophils % (A) 56 %; RBC 4.88 m/uL (4.30-5.90); RDW 14.2 % (11.5-15.5); WBC 9.3 k/uL (3.8-10.6); WBC (Perox) 8.44
[2017-06-10 06:48] LABS: Partial Thromboplastin Time 81.6 sec (22.0-30.0); Prothrombin Time 18.9 sec (9.0-12.0)
[2017-06-10] MEDS: METOPROLOL TARTRATE 50 MG TAB PO SCH (08:11)
[2017-06-10] MEDS: ISOSORBIDE MONONITRATE ER 30 MG TAB.ER.24H PO SCH (08:11)
[2017-06-10 08:15] VITALS: RESP 16; TEMP 97.9
[2017-06-10 09:00] LABS: Anion Gap 11 mmol/L; Blood Urea Nitrogen 19 mg/dL (9-20); Calcium 9.6 mg/dL (8.4-10.2); Carbon Dioxide 23 mmol/L (22-30); Chloride 108 mmol/L (98-107); Glucose 88 mg/dL (74-99); Non-African American GFR(MDRD) >60 (>60 ml/min/1.73 sqM); Potassium 4.6 mmol/L (3.5-5.1); Sodium 142 mmol/L (137-145)
[2017-06-10] MEDS ORDERED: ENOXAPARIN 150 MG/ML SYRINGE SQ STA (11:25)
[2017-06-10 12:53] VITALS: BP 132/83; PULSE 54
--- NOTE | 2017-06-10 14:22 | P.PN ---
Subjective Progress note dated 06/10/2017 72-year-old male seen yesterday. Follows with Dr. Willis as his primary care physician. Has a history of chronic atrial fibrillation CAD previous three- vessel bypass grafting previous stent placement CVA left-sided weakness CHF hypertension sleep apnea syndrome maintained on CPAP. He presented to the hospital on June 06 with complaints of dizziness lightheadedness and possible near syncope. He was found to have nonsustained ventricular tachycardia. Further workup from bilateral lower lobe pulmonary emboli and a left lower shimmy DVT. We're consulted for the same. We saw him he was resting comfortably. Not in any supplemental oxygen. His INR was 1.6. He was on IV heparin had been started on Coumadin. The patient seemed be doing better today. Much less short of breath. Really wasn't short of breath yesterday either. States he may be discharged home in the next day or so. Objective - Vital Signs Vital signs: Vital Signs Temp 97.9 F 06/10/17 08:00 Pulse 54 L 06/10/17 12:00 Resp 16 06/10/17 12:00 BP 132/83 06/10/17 12:00 Pulse Ox 94 L 06/10/17 12:00 Intake & Output 06/09/17 06/10/17 06/10/17 18:59 06:59 18:59 Intake Total 1698.968 580 120 Output Total 400 Balance 1298.968 580 120 Weight 99.1 kg 97.9 kg Intake: IV 505 80 Sodium Chloride 0.9% 1, 260 80 000 ml @ 20 mls/hr IV . Q24H RAHEL Rx#:[id number] heparin 245 Intake, IV Titration 113.968 500 Amount Heparin Sodium,Porcine/ 113.968 500 D5w Pmx 25,000 unit In Dextrose/Water 1 500ml. bag @ 18 UNITS/KG/HR 37. 55 mls/hr IV .[id number] RAHEL Rx#:[id number] Oral 1080 120 Output: Urine 400 Other: Voiding Method Bedside Commode Urinal # Voids 2 2 # Bowel Movements 2 - Exam No acute distress, oriented 3. HEENT examination is grossly unremarkable. Mucous membranes are moist. Supple. Full range of motion. No adenopathy or thyromegaly. Neck veins are flat. Cardiovascular examination reveals regular rhythm rate. No S3-S4 or murmur. Lungs reveal mostly clear breath sounds. No wheezes. No crackles. Abdomen soft bowel sounds are heard. Extremities are intact. No cyanosis clubbing or edema. Skin without rash. Neurologic examination is nonfocal. - Labs CBC & Chem 7: 06/10/17 06:14 06/10/17 06:14 Labs: Abnormal Lab Results - Last 24 Hours (Table) 06/10/17 06/10/17 Range/Units 06:14 06:14 PT 18.9 H (9.0-12.0) sec INR 2.0 H (<1.2) APTT 81.6 H (22.0-30.0) sec Chloride 108 H (98-107) mmol/L Assessment and Plan (1) Deep vein thrombosis, lower left extremity Status: Acute (2) Pulmonary embolism on left Status: Acute (3) Pulmonary embolism on right Status: Acute (4) Acute exacerbation of chronic obstructive airways disease Status: Acute (5) CAD (coronary artery disease) Status: Acute (6) CVA (cerebral infarction) Status: Acute (7) Congestive heart failure Status: Acute (8) ETOHism Status: Acute (9) Elevated troponin Status: Acute (10) Major depressive disorder, recurrent Status: Acute (11) STEMI (ST elevation myocardial infarction) Status: Acute (12) Syncope Status: Acute (13) Weakness Status: Acute Plan: Plan dated 06/10/2017 The patient continues to get better. We'll follow closely. Waiting for his INR to be between 2 and 3. No respiratory issues at this time. His cardiac situation is seemed to settle down. Possible discharge in next 24-48 hours. Time with Patient: Less than 30
--- NOTE | 2017-06-10 15:20 | P.DS ---
<Henrietta Amaro Poornima - Last Filed: 06/10/17 14:57> Providers Date of admission: 06/06/17 15:31 Expected date of discharge: 06/10/17 Attending physician: Bryant Elmore Consults: 06/06/17 17:16 Consult Physician Routine Consulting Provider: Gerald Lee Consult Reason/Comments: SI and depression without a plan Do you want consulting provider notified?: Yes 06/06/17 17:20 Consult Physician Routine Consulting Provider: Jose Callahan Consult Reason/Comments: SI and depression without a plan Do you want consulting provider notified?: Yes 06/08/17 07:41 Consult Physician Routine Consulting Provider: Edda Moreno Consult Reason/Comments: run of vtach Do you want consulting provider notified?: Yes 06/08/17 15:47 Consult Physician Urgent Consulting Provider: Leno Bellamy Consult Reason/Comments: pulmonary embolus, bilateral Do you want consulting provider notified?: Yes Primary care physician: [facility] Hospital Course: FINAL DIAGNOSES:\ -Acute bilateral lower lobe pulmonary emboli, in a patient with no prior history. -Acute left common femoral vein, femoral vein, popliteal vein DVT in a patient with no prior history. -IV heparin monitoring -Coumadin monitoring -Syncopal episode, possibly vasovagal, no further episodes -Coronary artery disease with history of coronary artery bypass and stent placement -COPD. -Alzheimer's dementia late onset type.- -Congestive heart failure with EF between 40-60% secondary to underlying coronary artery disease. -GERD. -Hyperlipidemia -Primary osteoarthritis of multiple joints bilateral -Obstructive sleep apnea does not use a CPAP machine. -Chronic Lumbar degenerative joint disease. -Chronic esophageal stricture -Neurocognitive disorder, chronic -Depression not otherwise specified HOSPTIAL COURSE: 72-year-old male presented after a syncopal episode, diagnostics revealed d- dimer was 4.6, venous duplex evidence of acute DVT in the left femoral and left popliteal vein, computed tomography scan of the chest revealed multiple bilateral lower lobe pulmonary embolism new as compared with prior CT. Heparin drip initiated. Telemetry monitoring revealed nonsustained ventricular tachycardia, magnesium level I.7, received supplementation, no further episodes occurred. Patient has a history of depression psychiatry was consulted, no new medications or diagnoses resulted, nor were there any evidence of psychoses. Heparin monitoring, for DVT and PE, Coumadin initiated in preparation for discharge, patient ambulatory in the room, tolerating his diet, last BM 2016. INR today 2.0 which is therapeutic. Patient is ready for discharge. CONSULTANTS: Dr. Leno Bellamy from pulmonary Dr. Gerald Lee from psychiatry Dr. Jose Callahan from psychiatry Dr. Ariana Moreno from cardiology PHYSICAL EXAM: CARDIOVASCULAR: First and second sounds noted no edema. RESPIRATORY: Decreased breath sounds, respiratory effort normal PSYCHIATRY: Answer simple straightforward questions Patient was seen and examined by nurse practitioner Henrietta Amaro in all elements of the case discussed with attending Dr. Elmore DISPOSITION: Return to [facility], [facility]. Patient Condition at Discharge: Stable Plan - Discharge Summary New Discharge Prescriptions: New Metoprolol Tartrate [Lopressor] 50 mg PO BID #60 tab Warfarin [Coumadin] 5 mg PO DAILY@1800 #30 tab Continue Isosorbide Mononitrate ER [Imdur] 30 mg PO DAILY@1200 Discontinued Warfarin [Coumadin] 2.5 mg PO HS Metoprolol Tartrate [Lopressor] 25 mg PO BID Discharge Medication List Isosorbide Mononitrate ER [Imdur] 30 mg PO DAILY@1200 05/25/17 [History] Metoprolol Tartrate [Lopressor] 50 mg PO BID #60 tab 06/10/17 [Rx] Warfarin [Coumadin] 5 mg PO DAILY@1800 #30 tab 06/10/17 [Rx] Follow up Appointment(s)/Referral(s): Reed Bull MD [Primary Care Provider] - 06/12/17 10:00 am Ambulatory/Diagnostic Orders: Prothrombin Time INR [LAB.AMB] Time Frame: 3 Days, Location: Determined By Patient Discharge Disposition: DC/[facility]OSPECTING/[facility]/ [facility] <Bryant Elmore - Last Filed: 06/10/17 23:07> Hospital Course: Attending note. Date of service-06/10/2017 This patient was seen and examined by me . I reviewed the note of my nurse practitioner, Ms. Amaro. Discussed with her, additional findings as below. Feeling better. Stable breathing stable. Up to the bathroom. On examination: Lungs-decreased breath sounds, cardiovascular-first seconds are normal, psych- A0 3 Investigations: INR 2.1 Assessment and plan: Acute PE and DVT. Will DC on 5 mg of Coumadin. Will get 1 dose of Lovenox 150 mg daily. Care discussed with the patient
== END 2017-06-10 14:56 | disposition home or self-care (01) | DRG 299 ==
LOC: EC 12:53 → 6SEL 15:31
PROVIDERS: ADMIT Hospitalist; ATTEND Hospitalist
DX: I82.412 Acute embolism and thrombosis of left femoral vein (principal); I26.99 Other pulmonary embolism without acute cor pulmonale; I47.2 Ventricular tachycardia; I50.32 Chronic diastolic (congestive) heart failure; J44.1 Chronic obstructive pulmonary disease with (acute) exacerbation; I11.0 Hypertensive heart disease with heart failure; K22.2 Esophageal obstruction; I69.354 Hemiplegia and hemiparesis following cerebral infarction affecting left non-dominant side; F33.9 Major depressive disorder, recurrent, unspecified; J98.11 Atelectasis; I82.432 Acute embolism and thrombosis of left popliteal vein; I48.0 Paroxysmal atrial fibrillation; G30.1 Alzheimer's disease with late onset; I25.10 Atherosclerotic heart disease of native coronary artery without angina pectoris; K21.9 Gastro-esophageal reflux disease without esophagitis; E78.5 Hyperlipidemia, unspecified; I25.2 Old myocardial infarction; G47.33 Obstructive sleep apnea (adult) (pediatric); F02.80 Dementia in other diseases classified elsewhere, unspecified severity, without behavioral disturbance, psychotic disturbance, mood disturbance, and anxiety; M19.91 Primary osteoarthritis, unspecified site; M47.816 Spondylosis without myelopathy or radiculopathy, lumbar region; F10.20 Alcohol dependence, uncomplicated; F41.9 Anxiety disorder, unspecified; G89.29 Other chronic pain; K76.9 Liver disease, unspecified; Z79.01 Long term (current) use of anticoagulants; Z79.899 Other long term (current) drug therapy; Z86.14 Personal history of Methicillin resistant Staphylococcus aureus infection; Z87.442 Personal history of urinary calculi; Z95.1 Presence of aortocoronary bypass graft; Z95.5 Presence of coronary angioplasty implant and graft; Z91.048 Other nonmedicinal substance allergy status
CPT/HCPCS: 36415; 71020; 71275; 80048; 80053; 81003; 82550; 82553; 83735; 84484; 85025; 85379; 85610; 85730; 93005; 93306; 94760; 96361; 96365; 96376; 99291

== ENCOUNTER 2017-06-15 16:57 | Emergency (ER) | payer MEDICARE ==
[2017-06-15] MEDS ORDERED: SODIUM CHLORIDE 0.9% 500 ML IV STA (17:06)
--- NOTE | 2017-06-15 17:14 | ED ---
Abdominal Pain HPI - General Chief Complaint: Abdominal Pain Stated Complaint: Abd Pain Time Seen by Provider: 06/15/17 17:03 Source: patient, police, EMS, RN notes reviewed Mode of arrival: EMS Limitations: no limitations - History of Present Illness Initial Comments: This a 72-year-old male presents emergency department via EMS from Court for abdominal pain. Patient states he has had abdominal pain on the right side which is ongoing but states it's worse today. Patient denies any nausea, vomiting diarrhea constipation. Denies any fevers or chills. He's had no prior abdominal surgeries. He states he does know that he has a hernia. Patient denies any dysuria or hematuria. Patient states that he was sentenced to 3 years in nursing home today. Patient has no chest pain or shortness of breath. Patient states he has taken his Coumadin as directed for his pulmonary embolism. - Related Data Home Medications Medication Instructions Recorded Confirmed Isosorbide Mononitrate ER [Imdur] 30 mg PO DAILY@1200 05/25/17 06/15/17 Previous Rx's Medication Instructions Recorded Metoprolol Tartrate [Lopressor] 50 mg PO BID #60 tab 06/10/17 Warfarin [Coumadin] 5 mg PO DAILY@1800 #30 tab 06/10/17 Allergies Allergy/AdvReac Type Severity Reaction Status Date / Time adhesive Allergy Rash/Hives Verified 06/15/17 17:15 Review of Systems ROS Statement: Those systems with pertinent positive or pertinent negative responses have been documented in the HPI. ROS Other: All systems not noted in ROS Statement are negative. Past Medical History Past Medical History: Atrial Fibrillation, Coronary Artery Disease (CAD), Chest Pain / Angina, Heart Failure, COPD, CVA/TIA, Dementia, GERD/Reflux, GI Bleed, Hyperlipidemia, Hypertension, Liver Disease, Memory Impairment, Myocardial Infarction ([place]), Renal Disease, Skin Disorder, Sleep Apnea/CPAP/BIPAP, Syncope Additional Past Medical History / Comment(s): coronary artery disease with multivessel involvement status post three-vessel bypass surgery, PCI/stents, previous myocardial infarctions, previous paroxysmal atrial fibrillation, CVA in 2012 (L sided weakness), along with previous TIAs, nephrolithiasis, degenerative arthritis, chronic back pain, hemorrhoids, 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 diff colitis occurred postoperatively forced the patient was hospitalized in June 2015. Last Myocardial Infarction Date:: 2014 History of Any Multi-Drug Resistant Organisms: MRSA Date of last positivie culture/infection: 02-02-12 MDRO Source:: Unknown Past Surgical History: Back Surgery, Coronary Bypass/CABG, Heart Catheterization , Heart Catheterization With Stent, Orthopedic Surgery Additional Past Surgical History / Comment(s): BILATERAL CAROTID ENDARTERECTOMIES, HX OF PREVIOUS HEART CATHS WITH STENTS AND LAST STENT 03/2015 , EGD X3, ESOPHAGEAL DILATION X5, PLASTIC CAP LEFT ELBOW, URETHRAL STRICTURE DILATION., CABG (3 V), colonoscopy Past Anesthesia/Blood Transfusion Reactions: No Reported Reaction Additional Past Anesthesia/Blood Transfusion Reaction / Comment(s): Pt states he has no problem with anesthesia, old medical records indicate post op muscle weakness and slow to wake up. Pt has never recieved blood to his knowledge. Date of Last Stent Placement:: 03/22/2015 Past Psychological History: Anxiety, Depression Smoking Status: Never smoker Past Alcohol Use History: None Reported Past Drug Use History: None Reported - Past Family History Father Family Medical History: Deep Vein Thrombosis (DVT), Myocardial Infarction ([place]) Additional Family Medical History / Comment(s): Father of DVT Mother Family Medical History: Cancer Additional Family Medical History / Comment(s): Mother of jaw bone cancer. General Exam Limitations: no limitations General appearance: alert, in no apparent distress Head exam: Present: atraumatic, normocephalic, normal inspection Respiratory exam: Present: normal lung sounds bilaterally. Absent: respiratory distress, wheezes, rales, rhonchi, stridor Cardiovascular Exam: Present: regular rate, normal rhythm, normal heart sounds. Absent: systolic murmur, diastolic murmur, rubs, gallop, clicks GI/Abdominal exam: Present: soft, tenderness (Minimal right-sided.), normal bowel sounds, hernia (Umbilical reducible). Absent: distended, guarding, rebound, rigid Neurological exam: Present: alert, oriented X3, CN II-XII intact, reflexes normal. Absent: motor sensory deficit Skin exam: Present: warm, dry, intact, normal color. Absent: rash Course Vital Signs 06/15/17 17:02 Temperature 97.4 F L Pulse Rate 75 Respiratory 16 Rate Blood Pressure 152/75 O2 Sat by Pulse 95 Oximetry Medical Decision Making - Medical Decision Making 72-year-old male presented for abdominal pain. Patient's pain is ongoing and felt slightly worse today. Patient's laboratory, x-ray within normal limits. Patient is subtherapeutic on his Coumadin. Patient will be given 7.5 mg of Coumadin now. Patient be discharged to police custody. Return parameters were discussed. - Lab Data Result diagrams: 06/15/17 17:45 06/15/17 17:45 Lab Results 06/15/17 06/15/17 06/15/17 Range/Units 17:34 17:45 17:45 WBC 8.2 (3.8-10.6) k/uL RBC 5.25 (4.30-5.90) m/uL Hgb 15.2 (13.0-17.5) gm/dL Hct 46.1 (39.0-53.0) % MCV 87.8 (80.0-100.0) fL MCH 29.0 (25.0-35.0) pg MCHC 33.0 (31.0-37.0) g/dL RDW 15.1 (11.5-15.5) % Plt Count 471 H (150-450) k/uL Neutrophils % 68 % Lymphocytes % 21 % Monocytes % 7 % Eosinophils % 1 % Basophils % 1 % Neutrophils # 5.5 (1.3-7.7) k/uL Lymphocytes # 1.7 (1.0-4.8) k/uL Monocytes # 0.6 (0-1.0) k/uL Eosinophils # 0.1 (0-0.7) k/uL Basophils # 0.0 (0-0.2) k/uL PT (9.0-12.0) sec INR (<1.2) APTT (22.0-30.0) sec Sodium 139 (137-145) mmol/L Potassium 4.9 (3.5-5.1) mmol/L Chloride 105 (98-107) mmol/L Carbon Dioxide 21 L (22-30) mmol/L Anion Gap 13 mmol/L BUN 19 (9-20) mg/dL Creatinine 1.05 (0.66-1.25) mg/dL Est GFR (MDRD) Af Amer >60 (>60 ml/min/1.73 sqM) Est GFR (MDRD) Non-Af >60 (>60 ml/min/1.73 sqM) Glucose 86 (74-99) mg/dL Calcium 9.4 (8.4-10.2) mg/dL Total Bilirubin 0.3 (0.2-1.3) mg/dL AST 25 (17-59) U/L ALT 51 (21-72) U/L Alkaline Phosphatase 95 (38-126) U/L Total Protein 7.2 (6.3-8.2) g/dL Albumin 3.9 (3.5-5.0) g/dL Amylase 88 (30-110) U/L Lipase 142 (23-300) U/L Urine Color Yellow Urine Appearance Clear (Clear) Urine pH 5.5 (5.0-8.0) Ur Specific [place] 1.018 (1.001-1.035) Urine Protein Trace H (Negative) Urine Glucose (UA) Negative (Negative) Urine Ketones Negative (Negative) Urine Blood Negative (Negative) Urine Nitrite Negative (Negative) Urine Bilirubin Negative (Negative) Urine Urobilinogen <2.0 (<2.0) mg/dL Ur Leukocyte Esterase Negative (Negative) 06/15/17 Range/Units 17:45 WBC (3.8-10.6) k/uL RBC (4.30-5.90) m/uL Hgb (13.0-17.5) gm/dL Hct (39.0-53.0) % MCV (80.0-100.0) fL MCH (25.0-35.0) pg MCHC (31.0-37.0) g/dL RDW (11.5-15.5) % Plt Count (150-450) k/uL Neutrophils % % Lymphocytes % % Monocytes % % Eosinophils % % Basophils % % Neutrophils # (1.3-7.7) k/uL Lymphocytes # (1.0-4.8) k/uL Monocytes # (0-1.0) k/uL Eosinophils # (0-0.7) k/uL Basophils # (0-0.2) k/uL PT 13.1 H (9.0-12.0) sec INR 1.3 H (<1.2) APTT 26.1 (22.0-30.0) sec Sodium (137-145) mmol/L Potassium (3.5-5.1) mmol/L Chloride (98-107) mmol/L Carbon Dioxide (22-30) mmol/L Anion Gap mmol/L BUN (9-20) mg/dL Creatinine (0.66-1.25) mg/dL Est GFR (MDRD) Af Amer (>60 ml/min/1.73 sqM) Est GFR (MDRD) Non-Af (>60 ml/min/1.73 sqM) Glucose (74-99) mg/dL Calcium (8.4-10.2) mg/dL Total Bilirubin (0.2-1.3) mg/dL AST (17-59) U/L ALT (21-72) U/L Alkaline Phosphatase (38-126) U/L Total Protein (6.3-8.2) g/dL Albumin (3.5-5.0) g/dL Amylase (30-110) U/L Lipase (23-300) U/L Urine Color Urine Appearance (Clear) Urine pH (5.0-8.0) Ur Specific [place] (1.001-1.035) Urine Protein (Negative) Urine Glucose (UA) (Negative) Urine Ketones (Negative) Urine Blood (Negative) Urine Nitrite (Negative) Urine Bilirubin (Negative) Urine Urobilinogen (<2.0) mg/dL Ur Leukocyte Esterase (Negative) Disposition Clinical Impression: Abdominal pain, Subtherapeutic anticoagulation Disposition: HOME SELF-CARE Condition: Stable Instructions: Abdominal Pain (ED) Additional Instructions: Please return to the Emergency Department if symptoms worsen or any other concerns. Referrals: Reed Bull MD [Primary Care Provider] - 1-2 days Time of Disposition: 18:47
[2017-06-15 17:49] LABS: Appearance,Urine Clear (Clear); Bilirubin,Urine Negative (Negative); Glucose,Urine (UA) Negative (Negative); Ketones,Urine Negative (Negative); Leukocyte Esterase,Urine Negative (Negative); Nitrite,Urine Negative (Negative); PH, Urine 5.5 (5.0-8.0); Protein,Urine Trace (Negative); Specific Gravity,Urine 1.018 (1.001-1.035); UA Billing (MACRO vs. MICRO) CHEM; Urobilinogen,Urine <2.0 mg/dL (<2.0)
[2017-06-15 18:05] LABS: Basophils % (A) 1 %; CH 30.2; CHCM 34.6; Eosinophils # (A) 0.1 k/uL (0-0.7); Eosinophils % (A) 1 %; HCT 46.1 % (39.0-53.0); HDW 3.07; HGB 15.2 gm/dL (13.0-17.5); Luc # (Auto) 0.27; Luc % (Auto) 3; Lymphocytes # (A) 1.7 k/uL (1.0-4.8); Lymphocytes % (A) 21 %; MCV 87.8 fL (80.0-100.0); Mean Platelet Volume 7.6; Monocytes # (A) 0.6 k/uL (0-1.0); Monocytes % (A) 7 %; Neutrophils # (A) 5.5 k/uL (1.3-7.7); Neutrophils % (A) 68 %; RBC 5.25 m/uL (4.30-5.90); RDW 15.1 % (11.5-15.5); WBC 8.2 k/uL (3.8-10.6); WBC (Perox) 8.06
--- NOTE | 2017-06-15 18:08 | XR ---
EXAMINATION TYPE: XR KUB DATE OF EXAM: 06/15/2017 COMPARISON: 06/16/2015 HISTORY: Abdominal pain TECHNIQUE: 2 views FINDINGS: There is no sign of intestinal obstruction or pneumoperitoneum. Fecal pattern is normal. There is lo wer lumbar spine fusion surgery noted. There are no pathologic calcifications over the kidneys. IMPRESSION: Nonacute abdomen. No adverse change compared to old exam.
[2017-06-15 18:19] LABS: INR 1.3 (<1.2); Partial Thromboplastin Time 26.1 sec (22.0-30.0); Prothrombin Time 13.1 sec (9.0-12.0)
[2017-06-15 18:25] LABS: ALT 51 U/L (21-72); AST 25 U/L (17-59); Alkaline Phosphatase 95 U/L (38-126); Amylase 88 U/L (30-110); Anion Gap 13 mmol/L; Blood Urea Nitrogen 19 mg/dL (9-20); Calcium 9.4 mg/dL (8.4-10.2); Carbon Dioxide 21 mmol/L (22-30); Chloride 105 mmol/L (98-107); Glucose 86 mg/dL (74-99); Non-African American GFR(MDRD) >60 (>60 ml/min/1.73 sqM); Potassium 4.9 mmol/L (3.5-5.1); Sodium 139 mmol/L (137-145); Total Bilirubin 0.3 mg/dL (0.2-1.3); Total Protein 7.2 g/dL (6.3-8.2)
[2017-06-15] MEDS ORDERED: WARFARIN 7.5 MG TAB PO STA (18:46)
[2017-06-15 18:59] VITALS: BP 134/89; PULSE 74; RESP 18; TEMP 98.1
== END 2017-06-15 19:00 | disposition home or self-care (01) ==
LOC: EC 16:57
DX: K42.9 Umbilical hernia without obstruction or gangrene (principal); Z79.01 Long term (current) use of anticoagulants; I25.10 Atherosclerotic heart disease of native coronary artery without angina pectoris; I11.0 Hypertensive heart disease with heart failure; I50.9 Heart failure, unspecified; Z79.899 Other long term (current) drug therapy; Z86.73 Personal history of transient ischemic attack (TIA), and cerebral infarction without residual deficits; Z86.711 Personal history of pulmonary embolism; Z91.09 Other allergy status, other than to drugs and biological substances; Z86.79 Personal history of other diseases of the circulatory system
CPT/HCPCS: 36415; 74000; 80053; 81003; 82150; 83690; 85025; 85610; 85730; 96360; 99284

== ENCOUNTER 2017-06-16 19:29 | Emergency (ER) | payer MEDICARE ==
[2017-06-16 19:35] VITALS: RESP 20; TEMP 97.4
[2017-06-16] MEDS ORDERED: KETOROLAC 30 MG/ML 1 ML VIAL IVP STA (20:00)
[2017-06-16] MEDS ORDERED: ASPIRIN 81 MG CHEW PO STA (20:00)
[2017-06-16] MEDS ORDERED: METOCLOPRAMIDE 5 MG/ML 2 ML VIAL IVP STA (20:01)
[2017-06-16] MEDS ORDERED: DEXAMETHASONE SOD PHOSPHATE 10 MG/ML 1 ML VIAL IV STA (20:01)
--- NOTE | 2017-06-16 20:06 | ED ---
Chest Pain HPI - General Chief Complaint: Chest Pain Stated Complaint: headache/chest pain Time Seen by Provider: 06/16/17 19:34 Source: patient Mode of arrival: EMS Limitations: no limitations - History of Present Illness Initial Comments: This 72-year-old white male presents with a complaint of some left sided chest pain which she describes as a pressure or tightness. He states that it occurred several times over the past 2 days. He states that it is not present at this time. He does state that this occurs on a regular basis. He is complaining of a headache consistent with previous migraines. He has some slight visual abnormalities as well. This is a pressure throughout his head. He denies any shortness of breath cough or fevers. He denies any leg pain or swelling. He does have a history of previous DVT. He does have a significant cardiac history with previous CABG and previous cardiac stenting. He was seen yesterday in the emergency department for abdominal pain but this is no longer bothering him. No other identifiable complaints or modifying factors. He is brought in under the custody of the residential. - Related Data Home Medications Medication Instructions Recorded Confirmed Isosorbide Mononitrate ER [Imdur] 30 mg PO DAILY@1200 05/25/17 06/16/17 Previous Rx's Medication Instructions Recorded Metoprolol Tartrate [Lopressor] 50 mg PO BID #60 tab 06/10/17 Warfarin [Coumadin] 5 mg PO DAILY@1800 #30 tab 06/10/17 Isosorbide Mononitrate ER [Imdur] 30 mg PO DAILY #30 tab 06/16/17 Metoprolol Tartrate [Lopressor] 50 mg PO BID #60 tab 06/16/17 Nitroglycerin Sl Tabs [Nitrostat] 0.4 mg SUBLINGUAL Q5M PRN #25 tab 06/16/17 Warfarin [Coumadin] 5 mg PO DAILY #30 tab 06/16/17 Allergies Allergy/AdvReac Type Severity Reaction Status Date / Time adhesive Allergy Rash/Hives Verified 06/16/17 19:54 Review of Systems ROS Statement: Those systems with pertinent positive or pertinent negative responses have been documented in the HPI. ROS Other: All systems not noted in ROS Statement are negative. Past Medical History Past Medical History: Atrial Fibrillation, Coronary Artery Disease (CAD), Chest Pain / Angina, Heart Failure, COPD, CVA/TIA, Dementia, GERD/Reflux, GI Bleed, Hyperlipidemia, Hypertension, Liver Disease, Memory Impairment, Myocardial Infarction ([place]), Renal Disease, Skin Disorder, Sleep Apnea/CPAP/BIPAP, Syncope Additional Past Medical History / Comment(s): coronary artery disease with multivessel involvement status post three-vessel bypass surgery, PCI/stents, previous myocardial infarctions, previous paroxysmal atrial fibrillation, CVA in 2012 (L sided weakness), along with previous TIAs, nephrolithiasis, degenerative arthritis, chronic back pain, hemorrhoids, 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 diff colitis occurred postoperatively forced the patient was hospitalized in June 2015. Last Myocardial Infarction Date:: 2014 History of Any Multi-Drug Resistant Organisms: MRSA Date of last positivie culture/infection: 02-02-12 MDRO Source:: Unknown Past Surgical History: Back Surgery, Coronary Bypass/CABG, Heart Catheterization , Heart Catheterization With Stent, Orthopedic Surgery Additional Past Surgical History / Comment(s): BILATERAL CAROTID ENDARTERECTOMIES, HX OF PREVIOUS HEART CATHS WITH STENTS AND LAST STENT 03/2015 , EGD X3, ESOPHAGEAL DILATION X5, PLASTIC CAP LEFT ELBOW, URETHRAL STRICTURE DILATION., CABG (3 V), colonoscopy Past Anesthesia/Blood Transfusion Reactions: No Reported Reaction Additional Past Anesthesia/Blood Transfusion Reaction / Comment(s): Pt states he has no problem with anesthesia, old medical records indicate post op muscle weakness and slow to wake up. Pt has never recieved blood to his knowledge. Date of Last Stent Placement:: 03/22/2015 Past Psychological History: Anxiety, Depression Smoking Status: Never smoker Past Alcohol Use History: None Reported Past Drug Use History: None Reported - Past Family History Father Family Medical History: Deep Vein Thrombosis (DVT), Myocardial Infarction ([place]) Additional Family Medical History / Comment(s): Father of DVT Mother Family Medical History: Cancer Additional Family Medical History / Comment(s): Mother of jaw bone cancer. General Exam - General Exam Comments Initial Comments: GENERAL: The patient is well nourished and well hydrated. VITAL SIGNS: Heart rate, blood pressure, respiratory rate reviewed as recorded in nurse's notes. EYES: Pupils are round and reactive. Extraocular movements are intact. No conjunctival / lid redness or swelling. ENT: No external evidence of injury, swelling, or ecchymosis. Airway is patent. Throat is clear. NECK: Nontender. No swelling or evidence of injury. No subcutaneous emphysema. Trachea is midline. No thyroid mass. HEART: Regular rate and rhythm. Good peripheral pulses. LUNGS/CHEST: Breath sounds clear and equal bilaterally. No rales, rhonchi, or wheezes. No ecchymosis, subcutaneous emphysema, or tenderness. ABDOMEN: Abdomen soft without tenderness. No palpable masses or organomegaly. No peritoneal signs. No abdominal wall swelling or ecchymosis. EXTREMITIES: No extremity tenderness. Normal muscle tone and function. No thoracolumbar tenderness. NEUROLOGIC: Sensation is grossly intact. Cranial nerve exam reveals face is symmetrical, tongue is midline, speech is clear. SKIN: No abrasions or ecchymosis is noted. No induration or masses noted. PSYCHIATRIC: Alert and oriented. Appropriate behavior and judgment. Limitations: no limitations Course Vital Signs 06/16/17 19:31 Temperature 97.4 F L Pulse Rate 83 Respiratory 20 Rate Blood Pressure 162/81 O2 Sat by Pulse 96 Oximetry Chest Pain MDM - MDM The patient was seen and examined. All diagnostics were reviewed. EKG shows a normal sinus rhythm at a rate of 84. There is no acute ST-T wave changes identified. The TX interval is 148, QRS duration is 92, and the QTc interval is 432. IV is established and he is given some Solu-Medrol, Decadron, and Reglan for his migraine. He is also given an aspirin. He is feeling remarkably improved on recheck. There is no further headache. It is felt that his headache is likely due to a migraine. His laboratory is unremarkable except for a subtherapeutic INR. The computed tomography scan of the brain shows an old infarct but no acute process. The chest x-ray is negative. It is felt as though he has been having some intermittent chest pains for quite some time and appears that this is likely due to stable angina. It is the same type of pain that he gets on a regular basis and was resolved with sublingual nitroglycerin per EMS. He is not currently getting his medications at the residential and it is felt as though they should be represcribed and I will do so. It is also felt as though he likely has not had his Coumadin and therefore he is subtherapeutic on his INR currently. He is given a dose of his Coumadin tonight and his medications will be refilled. He'll also be prescribed sublingual nitroglycerin in case his chest pain does recur. Disposition Clinical Impression: Chest pain, Migraine, Hypertension, Stable angina Disposition: HOME SELF-CARE Condition: Good Instructions: Chest Pain (ED), Migraine Headache (ED) Additional Instructions: We recommend that you follow-up with her back line cook within the next week and return if her symptoms do worsen. Prescriptions: Isosorbide Mononitrate ER [Imdur] 30 mg PO DAILY #30 tab Metoprolol Tartrate [Lopressor] 50 mg PO BID #60 tab Nitroglycerin Sl Tabs [Nitrostat] 0.4 mg SUBLINGUAL Q5M PRN #25 tab PRN Reason: Chest Pain Warfarin [Coumadin] 5 mg PO DAILY #30 tab Time of Disposition: 21:51
--- NOTE | 2017-06-16 20:45 | XR ---
EXAMINATION TYPE: XR chest 2V DATE OF EXAM: 06/16/2017 COMPARISON: 06/06/2017 HISTORY: Short of breath TECHNIQUE: Frontal and lateral views of the chest are obtained. FINDINGS: Heart is normal. Lungs are clear of consolidation. There are sternal wires. There are ches t leads. There is no evidence of pleural effusion. Bony thorax is intact. There is no definite pleura l effusion. IMPRESSION: No active cardiopulmonary disease. There is improved aeration of the lung bases compared to last exam..
[2017-06-16 20:51] LABS: Basophils % (A) 1 %; CH 30.4; CHCM 34.7; Eosinophils # (A) 0.1 k/uL (0-0.7); Eosinophils % (A) 2 %; HCT 46.7 % (39.0-53.0); HDW 2.98; HGB 15.7 gm/dL (13.0-17.5); Luc # (Auto) 0.15; Luc % (Auto) 2; Lymphocytes % (A) 32 %; MCH 29.4 pg (25.0-35.0); MCHC 33.5 g/dL (31.0-37.0); MCV 87.8 fL (80.0-100.0); Mean Platelet Volume 7.7; Monocytes # (A) 0.5 k/uL (0-1.0); Monocytes % (A) 8 %; Neutrophils # (A) 3.5 k/uL (1.3-7.7); Neutrophils % (A) 55 %; RBC 5.32 m/uL (4.30-5.90); RDW 15.3 % (11.5-15.5); WBC 6.4 k/uL (3.8-10.6); WBC (Perox) 6.16
[2017-06-16 20:56] LABS: ALT 48 U/L (21-72); AST 26 U/L (17-59); Alkaline Phosphatase 94 U/L (38-126); Anion Gap 12 mmol/L; Blood Urea Nitrogen 17 mg/dL (9-20); Calcium 9.2 mg/dL (8.4-10.2); Carbon Dioxide 22 mmol/L (22-30); Chloride 106 mmol/L (98-107); Glucose 78 mg/dL (74-99); Magnesium 1.7 mg/dL (1.6-2.3); Non-African American GFR(MDRD) >60 (>60 ml/min/1.73 sqM); Potassium 4.6 mmol/L (3.5-5.1); Sodium 140 mmol/L (137-145); Total Bilirubin 0.5 mg/dL (0.2-1.3); Total Protein 7.2 g/dL (6.3-8.2)
[2017-06-16 20:59] LABS: INR 1.4 (<1.2); Partial Thromboplastin Time 25.6 sec (22.0-30.0); Prothrombin Time 13.6 sec (9.0-12.0)
--- NOTE | 2017-06-16 21:07 | CT ---
EXAMINATION TYPE: CT brain wo con DATE OF EXAM: 06/16/2017 COMPARISON: 05/25/2017 HISTORY: Headache. CT DLP: 1103 mGycm Automated exposure control for dose reduction was used. FINDINGS: There is a 4 x 5 cm area of hypodensity in the left posterior frontal lobe consistent with old articl e infarct. There is no mass effect nor midline shift. There is no sign of intracranial hemorrhage. Th ere is cerebral cortical atrophy. The calvarium is intact. IMPRESSION: OLD LEFT FRONTAL LOBE CORTICAL INFARCT. NO ACUTE INTRACRANIAL ABNORMALITY. NO CHANGE COMPARED TO OLD EXAM. MILD CHRONIC SMALL VESSEL ISCHEMIA.
[2017-06-16 21:18] LABS: Creatine Kinase 86 U/L (55-170)
[2017-06-16 21:31] LABS: Creatine Kinase MB 1.2 ng/mL (0.0-2.4); Troponin I <0.012 ng/mL (0.000-0.034)
[2017-06-16] MEDS ORDERED: WARFARIN 5 MG TAB PO STA (21:53)
[2017-06-16 21:57] VITALS: BP 162/82; PULSE 89
== END 2017-06-16 22:07 | disposition home or self-care (01) ==
LOC: EC 19:29
DX: R07.9 Chest pain, unspecified (principal); G43.909 Migraine, unspecified, not intractable, without status migrainosus; I25.118 Atherosclerotic heart disease of native coronary artery with other forms of angina pectoris; I11.0 Hypertensive heart disease with heart failure; I50.32 Chronic diastolic (congestive) heart failure; I25.2 Old myocardial infarction; I69.354 Hemiplegia and hemiparesis following cerebral infarction affecting left non-dominant side; Z79.899 Other long term (current) drug therapy; Z79.01 Long term (current) use of anticoagulants; Z95.1 Presence of aortocoronary bypass graft; Z95.5 Presence of coronary angioplasty implant and graft; Z91.048 Other nonmedicinal substance allergy status; Z86.14 Personal history of Methicillin resistant Staphylococcus aureus infection; Z86.718 Personal history of other venous thrombosis and embolism
CPT/HCPCS: 36415; 80053; 82550; 82553; 83735; 84484; 85025; 85610; 85730; 71020; 70450; 99285; 96374; 96375; J1100; J2765; J1885